=== PATIENT | male | born 1960 | race Caucasian/White ===

== ENCOUNTER → 2018-08-02 14:30 | Outpatient (CLI) | payer BC, SELFPAY ==
--- NOTE | 2018-08-02 14:41 | XR_ITS ---
XR chest 2V HISTORY: ITS.REASON: cp ORDERING PHYSICIAN: Gregory Najera MD PATIENT AGE: 58 years COMPARISON: 02/22/2013 FINDINGS: The cardiomediastinal silhouette and pulmonary vascularity are within normal limits. There is evidence of old granulomatous disease. No lobar consolidation or collapse. There is an old right eighth rib fracture.. IMPRESSION: No acute finding
== END ==
PROVIDERS: PCP Nurse Practitioner; Visit Provider Internal Medicine
DX: R06.00 Dyspnea, unspecified (principal); R07.9 Chest pain, unspecified; R94.31 Abnormal electrocardiogram [ECG] [EKG]
CPT/HCPCS: 71046

== ENCOUNTER → 2018-08-16 07:00 | Outpatient (CLI) | payer BC, SELFPAY ==
--- NOTE | 2018-08-16 07:05 | CA_ITS ---
PROCEDURE: 2-D M-mode and color Doppler study INDICATIONS FOR THE TEST: Chest pain+ COPD Heart Murmur Tobacco Smokingex Palpitations Fatigue+ Syncope Edema Hypertension Diabetes Mellitus Rheumatic Fever SOB+DOWNS Obesity Hyperlipidemia Family History HD+ Additional History Abn EKG PATIENT INFORMATION HEIGHT: 71 WEIGHT: 188 GENDER: Male B/P: 144/85 2-D/M-MODE INTERPRETATION: 2-D MEASUREMENTS OBSERVED VALUES IN CMS Right Ventricular Dimension (RVDd) 1.5 Interventricular Septum (Thickness)(IVsd) 0.6 Left Ventricular Internal Dimensions(LVIDd) 5.4 Left Ventricular Posterior Wall (Thickness)(LVPWd) 0.6 Aortic Root 3.2 Aortic Cusp Separation 2.2 Left Atrial Dimensions (LAD) 3.1 2D 1. Left atrium is normal size, left ventricle is normal size, there is no concentric left ventricular hypertrophy, there is severely reduced left ventricular systolic function, visually estimated ejection fraction 30%, there is marked hypokinesis involving mid to distal septum, anterior, anteroapical apex and anterolateral wall. 2. The right atrium and right ventricle are normal size and contractility. 3. The aortic valve is minimally thickened and fibrosed. 4. The mitral and tricuspid valvular grossly normal. 5. The pulmonic valve is poorly present. 6. No significant pericardial effusion noted. DOPPLER INTERROGATION: Doppler interrogation of the aortic, mitral and tricuspid valvular presence of mild mitral and tricuspid regurgitation, tricuspid regurgitation jet velocity is inadequate for calculation of the right ventricular systolic pressure, grade 1 diastolic dysfunction seen without tissue Doppler evidence of raised left atrial pressure. CONCLUSION: 1. Normal left ventricular size, severely reduced left ventricular systolic function, visually estimated ejection fraction 30% with multiple segmental wall motion abnormality described above, grade 1 diastolic dysfunction seen without tissue Doppler evidence of raised left atrial pressure. 2. Mild mitral and tricuspid regurgitation. 3. No significant pericardial effusion noted.
--- NOTE | 2018-08-16 07:05 | NM_ITS ---
CARDIOLITE SPECT MYOCARDIAL PERFUSION LEXISCAN, REST AND STRESS: [facility] REVIEW QGS EF AND WALL MOTION EVALUATION: QPS - PERFUSION EVALUATION HISTORY: Chest pain, HTN, Family history DOSE: 10.88 mCi technetium 99m mibi intravenously at rest followed by 29.7 mCi technetium 99m mibi following the intravenous ministration of 0.4 mg of Lexiscan. Resting blood pressure is 121/73. Stress blood pressure 125/74. FINDINGS: Ejection fraction is calculated to be 43%. Stress images reveal severely decreased activity in the mid anterior apical wall and throughout the entire inferior wall. The only significant tracer uptake involves the lateral wall. Rest images reveal no significant change IMPRESSION: Extensive mid anterior apical septal and inferior myocardial infarction with no reversible ischemia accompanied by anterior apical and inferior hypokinesis. This is a high risk abnormal stress test
--- NOTE | 2018-08-16 07:17 | HMH.ITSHM ---
Current Home Medications as stated by this patient Raffy Cheney or u.s. representative. []TERAZOSIN POTASSIUM LOSARTAN HYDROCHLOROTHIAZIDE VITAMIN D3
== END ==
PROVIDERS: PCP Nurse Practitioner; Visit Provider Urology
DX: R06.00 Dyspnea, unspecified (principal); R07.9 Chest pain, unspecified; R94.31 Abnormal electrocardiogram [ECG] [EKG]
CPT/HCPCS: 78452; 93017; 93306; A9502; J2785

== ENCOUNTER → 2018-09-13 12:49 | Outpatient (CLI) | payer BC, SELFPAY ==
[2018-09-13 13:04] LABS: Basophils % 0.5 % (0.1-2.0); Eosinophils # 0.1 K/mm3 (0.0-0.4); Hematocrit 40.5 % (42.0-52.0); Hemoglobin 13.9 g/dL (14.1-18.0); Lymphocytes # 1.3 K/mm3 (0.7-4.5); Lymphocytes % 17.8 % (10-50); Mean Corpuscular HGB Conc 34.2 g/dL (31.8-35.4); Mean Corpuscular Hemoglobin 33.1 pg (27.0-31.2); Mean Corpuscular Volume 96.6 fl (80-94); Mean Platelet Volume 7.8 fl (7.4-10.4); Monocytes # 0.5 K/mm3 (0.1-1.0); Monocytes % 7.1 % (1.7-9.3); Neutrophils # 5.2 K/mm3 (1.8-7.8); Neutrophils % 73.6 % (37.0-80.0); Platelet Count 191 K/mm3 (142-424); Red Blood Count 4.19 M/mm3 (4.60-6.20); Red Cell Distribution Width 13.5 % (11.5-17.5)
[2018-09-13 14:25] LABS: Anion Gap 12.6 mEq/L (5-15); Blood Urea Nitrogen 13 mg/dL (7-18); Calcium 9.1 mg/dL (8.5-10.1); Carbon Dioxide 27 mmol/L (21.0-32.0); Chloride 98 mmol/L (98-107); Creatinine,Serum 0.91 mg/dL (0.70-1.30); Estimated Glomerular Filt Rate 86 ml/min (>60); GFR (African American) 104 ML/MIN (>60); Glucose 100 mg/dL (74-106); Potassium 3.6 mmoL/L (3.5-5.1); Sodium 134 mmol/L (136-145)
== END ==
PROVIDERS: Visit Provider Internal Medicine
DX: Z95.5 Presence of coronary angioplasty implant and graft (principal)
CPT/HCPCS: 36415; 80048; 85025

== ENCOUNTER 2018-09-14 14:35 | Outpatient (RCR) | payer BC, SELFPAY | END 2018-11-15 13:51 | disposition home or self-care (01) | LOC: PT 14:35 | PROVIDERS: Visit Provider Internal Medicine | DX: Z95.5 Presence of coronary angioplasty implant and graft (principal) | CPT/HCPCS: 93798 ==

== ENCOUNTER → 2018-10-15 13:35 | Outpatient (CLI) | payer BC, SELFPAY | PROVIDERS: PCP Nurse Practitioner; Visit Provider Physician Assistant | DX: R07.9 Chest pain, unspecified (principal); R06.00 Dyspnea, unspecified; R94.31 Abnormal electrocardiogram [ECG] [EKG] | CPT/HCPCS: 93306 ==

== ENCOUNTER → 2018-11-22 09:40 | Outpatient (CLI) | payer BC, SELFPAY ==
[2018-11-22 10:53] LABS: Anion Gap 16.8 mEq/L (5-15); Blood Urea Nitrogen 7 mg/dL (7-18); Calcium 8.7 mg/dL (8.5-10.1); Carbon Dioxide 25 mmol/L (21.0-32.0); Chloride 101 mmol/L (98-107); Creatinine,Serum 0.77 mg/dL (0.70-1.30); Estimated Glomerular Filt Rate 104 ml/min (>60); GFR (African American) 126 ML/MIN (>60); Glucose 93 mg/dL (74-106); Magnesium 2.1 mg/dL (1.4-2.2); Potassium 3.8 mmoL/L (3.5-5.1); Sodium 139 mmol/L (136-145)
[2018-11-23 09:11] LABS: Vitamin B12 297 pg/mL (232-1245)
[2018-11-25 06:10] LABS: Folate 4.1 ng/mL (>3.0)
== END ==
PROVIDERS: Visit Provider Physician Assistant
DX: I25.10 Atherosclerotic heart disease of native coronary artery without angina pectoris (principal); D53.9 Nutritional anemia, unspecified
CPT/HCPCS: 36415; 80048; 82607; 82746; 83735

== ENCOUNTER → 2018-12-03 09:47 | Outpatient (CLI) | payer BC, SELFPAY ==
--- NOTE | 2018-12-03 09:48 | CA_ITS ---
APPROVED REPORT EXAM: Comprehensive 2D, Doppler, and color-flow Echocardiogram Occup Therapist: Adela Hickey RT(R) Ht: 5 ft 11 in Wt: 181lbs BSA: 2.02 BP: 146/88 mmHg Indications: CP, Palpitations, Fatigue, HTN, SOB, Hyperlipidemia 2D Dimensions LVOT 2.10 cm (M/F) 1.5-2.5 M-Mode Dimensions RVDd 1.60 cm (0.9-2.6) LA Diam 3.10 cm (1.9-4.0) LVDd 5.40 cm (3.5-5.7) Ao Diam 3.60 cm (2.0-3.7) LVDs 4.60 cm (3.5-5.7) AV Cusp 2.40 cm (1.5-2.6) IVSd 0.60 cm (0.6-1.1) PWd 0.80 cm (0.6-1.1) EF (Teich) 31.00% FS 14.80% EDV (Teich) 141.00 mL ESV (Teich) 97.30 mL LV Diastology E/A Ratio 1.4 MED E' 9.16 (< 7 cm/sec) E'/MED E' Ratio 10.60 (>14) LAT E' 10.90 (<10 cm/sec) E/LAT E' Ratio 8.90 (>14) Mitral Valve MV E Max Clay. 96.70 (40-130 cm/s) MV A Velocity 67.10 (40-130 cm/s) E/A Ratio 1.40 Left Ventricle Left atrium is mildly enlarged, left ventricle is mildly dilated, there is mild concentric left ventricular hypertrophy, severely reduced left ventricular systolic function, visually estimated ejection fraction of 20 to 25%, there is marked hypo-to akinesis involving the mid to distal septum, anterior, anterior apical apical anterolateral wall. Grade 1 diastolic dysfunction seen without tissue Doppler evidence of raise left atrial pressure. Right Ventricle Right atrium and right ventricular normal size and contractility. Aortic Valve Aortic valve is minimally thickened and fibrosed. Mitral Valve Mitral valve is grossly normal, there is mild mitral regurgitation. Tricuspid Valve Tricuspid valve is grossly normal, there is mild tricuspid regurgitation. Pulmonic Valve Pulmonic valve is poorly visualized. Great Vessels Aortic root is normal size. Pericardium No significant pericardial effusion noted. Conclusion 1. Mildly enlarged left atrium, mildly dilated left ventricle, visually estimated ejection fraction of 20 to 25% with multiple segmental wall motion abnormality described above, grade 1 diastolic dysfunction seen without tissue Doppler evidence of raise left atrial pressure. 2. Mild mitral and tricuspid regurgitation 3. No significant pericardial effusion noted. Electronically signed by : Inder Mitchell, 12/03/2018 11:13:46
== END ==
PROVIDERS: PCP Nurse Practitioner; Visit Provider Nurse Practitioner Family
DX: I11.9 Hypertensive heart disease without heart failure (principal); I25.110 Atherosclerotic heart disease of native coronary artery with unstable angina pectoris; I50.22 Chronic systolic (congestive) heart failure; I51.9 Heart disease, unspecified; R06.02 Shortness of breath; R53.83 Other fatigue; R94.31 Abnormal electrocardiogram [ECG] [EKG]; Z82.49 Family history of ischemic heart disease and other diseases of the circulatory system
CPT/HCPCS: 93306

== ENCOUNTER → 2019-03-08 10:37 | Outpatient (CLI) | payer OTHER, SELFPAY ==
--- NOTE | 2019-03-08 10:44 | CA_ITS ---
APPROVED REPORT EXAM: Comprehensive 2D, Doppler, and color-flow Echocardiogram Population Health Coach: Adela Hickey, RT(R) Ht: 5 ft 11 in Wt: 178lbs BSA: 2.01 BP: 117/79 mmHg Indications: CAD, Cardiomyopathy,AICD, EF 20-25% 12/03/18 2D Dimensions LVOT 2.12 cm (M/F) 1.5-2.5 M-Mode Dimensions RVDd 2.69 cm (0.9-2.6) LVDd 4.94 cm (3.5-5.7) LVDs 3.83 cm (3.5-5.7) IVSd 0.83 cm (0.6-1.1) PWd 0.97 cm (0.6-1.1) EF (Teich) 45.10% FS 22.50% EDV (Teich) 115.00 mL ESV (Teich) 63.10 mL LV Diastology E/A Ratio 0.60 Mitral Valve MV A Velocity 78.00 (40-130 cm/s) Left Ventricle Left atrium is mildly enlarged, left ventricle is normal size, mild concentric left ventricular hypertrophy, visually estimated ejection fraction 30%, there is marked hypokinesis involving mid to distal septum, anterior, anterior apical and apical wall. Right Ventricle Right atrium and right ventricular normal size and contractility, there is a pacemaker lead seen the right ventricle. Aortic Valve Aortic valve is minimally thickened and fibrosed, there is no aortic stenosis, there is no aortic insufficiency. Mitral Valve Mitral valve is grossly normal, there is mild mitral regurgitation. Tricuspid Valve Tricuspid valve is grossly normal, there is mild tricuspid regurgitation. Tricuspid regurgitation jet velocity is inadequate for calculation of the right ventricular systolic pressure. Pulmonic Valve Pulmonic valve is poorly visualized. Great Vessels Aortic root is normal size. Pericardium No significant pericardial effusion noted. Conclusion 1. Mildly enlarged left atrium, normal left ventricular size, mild concentric left ventricular hypertrophy, visually estimated ejection fraction 30%, with segmental wall motion abnormality described above. Grade 1 diastolic dysfunction seen without tissue Doppler evidence of raise left atrial pressure. 2. Mild mitral and tricuspid regurgitation. 3. No significant pericardial effusion noted. Electronically signed by : Inder Mitchell, 03/08/2019 20:47:04
== END ==
PROVIDERS: PCP Nurse Practitioner; Visit Provider Urology
DX: I25.10 Atherosclerotic heart disease of native coronary artery without angina pectoris (principal); I25.5 Ischemic cardiomyopathy; Z95.810 Presence of automatic (implantable) cardiac defibrillator
CPT/HCPCS: 93306

== ENCOUNTER → 2019-03-22 11:08 | Outpatient (CLI) | payer OTHER, SELFPAY ==
[2019-03-22 13:52] LABS: Anion Gap 13.9 mEq/L (5-15); Blood Urea Nitrogen 8 mg/dL (7-18); Calcium 8.9 mg/dL (8.5-10.1); Carbon Dioxide 27 mmol/L (21.0-32.0); Chloride 101 mmol/L (98-107); Creatinine,Serum 0.82 mg/dL (0.70-1.30); Estimated Glomerular Filt Rate 96 ml/min (>60); GFR (African American) 117 ML/MIN (>60); Glucose 93 mg/dL (74-106); Potassium 4.9 mmoL/L (3.5-5.1); Sodium 137 mmol/L (136-145)
== END ==
PROVIDERS: Visit Provider Physician Assistant
DX: R06.00 Dyspnea, unspecified (principal)
CPT/HCPCS: 36415; 80048

== ENCOUNTER → 2019-04-04 10:23 | Outpatient (CLI) | payer OTHER, SELFPAY ==
[2019-04-04 18:41] LABS: Anion Gap 16.8 mEq/L (5-15); Blood Urea Nitrogen 9 mg/dL (7-18); Calcium 9.4 mg/dL (8.5-10.1); Carbon Dioxide 27 mmol/L (21.0-32.0); Chloride 101 mmol/L (98-107); Estimated Glomerular Filt Rate 77 ml/min (>60); GFR (African American) 93 ML/MIN (>60); Glucose 132 mg/dL (74-106); Potassium 3.8 mmoL/L (3.5-5.1); Sodium 141 mmol/L (137-145)
== END ==
PROVIDERS: Visit Provider Physician Assistant
DX: I25.10 Atherosclerotic heart disease of native coronary artery without angina pectoris (principal); R06.02 Shortness of breath
CPT/HCPCS: 36415; 80048

== ENCOUNTER → 2019-04-19 11:36 | Outpatient (CLI) | payer OTHER, SELFPAY ==
--- NOTE | 2019-04-19 11:39 | XR_ITS ---
PROCEDURE: XR CHEST 2V CLINICAL HISTORY: breast tenderness. Heart disease COMPARISON: CXR1 CHEST-PORTABLE from 02/22/2013 XR CHEST PORTABLE from 12/15/2018 FINDINGS: AICD device is present from left subclavian approach in good position. Normal heart size. Coronary artery stent is present Old granulomatous disease. No lobar consolidation or collapse. No acute bony abnormalities. IMPRESSION: No change with no acute finding Dictated by: Sam Gurrola MD 04/19/2019 12:11 Electronically signed by Sam Gurrola MD in [place] 04/19/2019 12:11
== END ==
PROVIDERS: PCP Family Medicine; Visit Provider Urology
DX: I25.10 Atherosclerotic heart disease of native coronary artery without angina pectoris (principal); I25.5 Ischemic cardiomyopathy; I50.20 Unspecified systolic (congestive) heart failure; I50.22 Chronic systolic (congestive) heart failure; N64.4 Mastodynia; Z95.810 Presence of automatic (implantable) cardiac defibrillator
CPT/HCPCS: 71046

== ENCOUNTER → 2019-04-26 10:45 | Outpatient (CLI) | payer OTHER, SELFPAY ==
[2019-04-26 11:43] LABS: Blood Urea Nitrogen 7 mg/dl (9-20); Calcium 9.9 mg/dl (8.4-10.2); Carbon Dioxide 26 mmol/L (22.0-30.0); Chloride 96 mmol/L (98-107); Estimated Glomerular Filt Rate 116 ml/min (>60); GFR (African American) 140 ML/MIN (>60); Glucose 100 mg/dl (74-100); Sodium 133 mmol/L (136-145)
== END ==
PROVIDERS: Visit Provider Urology
DX: I25.10 Atherosclerotic heart disease of native coronary artery without angina pectoris; I25.5 Ischemic cardiomyopathy; I50.20 Unspecified systolic (congestive) heart failure
CPT/HCPCS: 36415; 80048

== ENCOUNTER → 2019-05-04 10:36 | Outpatient (CLI) | payer OTHER, SELFPAY ==
[2019-05-04 14:44] LABS: Anion Gap 15.4 mEq/L (5-15); Blood Urea Nitrogen 8 mg/dl (9-20); Calcium 9.5 mg/dl (8.4-10.2); Carbon Dioxide 28 mmol/L (22.0-30.0); Chloride 100 mmol/L (98-107); Estimated Glomerular Filt Rate 116 ml/min (>60); GFR (African American) 140 ML/MIN (>60); Glucose 97 mg/dl (74-100); Potassium 4.4 mmoL/L (3.5-5.1); Sodium 139 mmol/L (136-145)
== END ==
PROVIDERS: Visit Provider Urology
DX: E87.1 Hypo-osmolality and hyponatremia (principal)
CPT/HCPCS: 36415; 80048

== ENCOUNTER → 2021-01-11 11:22 | Outpatient (CLI) | payer BC, SELFPAY ==
--- NOTE | 2021-01-11 11:29 | XR_ITS ---
PROCEDURE: XR FOOT RT MIN 3V CLINICAL INDICATION: PAIN OF RT HEEL COMPARISON: No exams were available for comparison FINDINGS: No fracture or dislocation. No lytic or blastic change. There is normal mineralization. The joint spaces are well-preserved. No significant degenerative/arthritic changes. No erosive changes evident. Other findings:Generalized vascular calcification. IMPRESSION: No acute findings. Dictated by: Sam Gurrola MD 01/11/2021 14:58 Sam Gurrola MD in [place] 01/11/2021 14:58
--- NOTE | 2021-01-11 11:29 | XR_ITS ---
PROCEDURE: XR LUMBAR SPINE MIN 4V CLINICAL INDICATION: ACUTE LT SIDED LOW BACK PAIN W/O SCIATICA COMPARISON: CR LS5 LUMBAR SPINE 5 VIEWS from 01/02/2017 FINDINGS: No fracture or dislocation. No lytic or blastic change. There is normal mineralization. Mild degenerative disc disease at L4-5 with prominent anterior osteophytes at that level and smaller osteophytes at L2, L3, and L1. There is generalized vascular calcification. The SI joints have an unremarkable appearance. Other findings:None. IMPRESSION: Degenerative changes, no acute finding. Increasing size anterior osteophytes at L4-L5 compared to the previous exam Dictated by: Sam Gurrola MD 01/11/2021 14:57 Sam Gurrola MD in [place] 01/11/2021 14:57
== END ==
PROVIDERS: PCP Family Medicine; Visit Provider Nurse Practitioner Family
DX: M54.50 Low back pain, unspecified (principal); M79.671 Pain in right foot
CPT/HCPCS: 72110; 73630

== ENCOUNTER → 2021-03-18 09:10 | Outpatient (CLI) | payer MEDICARE, SELFPAY | PROVIDERS: Visit Provider Nurse Practitioner | DX: U07.1 COVID-19 (principal) | CPT/HCPCS: C9803; U0003; U0005 ==

== ENCOUNTER → 2021-05-10 16:20 | Outpatient (CLI) | payer MEDICARE, SELFPAY ==
[2021-05-10 17:05] LABS: Basophils # 0.1 K/mm3 (0-0.2); Basophils % 1.5 % (0.1-2.0); Eosinophils # 0.2 K/mm3 (0.0-0.4); Eosinophils % 2.5 % (0.1-12.0); Hematocrit 37.4 % (42.0-52.0); Hemoglobin 12.3 g/dL (14.1-18.0); Lymphocytes # 1.3 K/mm3 (0.7-4.5); Lymphocytes % 15.3 % (10-50); Mean Corpuscular HGB Conc 32.9 g/dL (31.8-35.4); Mean Corpuscular Hemoglobin 34.8 pg (27.0-31.2); Mean Corpuscular Volume 105.7 fl (80-94); Mean Platelet Volume 8.7 fl (7.4-10.4); Monocytes # 0.6 K/mm3 (0.1-1.0); Monocytes % 6.4 % (1.7-9.3); Neutrophils # 6.4 K/mm3 (1.8-7.8); Neutrophils % 74.3 % (37.0-80.0); Platelet Count 273 K/mm3 (142-424); Red Blood Count 3.54 M/mm3 (4.60-6.20); Red Cell Distribution Width 17.9 % (11.5-17.5); White Blood Count 8.6 K/mm3 (4.8-10.8)
[2021-05-10 17:54] LABS: Chloride 102 mmol/L (98-107); Potassium 3.9 mmoL/L (3.5-5.1); Sodium 138 mmol/L (136-145)
[2021-05-10 17:56] LABS: Alanine Aminotransferase 28 U/L (12-78); Aspartate Amino Transferase 31 U/L (17-59); Blood Urea Nitrogen 6 mg/dl (9-20); Estimated Glomerular Filt Rate 115 ml/min (>60); GFR (African American) 139 ML/MIN (>60)
[2021-05-10 17:57] LABS: Albumin Level 3.8 g/dl (3.5-5.0); Albumin/Globulin Ratio 1.3 (1.1-1.8); Alkaline Phosphatase 121 U/L (38-126); Bilirubin,Total 0.8 mg/dl (0.2-1.3); Calcium 8.4 mg/dl (8.4-10.2); Carbon Dioxide 27 mmol/L (22.0-30.0); Glucose 100 mg/dl (74-100); Total Protein,Serum 6.8 g/dl (6.3-8.2)
[2021-05-10 18:30] LABS: Ferritin 461 ng/ml (17.9-464)
== END ==
PROVIDERS: Visit Provider Nurse Practitioner Family
DX: D50.9 Iron deficiency anemia, unspecified (principal); I10 Essential (primary) hypertension
CPT/HCPCS: 36415; 80053; 82728; 85025

== ENCOUNTER → 2021-09-09 10:55 | Outpatient (CLI) | payer MEDICARE, SELFPAY ==
--- NOTE | 2021-09-09 10:59 | XR_ITS ---
FINAL REPORT CLINICAL HISTORY: ACUTE RIGHT SHOULDER PAIN. DECREASED ROM OF RIGHT SHOULDER, pain for 1 month FINDINGS: RIGHT SHOULDER: 3 views of the right shoulder were obtained. There is no acute fracture or dislocation. There is moderate acromioclavicular and mild glenohumeral degenerative change. There is no soft tissue abnormality. IMPRESSION: Degenerative change with no acute bony abnormality. Reviewed, Interpreted and Dictated by Edi Shaw III, MD Transcribed by Callie Foster Authenticated and [facility]
== END ==
PROVIDERS: PCP Nurse Practitioner Family; Visit Provider Nurse Practitioner Family
DX: M25.511 Pain in right shoulder (principal); M25.611 Stiffness of right shoulder, not elsewhere classified
CPT/HCPCS: 73030

== ENCOUNTER → 2022-09-15 14:33 | Outpatient (CLI) | payer MEDICARE, SELFPAY ==
--- NOTE | 2022-09-15 14:40 | XR_ITS ---
FINAL REPORT TECHNIQUE: Two views CLINICAL HISTORY: ACUTE COUGH,SOB COMPARISON: 12/15/2018 FINDINGS: No acute pulmonary density is present. Mediastinal contour is normal. Calcified granulomas are present as seen on the prior exam of 2019. Heart size is stable. A left subclavian pacemaker is once again noted. IMPRESSION: Stable chest exam without acute disease Reviewed, Interpreted and Dictated by Albert Theodore MD Transcribed by Linda Vickers Authenticated and [facility]
[2022-09-15 15:12] LABS: Basophils % 0.4 % (0.1-2.0); Eosinophils # 0.2 K/mm3 (0.0-0.4); Eosinophils % 1.8 % (0.1-12.0); Hematocrit 44.3 % (42.0-52.0); Hemoglobin 14.5 g/dL (14.1-18.0); Lymphocytes # 1.5 K/mm3 (0.7-4.5); Lymphocytes % 15.1 % (10-50); Mean Corpuscular HGB Conc 32.6 g/dL (31.8-35.4); Mean Corpuscular Hemoglobin 34.9 pg (27.0-31.2); Mean Platelet Volume 7.9 fl (7.4-10.4); Monocytes # 0.7 K/mm3 (0.1-1.0); Monocytes % 7.4 % (1.7-9.3); Neutrophils # 7.4 K/mm3 (1.8-7.8); Neutrophils % 75.4 % (37.0-80.0); Platelet Count 184 K/mm3 (142-424); Red Blood Count 4.14 M/mm3 (4.60-6.20); White Blood Count 9.8 K/mm3 (4.8-10.8)
[2022-09-15 17:11] LABS: Alanine Aminotransferase 29 U/L (12-78); Albumin Level 4.9 g/dl (3.5-5.0); Albumin/Globulin Ratio 1.6 (1.1-1.8); Alkaline Phosphatase 111 U/L (38-126); Anion Gap 11.7 mEq/L (5-15); Aspartate Amino Transferase 38 U/L (17-59); Bilirubin,Total 0.6 mg/dl (0.2-1.3); Blood Urea Nitrogen 10 mg/dl (9-20); Calcium 9.5 mg/dl (8.4-10.2); Carbon Dioxide 31 mmol/L (22.0-30.0); Chloride 99 mmol/L (98-107); Estimated Glomerular Filt Rate 98 ml/min (>60); GFR (African American) 119 ML/MIN (>60); Glucose 106 mg/dl (74-100); Potassium 3.7 mmoL/L (3.5-5.1); Sodium 138 mmol/L (136-145); Total Protein,Serum 7.9 g/dl (6.3-8.2)
[2022-09-15 17:16] LABS: NT Pro Brain Natriuretic Pep. 121 pg/mL (0-125)
== END ==
PROVIDERS: PCP Nurse Practitioner Family; Visit Provider Nurse Practitioner Family
DX: R05.1 Acute cough (principal); R06.02 Shortness of breath
CPT/HCPCS: 36415; 71046; 80053; 83880; 85025

== ENCOUNTER 2023-04-07 14:55 | Outpatient (CLI) | payer MEDICARE, SELFPAY ==
[2023-04-07 15:29] LABS: Basophils % 0.2 % (0.1-2.0); Eosinophils # 0.2 K/mm3 (0.0-0.4); Eosinophils % 1.7 % (0.1-12.0); Hematocrit 44.3 % (42.0-52.0); Hemoglobin 15.2 g/dL (14.1-18.0); Lymphocytes # 1.8 K/mm3 (0.7-4.5); Lymphocytes % 20.4 % (10-50); Mean Corpuscular HGB Conc 34.4 g/dL (31.8-35.4); Mean Corpuscular Hemoglobin 36.8 pg (27.0-31.2); Mean Corpuscular Volume 106.9 fl (80-94); Mean Platelet Volume 8.2 fl (7.4-10.4); Monocytes # 0.6 K/mm3 (0.1-1.0); Monocytes % 6.5 % (1.7-9.3); Neutrophils # 6.4 K/mm3 (1.8-7.8); Neutrophils % 71.1 % (37.0-80.0); Platelet Count 188 K/mm3 (142-424); Red Blood Count 4.14 M/mm3 (4.60-6.20); Red Cell Distribution Width 13.9 % (11.5-17.5)
[2023-04-07 16:12] LABS: Chloride 103 mmol/L (98-107); Potassium 4.2 mmoL/L (3.5-5.1); Sodium 138 mmol/L (136-145)
[2023-04-07 16:15] LABS: Alanine Aminotransferase 29 U/L (12-78); Alkaline Phosphatase 113 U/L (38-126); Aspartate Amino Transferase 44 U/L (17-59); Blood Urea Nitrogen 7 mg/dl (9-20); Cholesterol 170 mg/dl (140-200); Estimated Glomerular Filt Rate 114 ml/min (>60); GFR (African American) 138 ML/MIN (>60); Triglycerides 71 mg/dl (30-150); VLDL Cholesterol 14 mg/dL (0-40)
[2023-04-07 16:16] LABS: Calcium 9.2 mg/dl (8.4-10.2); Chol/HDL Ratio 2.6 (1-3.5); Glucose 83 mg/dl (74-100); HDL Cholesterol 65 mg/dl (40-60)
[2023-04-07 16:46] LABS: Thyroid Stimulating Hormone 1.17 uIU/mL (0.465-4.68)
[2023-04-07 16:58] LABS: Albumin/Globulin Ratio 1.5 (1.1-1.8); Anion Gap 12.2 mEq/L (5-15); Globulin 3.2 g/dL (1.3-3.2)
[2023-04-07 16:59] LABS: Albumin Level 4.8 g/dl (3.5-5.0); Carbon Dioxide 27 mmol/L (22.0-30.0)
[2023-04-07 17:20] LABS: Direct LDL Cholesterol 88.72 mg/dL (100-129)
== END 2023-04-07 23:59 ==
LOC: LAB.DROPOF 14:55
PROVIDERS: PCP Nurse Practitioner Family; Visit Provider Nurse Practitioner Family
DX: I10 Essential (primary) hypertension (principal); R19.7 Diarrhea, unspecified; E78.5 Hyperlipidemia, unspecified
CPT/HCPCS: 80053; 80061; 84443; 85025

== ENCOUNTER 2023-04-13 09:28 | Outpatient (CLI) | payer MEDICARE, SELFPAY | END 2023-04-13 23:59 | LOC: LAB.DROPOF 09:29 | PROVIDERS: PCP Nurse Practitioner Family; Visit Provider Nurse Practitioner Family | DX: R19.7 Diarrhea, unspecified (principal) | CPT/HCPCS: 87045 ==

== ENCOUNTER 2023-05-12 12:34 | Outpatient (CLI) | payer MEDICARE, SELFPAY | END 2023-05-12 23:59 | LOC: LAB.DROPOF 12:34 | PROVIDERS: PCP Nurse Practitioner Family; Visit Provider Nurse Practitioner Family | DX: R68.83 Chills (without fever) (principal); R51.9 Headache, unspecified | CPT/HCPCS: 87635 ==

== ENCOUNTER 2023-10-27 16:37 | Outpatient (CLI) | payer MEDICARE, SELFPAY ==
[2023-10-27 13:16] LABS: Basophils % 0.3 % (0.1-2.0); Eosinophils # 0.1 K/mm3 (0.0-0.4); Eosinophils % 1.9 % (0.1-12.0); Hematocrit 47.9 % (42.0-52.0); Hemoglobin 15.5 g/dL (14.1-18.0); Lymphocytes % 18.1 % (10-50); Mean Corpuscular HGB Conc 32.4 g/dL (31.8-35.4); Mean Corpuscular Hemoglobin 36.5 pg (27.0-31.2); Mean Corpuscular Volume 112.6 fl (80-94); Monocytes # 0.6 K/mm3 (0.1-1.0); Monocytes % 10.8 % (1.7-9.3); Neutrophils # 3.9 K/mm3 (1.8-7.8); Neutrophils % 68.8 % (37.0-80.0); Platelet Count 139 K/mm3 (142-424); Red Blood Count 4.25 M/mm3 (4.60-6.20); Red Cell Distribution Width 14.6 % (11.5-17.5); White Blood Count 5.7 K/mm3 (4.8-10.8)
[2023-10-27 13:36] LABS: Alanine Aminotransferase 32 U/L (12-78); Albumin Level 4.1 g/dl (3.5-5.0); Albumin/Globulin Ratio 1.3 (1.1-1.8); Alkaline Phosphatase 94 U/L (38-126); Aspartate Amino Transferase 45 U/L (17-59); Bilirubin,Total 0.8 mg/dl (0.2-1.3); Blood Urea Nitrogen 8 mg/dl (9-20); Calcium 8.9 mg/dl (8.4-10.2); Carbon Dioxide 30 mmol/L (22.0-30.0); Chloride 102 mmol/L (98-107); Chol/HDL Ratio 2.6 (1-3.5); Cholesterol 164 mg/dl (140-200); Estimated Glomerular Filt Rate 114 ml/min (>60); GFR (African American) 138 ML/MIN (>60); Globulin 3.2 g/dL (1.3-3.2); Glucose 83 mg/dl (74-100); HDL Cholesterol 62 mg/dl (40-60); Sodium 137 mmol/L (136-145); Total Protein,Serum 7.3 g/dl (6.3-8.2); Triglycerides 102 mg/dl (30-150); VLDL Cholesterol 20 mg/dL (0-40)
[2023-10-27 13:48] LABS: Direct LDL Cholesterol 80.43 mg/dL (100-129)
[2023-10-27 14:08] LABS: Thyroid Stimulating Hormone 1.57 uIU/mL (0.465-4.68)
[2023-10-27 14:48] LABS: Ferritin 422 ng/ml (17.9-464)
== END 2023-10-27 23:59 | disposition home or self-care (01) ==
LOC: LAB.DROPOF 16:37
PROVIDERS: PCP Nurse Practitioner Family; Visit Provider Nurse Practitioner Family
DX: D50.9 Iron deficiency anemia, unspecified (principal); E78.2 Mixed hyperlipidemia; B34.9 Viral infection, unspecified; R53.83 Other fatigue; I73.9 Peripheral vascular disease, unspecified; I25.10 Atherosclerotic heart disease of native coronary artery without angina pectoris
CPT/HCPCS: 80050; 80053; 80061; 82728; 84443; 85025; 87635

== ENCOUNTER 2023-12-21 15:10 | Outpatient (CLI) | payer MEDICARE, SELFPAY ==
[2023-12-21 15:43] LABS: Chloride 102 mmol/L (98-107); Sodium 138 mmol/L (136-145)
[2023-12-21 15:51] LABS: Potassium 3.7 mmoL/L (3.5-5.1)
[2023-12-21 15:53] LABS: Blood Urea Nitrogen 6 mg/dl (9-20); Estimated Glomerular Filt Rate 98 ml/min (>60); GFR (African American) 118 ML/MIN (>60)
[2023-12-21 15:54] LABS: Anion Gap 12.7 mEq/L (5-15); Calcium 9.2 mg/dl (8.4-10.2); Carbon Dioxide 27 mmol/L (22.0-30.0); Glucose 102 mg/dl (74-100); Magnesium 1.6 mg/dl (1.6-2.3)
== END 2023-12-21 23:59 | disposition home or self-care (01) ==
LOC: LAB 15:11
PROVIDERS: PCP Nurse Practitioner Family; Visit Provider Nurse Practitioner Family
DX: I25.5 Ischemic cardiomyopathy (principal); I25.10 Atherosclerotic heart disease of native coronary artery without angina pectoris
CPT/HCPCS: 36415; 80048; 83735

== ENCOUNTER 2024-02-08 15:02 | Outpatient (CLI) | payer MEDICARE, SELFPAY ==
--- NOTE | 2024-02-08 15:02 | CT_ITS ---
FINAL REPORT CLINICAL HISTORY: lung cancer screening FORMER SMOKER QUIT 10 YEARS AGO, 1.5PPD X20 YEARS COMPARISON: None FINDINGS: CT CHEST LOW DOSE SCREENING HISTORY: Screening exam for lung cancer. 63-year-old male, former smoker who quit 10 years ago, 30 pack year smoking history DOSE: CTDIvol: 2.9 mGy, DLP: 104.2 mGy*cm COMPARISON: None . TECHNIQUE: Axial CT without IV contrast administration using low dose protocol. This study was performed with techniques to keep radiation doses as low as reasonably achievable, (ALARA). Individualized dose reduction techniques using automated exposure control or adjustment of mA and/or kV according to the patient's size were employed. FINDINGS: No acute lung disease is present . There is interstitial scarring present bilaterally, more prominent on the left. Multiple calcified granulomas are present. No enlarged noncalcified nodules are identified. No pulmonary lesions are seen suspicious for neoplasm. No pleural or pericardial effusion is seen . No adenopathy or mass lesion is present . IMPRESSION: 1. No evidence of lung cancer LUNG RADS CATEGORY 1 RECOMMENDATION: 12 month LDCT follow up Reviewed, Interpreted and Dictated by Albert Theodore MD Transcribed by Linda Vickers Authenticated and [facility]
== END 2024-02-08 23:59 | disposition home or self-care (01) ==
LOC: RAD 15:02
PROVIDERS: PCP Nurse Practitioner Family; Visit Provider Nurse Practitioner Family
DX: Z87.891 Personal history of nicotine dependence (principal); J44.9 Chronic obstructive pulmonary disease, unspecified
CPT/HCPCS: 71271

== ENCOUNTER 2024-04-26 12:17 | Outpatient (CLI) | payer OTHER, SELFPAY ==
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
== END 2024-04-26 23:59 | disposition home or self-care (01) ==
LOC: RAD 12:21
PROVIDERS: PCP Nurse Practitioner Family; Visit Provider Physician Assistant
DX: M25.511 Pain in right shoulder (principal); S42.211A Unspecified displaced fracture of surgical neck of right humerus, initial encounter for closed fracture
CPT/HCPCS: 73060

== ENCOUNTER 2024-05-10 10:14 | Outpatient (CLI) | payer OTHER, SELFPAY ==
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
== END 2024-05-10 23:59 | disposition home or self-care (01) ==
LOC: RAD 10:15
PROVIDERS: PCP Nurse Practitioner Family; Visit Provider Physician Assistant
DX: M79.621 Pain in right upper arm (principal); S42.211A Unspecified displaced fracture of surgical neck of right humerus, initial encounter for closed fracture
CPT/HCPCS: 73060

== ENCOUNTER 2024-05-17 09:53 | Outpatient (CLI) | payer OTHER, SELFPAY ==
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
== END 2024-05-17 23:59 | disposition home or self-care (01) ==
LOC: RAD 09:54
PROVIDERS: PCP Nurse Practitioner Family; Visit Provider Physician Assistant
DX: M79.621 Pain in right upper arm (principal); S42.211A Unspecified displaced fracture of surgical neck of right humerus, initial encounter for closed fracture
CPT/HCPCS: 73060

== ENCOUNTER 2024-06-07 09:47 | Outpatient (CLI) | payer OTHER, SELFPAY ==
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
--- OUTSIDE RECORDS SUMMARY | 2024-06-07 09:50 | XMS_ITS ---
Author Organization Unknown TREATMENT PLAN [facility] Start Date Provider Encounter for Check-up [id number] CARMEN Cuellar
== END 2024-06-07 23:59 | disposition home or self-care (01) ==
LOC: RAD 09:48
PROVIDERS: PCP Nurse Practitioner Family; Visit Provider Physician Assistant
DX: S42.211D Unspecified displaced fracture of surgical neck of right humerus, subsequent encounter for fracture with routine healing (principal); M25.511 Pain in right shoulder
CPT/HCPCS: 73030

== ENCOUNTER 2024-06-20 07:49 | Outpatient (RCR) | payer OTHER, SELFPAY ==
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
== END 2024-06-20 23:59 | disposition home or self-care (01) ==
LOC: OT 07:49
PROVIDERS: Visit Provider Physician Assistant
DX: S42.211A Unspecified displaced fracture of surgical neck of right humerus, initial encounter for closed fracture (principal)
CPT/HCPCS: 97166; 97530

== ENCOUNTER 2024-07-05 08:57 | Outpatient (CLI) | payer OTHER, SELFPAY ==
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
== END 2024-07-05 23:59 | disposition home or self-care (01) ==
LOC: RAD 08:58
PROVIDERS: PCP Nurse Practitioner Family; Visit Provider Physician Assistant
DX: S42.211D Unspecified displaced fracture of surgical neck of right humerus, subsequent encounter for fracture with routine healing (principal)
CPT/HCPCS: 73060

== ENCOUNTER 2024-07-21 09:00 | Outpatient (RCR) | payer OTHER, SELFPAY | END 2024-07-21 23:59 | disposition home or self-care (01) | LOC: OT 09:00 | PROVIDERS: Visit Provider Physician Assistant | DX: S42.211A Unspecified displaced fracture of surgical neck of right humerus, initial encounter for closed fracture (principal) | CPT/HCPCS: 97010; 97110; 97140 ==

== ENCOUNTER 2024-08-11 08:03 | Outpatient (CLI) | payer MEDICARE, SELFPAY ==
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
== END 2024-08-11 23:59 | disposition home or self-care (01) ==
LOC: RAD 08:04
PROVIDERS: PCP Nurse Practitioner Family; Visit Provider Orthopaedic Surgery
DX: S42.211S Unspecified displaced fracture of surgical neck of right humerus, sequela (principal)
CPT/HCPCS: 73060

== ENCOUNTER 2024-08-16 14:29 | Outpatient (CLI) | payer MEDICARE, SELFPAY ==
--- NOTE | 2024-08-16 14:32 | XR_ITS ---
FINAL REPORT CLINICAL HISTORY: constipation FINDINGS: ABDOMEN COMPLETE INCL DECUB/ERECT There is a nonspecific bowel gas pattern. No abnormal dilatation is identified. There is vascular calcification. There is no abnormal calcification. No free air is identified. IMPRESSION: Nonspecific bowel gas pattern. Reviewed, Interpreted and Dictated by Albert Theodore MD Transcribed by Yue Naylor Authenticated and [facility]
--- NOTE | 2024-08-16 14:32 | XR_ITS ---
FINAL REPORT CLINICAL HISTORY: shortness of breath x 2 weeks COMPARISON: 09/15/2022 FINDINGS: No acute pulmonary density is evident. There is evidence of old granulomatous disease. Left-sided pacer is again identified. There is no evidence of effusion or other pleural disease. There is a large left tension pneumothorax with shift of the mediastinal structures to the right. The right lung is clear. The cardiac silhouette is unremarkable. IMPRESSION: Large left tension pneumothorax. Brit Garcia, radiology assistant was notified of findings on 08/16/2024 at 3:26 PM. Reviewed, Interpreted and Dictated by Albert Theodore MD Transcribed by Yue Naylor Authenticated and [facility]
[2024-08-16 17:16] LABS: Basophils % 0.4 % (0.1-2.0); Eosinophils # 0.1 Kmm3 (0.0-0.4); Eosinophils % 1.4 % (0.1-12.0); Hematocrit 42.4 % (42.0-52.0); Hemoglobin 14.3 g/dL (14.1-18.0); Immature Granulocytes # 0.03 10^3uL; Immature Granulocytes % 0.3 %; Lymphocytes # 1.3 K/mm3 (0.7-4.5); Lymphocytes % 14.4 % (10-50); Mean Corpuscular HGB Conc 33.7 g/dL (31.8-35.4); Mean Corpuscular Hemoglobin 35.1 pg (27.0-31.2); Mean Corpuscular Volume 104.2 fl (80-94); Mean Platelet Volume 10.2 fl (7.4-10.4); Neutrophils # 6.5 K/mm3 (1.8-7.8); Neutrophils % 72.5 % (37.0-80.0); Nucleated Red Blood Cells # 0 10^3/uL; Nucleated Red Blood Cells % 0 %; Platelet Count 181 K/mm3 (142-424); Red Blood Count 4.07 M/mm3 (4.60-6.20); Red Cell Distribution Width 13.4 % (11.5-17.5); Red Cell Distribution Width-SD 51.5 fL
[2024-08-16 17:47] LABS: Albumin Level 5.1 g/dl (3.5-5.0); Chloride 92 mmol/L (98-107)
[2024-08-16 17:48] LABS: Potassium 4.2 mmoL/L (3.5-5.1); Sodium 133 mmol/L (136-145)
[2024-08-16 17:50] LABS: Alanine Aminotransferase 35 U/L (12-78); Albumin/Globulin Ratio 1.5 (1.1-1.8); Alkaline Phosphatase 95 U/L (38-126); Anion Gap 19.2 mEq/L (5-15); Aspartate Amino Transferase 58 U/L (17-59); Bilirubin,Total 1.6 mg/dl (0.2-1.3); Blood Urea Nitrogen 13 mg/dl (9-20); Carbon Dioxide 26 mmol/L (22.0-30.0); Estimated Glomerular Filt Rate 75 ml/min (>60); GFR (African American) 91 ML/MIN (>60); Globulin 3.3 g/dL (1.3-3.2); Total Protein,Serum 8.4 g/dl (6.3-8.2)
[2024-08-16 17:51] LABS: Calcium 9.4 mg/dl (8.4-10.2); Chol/HDL Ratio 2.3 (1-3.5); Cholesterol 125 mg/dl (140-200); Glucose 101 mg/dl (74-100); HDL Cholesterol 55 mg/dl (40-60); Triglycerides 96 mg/dl (30-150); VLDL Cholesterol 19 mg/dL (0-40)
[2024-08-16 18:02] LABS: Direct LDL Cholesterol 42.98 mg/dL (100-129)
[2024-08-16 18:25] LABS: Thyroid Stimulating Hormone 1.41 uIU/mL (0.465-4.68)
[2024-08-16 18:29] LABS: Ferritin 307 ng/ml (17.9-464)
== END 2024-08-16 23:59 | disposition home or self-care (01) ==
LOC: RAD 14:30
PROVIDERS: PCP Nurse Practitioner Family; Visit Provider Nurse Practitioner Family
DX: J93.0 Spontaneous tension pneumothorax (principal); R93.3 Abnormal findings on diagnostic imaging of other parts of digestive tract; K59.00 Constipation, unspecified; D50.9 Iron deficiency anemia, unspecified; E78.5 Hyperlipidemia, unspecified; R06.09 Other forms of dyspnea
CPT/HCPCS: 71046; 74019; 80053; 80061; 82728; 83735; 84443; 85025

== ENCOUNTER 2024-08-16 15:36 | Inpatient (IN) | payer MEDICARE, SELFPAY ==
[2024-08-16 15:55] VITALS: BP 134/87; PULSE 90; RESP 24; TEMP 36.9; O2SAT 97; BMI 23.6
--- NOTE | 2024-08-16 16:19 | XR_ITS ---
FINAL REPORT CLINICAL HISTORY: POST- CHEST TUBE PLACEMENT COMPARISON: 08/16/2024 FINDINGS: There has been interval placement of the left pigtail catheter. Small residual left pneumothorax is present measuring 20 to 30%. Apical pleural separation measures up to 23 mm. There is mild atelectasis. Left-sided pacer is identified. Mediastinum is unremarkable. Heart size is normal. IMPRESSION: Small residual left pneumothorax, moderately improved following left pleural catheter placement. Reviewed, Interpreted and Dictated by Albert Theodore MD Transcribed by Yue Naylor Authenticated and . [facility]
--- NOTE | 2024-08-16 16:26 | ECG_ITS ---
APPROVED REPORT Exam: Resting ECG HR:83 bpm ECG Measurements Heart Rate 83 AXES SD 183 P 57 QRSd 120 QRS -20 QT 396 T -36 QTc 436 Conclusion SINUS RHYTHM WITH FREQUENT VENTRICULAR PREMATURE COMPLEXES WITH FREQUENT SUPRAVENTRICULAR PREMATURE COMPLEXES ANTERIOR MYOCARDIAL INFARCTION , OF INDETERMINATE AGE [40+ ms Q WAVE AND/OR ST/T ABNORMALITY IN V3/V4] POSSIBLE INFERIOR MYOCARDIAL INFARCTION , OF INDETERMINATE AGE [30 ms Q WAVE IN II/aVF] ABNORMAL ECG Electronically signed by : LOREN MIMS, 08/16/2024 23:40:12
[2024-08-16 16:30] LABS: Basophils % 0.4 % (0.1-2.0); Eosinophils # 0.1 Kmm3 (0.0-0.4); Eosinophils % 1.2 % (0.1-12.0); Hematocrit 41.7 % (42.0-52.0); Hemoglobin 14.5 g/dL (14.1-18.0); Immature Granulocytes # 0.03 10^3uL; Immature Granulocytes % 0.3 %; Lymphocytes # 1.7 K/mm3 (0.7-4.5); Lymphocytes % 18.5 % (10-50); Mean Corpuscular HGB Conc 34.8 g/dL (31.8-35.4); Mean Corpuscular Hemoglobin 36.1 pg (27.0-31.2); Mean Corpuscular Volume 103.7 fl (80-94); Monocytes # 1.1 K/mm3 (0.1-1.0); Neutrophils % 67.6 % (37.0-80.0); Nucleated Red Blood Cells # 0 10^3/uL; Nucleated Red Blood Cells % 0 %; Platelet Count 176 K/mm3 (142-424); Red Blood Count 4.02 M/mm3 (4.60-6.20); Red Cell Distribution Width 13.2 % (11.5-17.5); Red Cell Distribution Width-SD 50.2 fL; White Blood Count 8.9 K/mm3 (4.8-10.8)
[2024-08-16] MEDS: FENTANYL 100MCG/2ML VIAL 50 MCG IV (16:30)
--- NOTE | 2024-08-16 16:31 | PC.NURSE ---
1550 pt placed on 3lnc 1557-Lidocaine administered to Left chest 134/87,91,93% rr 28 1600 Chest tube inserted into left chest. pt tolerated well. 128/85,91,95% 1605-radiology @bedside 141/98,90,93 1610 pleurovac initiated 115/77,91-94% 1615-127/76,95,93%
[2024-08-16 16:33] LABS: Chloride 93 mmol/L (98-107)
[2024-08-16 16:34] LABS: Albumin Level 4.9 g/dl (3.5-5.0); Potassium 3.8 mmoL/L (3.5-5.1); Sodium 134 mmol/L (136-145)
[2024-08-16 16:36] LABS: Alanine Aminotransferase 39 U/L (12-78); Anion Gap 17.8 mEq/L (5-15); Aspartate Amino Transferase 58 U/L (17-59); Blood Urea Nitrogen 13 mg/dl (9-20); Carbon Dioxide 27 mmol/L (22.0-30.0); Creatinine Clearance Estimated 77 mL/min (50-200); Estimated Glomerular Filt Rate 75 ml/min (>60); GFR (African American) 91 ML/MIN (>60)
[2024-08-16 16:37] LABS: Albumin/Globulin Ratio 1.3 (1.1-1.8); Alkaline Phosphatase 95 U/L (38-126); Bilirubin,Total 1.3 mg/dl (0.2-1.3); Calcium 9.4 mg/dl (8.4-10.2); Globulin 3.8 g/dL (1.3-3.2); Glucose 111 mg/dl (74-100); Total Protein,Serum 8.7 g/dl (6.3-8.2)
--- NOTE | 2024-08-16 16:46 | [facility].EDCP ---
Discharge Plan Disposition Patient Disposition: Admitted Prescriptions Prescriptions: No Action diphenoxylate-atropine [Lomotil] 2.5-0.025 mg tablet 1 tab PO TID PRN (Reason: diarrhea) Qty: 30 0RF Trelegy Ellipta 200-62.5-25 mcg blister with device 1 inh inhalation Q24H Qty: 60 2RF folic acid 1 mg tablet 1 mg PO DAILY guaifenesin [Mucinex] 600 mg tablet extended release 12hr 600 mg PO BID methocarbamol 500 mg tablet 500 mg PO QID naloxone 0.4 mg/mL solution 0.4 mg SQ Q2-3M PRN Rx Instructions: NTExceed 10 mg total dose/episode oseltamivir [Tamiflu] 75 mg capsule 75 mg PO DAILY aspirin 81 mg tablet,delayed release (DR/EC) See Rx Instructions .ROUTE .COMPLEX Qty: 30 11RF Dose Instruction: TAKE ONE TABLET BY MOUTH ONCE A DAY Rx Instructions: TAKE ONE TABLET BY MOUTH ONCE A DAY tramadol 50 mg tablet 50 mg PO Q4H PRN (Reason: pain) Qty: 30 0RF doxycycline hyclate 100 mg capsule 100 mg PO BID 10 Days Qty: 20 0RF ondansetron 4 mg tablet,disintegrating 4 mg PO Q8H PRN (Reason: nausea and vomiting) Qty: 20 0RF loperamide [Anti-Diarrheal (loperamide)] 2 mg capsule 2 mg PO Q4H PRN (Reason: loose stool) Qty: 30 0RF Rx Instructions: administer after each loose stool until symptoms controlled; do not exceed 8 mg per 24 hrs Pro Fe 180 mg iron capsule 180 mg PO .COMPLEX Rx Instructions: 180 mg orally 3 x weekly; albuterol sulfate 90 mcg/actuation HFA aerosol inhaler 2 puff inhalation Q6H PRN furosemide 40 mg tablet 20 mg PO .COMPLEX Rx Instructions: 20 mg orally 3x weekly and prn; Entresto 49-51 mg tablet 1 tab PO BID 90 Days Qty: 180 2RF bisoprolol fumarate 5 mg tablet 2.5 mg PO DAILY Qty: 90 3RF atorvastatin 80 mg tablet 80 mg PO DAILY Qty: 90 3RF Lagevrio (EUA) 200 mg capsule 800 mg PO Q12H 5 Days Qty: 40 0RF Referrals Follow up/Referrals: Carey García APRN [Primary Care Provider, Medical] - See instructions Clinical Impressions Clinical Impression: Pneumothorax, left, Elevated troponin Print Language Print Language: [place] Discharge ED Provider: Doe Cueto HPI General Chief Complaint: Shortness of Breath/Dyspnea Stated Complaint: xray collapsed lung Time Seen by Provider: 08/16/24 15:44 Mode of Arrival: Ambulatory Source of Information: Patient and Spouse Description of Symptoms (Recalled from ER Triage Doc. by RN): pt sent over from pcp due to being increasingly short of air and having a possible collpsed lung. History of Present Illness HPI narrative: Patient is 64-year-old male with longstanding smoking history but not currently smoking as he quit multiple years ago who presents emergency department from clinic due to a collapsed lung . History is obtained by patient bedside and per chart review, he is chronically short of breath but has had cough and shortness of breath worsening over the last week. No chest pain. He went to clinic where x-ray was obtained which showed a collapsed left lung and he presents here for continued evaluation. No other acute complaints at this time. Please note that above description of symptoms, in this electronic medical record under categorization of recalled from ER triage doctor by RN are reflective of an initial nursing assessment, however, is not reflective of my full history and physical exam that was personally taken and clarified. Consequentially, this preceding description of symptoms, which may include the patient's categorized chief complaint in the EMR, do not reflect my personal clinical impression, and the ultimate description of history of present illness and patient stated complaints should be deferred to this section of the note. Unless stated otherwise or congruent with this section of the note, additional signs, symptoms, or incongruence should be interpreted as inaccurate with my clinical impression. Related Data Home Medications ?Medication ?Instructions ?Recorded ?Confirmed albuterol sulfate 90 mcg/actuation 2 puff inhalation Q6H PRN 12/19/22 08/16/24 aerosol inhaler polysaccharide iron complex 180 mg 180 mg PO .COMPLEX 12/19/22 08/16/24 iron capsule (Pro Fe) furosemide 40 mg tablet 20 mg PO .COMPLEX 10/06/23 08/16/24 folic acid 1 mg tablet 1 mg PO DAILY 04/18/24 08/16/24 guaifenesin 600 mg tablet, 600 mg PO BID 04/18/24 08/16/24 extended release 12 hr (Mucinex) methocarbamol 500 mg tablet 500 mg PO QID 04/18/24 08/16/24 naloxone 0.4 mg/mL injection 0.4 mg SQ Q2-3M PRN 04/18/24 08/16/24 solution oseltamivir 75 mg capsule (Tamiflu) 75 mg PO DAILY 04/18/24 08/16/24 Previous Rx's ?Medication ?Instructions ?Recorded diphenoxylate-atropine 2.5 1 tab PO TID PRN diarrhea #30 tabs 04/07/23 mg-0.025 mg tablet (Lomotil) bisoprolol fumarate 5 mg tablet 2.5 mg (1/2 x 5 mg) PO DAILY #90 10/06/23 tabs sacubitril 49 mg-valsartan 51 mg 1 tab PO BID 90 days #180 tabs 10/06/23 tablet (Entresto) atorvastatin 80 mg tablet 80 mg PO DAILY #90 tabs 10/07/23 molnupiravir 200 mg capsule (EUA) 800 mg (4 x 200 mg) PO Q12H 5 days 10/28/23 (Lagevrio) #40 caps fluticasone fur. 200 mcg-umeclid 1 inh inhalation Q24H #60 ea 01/25/24 62.5 mcg-vilant 25 mcg inhalat.powder (Trelegy Ellipta) aspirin 81 mg tablet,delayed See Rx Instructions .Route 04/18/24 release .COMPLEX #30 tabs tramadol 50 mg tablet 50 mg PO Q4H PRN pain #30 tabs 04/18/24 doxycycline hyclate 100 mg capsule 100 mg PO BID 10 days #20 caps 08/16/24 loperamide 2 mg capsule 2 mg PO Q4H PRN loose stool #30 08/16/24 (Anti-Diarrheal (loperamide)) caps ondansetron 4 mg disintegrating 4 mg PO Q8H PRN nausea and 08/16/24 tablet vomiting #20 tabs Allergies Allergy/AdvReac Type Severity Reaction Status Date / Time cephalexin (From Keflex) Allergy Mild Unknown Verified 08/16/24 13:05 allergy reaction spironolactone AdvReac Intermediate breast Verified 08/16/24 13:05 tenderness PFS PFS Disclaimer: The information contained in this section may have been updated after the patient was seen, as this information can be updated by other users. Medical History NYHA class 2 heart failure with reduced ejection fraction Fatigue Abnormal stress test Angina pectoris CAD (coronary artery disease) Surgical History H/O heart artery stent Social History Smoking Status: Former smoker tobacco type: cigarettes packs per day: 1 second hand exposure: No alcohol intake: never substance use type: denies use current occupational status: employed Travel in the last 8 weeks?: None household members: spouse housing: house Have you lived/traveled outside US in past 30 days?: No Contact w/someone who lives/traveled outside US past 30 days?: No Exposure to someone with infectious disease in past 14 days?: No Do you have a fever (greater than 100.4 F or 38 C)?: No Have you tested positive for COVID-19?: No Exposed to someone with COVID-19 in past 14 days?: No Do you have a sore throat?: No Do you have a cough?: No Do you have any weakness?: No Do you have any diarrhea?: No Are you experiencing any unusual bleeding?: No Do you have any muscle aches/pain?: No Do you have any abdominal pain?: No Are you experiencing loss of taste or smell?: No Other Medical History Have you received the Flu Vaccine for this season: No Have you received the Pneumonia Vaccine: No ROS Obtained: Yes Systems reviewed as appropriate & no additional complaints except as documented Physical Exam General General appearance: alert and in no apparent distress Head Head exam: atraumatic and normocephalic Eye Eye exam: Present PERRL and EOMI ENT ENT exam: Present mucous membranes moist Neck Neck exam: Present normal inspection Chest Chest inspection: Present normal inspection and symmetric chest wall rise Respiratory Respiratory exam: Present other (Tachypneic); Absent normal lung sounds bilaterally (Absent breath sounds on the left) Cardiovascular Cardiovascular exam: Present regular rate and normal rhythm Abdominal Exam Abdominal exam: Present soft; Absent tenderness Extremities Exam Extremities exam: Present normal inspection Neurological Exam Neurological exam: Present alert; Absent CN II-XII intact Psychiatric Psychiatric exam: Present normal affect Skin Skin exam: Present warm and dry HEART Score HEART Score HEART Score assessment performed?: Yes History (anamnesis): Slightly suspicious ECG: Non-specific disturbance Age: 45-65 years Risk factors: Atherosclerosis history Troponin: > 3x normal limit HEART Score: 6 Critical Care Critical Care Time Critical Care Time: Yes Attestation: On 08/16/24, the high probability of a clinically significant, sudden or life threatening deterioration of the following system(s) required my full and direct attention, intervention and personal management. The time I documented below is in addition to time spent performing reported procedures but includes the following listed in this critical care notation. Total Time Total Critical Care Time: 45 Medical Decision Making Jaron Inquiry Pt receiving controlled substance: No Vital Signs Vital Signs: 08/16/24 15:55 Temperature 98.4 F Temperature Source Oral Pulse Rate [Right] 90 Respiratory Rate 24 Blood Pressure [Right Arm] 134/87 Blood Pressure Mean [Right Arm] 102 02 Sat by Pulse Oximetry 97 Oxygen Delivery Method Room Air Lab Data Labs: Lab Results 08/16/24 15:50: WBC 8.9, RBC 4.02 L, Hgb 14.5, Hct 41.7 L, MCV 103.7 H, MCH 36.1 H, MCHC 34.8, RDW 13.2, Plt Count 176, MPV 10.0, Neut % (Auto) 67.6, Lymph % (Auto) 18.5, [place] % (Auto) 12.0 H, Eos % (Auto) 1.2, Baso % (Auto) 0.4, Neut # (Auto) 6.0, Lymph # (Auto) 1.7, [place] # (Auto) 1.1 H, Eos # (Auto) 0.1, Baso # (Auto) 0.0, Sodium 134 L, Potassium 3.8, Chloride 93 L, Carbon Dioxide 27, Anion Gap 17.8 H, BUN 13, Creatinine 1.00, Estimated Creat Clear 77, Estimated GFR 75, Est GFR ( Amer) 91, Glucose 111 H, Calcium 9.4, Total Bilirubin 1.3, AST 58, ALT 39, Alkaline Phosphatase 95, Troponin I 1.70 H, Total Protein 8.7 H, Albumin 4.9, Globulin 3.8 H, Albumin/Globulin Ratio 1.3 08/16/24 15:50 08/16/24 15:50 Response Orders (Tests/Meds): ED MEDICATIONS Discontinued Medications Generic Name Dose Route Start Last Admin Trade Name Elma PRN Reason Stop Dose Admin Fentanyl Citrate 50 mcg 08/16/24 16:29 08/16/24 16:30 Fentanyl 100mcg/2ml Vial IV 08/16/24 16:30 50 mcg ONCE ONE Administration ORDERS Category Date Time Status CXR --portable [XR chest portable] Stat Exams 08/16/24 16:19 Completed CBC w/Auto Diff [Complete Blood Count Auto Diff] Stat Lab 08/16/24 15:50 Completed CMP [Comprehensive Metabolic Panel] Stat Lab 08/16/24 15:50 Completed HIV Combo Stat Lab 08/16/24 15:50 Received Hepatitis C Ab Qual. W/ RFX Stat Lab 08/16/24 15:50 Received Trop I [Troponin I] Stat Lab 08/16/24 15:50 Completed Troponin I Q3H Lab 08/16/24 19:30 Ordered Troponin I Q3H Lab 08/16/24 22:30 Ordered EKG Request [ECG Request] Stat Y 08/16/24 16:26 Ordered ECG Data Tracing #1: ECG Narrative: Independently inter by me rate is 83, rhythm is regular, axis is normal, no ST elevation in anatomical contiguous leads, QTc 436., Frequent PVCs MDM Narrative Medical Decision Narrative: In summary patient is 64-year-old male past medical history described above who presents emergency department for evaluation of shortness of breath. X-ray at outside clinic reviewed by me, obvious large pneumothorax on the left. Clinically he does not have tension physiology currently with no tachycardia although he does have some hypoxia and is requiring 2 L nasal cannula. Emergent chest tube was conducted with safety centesis catheter successfully. Workup will be conducted with hematologic labs, chest x-ray, EKG, troponin. I suspect that patient has a viral bronchitis for which he popped his bleb that I see reviewing the CT scan previously conducted on the left. He has no chest pain currently. Case discussed with cardiology regarding management, patient has elevated troponin 1.7 which lab contacted charge nurse, this is likely secondary to his defibrillator going off yesterday in the setting of pneumothorax that likely irritated his pericardium. Patient is not currently being paced due to his known settings which would be expected on his EKG. Case discussed hospital medicine regarding management and patient be admitted to their service for continued evaluation at this time Procedure: Procedure performed was chest tube by Doe Cueto. Using sterile technique a safety centesis catheter was placed in the anterior axillary line fourth intercostal space after numbing with 1% lidocaine with epinephrine with partial anesthesia achieved. Patient tolerated procedure with difficulty secondary to incomplete anesthesia, it was hooked up to the Pleur-evac where air bubbling was noticed and chest x-ray showed informally interpreted by me at bedside shows expanding lung parenchyma with resolving pneumothorax. There were no immediate complications.
--- NOTE | 2024-08-16 16:56 | PC.NURSE ---
CRITICAL TROP 1.7 RECEIVED FROM LAB, PT NAME AND R/V. DR MIMS NOTIFIED
--- NOTE | 2024-08-16 16:58 | PC.NURSE ---
DR MIMS SPEAKING WITH DR AKERS
--- NOTE | 2024-08-16 17:01 | PC.NURSE ---
DR MIMS SPEAKING WITH HOSPITALIST FOR ADMISSION
--- NOTE | 2024-08-16 17:02 | PC.NURSE ---
DIRECTOR OF HOME HEALTH SERVICES NOTIFIED OF ADMISSION
[2024-08-16 17:22] LABS: HIV Combo NEGATIVE (Negative)
[2024-08-16 17:25] VITALS: BP 105/69; PULSE 80; RESP 18; TEMP 36.7; O2SAT 95
--- NOTE | 2024-08-16 17:25 | PC.NURSE ---
REPORT CALLED TO BRIDGER CUMMINGS
[2024-08-16 17:31] LABS: Hepatitis C Ab Qual. W/ RFX NEGATIVE (Negative)
[2024-08-16 17:53] VITALS: BP 100/60; PULSE 79; RESP 21; TEMP 36.7; O2SAT 92; BMI 25.4
--- NOTE | 2024-08-16 18:06 | EXP.HP ---
History of Present Illness *Admission Date: 08/16/24 *Reason for visit:: Shortness of breath *History of present illness: Raffy Cheney is a 64-year-old male with a medical history of COPD, CAD with stents, HFrEF with AICD presents with several week onset of productive cough, and 1 week onset of shortness of breath. Patient presented to PCPs office who obtained a CXR which showed left-sided tension pneumothorax and advised to go to the ED. Upon arrival, vital signs were stable. Patient states he has been having a productive cough with intermittent yellow phlegm for the past 3 weeks. Only in the last week has he experienced shortness of breath. Denies fever/chills, chest pain, abdominal pain. states he has been having worsening leg swelling, for which gave him PRN Lasix which some improvement. Workup in the ED significant for WBC 8.9, creatinine 1.7 (unknown baseline). BNP pending at this time. ED provider placed chest tube with improvement in symptoms including left flank pain. Case discussed with ED provider and decision was made to admit patient for left sided pneumonthorax. [facility] Disclaimer: The information contained in this section may have been updated after the patient was seen, as this information can be updated by other users. Medical History (Updated 08/16/24 @ 18:23 by Brunilda Kendrick RN) COPD (chronic obstructive pulmonary disease) HTN (hypertension) HLD (hyperlipidemia) NYHA class 2 heart failure with reduced ejection fraction Fatigue Abnormal stress test Angina pectoris CAD (coronary artery disease) Surgical History (Updated 08/16/24 @ 18:24 by Brunilda Kendrick RN) Hx of appendectomy History of carpal tunnel surgery AICD (automatic cardioverter/defibrillator) present H/O heart artery stent Social History (Updated 08/16/24 @ 18:24 by Brunilda Kendrick RN) Smoking Status: Former smoker tobacco type: cigarettes packs per day: 1 second hand exposure: No alcohol intake: never substance use type: denies use current occupational status: employed Travel in the last 8 weeks?: None household members: spouse housing: house Have you lived/traveled outside US in past 30 days?: No Contact w/someone who lives/traveled outside US past 30 days?: No Exposure to someone with infectious disease in past 14 days?: No Do you have a fever (greater than 100.4 F or 38 C)?: No Have you tested positive for COVID-19?: No Exposed to someone with COVID-19 in past 14 days?: No Do you have a sore throat?: No Do you have a cough?: No Do you have any weakness?: No Are you experiencing any nausea/vomitting?: No Do you have any diarrhea?: No Are you experiencing any unusual bleeding?: No Do you have any muscle aches/pain?: No Do you have any abdominal pain?: No Are you experiencing loss of taste or smell?: No Other Medical History Have you received the Flu Vaccine for this season: No Have you received the Pneumonia Vaccine: No Meds Home Medications and Allergies Home Medications ?Medication ?Instructions ?Recorded ?Confirmed ?Type albuterol sulfate 90 mcg/actuation 2 puff inhalation Q6H PRN copd 12/19/22 08/16/24 History aerosol inhaler bisoprolol fumarate 5 mg tablet 2.5 mg (1/2 x 5 mg) PO DAILY #90 10/06/23 08/16/24 Rx tabs furosemide 40 mg tablet 20 mg PO DIRECTED PRN Fluid 10/06/23 08/16/24 History fluticasone fur. 200 mcg-umeclid 1 inh inhalation Q24H #60 ea 01/25/24 08/16/24 Rx 62.5 mcg-vilant 25 mcg inhalat.powder (Trelegy Ellipta) aspirin 81 mg tablet,delayed 81 mg PO HS 08/16/24 08/16/24 History release atorvastatin 80 mg tablet 80 mg PO HS 08/16/24 08/16/24 History sacubitril 49 mg-valsartan 51 mg 1 tab PO BID 08/16/24 08/16/24 History tablet (Entresto) New Prescriptions to Start Prescriptions: Allergies Allergy/AdvReac Type Severity Reaction Status Date / Time cephalexin (From Keflex) Allergy Mild Unknown Verified 08/16/24 13:05 allergy reaction spironolactone AdvReac Intermediate breast Verified 08/16/24 13:05 tenderness Exam Data for Last 24 hours Vital signs and Labs for Last 24 Hours: Temp Pulse Resp BP Pulse Ox O2 Del Method O2 Flow Rate 98.0 F 79 21 100/60 L 92 L Nasal Cannula 2 08/16/24 17:53 08/16/24 17:53 08/16/24 17:53 08/16/24 17:53 08/16/24 17:53 08/16/24 17:53 08/16/24 17:53 Laboratory Results - last 24 hr 08/16/24 15:50: WBC 8.9, RBC 4.02 L, Hgb 14.5, Hct 41.7 L, MCV 103.7 H, MCH 36.1 H, MCHC 34.8, RDW 13.2, Plt Count 176, MPV 10.0, Neut % (Auto) 67.6, Lymph % (Auto) 18.5, [place] % (Auto) 12.0 H, Eos % (Auto) 1.2, Baso % (Auto) 0.4, Neut # (Auto) 6.0, Lymph # (Auto) 1.7, [place] # (Auto) 1.1 H, Eos # (Auto) 0.1, Baso # (Auto) 0.0, Sodium 134 L, Potassium 3.8, Chloride 93 L, Carbon Dioxide 27, Anion Gap 17.8 H, BUN 13, Creatinine 1.00, Estimated Creat Clear 77, Estimated GFR 75, Est GFR ( Amer) 91, Glucose 111 H, Calcium 9.4, Total Bilirubin 1.3, AST 58, ALT 39, Alkaline Phosphatase 95, Troponin I 1.70 H, Total Protein 8.7 H, Albumin 4.9, Globulin 3.8 H, Albumin/Globulin Ratio 1.3, HCV Ab [place] w/Rflx PCR Qn Negative, HIV Ag/Ab Combo Qual Negative I & O for Last 24 hours: Intake & Output 08/13/24 08/14/24 08/15/24 08/16/24 23:59 23:59 23:59 23:59 Weight 82.611 kg Constitutional Constitutional: no acute distress *Routine HEENT Exam Head: Present normocephalic Eye: Present EOMI and PERRL ENT: Present mucous membranes moist *Routine Neck Exam Neck: Present supple; Absent lymphadenopathy *Routine Respiratory Exam Respiratory: Present CTA bilaterally Comments: Decreased left sided breath sounds. *Routine Cardiovascular Exam Cardiovascular: Present RRR *Routine Abdominal Exam Abdominal: Present soft and normoactive bowel sounds; Absent tenderness *Routine Rectal Exam Rectal:: deferred *Routine Genitalia Exam Genitalia:: deferred *Routine Extremities Exam Extremities: Absent cyanosis, clubbing or edema *Routine Skin Exam Skin: Present warm; Absent rash *Routine Neurological Exam Neurological: Present alert and oriented X3 Assessment and Plan *Assessment and plan (1) Pneumothorax, left: Status: Acute Category: Medical Code(s): J93.9 - Pneumothorax, unspecified (2) NYHA class 3 heart failure with reduced ejection fraction: Status: Chronic Category: Medical Code(s): I50.20 - Unspecified systolic (congestive) heart failure Plan Raffy Cheney is a 64-year-old male with a medical history of COPD, CAD with stents, HFrEF with AICD presents with several week onset of productive cough, and 1 week onset of shortness of breath. Patient presented to PCPs office who obtained a CXR which showed left-sided tension pneumothorax and advised to go to the ED. Upon arrival, vital signs were stable. Patient states he has been having a productive cough with intermittent yellow phlegm for the past 3 weeks. Only in the last week has he experienced shortness of breath. Last night, patient states his AICD was discharged but felt fine thereafter. Denies fever/chills, chest pain, abdominal pain. states he has been having worsening leg swelling, for which gave him PRN Lasix which some improvement. Workup in the ED significant for WBC 8.9, creatinine 1.7 (unknown baseline). BNP pending at this time. ED provider placed chest tube with improvement in symptoms including left flank pain. Dr. Najera was contacted by ED provider about AICD discharge, advised it is likely from pneumothorax causing irritation of pericardium that caused discharge in the troponin 1.7 would be expected. Case discussed with ED provider and decision was made to admit patient for left sided pneumonthorax. #Left sided pneumothorax #Community-acquired pneumonia ? Presents with several week onset of productive cough, 1 week onset of shortness of breath and left-sided flank pain. ? S/p chest tube placement in the ED with improvement of symptoms, including left-sided flank pain. ? Independent review of chest x-ray reveals improving left-sided pneumothorax, but also with pulmonary edema and right lower lobe pneumonia. ? Will continue suctioning at -20 cm, repeat CXR at 10 PM to evaluate for improvement. Continuous cardiac telemetry. ? Started IV ceftriaxone, azithromycin day 1. Follow-up sputum cultures. ? Follow-up mini respiratory panel, full respiratory panel not available at this time. ? Pulmonology consulted, pending further recommendations. #HFrEF exacerbation #AICD discharge #Elevated troponin ? History of HFrEF with ICD in place, pulmonary edema on CXR. Presented with productive cough. BNP 949. ? Apparent AICD discharge yesterday, troponin 1.7. Dr. Najera states discharge likely from pneumothorax irritating pericardium and that drip anemia is to be expected. ? Ordered IV Lasix 60 mg, follow-up urine output, renal function, electrolytes. ? Follow-up BNP, ECHO. ? Follow-up serial troponins. ? Continue home bisoprolol, Entresto. ? Cardiology consulted, pending further recommendations. #CAD, PAD with stents ? Continue home aspirin, statin. #COPD ? Seems stable at this time. Continue home Trelegy. Full code DVT prophylaxis: Lovenox 40 mg.
--- NOTE | 2024-08-16 18:18 | PC.NURSE ---
arrived to floor @ 17:45
[2024-08-16] MEDS: LEVOFLOXACIN/D5W 750 MG/150 ML 750 MG/150 ML PIGGYBACK 100 MG IV (18:25)
[2024-08-16 18:37] LABS: NT Pro Brain Natriuretic Pep. 949 pg/mL (0-125)
[2024-08-16] MEDS: FUROSEMIDE 40MG/4ML VIAL 60 MG IV (18:51)
[2024-08-16 19:12] LABS: Coronavirus 19, PCR Not Detected (NotDetected); Influenza A, PCR Not Detected (NotDetected); Influenza B, PCR Not Detected (NotDetected)
[2024-08-16 20:00] VITALS: BP 102/68; PULSE 68; PULSE 90; RESP 15; TEMP 36.9; O2SAT 93
--- NOTE | 2024-08-16 20:16 | PC.NURSE ---
turned bed alarm on patient bed because spouse is leaving room tonight 2016
[2024-08-16 20:32] LABS: Troponin I 1.96 ng/ml (0.00-0.034)
[2024-08-16] MEDS: ASPIRIN EC 81MG TABLET 81 MG PO (20:33)
[2024-08-16] MEDS: ATORVASTATIN 40MG TABLET 80 MG PO (20:33)
--- NOTE | 2024-08-16 20:48 | PC.NURSE ---
Addendum entered by Molly Aldana RN 08/16/24 20:58: monitoring UOP - sign placed on door for a staff reminder Original Note: holding entresto r/t hypotension 102/68 manual per hospitalist - recieved lasix on dayshift - current UOP since 1899 600ml
[2024-08-16 23:05] LABS: Troponin I 2.02 ng/ml (0.00-0.034)
[2024-08-17] VITALS (8 sets, daily range): BP systolic 93–114; BP diastolic 54–64; PULSE 70–92; RESP 16–20; TEMP 36.6–37.1; O2SAT 93–99; BMI 25.2
--- NOTE | 2024-08-17 00:10 | PC.NURSE ---
alerted nurse about hypotensive b/p. 00:00
--- NOTE | 2024-08-17 03:59 | PC.NURSE ---
Blue bags in patient's room was not full and did not need taking out. Pt does not need anything at this time with call light nearby. 03:59
--- NOTE | 2024-08-17 05:25 | PC.NURSE ---
Pt. is a/ox4. Pt. is on 2l nc, tolerating well. Pt. has chest tube on left side hooked to wall suction dressing was reinforced.Pt denies SOA and chest pain. Bed is low, locked and armed. Call light is in reach.
--- NOTE | 2024-08-17 05:56 | PC.NURSE ---
Water pitcher was filled with ice and sat at sink, table wiped, and linen and trash bags were empty if full. Patient does not need anything at this time. 05:56
--- NOTE | 2024-08-17 06:00 | CA_ITS ---
APPROVED REPORT EXAM: Comprehensive 2D, Doppler, and color-flow Echocardiogram [place] Investigator: Norma Singletary CRT Ht: 5 ft 11 in Wt: 182lbs BSA: 2.03 BP: 100/60 mmHg Indications: Congestive Heart Failure, COPD, Shortness of Breath, Fatigue, Hyperlipidemia, Hypertension/HDD, stents, ef 30% 03/08/19 Pneumothorax on left, Chest tube and large dressing on entire left side, limited images due to dressing and poor windows. Difficult exam Echo Enhancing Agent Indication: Endocardial border delineation Agent(s) / Amount(s) Used: Definity 2 cc Comments: Definity given. M-Mode Dimensions LA Diam 2.51 cm (1.9-4.0) Aortic Valve AO Peak GR. 2.70 mmHg Pulmonary Valve PV Peak Velocity 102.0 (50-150 cm/s) Tricuspid Valve TR P. Velocity 142.00 cm/s RAP Estimate 10.00 mmHg RVSP 18.10 mmHg Left Ventricle The left ventricle is normal size. Left ventricular systolic function is moderately decreased. There is increased overall thickness. Diastolic function is indeterminate. Wall motion cannot be evaluated due to technically difficult study. LVEF is approximately 35%. Right Ventricle The right ventricle is normal in size and function. Atria The left atrium is not well-visualized. The right atrium is not well-visualized. Aortic Valve The aortic valve is thickened. There is no aortic valvular stenosis. No aortic regurgitation is present. Mitral Valve The mitral valve leaflets are thickened. No evidence of mitral valve stenosis. There is no mitral valve regurgitation noted. Tricuspid Valve The tricuspid valve leaflets are not well-visualized. Pulmonic Valve The pulmonic valve leaflets are not well-visualized. Great Vessels The aortic root is not well-visualized. The IVC is not well-visualized. Pericardium There is no pericardial effusion. Other Information Study Quality: Technically Difficult Conclusion Technically very difficult study due to poor acoustic windows. This may affect the diagnostic interpretation of the study findings. Grossly, the left ventricle is moderately reduced in function (LVEF approximately 35%). The right ventricle is normal in size and function. There is no significant valvular stenosis or regurgitation in the visualized valves. Electronically signed by : Erin Yan MD 08/17/2024 14:56:36
[2024-08-17 06:26] LABS: Chloride 96 mmol/L (98-107); Sodium 137 mmol/L (136-145)
[2024-08-17 06:27] LABS: Basophils % 0.4 % (0.1-2.0); Eosinophils # 0.1 Kmm3 (0.0-0.4); Eosinophils % 1.4 % (0.1-12.0); Hematocrit 38.6 % (42.0-52.0); Hemoglobin 13.2 g/dL (14.1-18.0); Immature Granulocytes # 0.03 10^3uL; Immature Granulocytes % 0.4 %; Lymphocytes # 1.3 K/mm3 (0.7-4.5); Lymphocytes % 17.4 % (10-50); Mean Corpuscular HGB Conc 34.2 g/dL (31.8-35.4); Mean Corpuscular Hemoglobin 35.2 pg (27.0-31.2); Mean Corpuscular Volume 102.9 fl (80-94); Mean Platelet Volume 9.7 fl (7.4-10.4); Monocytes % 12.9 % (1.7-9.3); Neutrophils % 67.5 % (37.0-80.0); Nucleated Red Blood Cells # 0 10^3/uL; Nucleated Red Blood Cells % 0 %; Platelet Count 137 K/mm3 (142-424); Potassium 3.5 mmoL/L (3.5-5.1); Red Blood Count 3.75 M/mm3 (4.60-6.20); Red Cell Distribution Width 13.2 % (11.5-17.5); Red Cell Distribution Width-SD 49.2 fL; White Blood Count 7.4 K/mm3 (4.8-10.8)
[2024-08-17 06:29] LABS: Alanine Aminotransferase 25 U/L (12-78); Albumin/Globulin Ratio 1.3 (1.1-1.8); Alkaline Phosphatase 85 U/L (38-126); Anion Gap 15.5 mEq/L (5-15); Aspartate Amino Transferase 39 U/L (17-59); Bilirubin,Total 1.2 mg/dl (0.2-1.3); Blood Urea Nitrogen 13 mg/dl (9-20); Calcium 8.8 mg/dl (8.4-10.2); Carbon Dioxide 29 mmol/L (22.0-30.0); Creatinine Clearance Estimated 86 mL/min (50-200); Estimated Glomerular Filt Rate 75 ml/min (>60); GFR (African American) 91 ML/MIN (>60); Globulin 3.1 g/dL (1.3-3.2); Glucose 102 mg/dl (74-100); Magnesium 1.7 mg/dl (1.6-2.3); Total Protein,Serum 7.1 g/dl (6.3-8.2)
--- NOTE | 2024-08-17 06:51 | XR_ITS ---
FINAL REPORT TECHNIQUE: Single view chest CLINICAL HISTORY: PTX COMPARISON: 1 day prior FINDINGS: A single view of the chest was obtained. The heart and mediastinum are within normal limits. There is a small, 20% left pneumothorax which has improved from prior exam. Apical pleural separation measures 22 mm, similar to prior exam. Lateral component has improved. Left pleural catheter is obscured by pacemaker generator. IMPRESSION: 20% left pneumothorax, mildly improved. Reviewed, Interpreted and Dictated by Albert Theodore MD Transcribed by Julissa Escamilla Authenticated and [facility]
[2024-08-17] MEDS: DEFINITY US ECHO CONTRAST 2ML INJ 2 MG IV (07:05)
--- NOTE | 2024-08-17 08:30 | HMH.PHAINT1 ---
Pharmacy Intervention Comments: MEDICATION RECONCILIATION COMPLETED ON PATIENT USING EXTERNAL FILL HISTORY FROM PHARMACY. -SALEEM CABELLO, SANDIED
[2024-08-17] MEDS: MAGNESIUM SULFATE IN WATER 2 GM/50 ML PIGGYBACK IV ×2 (09:12→10:08)
[2024-08-17] MEDS: POTASSIUM CHLORIDE 20MEQ TAB 40 MEQ PO ×2 (09:12→13:01)
[2024-08-17] MEDS: ENOXAPARIN 40MG/0.4ML SYRINGE 40 MG SUBCUT (09:15)
[2024-08-17] MEDS: FLUTICASONE/UMECLIDIN/VILANTER 200/62.5/25MCG INHALER 1 PUFF IH (09:22)
--- NOTE | 2024-08-17 09:46 | P.CONS_ITS ---
History of Present Illness History of present illness: Mr. Cheney is a 64-year-old male with history of greater than [id number] smoking with last moved around 2014, COPD USING Trelegy INHALER AT HOME HAS NOT BEEN COMPLIANT, NOT USING ANY OXYGEN SUPPLEMENT CAD status post stenting heart failure reduced EF presented with worsening respiratory distress, found to have large left-sided pneumothorax status post pigtail catheter with minimal pulmonary was called for further evaluation and management. [facility] Disclaimer: The information contained in this section may have been updated after the patient was seen, as this information can be updated by other users. Medical History COPD (chronic obstructive pulmonary disease) HTN (hypertension) HLD (hyperlipidemia) NYHA class 2 heart failure with reduced ejection fraction Fatigue Abnormal stress test Angina pectoris CAD (coronary artery disease) Surgical History Hx of appendectomy History of carpal tunnel surgery AICD (automatic cardioverter/defibrillator) present H/O heart artery stent Social History Smoking Status: Former smoker tobacco type: cigarettes packs per day: 1 second hand exposure: No alcohol intake: never substance use type: denies use current occupational status: employed Travel in the last 8 weeks?: None household members: spouse housing: house Have you lived/traveled outside US in past 30 days?: No Contact w/someone who lives/traveled outside US past 30 days?: No Exposure to someone with infectious disease in past 14 days?: No Do you have a fever (greater than 100.4 F or 38 C)?: No Have you tested positive for COVID-19?: No Exposed to someone with COVID-19 in past 14 days?: No Do you have a sore throat?: No Do you have a cough?: No Do you have any weakness?: No Are you experiencing any nausea/vomitting?: No Do you have any diarrhea?: No Are you experiencing any unusual bleeding?: No Do you have any muscle aches/pain?: No Do you have any abdominal pain?: No Are you experiencing loss of taste or smell?: No Review of Systems Constitutional Constitutional: Reports anorexia, Reports body ache(s) and Reports fatigue Eyes Eyes: Denies eye discharge, Denies dry eyes, Denies irritation and Denies itchy eyes ENT Ears, Nose, Mouth, and Throat: Denies epistaxis, Denies facial pain, Denies lip swelling and Denies throat swelling *Cardiovascular Cardiovascular: Reports chest pain, Reports dyspnea and Reports dyspnea on exertion *Respiratory Respiratory: Denies change in phlegm color, Reports chest congestion, Reports cough, Reports dyspnea, Reports dyspnea on exertion, Denies excessive phlegm production and Reports wheezing *Gastrointestinal Gastrointestinal: Denies abdominal pain, Denies belching and Denies cramping *Musculoskeletal Musculoskeletal: Reports back pain, Reports myalgias and Reports other (No small joint swelling or Pain) Psychiatric Psychiatric: Denies homicidal ideation and Denies suicidal ideation Endocrine Endocrine: Reports fatigue and Denies heat intolerance Hematologic/Lymphatic Hematologic/Lymphatic: Denies easy bleeding and Denies lymphadenopathy Allergic/Immunologic Allergic/Immunologic: Denies itchy eyes, Denies lip swelling, Denies throat swelling and Reports wheezing Pulmonology Exam Inpatient Vital signs and Labs for Last 24 Hours: Temp Pulse Resp BP Pulse Ox O2 Del Method O2 Flow Rate 98.1 F 85 17 94/54 L 97 Nasal Cannula 2 08/17/24 08:00 08/17/24 09:10 08/17/24 08:00 08/17/24 09:10 08/17/24 08:00 08/17/24 09:05 08/17/24 09:05 Laboratory Results - last 24 hr 08/16/24 15:50: WBC 8.9, RBC 4.02 L, Hgb 14.5, Hct 41.7 L, MCV 103.7 H, MCH 36.1 H, MCHC 34.8, RDW 13.2, Plt Count 176, MPV 10.0, Neut % (Auto) 67.6, Lymph % (Auto) 18.5, [place] % (Auto) 12.0 H, Eos % (Auto) 1.2, Baso % (Auto) 0.4, Neut # (Auto) 6.0, Lymph # (Auto) 1.7, [place] # (Auto) 1.1 H, Eos # (Auto) 0.1, Baso # (Auto) 0.0, Sodium 134 L, Potassium 3.8, Chloride 93 L, Carbon Dioxide 27, Anion Gap 17.8 H, BUN 13, Creatinine 1.00, Estimated Creat Clear 77, Estimated GFR 75, Est GFR ( Amer) 91, Glucose 111 H, Calcium 9.4, Total Bilirubin 1.3, AST 58, ALT 39, Alkaline Phosphatase 95, Troponin I 1.70 H, NT-Pro-B Natriuret Pep 949 H, Total Protein 8.7 H, Albumin 4.9, Globulin 3.8 H, Albumin/Globulin Ratio 1.3, HCV Ab [place] w/Rflx PCR Qn Negative, HIV Ag/Ab Combo Qual Negative 08/16/24 17:55: Troponin I 1.96 H 08/16/24 18:57: SARS-CoV-2 (PCR) Not detected, Influenza A Untype (PCR) Not detected, Influenza Type B (PCR) Not detected 08/16/24 22:05: Troponin I 2.02 H 08/17/24 05:16: WBC 7.4, RBC 3.75 L, Hgb 13.2 L, Hct 38.6 L, MCV 102.9 H, MCH 35.2 H, MCHC 34.2, RDW 13.2, Plt Count 137 L, MPV 9.7, Neut % (Auto) 67.5, Lymph % (Auto) 17.4, [place] % (Auto) 12.9 H, Eos % (Auto) 1.4, Baso % (Auto) 0.4, Neut # (Auto) 5.0, Lymph # (Auto) 1.3, [place] # (Auto) 1.0, Eos # (Auto) 0.1, Baso # (Auto) 0.0, Sodium 137, Potassium 3.5, Chloride 96 L, Carbon Dioxide 29, Anion Gap 15.5 H, BUN 13, Creatinine 1.00, Estimated Creat Clear 86, Estimated GFR 75, Est GFR ( Amer) 91, Glucose 102 H, Calcium 8.8, Magnesium 1.7 D, Total Bilirubin 1.2, AST 39 D, ALT 25 D, Alkaline Phosphatase 85, Total Protein 7.1, Albumin 4.0 D, Globulin 3.1, Albumin/Globulin Ratio 1.3 I & O for Labs for Last 24 Hours: Intake & Output 08/14/24 08/15/24 08/16/24 08/17/24 23:59 23:59 23:59 23:59 Intake Total 1000 / 1000 780 / 780 Output Total 1550 / 1550 210 / 210 Balance -550 / -550 570 / 570 Weight 182 lb 2 oz 180 lb 8 oz Constitutional: Present mild distress Head: Present normocephalic and atraumatic ENT: Present normal exam, normal oropharynx and mucous membranes moist Neck: Present normal inspection and full ROM Respiratory: Present respiratory distress and able to speak in complete sentences; Absent prolonged expiratory phase, wheezes, crackles or diminished air movement Cardiac: Present S1/S2, Tachycardia and radial pulses present GI: Present soft and distention; Absent tenderness or guarding Skin: Present intact; Absent cyanosis or jaundice Neuro: Present alert, awake and oriented x 3 Extremities: Present normal inspection; Absent clubbing or cyanosis Psychiatric: Present normal affect and cooperative Meds Home Medications and Allergies Home Medications ?Medication ?Instructions ?Recorded ?Confirmed ?Type albuterol sulfate 90 mcg/actuation 2 puff inhalation Q 6HP PRN 12/19/22 08/17/24 History aerosol inhaler Shortness Of Breath bisoprolol fumarate 5 mg tablet 2.5 mg (1/2 x 5 mg) PO DAILY #90 10/06/23 08/16/24 Rx tabs fluticasone fur. 200 mcg-umeclid 1 inh inhalation Q24H #60 ea 01/25/24 08/16/24 Rx 62.5 mcg-vilant 25 mcg inhalat.powder (Trelegy Ellipta) aspirin 81 mg tablet,delayed 81 mg PO HS 08/16/2407/25 History release atorvastatin 80 mg tablet 80 mg PO HS 08/16/24 5 History sacubitril 49 mg-valsartan 51 mg 1 tab PO BID 08/16/24 08/16/24 History tablet (Entresto) doxycycline hyclate 100 mg capsule 100 mg PO BID 08/1708/17/24 History New Prescriptions to Start Prescriptions: Allergies Allergy/AdvReac Type Severity Reaction Status Date / Time cephalexin (From [employer]) Allergy Mild Unknown Verified 08/16/24 13:05 allergy reaction spironolactone AdvReac Intermediate breast Verified 08/16/24 13:05 tenderness Results Laboratory Findings 08/17/24 05:16 08/17/24 05:16 Abnormal lab findings: Abnormal Labs 08/16/24 08/16/24 08/16/24 15:50 17:55 22:05 RBC 4.02 L Hgb Hct 41.7 L MCV 103.7 H MCH 36.1 H Plt Count [place] % (Auto) 12.0 H [place] # (Auto) 1.1 H Sodium 134 L Chloride 93 L Anion Gap 17.8 H Glucose 111 H Troponin I 1.70 H 1.96 H 2.02 H NT-Pro-B Natriuret Pep 949 H Total Protein 8.7 H Globulin 3.8 H 08/17/24 05:16 RBC 3.75 L Hgb 13.2 L Hct 38.6 L MCV 102.9 H MCH 35.2 H Plt Count 137 L [place] % (Auto) 12.9 H [place] # (Auto) Sodium Chloride 96 L Anion Gap 15.5 H Glucose 102 H Troponin I NT-Pro-B Natriuret Pep Total Protein Globulin Assessment and Plan *Assessment and plan (1) Pneumothorax, left: Status: Acute Category: Medical Code(s): J93.9 - Pneumothorax, unspecified Plan Mr. Cheney is a 64-year-old male with history of greater than 11-oqcy-owha smoking with last smoked around 2014, COPD USING Trelegy INHALER AT HOME HAS NOT BEEN COMPLIANT, NOT USING ANY OXYGEN SUPPLEMENT CAD status post stenting heart failure reduced EF presented with worsening respiratory distress, found to have large left-sided pneumothorax status post pigtail catheter with minimal pulmonary was called for further evaluation and management. Afebrile. No evidence of leukocytosis. CT chest January 2024 upper lobe paraseptal emphysematous changes along with bilateral diffuse subpleural interstitial changes concerning for pulmonary fibrosis noted COVID-19 and flu PCR panel negative. Plan: Chest tube to -20 cm water suction. Tidaling. Still noted to have air leak. Continue Trelegy 100 inhaler along with DuoNebs 4 times daily as needed Oxygen supplementation via nonrebreather to maintain O2 saturation goal of 100%
[2024-08-17] MEDS: BISOPROLOL 5MG TABLET 2.5 MG PO (10:35)
--- NOTE | 2024-08-17 11:05 | EXP.CARD.CON ---
History of Present Illness History of Present Illness Consult date: 08/17/24 Requesting physician: Theo Aldridge Chief complaint: SOA, ICD shock History of present illness: 64-year-old white male with history of multivessel CAD status post stenting of RCA and LAD as well as HFrEF status post ICD here in 2019, COPD/emphysema. He has followed with Dr. Brown at [facility] since 2020 where he has undergone left carotid stenting and balloon angioplasty of right lower extremity. Patient states he's been stable for the past year with no recent stenting or symptoms, CCS = 0, NYHA = 1 baseline. Typically has good functional capacity able to mow the grass and work outside without issues. He reports worsening productive cough for the past 2 to 3 weeks with yellow mucus and had scheduled a f/u to see PCP this week. A few days ago devleoped left flank and back pain which he attributed to constipation. Thursday, despite the heat index >100F was outside mowing grass and doing yardwork with minimal symptoms. Afterwards, while checking out at the store he had a shock from his ICD but did not present anywhere immediately for care. Saw his PCP yesterday who ordered CXR showing large left tension pneumothorax with mediastinal shift to the right. Pt was referred emergently to ED and received decompession with chest tube placement. Remarkably, pt and report he was relatively asymptomatic during this time (no significant change from the past 2 weeks). While in ED here, [facility] called because they received transmission of his ICD shock. They deferred any changes to medical management to us this admission and will plan to f/u with him post discharge. Pt admitted overnight and has improvement in left pneumothrax s/p left chest tube and is feeling significantly better although requiring 2L nasal canula to maintain 100% O2. EKG shows SR with frequent PVCs and flattened ST/T waves and old anterior TN. There has been no VT/VF noted on telemetry since admission. A pacemaker interrogation and 2D ECHO are ordered and pending. [facility] Disclaimer: The information contained in this section may have been updated after the patient was seen, as this information can be updated by other users. Medical History COPD (chronic obstructive pulmonary disease) HTN (hypertension) HLD (hyperlipidemia) NYHA class 2 heart failure with reduced ejection fraction Fatigue Abnormal stress test Angina pectoris CAD (coronary artery disease) Surgical History Hx of appendectomy History of carpal tunnel surgery AICD (automatic cardioverter/defibrillator) present H/O heart artery stent Social History Smoking Status: Former smoker tobacco type: cigarettes packs per day: 1 second hand exposure: No alcohol intake: never substance use type: denies use current occupational status: employed Travel in the last 8 weeks?: None household members: spouse housing: house Have you lived/traveled outside US in past 30 days?: No Contact w/someone who lives/traveled outside US past 30 days?: No Exposure to someone with infectious disease in past 14 days?: No Do you have a fever (greater than 100.4 F or 38 C)?: No Have you tested positive for COVID-19?: No Exposed to someone with COVID-19 in past 14 days?: No Do you have a sore throat?: No Do you have a cough?: No Do you have any weakness?: No Are you experiencing any nausea/vomitting?: No Do you have any diarrhea?: No Are you experiencing any unusual bleeding?: No Do you have any muscle aches/pain?: No Do you have any abdominal pain?: No Are you experiencing loss of taste or smell?: No Review of Systems Constitutional Constitutional: Denies fatigue and Denies weakness Eyes Eyes: Denies loss of vision ENT Ears, Nose, Mouth, and Throat: Denies hearing loss and Denies vertigo *Cardiovascular Cardiovascular: Denies chest pain, Denies dyspnea and Denies syncope *Respiratory Respiratory: Denies cough and Denies dyspnea *Gastrointestinal Gastrointestinal: Denies change in stool character, Denies nausea and Denies vomiting *Genitourinary Genitourinary: Denies difficulty urinating *Musculoskeletal Musculoskeletal: Denies muscle weakness Integumentary/Breasts Skin/Breast: Denies changing lesions *Neurologic Neurologic: Denies loss of vision, Denies syncope, Denies vertigo and Denies weakness Endocrine Endocrine: Denies fatigue Exam Data for Last 24 hours Vital signs and Labs for Last 24 Hours: Temp Pulse Resp BP Pulse Ox O2 Del Method O2 Flow Rate 98.1 F 85 17 94/54 L 97 Nasal Cannula 2 08/17/24 08:00 08/17/24 09:10 08/17/24 08:00 08/17/24 09:10 08/17/24 08:00 08/17/24 09:05 08/17/24 09:05 Laboratory Results - last 24 hr 08/16/24 15:50: WBC 8.9, RBC 4.02 L, Hgb 14.5, Hct 41.7 L, MCV 103.7 H, MCH 36.1 H, MCHC 34.8, RDW 13.2, Plt Count 176, MPV 10.0, Neut % (Auto) 67.6, Lymph % (Auto) 18.5, [place] % (Auto) 12.0 H, Eos % (Auto) 1.2, Baso % (Auto) 0.4, Neut # (Auto) 6.0, Lymph # (Auto) 1.7, [place] # (Auto) 1.1 H, Eos # (Auto) 0.1, Baso # (Auto) 0.0, Sodium 134 L, Potassium 3.8, Chloride 93 L, Carbon Dioxide 27, Anion Gap 17.8 H, BUN 13, Creatinine 1.00, Estimated Creat Clear 77, Estimated GFR 75, Est GFR ( Amer) 91, Glucose 111 H, Calcium 9.4, Total Bilirubin 1.3, AST 58, ALT 39, Alkaline Phosphatase 95, Troponin I 1.70 H, NT-Pro-B Natriuret Pep 949 H, Total Protein 8.7 H, Albumin 4.9, Globulin 3.8 H, Albumin/Globulin Ratio 1.3, HCV Ab [place] w/Rflx PCR Qn Negative, HIV Ag/Ab Combo Qual Negative 08/16/24 17:55: Troponin I 1.96 H 08/16/24 18:57: SARS-CoV-2 (PCR) Not detected, Influenza A Untype (PCR) Not detected, Influenza Type B (PCR) Not detected 08/16/24 22:05: Troponin I 2.02 H 08/17/24 05:16: WBC 7.4, RBC 3.75 L, Hgb 13.2 L, Hct 38.6 L, MCV 102.9 H, MCH 35.2 H, MCHC 34.2, RDW 13.2, Plt Count 137 L, MPV 9.7, Neut % (Auto) 67.5, Lymph % (Auto) 17.4, [place] % (Auto) 12.9 H, Eos % (Auto) 1.4, Baso % (Auto) 0.4, Neut # (Auto) 5.0, Lymph # (Auto) 1.3, [place] # (Auto) 1.0, Eos # (Auto) 0.1, Baso # (Auto) 0.0, Sodium 137, Potassium 3.5, Chloride 96 L, Carbon Dioxide 29, Anion Gap 15.5 H, BUN 13, Creatinine 1.00, Estimated Creat Clear 86, Estimated GFR 75, Est GFR ( Amer) 91, Glucose 102 H, Calcium 8.8, Magnesium 1.7 D, Total Bilirubin 1.2, AST 39 D, ALT 25 D, Alkaline Phosphatase 85, Total Protein 7.1, Albumin 4.0 D, Globulin 3.1, Albumin/Globulin Ratio 1.3 I & O for Last 24 hours: Intake & Output 08/14/24 08/15/24 08/16/24 08/17/24 23:59 23:59 23:59 23:59 Intake Total 1000 / 1000 780 / 780 Output Total 1550 / 1550 310 / 310 Balance -550 / -550 470 / 470 Weight 182 lb 2 oz 180 lb 8 oz Constitutional Constitutional: no acute distress and cooperative *Routine HEENT Exam Eye: Present PERRL *Routine Respiratory Exam Respiratory: Present CTA bilaterally; Absent accessory muscle use, wheezes or crackles Comments: chest tube left chest, bandaged *Routine Cardiovascular Exam Cardiovascular: Present RRR, Normal S1 and Normal S2; Absent murmur, gallop or rubs *Routine Abdominal Exam Abdominal: Present soft; Absent tenderness *Routine Extremities Exam Extremities: Present pulses intact; Absent cyanosis or edema *Routine Skin Exam Skin: Present intact; Absent erythema or wounds *Routine Neurological Exam Neurological: Present alert and oriented X3 Routine Psychiatric Exam Psychiatric: Present cooperative Meds Home Medications and Allergies Home Medications ?Medication ?Instructions ?Recorded ?Confirmed ?Type albuterol sulfate 90 mcg/actuation 2 puff inhalation Q6HP PRN 12/19/22 08/17/24 History aerosol inhaler Shortness Of Breath bisoprolol fumarate 5 mg tablet 2.5 mg (1/2 x 5 mg) PO DAILY #90 10/06/23 08/16/24 Rx tabs fluticasone fur. 200 mcg-umeclid 1 inh inhalation Q24H #60 ea 01/25/24 08/16/24 Rx 62.5 mcg-vilant 25 mcg inhalat.powder (Trelegy Ellipta) aspirin 81 mg tablet,delayed 81 mg PO HS 08/16/24 08/16/24 History release atorvastatin 80 mg tablet 80 mg PO HS 08/16/24 08/16/24 History sacubitril 49 mg-valsartan 51 mg 1 tab PO BID 08/16/24 08/16/24 History tablet (Entresto) doxycycline hyclate 100 mg capsule 100 mg PO BID 08/17/24 08/17/24 History New Prescriptions to Start Prescriptions: Allergies Allergy/AdvReac Type Severity Reaction Status Date / Time cephalexin (From [employer]) Allergy Mild Unknown Verified 08/16/24 13:05 allergy reaction spironolactone AdvReac Intermediate breast Verified 08/16/24 13:05 tenderness Assessment and Plan *Assessment and plan (1) ICD (implantable cardioverter-defibrillator) discharge: Status: Acute Category: Medical Code(s): Z45.02 - Encounter for adjustment and management of automatic implantable cardiac defibrillator (2) Tension pneumothorax: Status: Acute Category: Medical Code(s): J93.0 - Spontaneous tension pneumothorax (3) Elevated troponin: Status: Acute Category: Medical Code(s): R79.89 - Other specified abnormal findings of blood chemistry (4) COPD (chronic obstructive pulmonary disease): Status: Acute Category: Medical Code(s): J44.9 - Chronic obstructive pulmonary disease, unspecified (5) PAD (peripheral artery disease): Status: Acute Category: Medical Code(s): I73.9 - Peripheral vascular disease, unspecified (6) Ischemic cardiomyopathy: Status: Chronic Category: Medical Code(s): I25.5 - Ischemic cardiomyopathy (7) CAD (coronary artery disease): Status: Chronic Qualifiers: Associated angina: without angina Coronary Disease-Associated Artery/Lesion type: false pass artery [place] vs. transplanted heart: false pass heart Qualified Code(s): I25.10 - Atherosclerotic heart disease of false pass coronary artery without angina pectoris Category: Medical Code(s): I25.10 - Atherosclerotic heart disease of false pass coronary artery without angina pectoris (8) HFrEF (heart failure with reduced ejection fraction): Status: Acute Category: Medical Code(s): I50.20 - Unspecified systolic (congestive) heart failure Plan Sustained Ventricular Tachycardia with ICD Discharge - device download indicates new sustained VT >220 with appropriate therapy, only one other NSVT which was 01/2024 and did not requir therapy - VT likely secondary to large tension pneumo, acidemia, - cont bisoprolol - add Amio 400mg TID for now, can discuss whether to remain on rubber calender helper with his usual Semiconductor Equipment Technician at [facility] post discharge Large Left Tension Pneumothorax s/p emergent decompression and chest tube placement 08/16 - stable/improving - likely secondary to COPD/Emphysema and infection - Pulm following/managing MV-CAD with elevated troponin - known CAD with RCA/LAD stents here in 2018 and again later in [place] (dates unknown but last was >1 year ago per pt) - CCS = 0 baseline, denies angina here but has elevated trop post ICD shock and tension pneumo - will check 2D ECHO for new WMA - cont ASA, BB, Statin, no Lovenox/DAPT due to chest tube currently - pt already scheduled for OP stress test with his Semiconductor Equipment Technician next week, so will likely just keep that plan rather than [facility] this admission as this appears to be a respiratory driven event PAD s/p Left Carotid Stenting and RLE DCBA >1 year ago - denies dizziness and claudication - cont ASA, Statin - consider rubber calender helper Xarelto 2.5mg - defer to primary Semiconductor Equipment Technician as outpatient Addendum: ECHO very difficult images. Appears largely unchanged from 2019. Continue Amio.
[2024-08-17] MEDS: AMIODARONE 200MG TABLET 400 MG PO ×2 (13:01→20:53)
--- NOTE | 2024-08-17 13:35 | EXP.ACUTE.PN ---
Subjective *Date: 08/17/24 *Time: 18:26 Interval history: Patient reports breathing more comfortably today. Still has air leak from chest tube. Afebrile. No nausea or vomiting. On 2 L with sats in low 90s. Transition to nonrebreather for goal sat of 100%. Blood pressure soft but patient asymptomatic Medical Exam Vital signs and Labs for Last 24 Hours: Vital Signs Temp Pulse Pulse Resp BP BP Pulse Ox 08/17/24 12:00 97.8 F 84 16 97/57 L 93 L 08/17/24 11:00 08/17/24 09:10 85 94/54 L 08/17/24 09:05 08/17/24 08:00 90 08/17/24 08:00 98.1 F 92 H 17 93/56 L 97 08/17/24 07:40 08/17/24 06:35 08/17/24 05:00 08/17/24 04:00 80 08/17/24 03:55 98.3 F 82 17 100/64 L 95 08/17/24 03:00 08/17/24 01:00 08/17/24 00:00 85 08/17/24 00:00 98.8 F 84 19 96/58 L 98 08/16/24 23:00 08/16/24 21:00 08/16/24 20:00 90 08/16/24 20:00 08/16/24 20:00 98.5 F 68 15 102/68 L 93 L 08/16/24 19:00 08/16/24 18:00 08/16/24 17:53 98.0 F 79 21 100/60 L 92 L 08/16/24 17:25 98.0 F 80 18 105/69 L 08/16/24 15:55 98.4 F 90 24 134/87 97 O2 Del Method O2 Flow Rate 08/17/24 12:00 08/17/24 11:00 Non-Rebreather 15 08/17/24 09:10 08/17/24 09:05 Nasal Cannula 2 08/17/24 08:00 08/17/24 08:00 Nasal Cannula 2 08/17/24 07:40 Nasal Cannula 2 08/17/24 06:35 Nasal Cannula 2 08/17/24 05:00 Nasal Cannula 2 08/17/24 04:00 08/17/24 03:55 Nasal Cannula 2 08/17/24 03:00 Nasal Cannula 2 08/17/24 01:00 Nasal Cannula 2 08/17/24 00:00 08/17/24 00:00 Nasal Cannula 2 08/16/24 23:00 Nasal Cannula 2 08/16/24 21:00 Nasal Cannula 2 08/16/24 20:00 08/16/24 20:00 Room Air 08/16/24 20:00 Nasal Cannula 2 08/16/24 19:00 Room Air 08/16/24 18:00 Nasal Cannula 2 08/16/24 17:53 Nasal Cannula 2 08/16/24 17:25 Nasal Cannula 2 08/16/24 15:55 Room Air Intake and Output 08/16/24 08/17/24 08/17/24 23:59 07:59 15:59 Intake Total 1000 / 1000 240 / 1020 780 / 1020 Output Total 1550 / 1550 210 / 310 100 / 310 Balance -550 / -550 30 / 710 680 / 710 Intake: Intake, Oral Amount 1000 / 1000 240 / 1020 780 / 1020 Output: Output, Urine Amount 1550 / 1550 200 / 300 100 / 300 Output, Chest Tube Drainage 10 / Amount Left 10 Other: Number of Voids 1 Number of Unmeasured Voids 0 0 Weight 82.611 kg 81.873 kg Patient Weight 08/17/24 23:59 Weight 81.873 kg Laboratory Results - last 24 hr 08/16/24 15:50: WBC 8.9, RBC 4.02 L, Hgb 14.5, Hct 41.7 L, MCV 103.7 H, MCH 36.1 H, MCHC 34.8, RDW 13.2, Plt Count 176, MPV 10.0, Neut % (Auto) 67.6, Lymph % (Auto) 18.5, [place] % (Auto) 12.0 H, Eos % (Auto) 1.2, Baso % (Auto) 0.4, Neut # (Auto) 6.0, Lymph # (Auto) 1.7, [place] # (Auto) 1.1 H, Eos # (Auto) 0.1, Baso # (Auto) 0.0, Sodium 134 L, Potassium 3.8, Chloride 93 L, Carbon Dioxide 27, Anion Gap 17.8 H, BUN 13, Creatinine 1.00, Estimated Creat Clear 77, Estimated GFR 75, Est GFR ( Amer) 91, Glucose 111 H, Calcium 9.4, Total Bilirubin 1.3, AST 58, ALT 39, Alkaline Phosphatase 95, Troponin I 1.70 H, NT-Pro-B Natriuret Pep 949 H, Total Protein 8.7 H, Albumin 4.9, Globulin 3.8 H, Albumin/Globulin Ratio 1.3, HCV Ab [place] w/Rflx PCR Qn Negative, HIV Ag/Ab Combo Qual Negative 08/16/24 17:55: Troponin I 1.96 H 08/16/24 18:57: SARS-CoV-2 (PCR) Not detected, Influenza A Untype (PCR) Not detected, Influenza Type B (PCR) Not detected 08/16/24 22:05: Troponin I 2.02 H 08/17/24 05:16: WBC 7.4, RBC 3.75 L, Hgb 13.2 L, Hct 38.6 L, MCV 102.9 H, MCH 35.2 H, MCHC 34.2, RDW 13.2, Plt Count 137 L, MPV 9.7, Neut % (Auto) 67.5, Lymph % (Auto) 17.4, [place] % (Auto) 12.9 H, Eos % (Auto) 1.4, Baso % (Auto) 0.4, Neut # (Auto) 5.0, Lymph # (Auto) 1.3, [place] # (Auto) 1.0, Eos # (Auto) 0.1, Baso # (Auto) 0.0, Sodium 137, Potassium 3.5, Chloride 96 L, Carbon Dioxide 29, Anion Gap 15.5 H, BUN 13, Creatinine 1.00, Estimated Creat Clear 86, Estimated GFR 75, Est GFR ( Amer) 91, Glucose 102 H, Calcium 8.8, Magnesium 1.7 D, Total Bilirubin 1.2, AST 39 D, ALT 25 D, Alkaline Phosphatase 85, Total Protein 7.1, Albumin 4.0 D, Globulin 3.1, Albumin/Globulin Ratio 1.3 I & O for Labs for Last 24 Hours: Intake & Output 08/14/24 08/15/24 08/16/24 08/17/24 23:59 23:59 23:59 23:59 Intake Total 1000 / 1000 1020 / 1020 Output Total 1550 / 1550 310 / 310 Balance -550 / -550 710 / 710 Weight 82.611 kg 81.873 kg Constitutional: Present mild distress, average body habitus, chronically ill appearing and cooperative Head: Present atraumatic and normocephalic ENT: Present normal exam Respiratory: Present crackles and normal respiratory effort; Absent prolonged expiratory phase, rhonchi or wheezes Comment:: Small bore tube in left chest. Air leak in Pleur-evac Cardiac: Present Reg Rate and Rhythm GI: Present soft and normal bowel sounds; Absent distention or tenderness Extremities: Present normal inspection and full ROM; Absent edema Skin: Present intact; Absent erythema Neuro: Present Grossly Intact, alert, awake, oriented x 3 and moves all extremities Assessment and Plan *Assessment and plan (1) Pneumothorax, left: Status: Acute Category: Medical Code(s): J93.9 - Pneumothorax, unspecified (2) NYHA class 3 heart failure with reduced ejection fraction: Status: Chronic Category: Medical Code(s): I50.20 - Unspecified systolic (congestive) heart failure (3) Tension pneumothorax: Status: Acute Category: Medical Code(s): J93.0 - Spontaneous tension pneumothorax (4) COPD (chronic obstructive pulmonary disease): Status: Acute Category: Medical Code(s): J44.9 - Chronic obstructive pulmonary disease, unspecified (5) PAD (peripheral artery disease): Status: Acute Category: Medical Code(s): I73.9 - Peripheral vascular disease, unspecified (6) Ischemic cardiomyopathy: Status: Chronic Category: Medical Code(s): I25.5 - Ischemic cardiomyopathy (7) CAD (coronary artery disease): Status: Chronic Qualifiers: Coronary Disease-Associated Artery/Lesion type: [place] artery [place] vs. transplanted heart: [place] heart Associated angina: without angina Qualified Code(s): I25.10 - Atherosclerotic heart disease of [place] coronary artery without angina pectoris Category: Medical Code(s): I25.10 - Atherosclerotic heart disease of [place] coronary artery without angina pectoris (8) HFrEF (heart failure with reduced ejection fraction): Status: Acute Category: Medical Code(s): I50.20 - Unspecified systolic (congestive) heart failure Plan Raffy Cheney is a 64-year-old male with a medical history of COPD, CAD with stents, HFrEF with AICD presents with several week onset of productive cough, and 1 week onset of shortness of breath. Patient presented to PCPs office who obtained a CXR which showed left-sided tension pneumothorax and advised to go to the ED. Upon arrival, vital signs were stable. Patient states he has been having a productive cough with intermittent yellow phlegm for the past 3 weeks. Only in the last week has he experienced shortness of breath. Last night, patient states his AICD was discharged but felt fine thereafter. Denies fever/chills, chest pain, abdominal pain. states he has been having worsening leg swelling, for which gave him PRN Lasix which some improvement. Workup in the ED significant for WBC 8.9, creatinine 1.7 (unknown baseline). Chest tube placed in the ER. Showing some improvement. Feeling clinically better. Pulmonology and cardiology assisting with care. Problems addressed as follows: #Left sided pneumothorax #Community-acquired pneumonia ? Presents with several week onset of productive cough, 1 week onset of shortness of breath and left-sided flank pain. ? S/p chest tube placement in the ED with improvement of symptoms, including left-sided flank pain. Repeat chest x-ray today with small pneumothorax appreciated upper lung field. Significant improvement from admission per my review. ? Will continue suctioning at -20 cm, plan for repeat chest x-ray in the morning. Continuous cardiac telemetry. ? Sputum cultures pending, transition to Levaquin 750 mg daily for empiric coverage - Mini respiratory panel negative - Discussed case with pulmonology, continue chest tube to suction. Will consider clamping in the next 24 hours and evaluate for continued leak. Transition to nonrebreather for goal sats of 100% to promote resorption - White count 7.4, hemoglobin 13.2. Kidney function normal with BUN 13, creatinine 1.0. Repeat CBC, CMP, magnesium ordered for the morning #HFrEF exacerbation #AICD discharge #Elevated troponin ? History of HFrEF with ICD in place, pulmonary edema on CXR. Presented with productive cough. BNP 949. ? Apparent AICD discharged prior to admission. Repeat echo obtained showing persistent HFrEF, does not appear to be in exacerbation - Continue home bisoprolol, holding Entresto due to soft blood pressures. - Discussed case with cardiology, recommend adding amiodarone 40 mg 3 times a day for now for V. tach noted on device interrogation. 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 Continue home aspirin, statin. #COPD ? Seems stable at this time. Continue home Trelegy. Full code DVT prophylaxis: Lovenox 40 mg. Cardiac diet
[2024-08-17] MEDS: LEVOFLOXACIN/D5W 750 MG/150 ML 750 MG/150 ML PIGGYBACK 100 MG IV (15:32)
--- NOTE | 2024-08-17 16:52 | PC.NURSE ---
Chest tube in place, bubbles noted in water chamber, no crepitus present and md aware. 10 ml of fluid drained in pleuravac this shift. Lung sounds diminished on left side but clear on right. Entresto held by cardiology due to low bp's but bisoprolol ok to be given per cardiology. Patient tolerated well. Patient escalated to non rebreather per sanding machine buffer request to treat pneumothorax.
--- NOTE | 2024-08-17 20:45 | PC.NURSE ---
patient is currently taking bath 2044
[2024-08-17] MEDS: ASPIRIN EC 81MG TABLET 81 MG PO (20:52)
[2024-08-17] MEDS: ATORVASTATIN 40MG TABLET 80 MG PO (20:52)
[2024-08-18] VITALS (9 sets, daily range): BP systolic 87–108; BP diastolic 45–69; PULSE 60–81; RESP 15–20; TEMP 36.5–36.8; O2SAT 99–100; BMI 24.3
--- NOTE | 2024-08-18 00:18 | PC.NURSE ---
Nurse is aware of low blood pressure. 00:18
--- NOTE | 2024-08-18 02:34 | PC.NURSE ---
Pt AOx4, pleasant. Chest tube in place and draining. Pt on nonrebreather to maintain O2 stat at 100%. Pt is currently resting in bed with eyes closed. Respirations even and unlabored. Bed is low, locked, and call light is in reach.
--- NOTE | 2024-08-18 04:28 | PC.NURSE ---
Blue bags and trashes were taken out at this time 0428. Patient's call light is within reach and pt does not need anything
[2024-08-18] MEDS: FLUTICASONE/UMECLIDIN/VILANTER 200/62.5/25MCG INHALER 1 PUFF IH (06:20)
--- NOTE | 2024-08-18 06:30 | PC.NURSE ---
Ice filled and table is wiped. call light within reach, patient does not need anything at this time. 0630
[2024-08-18 06:52] LABS: Basophils % 0.4 % (0.1-2.0); Eosinophils # 0.2 Kmm3 (0.0-0.4); Eosinophils % 2.8 % (0.1-12.0); Hematocrit 40.2 % (42.0-52.0); Hemoglobin 13.3 g/dL (14.1-18.0); Immature Granulocytes # 0.06 10^3uL; Immature Granulocytes % 0.8 %; Lymphocytes # 1.3 K/mm3 (0.7-4.5); Lymphocytes % 16.8 % (10-50); Mean Corpuscular HGB Conc 33.1 g/dL (31.8-35.4); Mean Corpuscular Hemoglobin 34.9 pg (27.0-31.2); Mean Corpuscular Volume 105.5 fl (80-94); Mean Platelet Volume 9.8 fl (7.4-10.4); Monocytes # 0.9 K/mm3 (0.1-1.0); Monocytes % 11.9 % (1.7-9.3); Neutrophils # 5.3 K/mm3 (1.8-7.8); Neutrophils % 67.3 % (37.0-80.0); Nucleated Red Blood Cells # 0 10^3/uL; Nucleated Red Blood Cells % 0 %; Platelet Count 141 K/mm3 (142-424); Red Blood Count 3.81 M/mm3 (4.60-6.20); Red Cell Distribution Width 13.4 % (11.5-17.5); Red Cell Distribution Width-SD 51.8 fL; White Blood Count 7.8 K/mm3 (4.8-10.8)
[2024-08-18 07:03] LABS: Chloride 97 mmol/L (98-107); Potassium 4.6 mmoL/L (3.5-5.1); Sodium 135 mmol/L (136-145)
[2024-08-18 07:06] LABS: Alanine Aminotransferase 25 U/L (12-78); Albumin/Globulin Ratio 1.4 (1.1-1.8); Alkaline Phosphatase 78 U/L (38-126); Anion Gap 13.6 mEq/L (5-15); Aspartate Amino Transferase 35 U/L (17-59); Bilirubin,Total 1.3 mg/dl (0.2-1.3); Blood Urea Nitrogen 12 mg/dl (9-20); Calcium 8.7 mg/dl (8.4-10.2); Carbon Dioxide 29 mmol/L (22.0-30.0); Creatinine Clearance Estimated 83 mL/min (50-200); Estimated Glomerular Filt Rate 75 ml/min (>60); GFR (African American) 91 ML/MIN (>60); Globulin 2.9 g/dL (1.3-3.2); Glucose 100 mg/dl (74-100); Magnesium 2.2 mg/dl (1.6-2.3); Total Protein,Serum 6.9 g/dl (6.3-8.2)
--- NOTE | 2024-08-18 08:30 | XR_ITS ---
FINAL REPORT CLINICAL HISTORY: eval left pneumothorax COMPARISON: 08/17/2024 FINDINGS: There is a small approximately 15-20% left pneumothorax, mildly improved. Apical pleural separation now measures 18 mm and previously measured 22 mm. A left pleural catheter is obscured by pacer generator. The right lung is clear. Mediastinum is unremarkable. Heart size is normal. IMPRESSION: Further mild improvement in small left pneumothorax. Reviewed, Interpreted and Dictated by Albert Theodore MD Transcribed by Steffanie Irvin Authenticated and [facility]
--- NOTE | 2024-08-18 08:30 | EXP.ACUTE.PN ---
Subjective *Date: 08/18/24 *Time: 16:42 Interval history: Patient gely afebrile. On eval this morning however there is no air leak in Pleur-evac. States he is breathing better. No nausea or vomiting. Tolerating p.o. intake Medical Exam Vital signs and Labs for Last 24 Hours: Vital Signs Temp Pulse Pulse Resp BP Pulse Ox O2 Del Method 08/18/24 07:59 97.7 F 81 18 107/53 L 100 Non-Rebreather 08/18/24 06:37 Non-Rebreather 08/18/24 06:21 99 Non-Rebreather 08/18/24 05:00 Non-Rebreather 08/18/24 04:00 70 08/18/24 04:00 97.8 F 77 18 96/69 L 100 Non-Rebreather 08/18/24 03:00 Non-Rebreather 08/18/24 01:00 Non-Rebreather 08/18/24 00:00 60 08/18/24 00:00 97.9 F 70 15 88/45 L 99 Non-Rebreather 08/17/24 23:00 Non-Rebreather 08/17/24 21:00 Non-Rebreather 08/17/24 20:00 70 08/17/24 20:00 98.2 F 71 20 114/55 L 98 Nasal Cannula 08/17/24 20:00 Non-Rebreather 08/17/24 18:44 Non-Rebreather 08/17/24 16:56 Non-Rebreather 08/17/24 16:00 70 08/17/24 16:00 97.9 F 74 18 94/58 L 99 08/17/24 15:15 Non-Rebreather 08/17/24 13:00 Non-Rebreather 08/17/24 12:00 80 08/17/24 12:00 97.8 F 84 16 97/57 L 93 L 08/17/24 11:00 Non-Rebreather 08/17/24 09:10 85 94/54 L 08/17/24 09:05 Nasal Cannula O2 Flow Rate 08/18/24 07:59 08/18/24 06:37 15 08/18/24 06:21 15 08/18/24 05:00 15 08/18/24 04:00 08/18/24 04:00 06/26/25 03:00 15 08/18/24 01:00 15 08/18/24 00:00 08/18/24 00:00 08/17/24 23:00 15 08/17/24 21:00 15 08/17/24 20:00 08/17/24 20:00 08/17/24 20:00 08/17/24 18:44 15 08/17/24 16:56 15 08/17/24 16:00 08/17/24 16:00 08/17/24 15:15 15 08/17/24 13:00 15 08/17/24 12:00 08/17/24 12:00 08/17/24 11:00 15 08/17/24 09:10 08/17/24 09:05 2 Intake and Output 08/17/24 08/18/24 08/18/24 23:59 07:59 15:59 Intake Total 630 / 1650 Output Total 112 / 922 326 / 326 Balance 518 / 728 -326 / -326 Intake: Intake, Oral Amount 480 / 1500 Intake, Total IV Amount 150 / 150 Levofloxacin/D5w 750 mg/150 ml 150 / 150 750 mg In 150 ml @ 100 mls/hr IV Q24H [facility] Rx#:[id number] Output: Output, Urine Amount 100 / 900 300 / 300 Output, Chest Tube Drainage Amount Left Other: Number of Unmeasured Voids 0 Weight 78.88 kg Patient Weight 08/18/24 23:59 Weight 78.88 kg Laboratory Results - last 24 hr 08/18/24 05:26: WBC 7.8, RBC 3.81 L, Hgb 13.3 L, Hct 40.2 L, MCV 105.5 H, MCH 34.9 H, MCHC 33.1, RDW 13.4, Plt Count 141 L, MPV 9.8, Neut % (Auto) 67.3, Lymph % (Auto) 16.8, [place] % (Auto) 11.9 H, Eos % (Auto) 2.8, Baso % (Auto) 0.4, Neut # (Auto) 5.3, Lymph # (Auto) 1.3, [place] # (Auto) 0.9, Eos # (Auto) 0.2, Baso # (Auto) 0.0, Sodium 135 L, Potassium 4.6 D, Chloride 97 L, Carbon Dioxide 29, Anion Gap 13.6, BUN 12, Creatinine 1.00, Estimated Creat Clear 83, Estimated GFR 75, Est GFR ( Amer) 91, Glucose 100, Calcium 8.7, Magnesium 2.2 D, Total Bilirubin 1.3, AST 35, ALT 25, Alkaline Phosphatase 78, Total Protein 6.9, Albumin 4.0, Globulin 2.9, Albumin/Globulin Ratio 1.4 I & O for Labs for Last 24 Hours: Intake & Output 08/15/24 08/16/24 08/17/24 08/18/24 23:59 23:59 23:59 23:59 Intake Total 1000 / 1000 1650 / 1650 Output Total 1550 / 1550 772 / 922 326 / 326 Balance -550 / -550 878 / 728 -326 / -326 Weight 82.611 kg 81.873 kg 78.88 kg Constitutional: Present mild distress, average body habitus, chronically ill appearing and cooperative Head: Present atraumatic and normocephalic ENT: Present normal exam Respiratory: Present crackles and normal respiratory effort; Absent prolonged expiratory phase, rhonchi or wheezes Comment:: Small bore tube in left chest. Air leak in Pleur-evac Cardiac: Present Reg Rate and Rhythm GI: Present soft and normal bowel sounds; Absent distention or tenderness Extremities: Present normal inspection and full ROM; Absent edema Skin: Present intact; Absent erythema Neuro: Present Grossly Intact, alert, awake, oriented x 3 and moves all extremities Assessment and Plan *Assessment and plan (1) Pneumothorax, left: Status: Acute Category: Medical Code(s): J93.9 - Pneumothorax, unspecified (2) NYHA class 3 heart failure with reduced ejection fraction: Status: Chronic Category: Medical Code(s): I50.20 - Unspecified systolic (congestive) heart failure (3) Tension pneumothorax: Status: Acute Category: Medical Code(s): J93.0 - Spontaneous tension pneumothorax (4) COPD (chronic obstructive pulmonary disease): Status: Acute Category: Medical Code(s): J44.9 - Chronic obstructive pulmonary disease, unspecified (5) PAD (peripheral artery disease): Status: Acute Category: Medical Code(s): I73.9 - Peripheral vascular disease, unspecified (6) Ischemic cardiomyopathy: Status: Chronic Category: Medical Code(s): I25.5 - Ischemic cardiomyopathy (7) CAD (coronary artery disease): Status: Chronic Qualifiers: Coronary Disease-Associated Artery/Lesion type: [place] artery [place] vs. transplanted heart: [place] heart Associated angina: without angina Qualified Code(s): I25.10 - Atherosclerotic heart disease of [place] coronary artery without angina pectoris Category: Medical Code(s): I25.10 - Atherosclerotic heart disease of [place] coronary artery without angina pectoris (8) HFrEF (heart failure with reduced ejection fraction): Status: Acute Category: Medical Code(s): I50.20 - Unspecified systolic (congestive) heart failure Plan Raffy Cheney is a 64-year-old male with a medical history of COPD, CAD with stents, HFrEF with AICD presents with several week onset of productive cough, and 1 week onset of shortness of breath. Patient presented to PCPs office who obtained a CXR which showed left-sided tension pneumothorax and advised to go to the ED. Upon arrival, vital signs were stable. Patient states he has been having a productive cough with intermittent yellow phlegm for the past 3 weeks. Only in the last week has he experienced shortness of breath. Last night, patient states his AICD was discharged but felt fine thereafter. Denies fever/chills, chest pain, abdominal pain. states he has been having worsening leg swelling, for which gave him PRN Lasix which some improvement. Workup in the ED significant for WBC 8.9, creatinine 1.7 (unknown baseline). Chest tube placed in the ER. Showing some improvement. Feeling clinically better. Pulmonology and cardiology assisting with care. Problems addressed as follows: #Left sided pneumothorax, acute worsening, posing threat to bodily function #Community-acquired pneumonia ? Presents with several week onset of productive cough, 1 week onset of shortness of breath and left-sided flank pain. ? S/p chest tube placement in the ED with improvement of symptoms, including left-sided flank pain. Repeat chest x-ray today with small pneumothorax appreciated upper lung field. Significant improvement from admission per my review. ? Surgery consulted due to worsening pneumothorax on left side. Discussed need for tube exchange given worsening pneumothorax. He plans to remove pigtail and insert left-sided thoracostomy tube. - Discussed case with pulmonology, continue Trelegy 100 inhaler and DuoNebs every 6 hours. - Repeat chest x-ray this afternoon per my review showing increased pneumothorax compared to the morning chest x-ray. Pulmonology recommended surgery consult for large bore tube. ? Sputum cultures pending, can you Levaquin 750 mg daily for empiric coverage - Mini respiratory panel negative -White count stable at 7.8, hemoglobin 13.3. Kidney function normal with BUN 12, creatinine 1.0. Magnesium 2.2 with potassium 4.6. -Repeat CBC, CMP, magnesium ordered for the morning -Will need repeat chest x-ray in the morning #HFrEF exacerbation #AICD discharge #Elevated troponin ? History of HFrEF with ICD in place, pulmonary edema on CXR. Presented with productive cough. BNP 949. ? Apparent AICD discharged prior to admission. Repeat echo obtained showing persistent HFrEF, does not appear to be in exacerbation - Continue home bisoprolol, holding Entresto due to soft blood pressures. - Discussed case with cardiology, recommend adding amiodarone 400 mg 3 times a day for now for V. tach noted on device interrogation. 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 Continue home aspirin, statin. #COPD ? Seems stable at this time. Continue home Trelegy. Full code DVT prophylaxis: Lovenox 40 mg. Cardiac diet
[2024-08-18] MEDS: ENOXAPARIN 40MG/0.4ML SYRINGE 40 MG SUBCUT (10:04)
[2024-08-18] MEDS: SACUBITRIL/VALSARTAN 24-26MG TABLET 2 EACH PO (10:04)
[2024-08-18] MEDS: AMIODARONE 200MG TABLET 400 MG PO ×2 (10:04→21:13)
[2024-08-18] MEDS: BISOPROLOL 5MG TABLET 2.5 MG PO (10:06)
--- NOTE | 2024-08-18 10:08 | EXP.PULM.PN ---
Subjective *Date: 08/18/24 *Time: 13:09 Interval history: No acute respiratory events overnight. Patient denies any new respiratory complaints. Pulmonology Exam Inpatient Vital signs and Labs for Last 24 Hours: Temp Pulse Resp BP Pulse Ox O2 Del Method O2 Flow Rate 97.7 F 81 18 107/53 L 100 Room Air 15 08/18/24 08:38 08/18/24 08:38 08/18/24 08:38 08/18/24 08:38 08/18/24 08:38 08/18/24 08:38 08/18/24 06:37 Laboratory Results - last 24 hr 08/18/24 05:26: WBC 7.8, RBC 3.81 L, Hgb 13.3 L, Hct 40.2 L, MCV 105.5 H, MCH 34.9 H, MCHC 33.1, RDW 13.4, Plt Count 141 L, MPV 9.8, Neut % (Auto) 67.3, Lymph % (Auto) 16.8, [place] % (Auto) 11.9 H, Eos % (Auto) 2.8, Baso % (Auto) 0.4, Neut # (Auto) 5.3, Lymph # (Auto) 1.3, [place] # (Auto) 0.9, Eos # (Auto) 0.2, Baso # (Auto) 0.0, Sodium 135 L, Potassium 4.6 D, Chloride 97 L, Carbon Dioxide 29, Anion Gap 13.6, BUN 12, Creatinine 1.00, Estimated Creat Clear 83, Estimated GFR 75, Est GFR ( Amer) 91, Glucose 100, Calcium 8.7, Magnesium 2.2 D, Total Bilirubin 1.3, AST 35, ALT 25, Alkaline Phosphatase 78, Total Protein 6.9, Albumin 4.0, Globulin 2.9, Albumin/Globulin Ratio 1.4 Temp Pulse Resp BP Pulse Ox O2 Del Method O2 Flow Rate 98.1 F 85 17 94/54 L 97 Nasal Cannula 2 08/17/24 08:00 08/17/24 09:10 08/17/24 08:00 08/17/24 09:10 08/17/24 08:00 08/17/24 09:05 08/17/24 09:05 Laboratory Results - last 24 hr 08/16/24 15:50: WBC 8.9, RBC 4.02 L, Hgb 14.5, Hct 41.7 L, MCV 103.7 H, MCH 36.1 H, MCHC 34.8, RDW 13.2, Plt Count 176, MPV 10.0, Neut % (Auto) 67.6, Lymph % (Auto) 18.5, [place] % (Auto) 12.0 H, Eos % (Auto) 1.2, Baso % (Auto) 0.4, Neut # (Auto) 6.0, Lymph # (Auto) 1.7, [place] # (Auto) 1.1 H, Eos # (Auto) 0.1, Baso # (Auto) 0.0, Sodium 134 L, Potassium 3.8, Chloride 93 L, Carbon Dioxide 27, Anion Gap 17.8 H, BUN 13, Creatinine 1.00, Estimated Creat Clear 77, Estimated GFR 75, Est GFR ( Amer) 91, Glucose 111 H, Calcium 9.4, Total Bilirubin 1.3, AST 58, ALT 39, Alkaline Phosphatase 95, Troponin I 1.70 H, NT-Pro-B Natriuret Pep 949 H, Total Protein 8.7 H, Albumin 4.9, Globulin 3.8 H, Albumin/Globulin Ratio 1.3, HCV Ab [place] w/Rflx PCR Qn Negative, HIV Ag/Ab Combo Qual Negative 08/16/24 17:55: Troponin I 1.96 H 08/16/24 18:57: SARS-CoV-2 (PCR) Not detected, Influenza A Untype (PCR) Not detected, Influenza Type B (PCR) Not detected 08/16/24 22:05: Troponin I 2.02 H 08/17/24 05:16: WBC 7.4, RBC 3.75 L, Hgb 13.2 L, Hct 38.6 L, MCV 102.9 H, MCH 35.2 H, MCHC 34.2, RDW 13.2, Plt Count 137 L, MPV 9.7, Neut % (Auto) 67.5, Lymph % (Auto) 17.4, [place] % (Auto) 12.9 H, Eos % (Auto) 1.4, Baso % (Auto) 0.4, Neut # (Auto) 5.0, Lymph # (Auto) 1.3, [place] # (Auto) 1.0, Eos # (Auto) 0.1, Baso # (Auto) 0.0, Sodium 137, Potassium 3.5, Chloride 96 L, Carbon Dioxide 29, Anion Gap 15.5 H, BUN 13, Creatinine 1.00, Estimated Creat Clear 86, Estimated GFR 75, Est GFR ( Amer) 91, Glucose 102 H, Calcium 8.8, Magnesium 1.7 D, Total Bilirubin 1.2, AST 39 D, ALT 25 D, Alkaline Phosphatase 85, Total Protein 7.1, Albumin 4.0 D, Globulin 3.1, Albumin/Globulin Ratio 1.3 I & O for Labs for Last 24 Hours: Intake & Output 08/15/24 08/16/24 08/17/24 08/18/24 23:59 23:59 23:59 23:59 Intake Total 1000 / 1000 1650 / 1650 360 / 360 Output Total 1550 / 1550 772 / 922 326 / 326 Balance -550 / -550 878 / 728 34 / 34 Weight 182 lb 2 oz 180 lb 8 oz 173 lb 14.4 oz Intake & Output 08/14/24 08/15/24 08/16/24 08/17/24 23:59 23:59 23:59 23:59 Intake Total 1000 / 1000 780 / 780 Output Total 1550 / 1550 210 / 210 Balance -550 / -550 570 / 570 Weight 182 lb 2 oz 180 lb 8 oz Constitutional: Present mild distress Head: Present normocephalic and atraumatic ENT: Present normal exam, normal oropharynx and mucous membranes moist Neck: Present normal inspection and full ROM Respiratory: Present respiratory distress and able to speak in complete sentences; Absent prolonged expiratory phase, wheezes, crackles or diminished air movement Cardiac: Present S1/S2, Tachycardia and radial pulses present GI: Present soft and distention; Absent tenderness or guarding Skin: Present intact; Absent cyanosis or jaundice Neuro: Present alert, awake and oriented x 3 Extremities: Present normal inspection; Absent clubbing or cyanosis Psychiatric: Present normal affect and cooperative Assessment and Plan *Assessment and plan (1) Pneumothorax, left: Status: Acute Category: Medical Code(s): J93.9 - Pneumothorax, unspecified Plan Mr. Cheney is a 64-year-old male with history of greater than 27-anls-gbig smoking with last smoked around 2014, COPD USING Trelegy INHALER AT HOME HAS NOT BEEN COMPLIANT, NOT USING ANY OXYGEN SUPPLEMENT CAD status post stenting heart failure reduced EF presented with worsening respiratory distress, found to have large left-sided pneumothorax status post pigtail catheter with minimal pulmonary was called for further evaluation and management. Afebrile. No evidence of leukocytosis. CT chest January 2024 upper lobe paraseptal emphysematous changes along with bilateral diffuse subpleural interstitial changes concerning for pulmonary fibrosis noted COVID-19 and flu PCR panel negative. Interval update No acute respiratory events overnight. Chest x-ray has been on waterseal since yesterday. Worsening pneumothorax on chest x-ray from this morning. Plan: Chest tube to -40 cm water suction. [place]. Follow with repeat chest x-ray Continue Trelegy 100 inhaler along with DuoNebs 4 times daily as needed Oxygen supplementation via nonrebreather to maintain O2 saturation goal of 100%
--- NOTE | 2024-08-18 10:16 | P.PN_ITS ---
Subjective Subjective Date: 08/18/24 Time: 10:16 Principal diagnosis: Pneumothorax, AICD firing Interval history: 64-year-old white male in bed on nonrebreather mask in no acute distress. States he feels 110% better than he did when he came in. He is anxious to get the chest tube out when his is ready. Exam Data for Last 24 hours Vital signs and Labs for Last 24 Hours: Temp Pulse Resp BP Pulse Ox O2 Del Method O2 Flow Rate 97.7 F 81 18 107/53 L 100 Room Air 15 08/18/24 08:38 08/18/24 08:38 08/18/24 08:38 08/18/24 08:38 08/18/24 08:38 08/18/24 08:38 08/18/24 06:37 Laboratory Results - last 24 hr 08/18/24 05:26: WBC 7.8, RBC 3.81 L, Hgb 13.3 L, Hct 40.2 L, MCV 105.5 H, MCH 34.9 H, MCHC 33.1, RDW 13.4, Plt Count 141 L, MPV 9.8, Neut % (Auto) 67.3, Lymph % (Auto) 16.8, [place] % (Auto) 11.9 H, Eos % (Auto) 2.8, Baso % (Auto) 0.4, Neut # (Auto) 5.3, Lymph # (Auto) 1.3, [place] # (Auto) 0.9, Eos # (Auto) 0.2, Baso # (Auto) 0.0, Sodium 135 L, Potassium 4.6 D, Chloride 97 L, Carbon Dioxide 29, Anion Gap 13.6, BUN 12, Creatinine 1.00, Estimated Creat Clear 83, Estimated GFR 75, Est GFR ( Amer) 91, Glucose 100, Calcium 8.7, Magnesium 2.2 D, Total Bilirubin 1.3, AST 35, ALT 25, Alkaline Phosphatase 78, Total Protein 6.9, Albumin 4.0, Globulin 2.9, Albumin/Globulin Ratio 1.4 I & O for Last 24 hours: Intake & Output 08/15/24 08/16/24 08/17/24 08/18/24 11:59 11:59 11:59 11:59 Intake Total 1780 / 1780 1230 / 1230 Output Total 1860 / 1860 788 / 788 Balance -80 / -80 442 / 442 Weight 180 lb 8 oz 173 lb 14.4 oz Constitutional Constitutional: no acute distress *Routine Respiratory Exam Respiratory: Present CTA bilaterally; Absent rhonchi or wheezes *Routine Cardiovascular Exam Cardiovascular: Present RRR; Absent murmur, gallop or rubs Progress Note: A&P Assessment and plan (1) Pneumothorax, left: Status: Acute (2) HFrEF (heart failure with reduced ejection fraction): Status: Acute (3) ICD (implantable cardioverter-defibrillator) discharge: Status: Acute (4) Ischemic cardiomyopathy: Status: Chronic (5) CAD (coronary artery disease): Status: Chronic Assessment and Plan Assessment and Plan for All Diagnoses:: 1. 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 Large Left Tension Pneumothorax s/p emergent decompression and chest tube placement 08/16 - stable/improving - likely secondary to COPD/Emphysema and infection - Pulm following/managing 3. MV-CAD with elevated troponin - known CAD with RCA/LAD stents here in 2019 and again later in [place] (dates unknown but last was >1 year ago per pt) - CCS = 0 baseline, denies angina here but has elevated trop post ICD shock and tension pneumo -echo this admission shows EF 35% (same as in 2019) with no significant valve disease. - cont ASA, BB, Statin, no Lovenox/DAPT due to chest tube currently - pt already scheduled for OP stress test with his Biology Department Chair next week, so will likely just keep that plan rather than [facility] this admission as this appears to be a respiratory driven event 4. 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 Nothing further to add at this time. Home medication recommendations: Amiodarone 400 mg 3 times daily (discussed with routine assistant professor of economics at next week's visit) Aspirin 81 mg daily Atorvastatin 80 mg daily Bisoprolol 2.5 mg daily Entresto 49/51 mg 1 p.o. twice daily Patient will follow-up with his routine assistant professor of economics next week.
--- NOTE | 2024-08-18 13:09 | XR_ITS ---
FINAL REPORT CLINICAL HISTORY: Pneumothorax COMPARISON: 4-1/2 hours prior FINDINGS: A single frontal view of the chest was obtained. There has been enlargement of the left apical pneumothorax, now approximately 30%. Left apical pleural separation now measures 38 mm and previously measured 18 mm. Left-sided pacer is present. The right lung is clear. Mediastinum is unremarkable. Heart size is normal. IMPRESSION: Enlarging left pneumothorax, now approximately 30%. Reviewed, Interpreted and Dictated by Albert Theodore MD Transcribed by Steffanie Irvin Authenticated and . [facility]
--- NOTE | 2024-08-18 14:22 | EXP.SURG.CON ---
History of Present Illness *Admission Date: 08/16/24 *Reason for visit:: Pneumothorax *History of present illness: Patient is a 64-year-old male with history of COPD, coronary artery disease with previous stenting, congestive heart failure, AICD. He presented to his primary care provider with several week history of productive cough and progressive shortness of breath. He had an outpatient chest x-ray done on 08/16/2024 which revealed large left tension pneumothorax. He presented to the emergency department and underwent placement of pigtail pneumothorax catheter by the ER physician in the afternoon of 08/16/2024. He was admitted for inpatient management. Pulmonary and cardiology consultations were obtained. Imaging today revealed worsening progressively enlarging left-sided pneumothorax despite increasing suction and pulmonary requested surgical thoracostomy tube placement. [facility] Disclaimer: The information contained in this section may have been updated after the patient was seen, as this information can be updated by other users. Medical History COPD (chronic obstructive pulmonary disease) HTN (hypertension) HLD (hyperlipidemia) NYHA class 2 heart failure with reduced ejection fraction Fatigue Abnormal stress test Angina pectoris CAD (coronary artery disease) Surgical History Hx of appendectomy History of carpal tunnel surgery AICD (automatic cardioverter/defibrillator) present H/O heart artery stent Social History Smoking Status: Former smoker tobacco type: cigarettes packs per day: 1 second hand exposure: No alcohol intake: never substance use type: denies use current occupational status: employed Travel in the last 8 weeks?: None household members: spouse housing: house Have you lived/traveled outside [place] in past 30 days?: No Contact w/someone who lives/traveled outside US past 30 days?: No Exposure to someone with infectious disease in past 14 days?: No Do you have a fever (greater than 100.4 F or 38 C)?: No Have you tested positive for COVID-19?: No Exposed to someone with COVID-19 in past 14 days?: No Do you have a sore throat?: No Do you have a cough?: No Do you have any weakness?: No Are you experiencing any nausea/vomitting?: No Do you have any diarrhea?: No Are you experiencing any unusual bleeding?: No Do you have any muscle aches/pain?: No Do you have any abdominal pain?: No Are you experiencing loss of taste or smell?: No Review of Systems Constitutional Constitutional: Denies weakness Eyes Eyes: Denies loss of vision ENT Ears, Nose, Mouth, and Throat: Denies vertigo *Cardiovascular Cardiovascular: Denies syncope *Neurologic Neurologic: Denies loss of vision, Denies syncope, Denies vertigo and Denies weakness Meds Home Medications and Allergies Home Medications ?Medication ?Instructions ?Recorded ?Confirmed ?Type albuterol sulfate 90 mcg/actuation 2 puff inhalation Q6HP PRN 12/19/22 08/17/24 History aerosol inhaler Shortness Of Breath bisoprolol fumarate 5 mg tablet 2.5 mg (1/2 x 5 mg) PO DAILY #90 10/06/23 08/16/24 Rx tabs fluticasone fur. 200 mcg-umeclid 1 inh inhalation Q24H #60 ea 01/25/24 08/16/24 Rx 62.5 mcg-vilant 25 mcg inhalat.powder (Trelegy Ellipta) aspirin 81 mg tablet,delayed 81 mg PO HS 08/16/24 08/16/24 History release atorvastatin 80 mg tablet 80 mg PO HS 08/16/24 08/16/24 History sacubitril 49 mg-valsartan 51 mg 1 tab PO BID 08/16/24 08/16/24 History tablet (Entresto) doxycycline hyclate 100 mg capsule 100 mg PO BID 08/17/24 08/17/24 History New Prescriptions to Start Prescriptions: Allergies Allergy/AdvReac Type Severity Reaction Status Date / Time cephalexin (From [employer]) Allergy Mild Unknown Verified 08/16/24 13:05 allergy reaction spironolactone AdvReac Intermediate breast Verified 08/16/24 13:05 tenderness Exam (Inpt) Vital signs and Labs for Last 24 Hours: Temp Pulse Resp BP Pulse Ox O2 Del Method O2 Flow Rate 98.3 F 66 16 108/64 L 99 Room Air 15 08/18/24 12:00 08/18/24 12:00 08/18/24 12:08/18/24 12:08/18/24 12:08/18/24 12:00 08/18/24 06:37 Laboratory Results - last 24 hr 08/18/24 05:26: WBC 7.8, RBC 3.81 L, Hgb 13.3 L, Hct 40.2 L, MCV 105.5 H, MCH 34.9 H, MCHC 33.1, RDW 13.4, Plt Count 141 L, MPV 9.8, Neut % (Auto) 67.3, Lymph % (Auto) 16.8, [place] % (Auto) 11.9 H, Eos % (Auto) 2.8, Baso % (Auto) 0.4, Neut # (Auto) 5.3, Lymph # (Auto) 1.3, [place] # (Auto) 0.9, Eos # (Auto) 0.2, Baso # (Auto) 0.0, Sodium 135 L, Potassium 4.6 D, Chloride 97 L, Carbon Dioxide 29, Anion Gap 13.6, BUN 12, Creatinine 1.00, Estimated Creat Clear 83, Estimated GFR 75, Est GFR ( Amer) 91, Glucose 100, Calcium 8.7, Magnesium 2.2 D, Total Bilirubin 1.3, AST 35, ALT 25, Alkaline Phosphatase 78, Total Protein 6.9, Albumin 4.0, Globulin 2.9, Albumin/Globulin Ratio 1.4 I & O for Labs for Last 24 Hours: Intake & Output 08/16/24 08/17/24 08/18/24 08/19/24 11:59 11:59 11:59 11:59 Intake Total 1780 / 1780 1230 / 1230 60 / 60 Output Total 1860 / 1860 788 / 788 Balance -80 / -80 442 / 442 60 / 60 Weight 180 lb 8 oz 173 lb 14.4 oz Constitutional: no acute distress Head: Present normocephalic Respiratory: Present decreased breath sounds Results Labs 08/18/24 05:26 08/18/24 05:26 Labs: Laboratory Results - last 24 hr 08/18/24 05:26: WBC 7.8, RBC 3.81 L, Hgb 13.3 L, Hct 40.2 L, MCV 105.5 H, MCH 34.9 H, MCHC 33.1, RDW 13.4, Plt Count 141 L, MPV 9.8, Neut % (Auto) 67.3, Lymph % (Auto) 16.8, [place] % (Auto) 11.9 H, Eos % (Auto) 2.8, Baso % (Auto) 0.4, Neut # (Auto) 5.3, Lymph # (Auto) 1.3, [place] # (Auto) 0.9, Eos # (Auto) 0.2, Baso # (Auto) 0.0, Sodium 135 L, Potassium 4.6 D, Chloride 97 L, Carbon Dioxide 29, Anion Gap 13.6, BUN 12, Creatinine 1.00, Estimated Creat Clear 83, Estimated GFR 75, Est GFR ( Amer) 91, Glucose 100, Calcium 8.7, Magnesium 2.2 D, Total Bilirubin 1.3, AST 35, ALT 25, Alkaline Phosphatase 78, Total Protein 6.9, Albumin 4.0, Globulin 2.9, Albumin/Globulin Ratio 1.4 Assessment and Plan *Assessment and plan (1) Pneumothorax, left: Status: Acute Category: Medical Code(s): J93.9 - Pneumothorax, unspecified Plan He has a progressively enlarging pneumothorax despite pigtail pneumothorax catheter. There appears to be persistent airleak. Plan for placement of left-sided thoracostomy tube.
[2024-08-18] MEDS: MIDAZOLAM 2MG/2ML VIAL 1 MG IV (15:40)
[2024-08-18] MEDS: HYDROMORPHONE 2MG/ML SYRINGE 1 MG IV (15:40)
--- NOTE | 2024-08-18 16:06 | XR_ITS ---
FINAL REPORT CLINICAL HISTORY: chest tube placement COMPARISON: Prior exam 08/18/2024 FINDINGS: SINGLE VIEW CHEST: Since the prior exam there has been interval placement of a large bore left chest tube. The pneumothorax seen on the prior exam is significantly improved, and is approximately 5% residual after chest tube placement. There is apical pleural separation measuring up to 8 mm, was previously 38 mm. The small bore pleural catheter seen on the prior exam has been removed. The right lung is clear. IMPRESSION: 1. Interval placement of large bore left catheter with significant reduction in the previously noted pneumothorax as described. Reviewed, Interpreted and Dictated by Albert Theodore MD Transcribed by Linda Vickers Authenticated and [facility]
--- NOTE | 2024-08-18 16:12 | EXP.OP.NOTE ---
Date of procedure: 08/18/24 Pre-op Diagnosis:: Persistent enlarging left-sided pneumothorax Post-op Diagnosis:: Same Procedure performed:: Placement of 24 Angu[place]an left thoracostomy tube Surgeon:: Edi Goss MD Anesthesia: local Estimated blood loss (mL): 3 Operative findings:: Audible evacuation of air with placement of tube Operative note:: Consent was obtained. Patient was given 1 mg Versed and 1 mg Dilaudid prior to the procedure. Patient was maintained on the hospital bed. Preparations were made with organization of materials. The tiny pneumothorax pigtail catheter was then removed. Left chest was then quickly prepped and draped in the standard surgical fashion. Local anesthetic was infiltrated in the anterior axillary line superficially and then deep to the intercostals and parietal pleura. Incision was made with 11 blade scalpel. Dissection was carried down through subcutaneous tissues and intercostal muscles over the rib. Pleural space was then entered bluntly. There was audible air evacuation. 24 [place] thoracostomy tube was then manipulated into the pleural space with an attempt to place it anterior and towards the apex. It was secured with 0 Nurolon horizontal mattress suture. It was attached to the Pleur-evac device. Antibiotic Xeroform dressing followed by clean dry sterile dressing was applied. Patient tolerated procedure extremely well with no immediate complications. Chest x-ray being performed at the time of this dictation. Condition: stable Disposition: no change Complications:: None immediately apparent
[2024-08-18] MEDS: LEVOFLOXACIN/D5W 750 MG/150 ML 750 MG/150 ML PIGGYBACK 100 MG IV (17:23)
[2024-08-18] MEDS: ATORVASTATIN 40MG TABLET 80 MG PO (21:12)
[2024-08-18] MEDS: ASPIRIN EC 81MG TABLET 81 MG PO (21:13)
[2024-08-19] VITALS (11 sets, daily range): BP systolic 83–100; BP diastolic 49–60; PULSE 50–82; RESP 15–22; TEMP 36.4–36.8; O2SAT 93–100; BMI 25.0
--- NOTE | 2024-08-19 03:20 | PC.NURSE ---
Pt AOx4. Nonrebreather at 15L per provider order. Chest tube in place and draining. Pt resting in bed with eyes closed. Respirations even and unlabored. Bed is low, locked, and call light is in reach.
[2024-08-19] MEDS: HYDROCODONE/APAP 5/325 MG TABLET 1 TAB PO (03:47)
--- NOTE | 2024-08-19 04:16 | PC.NURSE ---
This SRNA emptied trash and linens, filled ice water and pt voices no other needs at this time, call goel within reach. 04:00
[2024-08-19] MEDS: FLUTICASONE/UMECLIDIN/VILANTER 200/62.5/25MCG INHALER 1 PUFF IH (05:44)
[2024-08-19 06:47] LABS: Basophils % 0.3 % (0.1-2.0); Eosinophils # 0.2 Kmm3 (0.0-0.4); Eosinophils % 2.3 % (0.1-12.0); Hematocrit 37.4 % (42.0-52.0); Hemoglobin 12.7 g/dL (14.1-18.0); Immature Granulocytes # 0.04 10^3uL; Immature Granulocytes % 0.5 %; Lymphocytes # 0.9 K/mm3 (0.7-4.5); Lymphocytes % 10.6 % (10-50); Mean Corpuscular Hemoglobin 35.6 pg (27.0-31.2); Mean Corpuscular Volume 104.8 fl (80-94); Mean Platelet Volume 9.9 fl (7.4-10.4); Monocytes % 11.6 % (1.7-9.3); Neutrophils # 6.5 K/mm3 (1.8-7.8); Neutrophils % 74.7 % (37.0-80.0); Nucleated Red Blood Cells # 0 10^3/uL; Nucleated Red Blood Cells % 0 %; Platelet Count 143 K/mm3 (142-424); Red Blood Count 3.57 M/mm3 (4.60-6.20); Red Cell Distribution Width 13.3 % (11.5-17.5); White Blood Count 8.7 K/mm3 (4.8-10.8)
[2024-08-19 06:49] LABS: Chloride 95 mmol/L (98-107)
[2024-08-19 06:50] LABS: Potassium 4.4 mmoL/L (3.5-5.1); Sodium 132 mmol/L (136-145)
[2024-08-19 06:52] LABS: Alanine Aminotransferase 22 U/L (12-78); Albumin/Globulin Ratio 1.4 (1.1-1.8); Alkaline Phosphatase 74 U/L (38-126); Anion Gap 14.4 mEq/L (5-15); Aspartate Amino Transferase 29 U/L (17-59); Bilirubin,Total 1.4 mg/dl (0.2-1.3); Blood Urea Nitrogen 18 mg/dl (9-20); Carbon Dioxide 27 mmol/L (22.0-30.0); Creatinine Clearance Estimated 85 mL/min (50-200); Estimated Glomerular Filt Rate 97 ml/min (>60); GFR (African American) 118 ML/MIN (>60); Globulin 2.8 g/dL (1.3-3.2); Total Protein,Serum 6.8 g/dl (6.3-8.2)
[2024-08-19 06:53] LABS: Calcium 8.7 mg/dl (8.4-10.2); Glucose 109 mg/dl (74-100)
[2024-08-19 07:30] LABS: Magnesium 1.9 mg/dl (1.6-2.3)
--- NOTE | 2024-08-19 07:54 | P.PN_ITS ---
Subjective *Date: 08/19/24 *Time: 21:28 Interval history: Breathing better after placement of large bore chest tube. Imaging this morning shows near resolution of pneumothorax. Patient denies significant pain. Continue nonrebreather for hyperoxygenation to promote resorption. Afebrile. No nausea or vomiting. Will clamp tube this morning and evaluate Medical Exam Vital signs and Labs for Last 24 Hours: Vital Signs Temp Pulse Pulse Resp BP Pulse Ox O2 Del Method 08/19/24 06:35 Non-Rebreather 08/19/24 05:45 98 Non-Rebreather 08/19/24 05:00 Non-Rebreather 08/19/24 04:00 60 08/19/24 04:00 98.2 F 75 16 93/58 L 100 Nasal Cannula 08/19/24 03:00 Non-Rebreather 08/19/24 01:00 Non-Rebreather 08/19/24 00:00 60 08/19/24 00:00 97.6 F 70 15 83/51 L 100 Non-Rebreather 08/18/24 23:00 Non-Rebreather 08/18/24 21:00 Non-Rebreather 08/18/24 20:00 Non-Rebreather 08/18/24 20:00 60 08/18/24 20:00 98.0 F 63 20 87/45 L 99 08/18/24 18:52 Room Air 08/18/24 17:00 Room Air 08/18/24 16:00 71 08/18/24 15:00 Room Air 08/18/24 13:00 Non-Rebreather 08/18/24 12:00 60 08/18/24 12:00 98.3 F 66 16 108/64 L 99 Room Air 08/18/24 11:00 Non-Rebreather 08/18/24 09:00 Non-Rebreather 08/18/24 08:38 97.7 F 81 18 107/53 L 100 Room Air 08/18/24 08:00 70 08/18/24 08:00 Non-Rebreather 08/18/24 07:59 97.7 F 81 18 107/53 L 100 Non-Rebreather O2 Flow Rate 08/19/24 06:35 15 08/19/24 05:45 15 08/19/24 05:00 15 08/19/24 04:00 08/19/24 04:00 08/19/24 03:00 15 08/19/24 01:00 15 08/19/24 00:00 08/19/24 00:00 08/18/24 23:00 15 08/18/24 21:00 15 08/18/24 20:00 15 08/18/24 20:00 08/18/24 20:00 08/18/24 18:52 08/18/24 17:00 08/18/24 16:00 08/18/24 15:00 08/18/24 13:00 08/18/24 12:00 08/18/24 12:00 08/18/24 11:00 08/18/24 09:00 08/18/24 08:38 08/18/24 08:00 08/18/24 08:00 08/18/24 07:59 Intake and Output 08/18/24 08/18/24 08/19/24 15:59 23:59 07:59 Intake Total 660 / 930 270 / 930 Output Total 448 / 448 Balance 660 / 604 270 / 604 -448 / -448 Intake: Intake, Oral Amount 660 / 930 270 / 930 Output: Output, Urine Amount 400 / 400 Output, Chest Tube Drainage 48 / 48 Amount Left 48 / 48 Other: Number of Unmeasured Voids 0 Weight 80.966 kg Patient Weight 08/19/24 23:59 Weight 80.966 kg Laboratory Results - last 24 hr 08/19/24 05:21: WBC 8.7, RBC 3.57 L, Hgb 12.7 L, Hct 37.4 L, MCV 104.8 H, MCH 35.6 H, MCHC 34.0, RDW 13.3, Plt Count 143, MPV 9.9, Neut % (Auto) 74.7, Lymph % (Auto) 10.6, [place] % (Auto) 11.6 H, Eos % (Auto) 2.3, Baso % (Auto) 0.3, Neut # (Auto) 6.5, Lymph # (Auto) 0.9, Pe[place] # (Auto) 1.0, Eos # (Auto) 0.2, Baso # (Auto) 0.0, Sodium 132 L, Potassium 4.4, Chloride 95 L, Carbon Dioxide 27, Anion Gap 14.4, BUN 18 D, Creatinine 0.80, Estimated Creat Clear 85, Estimated GFR 97, Est GFR ( Amer) 118 D, Glucose 109 H, Calcium 8.7, Magnesium 1.9 D, Total Bilirubin 1.4 H, AST 29, ALT 22, Alkaline Phosphatase 74, Total Protein 6.8, Albumin 4.0, Globulin 2.8, Albumin/Globulin Ratio 1.4 I & O for Labs for Last 24 Hours: Intake & Output 08/16/24 08/17/24 08/18/24 08/19/24 23:59 23:59 23:59 23:59 Intake Total 1000 / 1000 1650 / 1650 930 / 930 Output Total 1550 / 1550 772 / 922 326 / 326 448 / 448 Balance -550 / -550 878 / 728 604 / 604 -448 / -448 Weight 82.611 kg 81.873 kg 78.88 kg 80.966 kg Constitutional: Present no acute distress, average body habitus, chronically ill appearing and cooperative Head: Present atraumatic and normocephalic ENT: Present normal exam Respiratory: Present crackles and normal respiratory effort; Absent prolonged expiratory phase, rhonchi or wheezes Comment:: Larger bore chest tube (24 [place]) in the left hemithorax. No appreciable air leak in Pleur-evac Cardiac: Present Reg Rate and Rhythm GI: Present soft and normal bowel sounds; Absent distention or tenderness Extremities: Present normal inspection and full ROM; Absent edema Skin: Present intact; Absent erythema Neuro: Present Grossly Intact, alert, awake, oriented x 3 and moves all extremities Assessment and Plan *Assessment and plan (1) Pneumothorax, left: Status: Acute Category: Medical Code(s): J93.9 - Pneumothorax, unspecified (2) NYHA class 3 heart failure with reduced ejection fraction: Status: Chronic Category: Medical Code(s): I50.20 - Unspecified systolic (congestive) heart failure (3) Tension pneumothorax: Status: Acute Category: Medical Code(s): J93.0 - Spontaneous tension pneumothorax (4) COPD (chronic obstructive pulmonary disease): Status: Acute Category: Medical Code(s): J44.9 - Chronic obstructive pulmonary disease, unspecified (5) PAD (peripheral artery disease): Status: Acute Category: Medical Code(s): I73.9 - Peripheral vascular disease, unspecified (6) Ischemic cardiomyopathy: Status: Chronic Category: Medical Code(s): I25.5 - Ischemic cardiomyopathy (7) CAD (coronary artery disease): Status: Chronic Qualifiers: Associated angina: without angina Coronary Disease-Associated Artery/Lesion type: [place] artery [place] vs. transplanted heart: [place] heart Qualified Code(s): I25.10 - Atherosclerotic heart disease of [place] coronary artery without angina pectoris Category: Medical Code(s): I25.10 - Atherosclerotic heart disease of [place] coronary artery without angina pectoris (8) HFrEF (heart failure with reduced ejection fraction): Status: Acute Category: Medical Code(s): I50.20 - Unspecified systolic (congestive) heart failure Plan Raffy Cheney is a 64-year-old male with a medical history of COPD, CAD with stents, HFrEF with AICD presents with several week onset of productive cough, and 1 week onset of shortness of breath. Patient presented to PCPs office who obtained a CXR which showed left-sided tension pneumothorax and advised to go to the ED. Upon arrival, vital signs were stable. Patient states he has been having a productive cough with intermittent yellow phlegm for the past 3 weeks. Only in the last week has he experienced shortness of breath. Last night, patient states his AICD was discharged but felt fine thereafter. Denies fever/chills, chest pain, abdominal pain. states he has been having worsening leg swelling, for which gave him PRN Lasix which some improvement. Workup in the ED significant for WBC 8.9, creatinine 1.7 (unknown baseline). Chest tube placed in the ER. Showing some improvement. Clinically feeling better. Pulmonology, cardiology, surgery assisting with care. Problems addressed as follows: #Left sided pneumothorax, persistent #Community-acquired pneumonia ? Presents with several week onset of productive cough, 1 week onset of shortness of breath and left-sided flank pain. ? S/p chest tube placement in the ED with improvement of symptoms, including left-sided flank pain. Chest tube exchanged yesterday for larger bore by surgery. Chest x-ray per my review this morning with near resolution of pneumothorax, very small air pocket at apex of left lung. Discussed case with pulmonology, will clamp tube this morning and repeat imaging this afternoon. - continue Trelegy 100 inhaler and DuoNebs every 6 hours. ? Sputum cultures pending, can you Levaquin 750 mg daily for empiric coverage - White count remains normal at 8.7, hemoglobin 12.7, kidney function normal BUN 18, creatinine 0.8. Repeat CBC, CMP, magnesium ordered for the morning. Repeat chest x-ray ordered for the morning #HFrEF exacerbation #AICD discharge #Elevated troponin ? History of HFrEF with ICD in place, pulmonary edema on CXR. Presented with productive cough. BNP 949. ? Apparent AICD discharged prior to admission. Repeat echo obtained showing persistent HFrEF, does not appear to be in exacerbation - Continue home bisoprolol, holding Entresto due to soft blood pressures. - Discussed case with cardiology, recommend adding amiodarone 400 mg 3 times a day for now for V. tach noted on device interrogation. Reevaluate dosage after discharge with his primary shank paperer #CAD, PAD with stents ? Continue home aspirin, statin. #COPD ? Seems stable at this time. Continue home Trelegy. Full code DVT prophylaxis: Lovenox 40 mg. Cardiac diet
[2024-08-19] MEDS: ENOXAPARIN 40MG/0.4ML SYRINGE 40 MG SUBCUT (08:14)
[2024-08-19] MEDS: SACUBITRIL/VALSARTAN 24-26MG TABLET 2 EACH PO ×2 (08:14→20:27)
[2024-08-19] MEDS: AMIODARONE 200MG TABLET 400 MG PO ×3 (08:14→20:27)
[2024-08-19] MEDS: BISOPROLOL 5MG TABLET 2.5 MG PO (08:14)
[2024-08-19] MEDS: HYDROCODONE/APAP 5/325 MG TABLET 2 TAB PO ×2 (08:16→18:35)
--- NOTE | 2024-08-19 09:19 | P.PN_ITS ---
Subjective Subjective Date: 08/19/24 Time: 09:19 Principal diagnosis: Pneumothorax, AICD firing Interval history: 64-year-old white male in bed on Ventimask in no acute distress. Breathing is better but states he does have more discomfort related to the larger chest tube placed yesterday. Exam Data for Last 24 hours Vital signs and Labs for Last 24 Hours: Temp Pulse Resp BP Pulse Ox O2 Del Method O2 Flow Rate 98.2 F 75 16 93/58 L 98 Non-Rebreather 15 08/19/24 04:00 08/19/24 04:00 08/19/24 04:00 08/19/24 04:00 08/19/24 05:45 08/19/24 06:35 08/19/24 06:35 Laboratory Results - last 24 hr 08/19/24 05:21: WBC 8.7, RBC 3.57 L, Hgb 12.7 L, Hct 37.4 L, MCV 104.8 H, MCH 35.6 H, MCHC 34.0, RDW 13.3, Plt Count 143, MPV 9.9, Neut % (Auto) 74.7, Lymph % (Auto) 10.6, [place] % (Auto) 11.6 H, Eos % (Auto) 2.3, Baso % (Auto) 0.3, Neut # (Auto) 6.5, Lymph # (Auto) 0.9, [place] # (Auto) 1.0, Eos # (Auto) 0.2, Baso # (Auto) 0.0, Sodium 132 L, Potassium 4.4, Chloride 95 L, Carbon Dioxide 27, Anion Gap 14.4, BUN 18 D, Creatinine 0.80, Estimated Creat Clear 85, Estimated GFR 97, Est GFR ( Amer) 118 D, Glucose 109 H, Calcium 8.7, Magnesium 1.9 D, Total Bilirubin 1.4 H, AST 29, ALT 22, Alkaline Phosphatase 74, Total Protein 6.8, Albumin 4.0, Globulin 2.8, Albumin/Globulin Ratio 1.4 I & O for Last 24 hours: Intake & Output 08/16/24 08/17/24 08/18/24 08/19/24 11:59 11:59 11:59 11:59 Intake Total 1780 / 1780 1470 / 1470 330 / 330 Output Total 1860 / 1860 788 / 788 448 / 448 Balance -80 / -80 682 / 682 -118 / -118 Weight 180 lb 8 oz 173 lb 14.4 oz 178 lb 8 oz Constitutional Constitutional: no acute distress *Routine Respiratory Exam Respiratory: Present CTA bilaterally Comments: Suction sound in left chest noted *Routine Cardiovascular Exam Cardiovascular: Present RRR Progress Note: A&P Assessment and plan (1) Pneumothorax, left: Status: Acute (2) NYHA class 3 heart failure with reduced ejection fraction: Status: Chronic (3) Tension pneumothorax: Status: Acute (4) COPD (chronic obstructive pulmonary disease): Status: Acute (5) PAD (peripheral artery disease): Status: Acute (6) Ischemic cardiomyopathy: Status: Chronic (7) CAD (coronary artery disease): Status: Chronic (8) HFrEF (heart failure with reduced ejection fraction): Status: Acute (9) ICD (implantable cardioverter-defibrillator) discharge: Status: Acute Assessment and Plan Assessment and Plan for All Diagnoses:: 1. Sustained Ventricular Tachycardia with ICD Discharge - device download indicates new sustained VT >220 with appropriate therapy, only one other NSVT which was 01/2024 and did not requir therapy - VT likely secondary to large tension pneumo, acidemia, - cont bisoprolol - added Amio 400mg TID for now, can discuss whether to remain on [facility] with his usual Water Filte[facility] at [facility] post discharge 2. Large Left Tension Pneumothorax s/p emergent decompression and chest tube placement 08/16 - stable/improving - likely secondary to COPD/Emphysema and infection - Pulm following/managing 3. MV-CAD with elevated troponin - known CAD with RCA/LAD stents here in 2019 and again later in [place] (dates unk nown but last was >1 year ago per pt) - CCS = 0 baseline, denies angina here but has elevated trop post ICD shock and tension pneumo -echo this admission shows EF 35% (same as in 2019) with no significant valve disease. - cont ASA, BB, Statin, no Lovenox/DAPT due to chest tube currently - pt already scheduled for OP stress test with his Water Filterer next week, so will likely just keep that plan rather than [facility] this admission as this appears to be a respiratory driven event 4. PAD s/p Left Carotid Stenting and RLE DCBA >1 year ago - denies dizziness and claudication - cont ASA, Statin - consider emt intermediate Xarelto 2.5mg - defer to primary Water Filterer as outpatient Clinically stable from a cardiac standpoint. Nothing further to add at this time. Home medication recommendations: Amiodarone 400 mg 3 times daily (discuss with routine engraver optical frames at next week's visit) Aspirin 81 mg daily Atorvastatin 80 mg daily Bisoprolol 2.5 mg daily Entresto 49/51 mg 1 p.o. twice daily Patient will follow-up with his routine engraver optical frames next week.
--- NOTE | 2024-08-19 09:29 | P.PN_ITS ---
Subjective *Date: 08/19/24 *Time: 12:11 Interval history: No acute respiratory vents overnight. Pulmonology Exam Inpatient Vital signs and Labs for Last 24 Hours: Temp Pulse Resp BP Pulse Ox O2 Del Method O2 Flow Rate 98.1 F 64 20 94/60 L 100 Non-Rebreather 15 08/19/24 08:00 08/19/24 08:00 08/19/24 08:00 08/19/24 08:00 08/19/24 08:00 08/19/24 08:00 08/19/24 08:00 Laboratory Results - last 24 hr 08/19/24 05:21: WBC 8.7, RBC 3.57 L, Hgb 12.7 L, Hct 37.4 L, MCV 104.8 H, MCH 35.6 H, MCHC 34.0, RDW 13.3, Plt Count 143, MPV 9.9, Neut % (Auto) 74.7, Lymph % (Auto) 10.6, [place] % (Auto) 11.6 H, Eos % (Auto) 2.3, Baso % (Auto) 0.3, Neut # (Auto) 6.5, Lymph # (Auto) 0.9, [place] # (Auto) 1.0, Eos # (Auto) 0.2, Baso # (Auto) 0.0, Sodium 132 L, Potassium 4.4, Chloride 95 L, Carbon Dioxide 27, Anion Gap 14.4, BUN 18 D, Creatinine 0.80, Estimated Creat Clear 85, Estimated GFR 97, Est GFR ( Amer) 118 D, Glucose 109 H, Calcium 8.7, Magnesium 1.9 D, Total Bilirubin 1.4 H, AST 29, ALT 22, Alkaline Phosphatase 74, Total Protein 6.8, Albumin 4.0, Globulin 2.8, Albumin/Globulin Ratio 1.4 Temp Pulse Resp BP Pulse Ox O2 Del Method O2 Flow Rate 98.1 F 85 17 94/54 L 97 Nasal Cannula 2 08/17/24 08:00 08/17/24 09:10 08/17/24 08:00 08/17/24 09:10 08/17/24 08:00 08/17/24 09:05 08/17/24 09:05 Laboratory Results - last 24 hr 08/16/24 15:50: WBC 8.9, RBC 4.02 L, Hgb 14.5, Hct 41.7 L, MCV 103.7 H, MCH 36.1 H, MCHC 34.8, RDW 13.2, Plt Count 176, MPV 10.0, Neut % (Auto) 67.6, Lymph % (Auto) 18.5, [place] % (Auto) 12.0 H, Eos % (Auto) 1.2, Baso % (Auto) 0.4, Neut # (Auto) 6.0, Lymph # (Auto) 1.7, [place] # (Auto) 1.1 H, Eos # (Auto) 0.1, Baso # (Auto) 0.0, Sodium 134 L, Potassium 3.8, Chloride 93 L, Carbon Dioxide 27, Anion Gap 17.8 H, BUN 13, Creatinine 1.00, Estimated Creat Clear 77, Estimated GFR 75, Est GFR ( Amer) 91, Glucose 111 H, Calcium 9.4, Total Bilirubin 1.3, AST 58, ALT 39, Alkaline Phosphatase 95, Troponin I 1.70 H, NT-Pro-B Natriuret Pep 949 H, Total Protein 8.7 H, Albumin 4.9, Globulin 3.8 H, Albumin/Globulin Ratio 1.3, HCV Ab [place] w/Rflx PCR Qn Negative, HIV Ag/Ab Combo Qual Negative 08/16/24 17:55: Troponin I 1.96 H 08/16/24 18:57: SARS-CoV-2 (PCR) Not detected, Influenza A Untype (PCR) Not detected, Influenza Type B (PCR) Not detected 08/16/24 22:05: Troponin I 2.02 H 08/17/24 05:16: WBC 7.4, RBC 3.75 L, Hgb 13.2 L, Hct 38.6 L, MCV 102.9 H, MCH 35 .2 H, MCHC 34.2, RDW 13.2, Plt Count 137 L, MPV 9.7, Neut % (Auto) 67.5, Lymph % (Auto) 17.4, [place] % (Auto) 12.9 H, Eos % (Auto) 1.4, Baso % (Auto) 0.4, Neut # (Auto) 5.0, Lymph # (Auto) 1.3, [place] # (Auto) 1.0, Eos # (Auto) 0.1, Baso # (Auto) 0.0, Sodium 137, Potassium 3.5, Chloride 96 L, Carbon Dioxide 29, Anion Gap 15.5 H, BUN 13, Creatinine 1.00, Estimated Creat Clear 86, Estimated GFR 75, Est GFR ( Amer) 91, Glucose 102 H, Calcium 8.8, Magnesium 1.7 D, Total Bilirubin 1.2, AST 39 D, ALT 25 D, Alkaline Phosphatase 85, Total Protein 7.1, Albumin 4.0 D, Globulin 3.1, Albumin/Globulin Ratio 1.3 I & O for Labs for Last 24 Hours: Intake & Output 08/16/24 08/17/24 08/18/24 08/19/24 23:59 23:59 23:59 23:59 Intake Total 1000 / 1000 1650 / 1650 930 / 930 240 / 240 Output Total 1550 / 1550 772 / 922 326 / 326 448 / 448 Balance -550 / -550 878 / 728 604 / 604 -208 / -208 Weight 182 lb 2 oz 180 lb 8 oz 173 lb 14.4 oz 178 lb 8 oz Intake & Output 08/14/24 08/15/24 08/16/24 08/17/24 23:59 23:59 23:59 23:59 Intake Total 1000 / 1000 780 / 780 Output Total 1550 / 1550 210 / 210 Balance -550 / -550 570 / 570 Weight 182 lb 2 oz 180 lb 8 oz Constitutional: Present mild distress Head: Present normocephalic and atraumatic ENT: Present normal exam, normal oropharynx and mucous membranes moist Neck: Present normal inspection and full ROM Respiratory: Present respiratory distress and able to speak in complete sentences; Absent prolonged expiratory phase, wheezes, crackles or diminished air movement Cardiac: Present S1/S2, Tachycardia and radial pulses present GI: Present soft and distention; Absent tenderness or guarding Skin: Present intact; Absent cyanosis or jaundice Neuro: Present alert, awake and oriented x 3 Extremities: Present normal inspection; Absent clubbing or cyanosis Psychiatric: Present normal affect and cooperative Assessment and Plan *Assessment and plan (1) Pneumothorax, left: Status: Acute Category: Medical Code(s): J93.9 - Pneumothorax, unspecified Plan Mr. Cheney is a 64-year-old male with history of greater than 55-abmo-txuv smoking with last smoked around 2014, COPD USING Trelegy INHALER AT HOME HAS NOT BEEN COMPLIANT, NOT USING ANY OXYGEN SUPPLEMENT CAD status post stenting heart failure reduced EF presented with worsening respiratory distress, found to have large left-sided pneumothorax status post pigtail catheter with minimal pulmonary was called for further evaluation and management. Afebrile. No evidence of leukocytosis. CT chest January 2024 upper lobe paraseptal emphysematous changes along with bilateral diffuse subpleural interstitial changes concerning for pulmonary fibrosis noted COVID-19 and flu PCR panel negative. Interval update Pigtail catheter dislodged large bore surgical chest tube placement overnight by surgery. Significant improvement in the noted pneumothorax. Complains of pain at chest tube insertion site. No other new complaints Plan: Chest tube clamped this morning. Follow-up with repeat chest x-ray. Continue Trelegy 100 inhaler along with DuoNebs 4 times daily as needed Oxygen supplementation via nonrebreather to maintain O2 saturation goal of 100%
--- NOTE | 2024-08-19 09:30 | XR_ITS ---
FINAL REPORT CLINICAL HISTORY: Pneumothorax COMPARISON: 08/18/2024 FINDINGS: No acute pulmonary opacity is present. There is no pleural effusion. Small left apical pneumothorax is identified. Pleural separation measures 6 mm, previously 9 mm. Pneumothorax is considered 5% or less, minimally improved. Left chest tube is stable. The right lung is clear. Mediastinum is unremarkable. Heart size is normal. IMPRESSION: Small left apical pneumothorax showing minimal improvement. Reviewed, Interpreted and Dictated by Albert Theodore MD Transcribed by Yue aNylor Authenticated and . [facility]
--- NOTE | 2024-08-19 10:36 | PC.NURSE ---
Addendum entered by Antonia Vázquez RN 08/19/24 19:08: rad called with cxr result, lt tension pneumothorax with air leak around chest tube. notified huey around 1430, VO to unclamp tube stat. pt has c/o pain at tube insertion site, treated per apr with relief. NR 15% o2 still in place. no needs at this time. pt spent majority of shift up to chair at bs Original Note: Huey clamped pt chest tube at 1004.
[2024-08-19] MEDS: levoFLOXacin 750 MG TABLET PO (11:56)
--- NOTE | 2024-08-19 13:55 | XR_ITS ---
FINAL REPORT CLINICAL HISTORY: Pneumothorax COMPARISON: 5 hours prior FINDINGS: A single frontal view of the chest was obtained. There is an extensive large left pneumothorax despite a left chest tube being present. The left chest tube is stable in position. There is air leak along the left chest tube extending into the left chest wall soft tissues. Small tension component is seen with mediastinal structure shift to the right. The right lung is clear. Heart size is normal. IMPRESSION: Interval development of left tension pneumothorax. Reviewed, Interpreted and Dictated by Albert Theodore MD Transcribed by Steffanie Irvin Authenticated and [facility]
--- NOTE | 2024-08-19 19:14 | PC.NURSE ---
pt stated he had a large bm yesterday afternoon
--- NOTE | 2024-08-19 19:35 | PC.NURSE ---
Dr. House in the room at this time. Plan for the night is to keep the chest tube on suction over night then reclamp in the am to see if left side tension pneumothrax has corrected it self.
--- NOTE | 2024-08-19 19:52 | PC.NURSE ---
This SRNA checked vitals at shift change and notified nurse Brit of the blood pressure 88/49.
[2024-08-19] MEDS: ASPIRIN EC 81MG TABLET 81 MG PO (20:27)
[2024-08-19] MEDS: ATORVASTATIN 40MG TABLET 80 MG PO (20:28)
--- NOTE | 2024-08-19 20:38 | PC.NURSE ---
Sridhar Abdi RN went into give patient his night time meds and when Walked in the room pt had audible wheezing. After talking with the patient he thought that the inhaler that he does twice a day was his breathing treatments. After talking with the dayshift nurse that had him, she said he had no order for them but Dr. Arzate put in his note for patient to have duoneb treatment 4 times a day as needed. Due to no order being in the apr night time hospitalist was called and they are going to put in the order.
[2024-08-19] MEDS: IPRATROPIUM/ALBUTEROL 3 ML NEB IH (20:46)
[2024-08-20] VITALS (11 sets, daily range): BP systolic 76–99; BP diastolic 52–64; PULSE 60–85; RESP 17–19; TEMP 36.6–36.9; O2SAT 95–100; BMI 24.0
--- NOTE | 2024-08-20 04:00 | PC.NURSE ---
At 0400 vital check and Routine check, this SRNA emptied linen bag, trash bags, and notified BRIDGER Anders of Hypotensive blood pressure.
--- NOTE | 2024-08-20 05:01 | PC.NURSE ---
Fresh Ice water given by this SRNA at [id number]
[2024-08-20] MEDS: FLUTICASONE/UMECLIDIN/VILANTER 200/62.5/25MCG INHALER 1 PUFF IH (06:28)
[2024-08-20 07:49] LABS: Basophils % 0.3 % (0.1-2.0); Eosinophils # 0.2 Kmm3 (0.0-0.4); Eosinophils % 2.1 % (0.1-12.0); Hematocrit 36.7 % (42.0-52.0); Hemoglobin 12.7 g/dL (14.1-18.0); Immature Granulocytes # 0.03 10^3uL; Immature Granulocytes % 0.4 %; Lymphocytes # 0.9 K/mm3 (0.7-4.5); Lymphocytes % 12.5 % (10-50); Mean Corpuscular HGB Conc 34.6 g/dL (31.8-35.4); Mean Platelet Volume 10.1 fl (7.4-10.4); Monocytes # 0.8 K/mm3 (0.1-1.0); Monocytes % 10.9 % (1.7-9.3); Neutrophils # 5.3 K/mm3 (1.8-7.8); Neutrophils % 73.8 % (37.0-80.0); Nucleated Red Blood Cells # 0 10^3/uL; Nucleated Red Blood Cells % 0 %; Platelet Count 131 K/mm3 (142-424); Red Blood Count 3.53 M/mm3 (4.60-6.20); Red Cell Distribution Width 13.2 % (11.5-17.5); Red Cell Distribution Width-SD 50.2 fL; White Blood Count 7.2 K/mm3 (4.8-10.8)
--- NOTE | 2024-08-20 07:49 | XR_ITS ---
PROCEDURE INFORMATION: Exam: XR Chest Exam date and time: 08/20/2024 7:49 AM Age: 64 years old Clinical indication: Condition or disease; Other: Pneumothorax; Chest tube TECHNIQUE: Imaging protocol: Radiologic exam of the chest. Views: 1 view. COMPARISON: CR XR CHEST PORTABLE 08/19/2024 2:26 PM FINDINGS: Tubes, catheters and devices: There is pacemaker/AICD in place from a left-sided approach. There is a left chest tube in place. Its distal tip is not identified due to the AICD housing. Lungs: There is increased interstitial markings perihilar region. There are calcified hilar lymph nodes. Pleural spaces: There has been interval marked decrease in size of a left pneumothorax now with a 1.0 cm left apical pneumothorax. Heart/Mediastinum: No cardiomegaly. There has been interval resolution of left to right shift. Bones/joints: Unchanged. Soft tissues: There is subcutaneous gas in the left chest. IMPRESSION: Interval marked decrease in size of a left pneumothorax with resolution of mediastinal shift.
[2024-08-20 08:22] LABS: Albumin Level 3.8 g/dl (3.5-5.0); Chloride 95 mmol/L (98-107)
[2024-08-20 08:23] LABS: Potassium 4.3 mmoL/L (3.5-5.1); Sodium 134 mmol/L (136-145)
[2024-08-20 08:25] LABS: Alanine Aminotransferase 20 U/L (12-78); Albumin/Globulin Ratio 1.3 (1.1-1.8); Alkaline Phosphatase 74 U/L (38-126); Anion Gap 13.3 mEq/L (5-15); Aspartate Amino Transferase 40 U/L (17-59); Bilirubin,Total 1.1 mg/dl (0.2-1.3); Blood Urea Nitrogen 15 mg/dl (9-20); Carbon Dioxide 30 mmol/L (22.0-30.0); Creatinine Clearance Estimated 82 mL/min (50-200); Estimated Glomerular Filt Rate 97 ml/min (>60); GFR (African American) 118 ML/MIN (>60); Globulin 2.9 g/dL (1.3-3.2); Total Protein,Serum 6.7 g/dl (6.3-8.2)
[2024-08-20 08:26] LABS: Calcium 8.9 mg/dl (8.4-10.2); Glucose 94 mg/dl (74-100)
[2024-08-20 08:30] LABS: Magnesium 1.8 mg/dl (1.6-2.3)
[2024-08-20] MEDS: ENOXAPARIN 40MG/0.4ML SYRINGE 40 MG SUBCUT (08:49)
[2024-08-20] MEDS: AMIODARONE 200MG TABLET 400 MG PO (08:49)
[2024-08-20] MEDS: BISOPROLOL 5MG TABLET 2.5 MG PO (08:50)
[2024-08-20] MEDS: SACUBITRIL/VALSARTAN 24-26MG TABLET 2 EACH PO (08:50)
--- NOTE | 2024-08-20 10:34 | PC.NURSE ---
placed chest tube to water seal per md request
[2024-08-20] MEDS: levoFLOXacin 750 MG TABLET PO (11:03)
--- NOTE | 2024-08-20 14:49 | XR_ITS ---
PROCEDURE INFORMATION: Exam: XR Chest Exam date and time: 08/20/2024 2:56 PM Age: 64 years old Clinical indication: Other: Pneumothorax; Additional info: Pneumothorax, worsening? TECHNIQUE: Imaging protocol: Radiologic exam of the chest. Views: 1 view. COMPARISON: CR XR CHEST PORTABLE 08/20/2024 7:49 AM FINDINGS: Tubes, catheters and devices: Dual lead pacemaker remains in place. Lungs: No consolidation or pulmonary edema. Pleural spaces: No pleural effusion. Left-sided pneumothorax has enlarged. At the apex, the pneumothorax measures 38 mm (previously 12 mm). No pneumothorax on the right. Heart/Mediastinum: The cardiomediastinal silhouette is not enlarged. Calcified nodes. Vasculature: Vascular stent along the left side of the neck is again noted. Bones/joints: No significant change. Soft tissues: Gas along the left side of the chest is again noted. IMPRESSION: Left-sided pneumothorax has enlarged.
[2024-08-20] MEDS: HYDROCODONE/APAP 5/325 MG TABLET 1 TAB PO (16:24)
--- NOTE | 2024-08-20 17:06 | EXP.DC.SUM ---
General Admission date:: 08/16/24 Discharge date: 08/20/24 HPI HPI HPI: Patient is a 64-year-old male with history of COPD, coronary artery disease with previous stenting, congestive heart failure, AICD. He presented to his primary care provider with several week history of productive cough and progressive shortness of breath. He had an outpatient chest x-ray done on 08/16/2024 which revealed large left tension pneumothorax. He presented to the emergency department and underwent placement of pigtail pneumothorax catheter by the ER physician in the afternoon of 08/16/2024. He was admitted for inpatient management. Pulmonary and cardiology consultations were obtained. Imaging today revealed worsening progressively enlarging left-sided pneumothorax despite increasing suction and pulmonary requested surgical thoracostomy tube placement. Hospital Course Hospital Course Hospital Course: Raffy Cheney is a 64-year-old male with a medical history of COPD, CAD with stents, HFrEF with AICD presents with several week onset of productive cough, and 1 week onset of shortness of breath. Patient presented to PCPs office who obtained a CXR which showed left-sided tension pneumothorax and advised to go to the ED. Upon arrival, vital signs were stable. Patient states he has been having a productive cough with intermittent yellow phlegm for the past 3 weeks. Only in the last week has he experienced shortness of breath. Last night, patient states his AICD was discharged but felt fine thereafter. Denies fever/chills, chest pain, abdominal pain. states he has been having worsening leg swelling, for which gave him PRN Lasix which some improvement. Workup in the ED significant for WBC 8.9, creatinine 1.7 (unknown baseline). Chest tube placed in the ER. Initially showed improvement. Pneumothorax however did not completely resolve even with exchange and tube. Showing recurrence when tube is clamped. Needs transfer to higher level of care for further management. Pulmonology, cardiology, surgery assisted with care during admission. Graciously accepted by [facility] in [place]. Stable to discharge at this time. Problems addressed as follows: #Left sided pneumothorax, persistent #Community-acquired pneumonia ? PresentED with several week onset of productive cough, 1 week onset of shortness of breath and left-sided flank pain. Found to have tension pneumothorax on chest imaging on arrival in the ER. Small bore chest tube was placed on admission. Had improvement in symptoms including resolution of left flank pain. Chest tube unfortunately stopped having air output and pneumothorax was recurring. Larger bore chest tube placed by surgery after consultation. Currently has 24 [place] chest tube in the left thorax. Serial imaging for the past 48 hours after placing to [facility] each day have shown recurrence of pneumothorax. Given failure of conservative management, [facility] was consulted for CT surgery evaluation and possible definitive therapy. Graciously excepted for further management. Has been treated with Trelegy inhaler, DuoNebs every 6 hours. Sputum culture obtained that did not grow any pathogens. Initiated on levofloxacin 750 mg daily for empiric coverage. Has had normal white count during admission. Kidney function and electrolytes have remained normal as well. Placed on oxygen to promote resorption of pneumothorax not because of hypoxia. Has been on nonrebreather for 48 hours to promote resorption, maintaining sats at 100%. #HFrEF exacerbation #AICD discharge #Elevated troponin ? History of HFrEF with ICD in place, pulmonary edema on CXR. Presented with productive cough. BNP 949. Apparent AICD discharged prior to admission. Repeat echo obtained showing persistent HFrEF, does not appear to be in exacerbation. Continue home bisoprolol, holding Entresto due to soft blood pressures. Discussed case with cardiology, recommend adding amiodarone 400 mg 3 times a day initially for V. tach noted on device interrogation. Decrease to 400 twice daily day of transfer. Recommend cardiology evaluation at [facility] as he follows with cardiology in the outpatient setting with [facility] cardiology group. #CAD, PAD with stents: Continue home aspirin, statin. #COPD: Seems stable at this time. Continue home Trelegy. Treated with prophylactic Lovenox during admission. Last dose morning of 08/20 Total time spent on discharge 32 minutes in counseling, documentation, chart review, and direct care with patient. Exam Data for Last 24 hours Vital signs and Labs for Last 24 Hours: Temp Pulse Resp BP Pulse Ox O2 Del Method O2 Flow Rate 97.8 F 64 19 91/61 L 100 Non-Rebreather 15 08/20/24 16:00 08/20/24 16:00 08/20/24 16:00 08/20/24 16:00 08/20/24 16:00 08/20/24 16:00 08/20/24 16:00 Laboratory Results - last 24 hr 08/20/24 06:40: WBC 7.2, RBC 3.53 L, Hgb 12.7 L, Hct 36.7 L, MCV 104.0 H, MCH 36.0 H, MCHC 34.6, RDW 13.2, Plt Count 131 L, MPV 10.1, Neut % (Auto) 73.8, Lymph % (Auto) 12.5, [place] % (Auto) 10.9 H, Eos % (Auto) 2.1, Baso % (Auto) 0.3, Neut # (Auto) 5.3, Lymph # (Auto) 0.9, [place] # (Auto) 0.8, Eos # (Auto) 0.2, Baso # (Auto) 0.0, Sodium 134 L, Potassium 4.3, Chloride 95 L, Carbon Dioxide 30, Anion Gap 13.3, BUN 15, Creatinine 0.80, Estimated Creat Clear 82, Estimated GFR 97, Est GFR ( Amer) 118, Glucose 94, Calcium 8.9, Magnesium 1.8, Total Bilirubin 1.1, AST 40 D, ALT 20, Alkaline Phosphatase 74, Total Protein 6.7, Albumin 3.8, Globulin 2.9, Albumin/Globulin Ratio 1.3 I & O for Last 24 hours: Intake & Output 08/17/24 08/18/24 08/19/24 08/20/24 23:59 23:59 23:59 23:59 Intake Total 1650 / 1650 930 / 930 980 / 980 360 / 360 Output Total 772 / 922 326 / 326 1468 / 1468 800 / 800 Balance 878 / 728 604 / 604 -488 / -488 -440 / -440 Weight 81.873 kg 78.88 kg 80.966 kg 78.075 kg Constitutional Constitutional: mild distress, thin, chronically ill appearing and cooperative *Routine HEENT Exam Head: Present normocephalic Eye: Present EOMI and PERRL ENT: Present mucous membranes moist *Routine Neck Exam Neck: Present supple; Absent lymphadenopathy *Routine Respiratory Exam Respiratory: Present wheezes and crackles; Absent respiratory distress, rhonchi or stridor Comments: Adventitious sounds worse on left side *Routine Cardiovascular Exam Cardiovascular: Present RRR *Routine Abdominal Exam Abdominal: Present soft and normoactive bowel sounds; Absent tenderness *Routine Rectal Exam Patient deferred: visual exam *Routine Exam Patient deferred: penile exam *Routine Extremities Exam Extremities: Absent cyanosis, clubbing or edema *Routine Skin Exam Skin: Present intact and warm; Absent rash Comments: Subcu crepitus over left chest *Routine Neurological Exam Neurological: Present alert, oriented X3 and moving all extremities; Absent altered mental status Results Data Completed and Pending Labs on day of discharge: Labs from last 24 hours 08/20/24 06:40 WBC 7.2 RBC 3.53 L Hgb 12.7 L Hct 36.7 L MCV 104.0 H MCH 36.0 H MCHC 34.6 RDW 13.2 Plt Count 131 L MPV 10.1 Neut % (Auto) 73.8 Lymph % (Auto) 12.5 [place] % (Auto) 10.9 H Eos % (Auto) 2.1 Baso % (Auto) 0.3 Neut # (Auto) 5.3 Lymph # (Auto) 0.9 [place] # (Auto) 0.8 Eos # (Auto) 0.2 Baso # (Auto) 0.0 Sodium 134 L Potassium 4.3 Chloride 95 L Carbon Dioxide 30 Anion Gap 13.3 BUN 15 Creatinine 0.80 Estimated Creat Clear 82 Estimated GFR 97 Est GFR ( Amer) 118 Glucose 94 Calcium 8.9 Magnesium 1.8 Total Bilirubin 1.1 AST 40 D ALT 20 Alkaline Phosphatase 74 Total Protein 6.7 Albumin 3.8 Globulin 2.9 Albumin/Globulin Ratio 1.3 DS: Diagnosis Discharge Diagnosis (1) Pneumothorax, left: Status: Acute Code(s): J93.9 - Pneumothorax, unspecified (2) NYHA class 3 heart failure with reduced ejection fraction: Status: Chronic Code(s): I50.20 - Unspecified systolic (congestive) heart failure (3) Tension pneumothorax: Status: Acute Code(s): J93.0 - Spontaneous tension pneumothorax (4) COPD (chronic obstructive pulmonary disease): Status: Acute Code(s): J44.9 - Chronic obstructive pulmonary disease, unspecified (5) PAD (peripheral artery disease): Status: Acute Code(s): I73.9 - Peripheral vascular disease, unspecified (6) Ischemic cardiomyopathy: Status: Chronic Code(s): I25.5 - Ischemic cardiomyopathy (7) CAD (coronary artery disease): Status: Chronic Code(s): I25.10 - Atherosclerotic heart disease of [place] coronary artery without angina pectoris Qualifiers: Associated angina: without angina Coronary Disease-Associated Artery/Lesion type: [place] artery [place] vs. transplanted heart: [place] heart Qualified Code(s): I25.10 - Atherosclerotic heart disease of [place] coronary artery without angina pectoris (8) HFrEF (heart failure with reduced ejection fraction): Status: Acute Code(s): I50.20 - Unspecified systolic (congestive) heart failure Meds Home Medications and Allergies Home Medications ?Medication ?Instructions ?Recorded ?Confirmed ?Type albuterol sulfate 90 mcg/actuation 2 puff inhalation Q6HP PRN 12/19/22 08/17/24 History aerosol inhaler Shortness Of Breath bisoprolol fumarate 5 mg tablet 2.5 mg (1/2 x 5 mg) PO DAILY #90 10/06/23 08/16/24 Rx tabs fluticasone fur. 200 mcg-umeclid 1 inh inhalation Q24H #60 ea 01/25/24 08/16/24 Rx 62.5 mcg-vilant 25 mcg inhalat.powder (Trelegy Ellipta) aspirin 81 mg tablet,delayed 81 mg PO HS 08/16/24 08/16/24 History release atorvastatin 80 mg tablet 80 mg PO HS 08/16/24 08/16/24 History sacubitril 49 mg-valsartan 51 mg 1 tab PO BID 08/16/24 08/16/24 History tablet (Entresto) Held on 08/20/24. Instructions: due to soft BP amiodarone 200 mg tablet 400 mg (2 x 200 mg) PO BID #0 tabs 08/20/24 Rx enoxaparin 40 mg/0.4 mL 40 mg (0.4 mL) SQ DAILY #0 mL 08/20/24 Rx subcutaneous syringe hydrocodone 5 mg-acetaminophen 325 1 tab PO Q4HP PRN Moderate Pain 08/20/24 Rx mg tablet (4-6) #0 tabs ipratropium 0.5 mg-albuterol 3 mg 3 ml inhalation Q4RT PRN Shortness 08/20/24 Rx (2.5 mg base)/3 mL nebulization Of Breath Or Wheezing #0 mL soln levofloxacin 750 mg tablet 750 mg PO 1100 #0 tabs 08/20/24 Rx New Prescriptions to Start Prescriptions: Allergies Allergy/AdvReac Type Severity Reaction Status Date / Time cephalexin (From Keflex) Allergy Mild Unknown Verified 08/16/24 13:05 allergy reaction spironolactone AdvReac Intermediate breast Verified 08/16/24 13:05 tenderness Discharge Plan Disposition Patient Disposition: Xfer Short-Term Hosp Condition: Fair Discharge Order Discharge Orders: Discharge Order (Routine); Ordered 08/20/24 Ordered By: [facility] Follow up Plan Follow up with: Carey García APRN [Primary Care Provider, Medical] - Enter time for follow up Prescriptions/Medication Reconciliation: New ipratropium-albuterol 0.5 mg-3 mg(2.5 mg base)/3 mL Solution For Nebulization 3 ml inhalation Q4RT PRN (Reason: Shortness Of Breath Or Wheezing) Qty: 0 0RF amiodarone 200 mg Tablet 400 mg PO BID Qty: 0 0RF hydrocodone-acetaminophen 5-325 mg Tablet 1 tab PO Q4HP PRN (Reason: Moderate Pain (4-6)) Qty: 0 0RF levofloxacin 750 mg Tablet 750 mg PO 1100 Qty: 0 0RF enoxaparin 40 mg/0.4 mL Syringe 40 mg SQ DAILY Qty: 0 0RF Continued Trelegy Ellipta 200-62.5-25 mcg blister with device 1 inh inhalation Q24H Qty: 60 2RF albuterol sulfate 90 mcg/actuation HFA aerosol inhaler 2 puff inhalation Q6HP PRN (Reason: Shortness Of Breath) bisoprolol fumarate 5 mg tablet 2.5 mg PO DAILY Qty: 90 3RF atorvastatin 80 mg tablet 80 mg PO HS aspirin 81 mg tablet,delayed release (DR/EC) 81 mg PO HS Held Entresto 49-51 mg tablet 1 tab PO BID Hold Instructions: due to soft BP Discontinued doxycycline hyclate 100 mg capsule 100 mg PO BID Problem Reconciliation Problems Reviewed?: Yes Patient Discharge Instructions ACTIVITY: Continue current activity DIET: continue same diet Patient Instructions: Pneumothorax, DI for Pneumothorax, DI for Thoracentesis, DI for Surgical Site Infection, Stop Light Heart Failure Print Language: [place] Providers Primary Care Provider: Carey García Admit Provider: Theo Aldridge Attending Provider: Theo Aldridge
--- NOTE | 2024-08-20 17:20 | PC.NURSE ---
report called to will at [facility]
--- NOTE | 2024-08-20 19:01 | PC.NURSE ---
called elisabeth to let nurse know that ems left with patient at [phone]
== END 2024-08-20 18:58 | disposition home or self-care (01) | DRG 199 ==
LOC: ER 17:04 → 2ND 17:20
PROVIDERS: Internal Medicine Adolescent Medicine; Admitting Provider Student in an Organized Health Care Education/Training Program; Emergency Provider Emergency Medicine; PCP Nurse Practitioner Family; Visit Provider Student in an Organized Health Care Education/Training Program
DX: J93.0 Spontaneous tension pneumothorax (principal); I50.23 Acute on chronic systolic (congestive) heart failure; J18.9 Pneumonia, unspecified organism; J86.0 Pyothorax with fistula; J44.0 Chronic obstructive pulmonary disease with (acute) lower respiratory infection; I47.10 Supraventricular tachycardia, unspecified; T85.698A Other mechanical complication of other specified internal prosthetic devices, implants and grafts, initial encounter; I25.10 Atherosclerotic heart disease of native coronary artery without angina pectoris; I11.0 Hypertensive heart disease with heart failure; I73.9 Peripheral vascular disease, unspecified; I25.5 Ischemic cardiomyopathy; R53.83 Other fatigue; Z87.891 Personal history of nicotine dependence; Z95.5 Presence of coronary angioplasty implant and graft; Z79.82 Long term (current) use of aspirin; Z79.51 Long term (current) use of inhaled steroids; Z79.899 Other long term (current) drug therapy; R09.02 Hypoxemia; Z95.810 Presence of automatic (implantable) cardiac defibrillator; J43.9 Emphysema, unspecified; J95.812 Postprocedural air leak
CPT/HCPCS: 36415; 71045; 80053; 80074; 83735; 83880; 84484; 85025; 87389; 87636; 93005; 93306; 94640; 94761; J1171; J1650; J1938; J1956; J2250; J3010; J3475; Q9957

== ENCOUNTER 2024-09-13 10:08 | Outpatient (CLI) | payer MEDICARE, SELFPAY ==
--- OUTSIDE RECORDS SUMMARY | 2024-08-20 20:33 | XMS_ITS | Encounter Summary ---
Author Organization [facility] Address [address] [place] [address] Care Team Providers Care Client Support Analyst Name Role Phone Carey García APRN Primary Care Provider [phone] Reason for Referral * Durable Medical Equipment (Routine) - Closed Specialty Diagnoses / Procedures Referred By Contac t Referred To Contact Diagnoses Spontaneous tension pneumothorax Procedures Oxygen Therapy Cyndi Soto MD [address] [address] Phone: tel: fax: Referral ID Status Reason Start Date Expiration Date Visits Re quested Visits Authorized [id number] Closed 08/26/2024 11/25/2025 1 1 Reason for Visit * Auth/Cert Specialty Diagnoses / Procedures Referred By Contac t Referred To Contact Diagnoses Chest Injury (PTX) Referral ID Status Reason Start Date Expiration Date Visits Re quested Visits Authorized [id number] 1 1 Encounter Details Date Type Department Care Team (Late st Contact Info) Description 08/20/2024 8:33 PM EDT - 08/26/2024 11:35 AM EDT Hospital Encounter [address] [place] [address] Chelita Rain MD [address] [facility] 4th [place] [address] [place] [address] [place] [id number] Micky Saxena MD [address] [facility] [address] [place], [place] [id number] Candelaria Vega MD [address] [facility] [address] [place] [address] Cyndi Soto MD [address] [facility] [address] [place] [address] Spontaneous tension pneumothorax (Primary Dx); Coronary artery disease involving [place] coronary artery of [place] heart without angina pectoris Discharge Disposition: Home or Self Care Social History Tobacco Use Types Packs/Day Years Used Date Smoking Tobacco: Former Cigarettes 2013 Smokeless Tobacco: Current Chew Tobacco Cessation:Ready to Q uit: No; Counseling Given: No Comments:1 CAN SKOAL EVERY 2 DAYS Alcohol Use Standard Drinks/Week Comments Yes 0 (1 standard drink = 0.6 oz pur e alcohol) DRINKS BEER 5-6 EVERY 2 WEEKS AUDIT-C Answer Date Recorded Q1: How often do you have a drink containing alcohol? Never 08/20/2024 Q2: How many drinks containi ng alcohol do you have on a typical day when you are drinking? Patient does not drink Q3: How often do you have si x or more drinks on one occasion? Never 08/20/2024 Abuse Screen Answer Date Recorded Feels Unsafe at Home or Work/School no 08/20/2024 Feels Threatened by Someone no 07/25 Does Anyone Try to Keep You From Having Contact with Others or Doing Things Outside Your Home? no 08/20/2024 Physical Signs of Abuse Present no 08/20/2024 Housing Stability Answer Date Recorded Current Living Arrangements home 02/2024 Potentially Unsafe Housing Conditions none 08/23/2024 Disabilities Answer Date Recorded Difficulty Concentrating, Remembering or Making Decisions no 08/21/2024 Difficulty Managing Errands Independently no 08/21/2024 Education Answer Date Recorded Help with school or training? Not on file Preferred Language South Korean 08/23/2024 Sex and Gender Information Value Date Recorded Sex Assigned at Not on file Legal Sex Male 12:12 PM EDT Gender Identity Not on file Sexual Orientation Not on file documented as of this encounter Last Filed Vital Signs Vital Sign Reading Time Taken Comments Blood Pressure 95/70 08/26/2024 8:00 AM EDT Pulse 81 08/26/2024 8:00 AM EDT Temperature 36.8 C (98.3 F) 08/26/2024 8:00 AM EDT Respiratory Rate 18 08/26/2024 8:00 AM EDT Oxygen Saturation 91% 08/26/2024 9:00 AM EDT Inhaled Oxygen Concentration - - Weight 79 kg (174 lb 2.6 oz) 08/21/2024 8:00 AM EDT Height 180.3 cm (5' 11 ) 08/21/2024 8:00 AM EDT Body Mass Index 24.29 08/21/2024 8:00 AM EDT documented in this encounter Functional Status * Question Answer Date of Assessment Author 1. Wish to be (Past 1 Month) No 025 10:00 PM EDT Madison Arnold RN 2. Non-Specific Active Suici arabella Thoughts (Past 1 Month) No 08/20/2024 10:00 PM EDT Madison Arnold RN * Calculated C-SSRS Risk Score (Lifetime/Recent) Answer Date of Assessment Author No Risk Indicated 08/20/2024 10:00 PM EDT Madison Arnold RN * [place] Suicide Severity Rating Scale (Screener/Recent Self-Report) Question Answer Date of Assessment Author 6. Suicidal Behavior (Lifetime) No 10:00 PM EDT Madison Arnold RN documented as of this encounter Discharge Summaries * Cyndi Soto MD - 08/26/2024 9:53 AM EDT Images from the original note were not included. [facility] Medicine Services DISCHARGE SUMMARY Patient Name: Raffy Cheney : 1960 Date of Admission: 08/20/2024 Date of Discharge: 08/26/24 Length of Stay: 6 Primary Care Physician: Carey García APRN Consults Date and Time Order Name Status Description 08/20/2024 8:50 PM Inpatient Cardiothoracic Surgery Consult Completed 08/20/2024 8:50 PM Inpatient Cardiology Consult Completed Hospital Course Presenting Problem: Pneumothorax [J93.9] Active Hospital Problems Diagnosis POA Pneumothorax [J93.9] Yes Coronary artery disease involving [place] coronary artery of [place] heart without angina pectoris [I25.10] Yes Essential hypertension [I10] Yes Ischemic cardiomyopathy [I25.5] Yes Pure hypercholesterolemia [E78.00] Yes Resolved Hospital Problems No resolved problems to display. Hospital Course: Raffy Cheney is a 64 y.o. male w/ hx cad, icm w/ previous ICD placement (& subsequent improvement in EF), pad (previous pci lower extremity), carotid dz (left ica stent 2020) [facility] found with pneumothorax, also w/ recent ICD fire . At [facility] had left chest tube placed x 2; cards initiated on amiodarone. Was transferred to [facility] due to ongoing inability to remove the chest tube, for ct surgical consultation of chest tube management. Spontaneous left pneumothorax w/ persistent air-leak s/p left VATS, LEFT APICAL BLEB RESECTION, PLEURODESIS this hospitalization -chest tube placed at [facility], unable to d/c the tube -transferred for CT surgery management w/ chest tube in place s/p left VATS, LEFT APICAL BLEB RESECTION, PLEURODESIS (08/22/24) by Dr. Valerio -chest tube out 08/25/24 Recent ICD fire/Vtach (prior to admission) CAD (s/p previous cardiac stent remotely) Hx Ischemic cardiomyopathy/HfrEF (s/p previous ICD implant 2018), w/ subsequent improvement in EF HL Chronic borderline hypotension -most recent echo 11/2022: EF 51-55%, valves ok -follows w/ [facility] cards Dr. Brown -patient states his normal SBP 90's -at outside facility initiated on amiodarone therapy (subsequently transferred here for higher level of care for chest tube management by ct surgery) -Cards following: currently on amiodarone 200mg bid, asa 81mg, lipitor 80mg, zebeta 2.5mg. holding entresto (hypotension). - amiodarone decreased to 200 mg daily, PAD (previous pci 2022) Carotid stenosis (previous left ica stent 2020) -previously on xarelto 2.5mg ( states not on currently)-- will not restart at this time -statin Discharge Follow Up Recommendations for labs/diagnostics: Dr Brown in [place] 09/27/@1130 Deferring anticoagulation CTS to see in 6 weeks PCP this week Procedure(s): THORACOSCOPY VIDEO ASSISTED, LEFT BLEBECTOMY BRONCHOSCOPY Day of Discharge HPI: Patient doing well and wants to go home Vital Signs: Temp: [97.5 ??F (36.4 ??C)-98.9 ??F (37.2 ??C)] 98.3 ??F (36.8 ??C) Heart Rate: [66-81] 81 Resp: [16-18] 18 BP: (78-111)/(45-78) 95/70 Physical Exam: Patient is alert and talkative in no distress at rest Neck is without mass or JVD Heart is Reg wo murmur Lungs are clear wo wheeze or crackle Abd is soft without HSM or mass, not tender or distended MAEW Skin is without rash Neurologic exam in nonfocal Mood is appropriate Pertinent and/or Most Recent Results Results from last 7 days Lab Units 08/24/24 1634 08/24/24 0559 08/23/24 0654 08/22/24 0512 08/21/24 0815 08/20/24 2055 WBC 10*3/mm3 -- -- 11.98* 8.36 7.94 7.41 HEMOGLOBIN g/dL -- -- 12.7* 12.8* 13.1 12.9* HEMATOCRIT % -- -- 37.7 37.8 37.8 38.2 PLATELETS 10*3/mm3 -- -- 157 147 145 143 SODIUM mmol/L -- 136 136 136 133* 133* POTASSIUM mmol/L 4.2 3.4* 3.8 3.9 4.6 4.2 CHLORIDE mmol/L -- 103 101 101 98 94* CO2 mmol/L -- 21.3* 25.0 25.0 28.0 27.0 BUN mg/dL -- 15.8 13.3 12.9 13.0 16.0 CREATININE mg/dL -- 0.79 0.79 0.75* 0.71* 0.77 GLUCOSE mg/dL -- 94 114* 101* 108* 93 CALCIUM mg/dL -- 8.4* 9.0 8.8 9.1 9.0 PROBNP pg/mL -- -- -- 925.3* -- -- Results from last 7 days Lab Units 08/22/24 0512 08/21/24 0815 08/20/242054 BILIRUBIN mg/dL -- 0.9 0.9 ALK PHOS U/L -- 73 73 ALT (SGPT) U/L -- 21 18 AST (SGOT) U/L -- 26 21 PROTIME Seconds 15.5* -- 16.0* INR 1.16* -- 1.21* Results from last 7 days Lab Units 08/23/24 0654 CHOLESTEROL mg/dL 91 TRIGLYCERIDES mg/dL 55 HDL CHOL mg/dL 38* LDL CHOL mg/dL 40 Results from last 7 days Lab Units 08/23/24 0654 08/21/24 0815 08/21/24 0008 08/20/242054 TSH uIU/mL 2.590 -- -- -- HSTROP T ng/L -- 139* 134* 155* Brief Urine Lab Results None No results found for: BLOODCX , URINECX , WOUNDCX , MRSACX , RESPCX , STOOLCX XR Chest 1 View Result Date: 08/25/2024 Impression: Impression: Probable trace left apical pneumothorax status post removal of left chest tube. Electronically Signed: Marily Schmitz MD 08/25/2024 2:45 PM EDT Workstation ID: [id number] XR Chest 1 View Result Date: 08/25/2024 Impression: Impression: 1. Stable left-sided subcutaneous emphysema. No visible pneumothorax. 2. Appearance of diffusely increased interstitial disease, as discussed above, possibly as a result of imaging technique. Electronically Signed: Tru Santizo MD 08/25/2024 8:39 AM EDT Workstation ID: [id number] XR Chest 1 View Result Date: 08/24/2024 Impression: Impression: Newly apparent trace left apical pneumothorax with unchanged left thoracostomy tube. Electronically Signed: Shen Renteria MD 08/24/2024 10:03 AM EDT Workstation ID: [id number] XR Chest 1 View Result Date: 08/23/2024 Impression: Impression: Yesterday's trace left apical pneumothorax is not confidently identified ontoday's exam. Unchanged left thoracostomy tube with left chest wall subcutaneous emphysema. Electronically Signed: Shen Renteria MD 08/23/2024 7:32 AM EDT Workstation ID: [id number] XR Chest 1 View Result Date: 08/22/2024 Impression: Impression: 1.Left-sided chest tube in place. Trace left apical pneumothorax appears slightly improved. 2.Lungs are clear. Electronically Signed: Bola Gates MD 08/22/2024 10:21 AM EDT Workstation ID: [id number] XR Chest 1 View Result Date: 08/22/2024 Impression: Impression: 1.Left chest tube appears in similar position. Small residual left apical pneumothorax, similar to the prior exam. 2.Mild bibasilar opacities which may represent atelectasis. Electronically Signed: Gregory Han 08/22/2024 7:20 AM EDT Workstation ID: [id number] XR Chest 1 View Result Date: 08/21/2024 Impression: Impression: 1.Stable left-sided chest tube with marked improvement in left-sided pneumothorax. A small left apical component as residual. 2.Increased subcutaneous emphysema at the left lateral chest wall. Electronically Signed: Ruel Timmons MD 08/21/2024 4:14 AM EDT Workstation ID: [id number] XR Chest 1 View Result Date: 08/20/2024 Impression: Impression: 1.Large left-sided pneumothorax with up to 6.9 cm pleural separation and significant atelectasis in the left lung. 2.Moderate subcutaneous emphysema at the left lateral chest wall. Electronically Signed: Ruel Timmons MD 08/20/2024 9:38 PM EDT Workstation ID: [id number] Results for orders placed during the hospital encounter of 12/16/22 Adult Transthoracic Echo Complete W/ Cont if Necessary Per Protocol 12/16/2022 12:55 PM Interpretation Summary Left ventricular ejection fraction appears to be 51 - 55%. The cardiac valves are anatomically and functionally normal. Results for orders placed during the hospital encounter of 08/11/23 Duplex Carotid Ultrasound CAR 08/18/2023 9:04 AM Interpretation Summary Right internal carotid artery demonstrates a 50-69% stenosis. Left carotid stent is patent without evidence of in-stent restenosis. Discharge Details Discharge Medications New Medications Instructions Start Date amiodarone 200 MG tablet Commonly known as: PACERONE 200 mg, Oral, Every 24 Hours Scheduled gabapentin 100 MG capsule Commonly known as: NEURONTIN 100 mg, Oral, Nightly oxyCODONE 5 MG immediate release tablet Commonly known as: ROXICODONE 5 mg, Oral, Every 4 Hours PRN pantoprazole 40 MG EC tablet Commonly known as: PROTONIX 40 mg, Oral, Every [employer] Maintainer Start Date: August 27, 2024 polyethylene glycol 17 g packet Commonly known as: MIRALAX 17 g, Oral, Daily Start Date: August 27, 2024 Continue These Medications Instructions Start Date albuterol sulfate HFA 108 (90 Base) MCG/ACT inhaler Commonly known as: PROVENTIL HFA;VENTOLIN HFA;PROAIR HFA 2 puffs, Every 4 Hours PRN aspirin 81 MG EC tablet 81 mg, Nightly atorvastatin 80 MG tablet Commonly known as: LIPITOR TAKE ONE TABLET BY MOUTH ONCE A DAY bisoprolol 5 MG tablet Commonly known as: ZEBeta TAKE 1/2 TABLET BY MOUTH ONCE A DAY ferrous sulfate 325 (65 FE) MG tablet 325 mg, Daily With Breakfast fexofenadine 180 MG tablet Commonly known as: CLAUDIO 180 mg, Daily furosemide 40 MG tablet Commonly known as: LASIX 20 mg, Oral, Daily PRN loperamide 2 MG capsule Commonly known as: IMODIUM TAKE 1 CAPSULE BY MOUTH EVERY 4 HOURS NEEDED FOR LOOSE STOOL. DO NOT EXCEED EIGHT MG IN 24 HOURS Trelegy Ellipta 100-62.5-25 MCG/ACT inhaler Generic drug: Tdqitctojqn-Fwcvnwoor-Xzbsoe 1 puff, Daily - RT Stop These Medications doxycycline 100 MG capsule Commonly known as: VIBRAMYCIN sacubitril-valsartan 24-26 MG tablet Commonly known as: ENTRESTO Discharge Disposition: Home or Self Care Discharge Diet: Regular Discharge Activity: As Tolerated Special Instructions: Future Appointments Date Time Provider Department Center 09/27/2024 11:30 AM Gris Iniguez APRN [facility] Additional Instructions for the Follow-ups that You Need to Schedule Discharge Follow-up with Specialty: Gris Iniguez APRN As directed Specialty: Gris Iniguez APRN Follow Up Details: 09/27/2024 at 11:30 AM in the [place] office. With device check Time Spent on Discharge: 35 minutes Electronically signed by Cyndi Soto MD 08/26/24 09:53 EDT documented in this encounter Discharge Instructions * Attachments The following attachments cannot be sent through Care Everywhere. * Pneumothorax (South Korean) documented in this encounter Medications at Time of Discharge albuterol sulfate HFA 108 (90 Base) MCG/ACT inhaler Inhale 2 puffs Every 4 (Four) Hours As Needed for Wheezing. amiodarone (PACERONE) 200 MG tablet Take 1 tablet by mouth Daily. 30 tablet 6 08/26/2024 aspirin 81 MG EC tablet Take 1 tablet by mouth Every Night. atorvastatin (LIPITOR) 80 MG tablet TAKE ONE TABLET BY MOUTH ONCE A DAY 30 tablet 5 09/05/2022 bisoprolol (ZEBeta) 5 MG tabletIndications: Ischemic cardiomyopathy,Chr onic systolic congestive heart failure TAKE 1/2 TABLET BY MOUTH ONCE A DAY 45 tablet 3 11/12/2022 ferrous sulfate 325 (65 FE) MG tablet Take 1 tablet by mouth Daily With Breakfast. fexofenadine (CLAUDIO) 180 MG tablet Take 1 tablet by mouth Daily. Fluticasone-Umecli din-Vilant (Trelegy Ellipta) 100-62.5-25 MCG/ACT inhaler Inhale 1 puff Daily. furosemide (LASIX) 40 MG tablet Take 0.5 tablets by mouth Daily As Needed (edema). 08/25/2024 gabapentin (NEURONTIN) 100 MG capsuleIndications :Spontaneous tension pneumothorax Take 1 capsule by mouth Every Night. 30 capsule 08/26/2024 loperamide (IMODIUM) 2 MG capsule TAKE 1 CAPSULE BY MOUTH EVERY 4 HOURS NEEDED FOR LOOSE STOOL. DO NOT EXCEED EIGHT MG IN 24 HOURS 08/16/2024 pantoprazole (PROTONIX) 40 MG EC tablet Take 1 tablet by mouth Every Morning. 30 tablet 08/27/2024 polyethylene glycol (MIRALAX) 17 g packet Take 17 g by mouth Daily. 30 packet 08/27/2024 oxyCODONE (ROXICODONE) 5 MG immediate release tabletIndications: Spontaneous tension pneumothorax Take 1 tablet by mouth Every 4 (Four) Hours As Needed for Moderate Pain for up to 3 days. 12 tablet 08/26/2024 documented as of this encounter Progress Notes * Maria Del Carmen Christopher PA-C - 08/26/2024 7:38 AM EDT [facility] Cardiothoracic Surgery In-Patient Progress Note LOS: 6 days POD # 4 s/p left VATS, bleb resection, pleurodesis Subjective Wants to go home, still on 4L NC Objective Vital Signs Temp: [97.5 ??F (36.4 ??C)-98.9 ??F (37.2 ??C)] 98.9 ??F (37.2 ??C) Heart Rate: [66-89] 73 Resp: [16] 16 BP: (78-111)/(45-78) 106/75 Physical Exam: General Appearance: alert, appears stated age and cooperative Lungs: clear to auscultation, respirations regular, respirations even, and respirations unlabored Heart: regular rhythm & normal rate, normal S1, S2, no murmur, no gallop, no rub, and no click Skin: Incision c/d/I Results Results from last 7 days Lab Units 08/23/24 0654 WBC 10*3/mm3 11.98* HEMOGLOBIN g/dL 12.7* HEMATOCRIT % 37.7 PLATELETS 10*3/mm3 157 Results from last 7 days Lab Units 08/24/24 1634 08/24/24 0559 SODIUM mmol/L -- 136 POTASSIUM mmol/L 4.2 3.4* CHLORIDE mmol/L -- 103 CO2 mmol/L -- 21.3* BUN mg/dL -- 15.8 CREATININE mg/dL -- 0.79 GLUCOSE mg/dL -- 94 CALCIUM mg/dL -- 8.4* Pathology LUNG, LEFT, BLEBECTOMY: Benign mesothelial lined fibrous tissue with reactive mesothelial hyperplasia and mixed inflammation and fibrosis Negative for specific microorganisms Negative for dysplasia or malignancy Assessment POD # 4 s/p left VATS, bleb resection, pleurodesis Plan AM CXR is satisfactory Home O2 eval Discharge at any time from CT surgery perspective Return to our office in 6 weeks for follow up Maria Del Carmen Christopher PA-C 08/26/24 07:38 EDT Cosigned by Gus Valerio MD at 08/26/2024 9:22 AM EDT Associated attestation - Gus Valerio MD - 08/26/2024 9:22 AM EDT I have reviewed this documentation and agree. With the chest tube removed and the patient clinically stable he could be discharged from the surgical standpoint. * Gris Iniguez APRN - 08/25/2024 10:18 AM EDT [facility] Inpatient Progress Note LOS: 5 days Patient Care Team: Carey García APRN as PCP - General (Internal Medicine) Jose Luis Brown MD as Consulting Physician (Cardiology) Chief Complaint: follow-up for AF and ICD shock Subjective Interval History: Patient in bed. Chest tubes removed earlier. Has an x-ray scheduled for this afternoon. Hoping to be discharged later today. Review of Systems: Pertinent positives noted in history, exam, and assessment. Otherwise reviewed and negative. Objective Vitals: Blood pressure 97/61, pulse 81, temperature 98.2 ??F (36.8 ??C), temperature source Oral, resp. rate 16, height 180.3 cm (71 ), weight 79 kg (174 lb 2.6 oz), SpO2 93%. Intake/Output Summary (Last 24 hours) at 08/25/2024 1018 Last data filed at 08/25/2024 0905 Gross per 24 hour Intake 360 ml Output 1530 ml Net -1170 ml Vitals reviewed. Constitutional: Appearance: Well-developed and not in distress. Comments: Wearing supplemental oxygen Neck: Vascular: No JVD. Trachea: No tracheal deviation. Pulmonary: Effort: Pulmonary effort is normal. Comments: Decreased bases bilaterally Cardiovascular: Normal rate. Regular rhythm. Murmurs: There is no murmur. Edema: Peripheral edema absent. Abdominal: Palpations: Abdomen is soft. Musculoskeletal: General: No deformity. Skin: General: Skin is warm and dry. Neurological: Mental Status: Alert and oriented to person, place, and time. Results Review: I reviewed the patient's new clinical results. Results from last 7 days Lab Units 08/23/24 0654 WBC 10*3/mm3 11.98* HEMOGLOBIN g/dL 12.7* HEMATOCRIT % 37.7 PLATELETS 10*3/mm3 157 Results from last 7 days Lab Units 08/24/24 1634 08/24/24 0559 08/22/24 0512 08/21/24 0815 SODIUM mmol/L -- 136 < > 133* POTASSIUM mmol/L 4.2 3.4* < > 4.6 CHLORIDE mmol/L -- 103 < > 98 CO2 mmol/L -- 21.3* < > 28.0 BUN mg/dL -- 15.8 < > 13.0 CREATININE mg/dL -- 0.79 < > 0.71* CALCIUM mg/dL -- 8.4* < > 9.1 BILIRUBIN mg/dL -- -- -- 0.9 ALK PHOS U/L -- -- -- 73 ALT (SGPT) U/L -- -- -- 21 AST (SGOT) U/L -- -- -- 26 GLUCOSE mg/dL -- 94 < > 108* < > = values in this interval not displayed. Results from last 7 days Lab Units 08/24/24 1634 08/24/24 0559 SODIUM mmol/L -- 136 POTASSIUM mmol/L 4.2 3.4* CHLORIDE mmol/L -- 103 CO2 mmol/L -- 21.3* BUN mg/dL -- 15.8 CREATININE mg/dL -- 0.79 GLUCOSE mg/dL -- 94 CALCIUM mg/dL -- 8.4* Results from last 7 days Lab Units 08/22/24 0508/20/242054 INR 1.16* 1.21* Lab Results Lab Value Date/Time TROPONINT 139 (C) 08/21/2024 0815 TROPONINT 134 (C) 08/21/2024 0008 TROPONINT 155 (C) 08/20/20242054 Results from last 7 days Lab Units 08/23/24 0654 TSH uIU/mL 2.590 Results from last 7 days Lab Units 08/23/24 0654 CHOLESTEROL mg/dL 91 TRIGLYCERIDES mg/dL 55 HDL CHOL mg/dL 38* LDL CHOL mg/dL 40 Results from last 7 days Lab Units 08/22/24 0512 PROBNP pg/mL 925.3* Results from last 7 days Lab Units 08/21/24 0815 08/21/24 0008 08/20/242054 HSTROP T ng/L 139* 134* 155* Tele: Sinus rhythm Assessment: Pneumothorax Spontaneous pneumothorax Status post left VATS, left apical bleb resection, pleurodesis 08/22/2024 Chest tube to water seal for additional 24 hours, anticipated removal tomorrow, pending chest x-raychest shows resolved small left pneumothorax Chest tubes ordered out today. A-fib Recent A-fib noted per device interrogation on 08/15 for which patient was shocked at 31 bpm with episode lasting 43 seconds in duration <1% AF/AT burden over two year period Device reprogrammed this admission for inappropriate ICD shock Chronic systolic congestive heart failure/ischemic cardiomyopathy ICD shock, due to AF EF 51 to 55% with no valvular abnormalities, increased from 2019 with EF 25% Troponins elevated and flat, secondary to ICD shock Heart Failure Logic Index currently 19, threshold is 16 and Thoracic Impedance is currently 60.9 which is a gradual trend up since April suggesting volume overload. proBNP 925 GDMT: Bisoprolol 2.5, Entresto (on hold s/t hypotension) Device interrogated and no VT noted. Shocks were due to AF. Currently on amiodarone from OSH CAD Dyslipidemia ASA, statin Pnd stress test; future Labile blood pressures Averaging 90s over 60s Plan: Overall, patient is stable from cardiac standpoint for discharge today. Will decrease amiodarone to 200 mg daily. Will address cardiac medications and ADT. Will have patient follow-up in the [place] office on September 27 at 1130 with myself. Will defer anticoagulation at this time secondary to recent surgical intervention and overall less than 1% A-fib burden. Will make sure that his A- fib alerts are turned on for his device. Please call with any questions. Gris Iniguez APRN Dictated utilizing [employer] dictation Cosigned by Jose Luis Brown MD at 08/25/2024 11:21 AM EDT Associated attestation - Jose Luis Brown MD - 08/25/2024 11:21 AM EDT I have reviewed this documentation and agree. * Cyndi Soto MD - 08/25/2024 7:57 AM EDT Images from the original note were not included. [facility] Medicine Services PROGRESS NOTE Patient Name: Raffy Cheney : 1960 Date of Admission: 08/20/2024 Primary Care Physician: Carey García APRN Subjective Subjective CC: Pneumothorax, icd shock HPI:patient doing well, CT out, eager to go home, no specific complaints Objective Objective Vital Signs: Temp: [98.2 ??F (36.8 ??C)-98.9 ??F (37.2 ??C)] 98.2 ??F (36.8 ??C) Heart Rate: [67-84] 70 Resp: [16-18] 16 BP: (89-112)/(55-69) 97/61 Flow (L/min) (Oxygen Therapy): [2] 2 Physical Exam: Constitutional:Alert, oriented x 3, nontoxic appearing Psych:Normal/appropriate affect HEENT:NCAT, oropharynx clear Neck: neck supple, full range of motion Neuro: Face symmetric, speech clear, equal manager transfusion, moves all extremities Cardiac: RRR Resp: CTAB GI: abd soft, nontender Skin: No extremity rash Musculoskeletal/extremities: no cyanosis of extremities; no significant ankle edema Left chest tube in place Results Reviewed: LAB RESULTS: Lab 08/23/24 0654 08/22/24 0512 08/21/24 0815 08/21/24 0008 08/20/242054 WBC 11.98* 8.36 7.94 -- 7.41 HEMOGLOBIN 12.7* 12.8* 13.1 -- 12.9* HEMATOCRIT 37.7 37.8 37.8 -- 38.2 PLATELETS 157 147 145 -- 143 NEUTROS ABS 9.89* -- 5.85 -- 5.15 IMMATURE GRANS (ABS) 0.08* -- 0.04 -- 0.03 LYMPHS ABS 0.92 -- 0.90 -- 1.17 MONOS ABS 1.05* -- 0.90 -- 0.86 EOS ABS 0.02 -- 0.20 -- 0.17 MCV 105.0* 104.4* 105.0* -- 105.8* PROTIME -- 15.5* -- -- 16.0* HSTROP T -- -- 139* 134* 155* Lab 08/24/24 1634 08/24/24 0559 08/23/24 0654 08/22/24 0512 08/21/24 0815 08/20/242054 SODIUM -- 136 136 136 133* 133* POTASSIUM 4.2 3.4* 3.8 3.9 4.6 4.2 CHLORIDE -- 103 101 101 98 94* CO2 -- 21.3* 25.0 25.0 28.0 27.0 ANION GAP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 Gus Valerio MD - 08/22/2024 8:03 AM EDT [facility] OPERATIVE REPORT PATIENT NAME: Raffy Cheney AGE: 64 y.o. : 1960 DATE OF SURGERY: 08/22/2024 CSN: [id number] Primary Care Physician: Carey García APRN Procedure: 1. VATS Procedure left-sided 2. Left apical bleb resection (45 mm endostapler) 3. Pleurodesis with abrasion of the apex and lateral mujica Surgeon: Gus Valerio MD Surgical Assistants: Community Service Worker: Armando Perez PA was responsible for performing the following activities: Retraction,Suction, Irrigation, Suturing, Closing, and Held/Positioned Camera and their skilled assistance wasnecessary for the success of this case. Anesthesiologist: Chad Tierney MD Pre-op Diagnosis: Spontaneous tension pneumothorax [J93.0] Post-op Diagnosis: Spontaneous tension pneumothorax [J93.0] Single apical bleb on the left upper lobe MAJOR AND MINOR COMORBIDITIES: Pneumothorax CHF, peripheral vascular disease, claudication, carotid stenosis Estimated Blood Loss: 10 mL Specimen: Left apical section of the left upper lobe with a contained bleb Indications: Raffy Cheney presents with left pneumothorax he had an appropriate chest tube placement when he had recurrence on waterseal a larger tube was placed and was again in appropriate position. He was sent for further evaluation and probable VATS procedure Findings: 1. The chest wall, t pleura and lung lobes were normal. 2. There was some fibrinous debris 3. A single bleb was seen on the anterior surface of the left upper lobe 4. No airleak was seen by direct observation or when the chest tube was placed to Pleur-evac suction Transfused: NONE Complications: None Procedure Description: The patient was prepped and draped in the usual sterile fashion for a possible left thoracotomy. A surgical pause including confirmation of the patient identity and procedure was performed. A short utility incision was fashioned at the left axillary position. The pre-existing chest tube was removed and the site widened to allow a port to be placed. Good visualization the utility incision was opened and the long position to identify the bleb. Thiswas confirmed as the only site of air leakage after carefully examining the entire apex of the leftupper lobe and the upper margin of the left lower lobe. The surgical stapler was then inserted and fired once to exclude the bleb and a small portion of surrounding lung. With this completed pressure testing was undertaken without any continued air leak. A folded Bovie pad was now used to abrade the pleural surface at the apex and posteriorly. #32 chest tube was then placed and secured at skin level. Utility incision was infiltrated with lidocaine 1% as was the chest tube site. The utility incisionwas closed in layers with Vicryl. After a surgical debrief a sterile dressing was applied and the patient was transferred to the ICU. I expect this patient to be hospitalized for more than 2 midnights. Discharge disposition will be determined based on the postoperative recovery. Electronically signed by: Gus Valerio MD, 08/22/2024 09:01 EDT documented in this encounter Miscellaneous Notes * Case Management/Social Work - Zeyad Finch RN - 08/26/2024 10:15 AM EDT Case Management Discharge Note Final Note: DC plan is home w/spouse. I had CM consult from [place] for home O2, RN did room air restingsat and walking. He is able to qualify for home O2 w/resting room air sat and walking. Patient has [employer] Medicare Replacement, I left w/Luciano w/[employer] due to having [employer] contract, no return call. [facility], [facility] can accept patient's w/[employer] Medicare only if it is a PPO, which he has. HOme O2 ordered thru [facility], they will deliver O2 to room prior to d/c, aware of d/c today. I met w/Mr. Cheney in room, he is agreeable to home O2 thru [employer], he has transportation, d/c plan is home. No other d/c needs verbalized. Selected Continued Care - Admitted Since 08/20/2024 Destination No services have been selected for the patient. Durable Medical Equipment Coordination complete. Service Provider Services Address Phone Fax Patient Preferred [facility] Accessories [address], [facility] [address] [phone] -- Dialysis/Infusion No services have been selected for the patient. Home Medical Care No services have been selected for the patient. Therapy No services have been selected for the patient. Community Resources No services have been selected for the patient. Community & DME No services have been selected for the patient. Transportation Services Transportation: Private Transportation Private: Car Final Discharge Disposition Code: 01 - home or self-care * Case Management/Social Work - Raffy Romero RN - 08/25/2024 3:03 PM EDT Continued Stay Note [facility] Patient Name: Raffy Cheney Today's Date: 08/25/2024 Admit Date: 08/20/2024 Plan: Home with spouse Discharge Plan Row Name 08/25/24 1502 Plan Plan Home with spouse Final Discharge Disposition Code 01 - home or self-care Final Note Plan is home with spouse. Spouse will transport. No discharge needs identified. Patient is on room air. Discharge Codes No documentation. Expected Discharge Date and Time Expected Discharge Date Expected Discharge Time Aug 26, 2024 Raffy Romero RN * Case Management/Social Work - Raffy Romero RN - 08/25/2024 8:42 AM EDT Continued Stay Note [facility] Patient Name: Raffy Cheney Today's Date: 08/25/2024 Admit Date: 08/20/2024 Plan: Home with spouse Discharge Plan Row Name 08/25/24 0841 Plan Plan Home with spouse Patient/Family in Agreement with Plan yes Plan Comments Spoke with patient at bedside. Plan is home with spouse. PAtient is on 2L NC. Patientdenies any CM discharge needs. CM will continue to follow. Final Discharge Disposition Code 01 - home or self-care Discharge Codes No documentation. Expected Discharge Date and Time Expected Discharge Date Expected Discharge Time Aug 26, 2024 Raffy Romero RN * Case Management/Social Work - Raffy Romero RN - 08/24/2024 8:22 AM EDT Continued Stay Note [facility] Patient Name: Raffy Cheney Today's Date: 08/24/2024 Admit Date: 08/20/2024 Plan: Home with spouse Discharge Plan Row Name 08/24/24 0821 Plan Plan Home with spouse Patient/Family in Agreement with Plan yes Plan Comments Spoke to patient at bedside. Plan is home with spouse. Patient is denies any CM discharge needs. CM will continue to follow. Final Discharge Disposition Code 01 - home or self-care Discharge Codes No documentation. Expected Discharge Date and Time Expected Discharge Date Expected Discharge Time Aug 24, 2024 Raffy Romero RN documented in this encounter Plan of Treatment Upcoming Encounters Date Type Department Care Team (Late st Contact Info) Description 09/27/2024 11:30 AM EDT Office Visit [facility] CARDIOLOGY [address] [place] [address] Gris Iniguez APRN [address] [facility] [address] [place] [address] 10/04/2024 10:00 AM EDT Office Visit [facility] CARDIOTH[facility]ACIC SUR[facility]ERY [address] [facility] [address] [place] [id number] Theodore Valdovinos APRN [address] [place] [address] Scheduled Procedures Name Priority Associated Diagnoses Date/Ti me CV CEREBRAL ANGIOGRAM IR Coronary artery disease involving [place] coronary artery of [place] heart without angina pectoris Bilateral carotid artery stenosis documented as of this encounter Procedures Procedure Name Priority Date/Time Associated Diagnosis Comments XR CHEST 1 VW Routine 08/26/2024 6:57 AM EDT XR CHEST 1 VW STAT 08/25/2024 1:46 PM EDT XR CHEST 1 VW Routine 08/25/2024 5:50 AM EDT POTASSIUM Timed 08/24/2024 4:34 PM EDT XR CHEST 1 VW STAT 08/24/2024 9:50 AM EDT BASIC METABOLIC PANEL Routine 08/24/2024 5:59 AM EDT TSH RFX ON ABNORMAL TO FREE T4 Add-On 08/23/2024 6:54 AM EDT CBC WITH AUTO DIFFERENTIAL Routine 08/23/2024 6:54 AM EDT CBC AND DIFFERENTIAL Routine 08/23/2024 6:54 AM EDT MAGNESIUM Routine 08/23/2024 6:54 AM EDT LIPID PANEL Add-On 08/23/2024 6:54 AM EDT BASIC METABOLIC PANEL Routine 08/23/2024 6:54 AM EDT XR CHEST 1 VW Routine 08/23/2024 5:48 AM EDT XR CHEST 1 VW STAT 08/22/2024 9:36 AM EDT TISSUE PATHOLOGY EXAM Routine 08/22/2024 8:30 AM EDT Spontaneous tension pneumothorax BRONCHOSCOPY 08/22/2024 6:54 AM EDT Spontaneous tension pneumothorax THORACOSCOPY VIDEO ASSISTED 08/22/2024 6:54 AM EDT Spontaneous tension pneumothorax ABORH 2ND SPECIMEN VERIFICATION STAT 08/22/2024 6:54 AM EDT ECG 12-LEAD Routine 08/22/2024 5:14 AM EDT PROBNP Routine 08/22/2024 5:12 AM EDT PROTIME-INR Routine 08/22/2024 5:12 AM EDT CBC (NO DIFF) Routine 08/22/2024 5:12 AM EDT TYPE AND SCREEN Routine 08/22/2024 5:12 AM EDT MAGNESIUM Routine 08/22/2024 5:12 AM EDT BASIC METABOLIC PANEL Routine 08/22/2024 5:12 AM EDT XR CHEST 1 VW Routine 08/22/2024 4:32 AM EDT CBC WITH AUTO DIFFERENTIAL STAT 08/21/2024 8:15 AM EDT TROPONIN STAT 08/21/2024 8:15 AM EDT MAGNESIUM STAT 08/21/2024 8:15 AM EDT COMPREHENSIVE METABOLIC PANEL STAT 08/21/2024 8:15 AM EDT ECG 12-LEAD STAT 08/21/2024 3:58 AM EDT XR CHEST 1 VW STAT 08/21/2024 3:50 AM EDT HIGH SENSITIVITIY TROPONIN T 1HR Timed 08/21/2024 12:08 AM EDT XR CHEST 1 VW STAT 08/20/2024 9:25 PM EDT CBC WITH AUTO DIFFERENTIAL STAT 08/20/2024 8:55 PM EDT TROPONIN STAT 08/20/2024 8:55 PM EDT PROTIME-INR STAT 08/20/2024 8:55 PM EDT MAGNESIUM STAT 08/20/2024 8:55 PM EDT COMPREHENSIVE METABOLIC PANEL STAT 08/20/2024 8:55 PM EDT documented in this encounter Results * XR Chest 1 View (08/26/2024 6:57 AM EDT) Anatomical Region Laterality Modality Body N/A Radiographic Talia ging 08/26/2024 10:1 3 AM EDT Impressions 08/26/2024 10:15 AM EDT Impression: Mild diffuse interstitial prominence and suspected left basilar atelectasis. No definite residual pneumothorax. Electronically Signed: Claudia Whyte MD 08/26/2024 10:15 AM EDT Workstation ID: [id number] Narrative 08/26/2024 10:15 AM EDT XR CHEST 1 VW Date of Exam: 08/26/2024 2:52 AM EDT Indication: postop Comparison: 08/25/2024 Findings: Cardiomediastinal silhouette is stable. There is a left-sided AICD. There is diffuse bilateral interstitial prominence. There is probable atelectasis at the left lung base. No significant pleural effusion. No definite pneumothorax. There is subcutaneous emphysema along the left chest wall. Procedure Note Claudia Whyte MD - 08/26/2024 XR CHEST 1 VW Date of Exam: 08/26/2024 2:52 AM EDT Indication: postop Comparison: 08/25/2024 Findings: Cardiomediastinal silhouette is stable. There is a left-sided AICD. Thereis diffuse bilateral interstitial prominence. There is probableatelectasis at the left lung base. No significant pleural effusion. Nodefinite pneumothorax. There is subcutaneous emphysema along the left chest wall. IMPRESSION: Impression: Mild diffuse interstitial prominence and suspected left basilaratelectasis. No definite residual pneumothorax. Electronically Signed: Claudia Whyte MD 08/26/2024 10:15 AM EDT Workstation ID: [id number] Therese Hanna OPERATIONS INTERN IMG DIAGNOSTIC IMAGING ORDER DANIA Final Result * XR Chest 1 View (08/25/2024 1:46 PM EDT) Anatomical Region Laterality Modality Body N/A Radiographic Talia ging 08/25/2024 2:43 PM EDT Impressions 08/25/2024 2:45 PM EDT Impression: Probable trace left apical pneumothorax status post removal of left chest tube. Electronically Signed: Marily Schmitz MD 08/25/2024 2:45 PM EDT Workstation ID: [id number] Narrative 08/25/2024 2:45 PM EDT XR CHEST 1 VW Date of Exam: 08/25/2024 1:27 PM EDT Indication: post chest tube removal Comparison: AP chest x-ray 08/25/2024 timed at 5:50 a.m., 08/24/2024 Findings: Left chest tube has been removed. There is probably a trace left apical pneumothorax. Subcutaneous emphysema is again seen in the left side of the chest. Lungs appear clear. Cardiomediastinal contours and pacemaker/ICD leads appear stable. Procedure Note Marily Schmitz MD - 08/25/2024 XR CHEST 1 VW Date of Exam: 08/25/2024 1:27 PM EDT Indication: post chest tube removal Comparison: AP chest x-ray 08/25/2024 timed at 5:50 a.m., 08/24/2024 Findings: Left chest tube has been removed. There is probably a trace left apicalpneumothorax. Subcutaneous emphysema is again seen in the left side of thechest. Lungs appear clear. Cardiomediastinal contours and pacemaker/ICDleads appear stable. IMPRESSION: Impression: Probable trace left apical pneumothorax status post removal of left chesttube. Electronically Signed: Marily Schmitz MD 08/25/2024 2:45 PM EDT Workstation ID: [id number] Therese Hanna OPERATIONS INTERN IMG DIAGNOSTIC IMAGING ORDER DANIA Final Result * XR Chest 1 View (08/25/2024 5:50 AM EDT) Anatomical Region Laterality Modality Body N/A Radiographic Talia ging 08/25/2024 8:35 AM EDT Impressions 08/25/2024 8:39 AM EDT Impression: 1. Stable left-sided subcutaneous emphysema. No visible pneumothorax. 2. Appearance of diffusely increased interstitial disease, as discussed above, possibly as a result of imaging technique. Electronically Signed: Tru Santizo MD 08/25/2024 8:39 AM EDT Workstation ID: [id number] Narrative 08/25/2024 8:39 AM EDT XR CHEST 1 VW Date of Exam: 08/25/2024 5:45 AM EDT Indication: postop Comparison: 08/24/2024 Findings: Left-sided dual-lead ICD, left thoracotomy tube and left carotid stent are again noted. Heart is normal in size. Vasculature appears normal, where visible. Diffuse pulmonary interstitial prominence is increased from yesterday's study, initially suggesting mild edema or viral syndrome/bronchitis, but similar appearance is present on earlier studies and this may simply reflect golf club weigher image technique today. No lung consolidation effusion or pneumothorax is seen. Subcutaneous emphysema of the left chest appears stable. There is no visible pneumothorax or effusion. Procedure Note Tru Santizo MD - 08/25/2024 XR CHEST 1 VW Date of Exam: 08/25/2024 5:45 AM EDT Indication: postop Comparison: 08/24/2024 Findings: Left-sided dual-lead ICD, left thoracotomy tube and left carotid stent areagain noted. Heart is normal in size. Vasculature appears normal, wherevisible. Diffuse pulmonary interstitial prominence is increased fromyesterday's study, initially suggesting mild edema or viral syndrome/bronchitis, but similar appearanceis present on earlier studies and this may simply reflect golf club weigher imagetechnique today. No lung consolidation effusion or pneumothorax is seen.Subcutaneous emphysema of the left chest appears stable. There is no visible pneumothorax or effusion. IMPRESSION: Impression: 1. Stable left-sided subcutaneous emphysema. No visible pneumothorax. 2. Appearance of diffusely increased interstitial disease, as discussedabove, possibly as a result of imaging technique. Electronically Signed: Tru Santizo MD 08/25/2024 8:39 AM EDT Workstation ID: [id number] Therese Cyndi OPERATIONS INTERN IMG DIAGNOSTIC IMAGING ORDER DANIA Final Result * Potassium (08/24/2024 4:34 PM EDT) Potassium 4.2 3.5 - 5.2 mmol/L 08/24/2024 5:47 PM EDT [facility] Blood Venipuncture / Unknown 08/24/2024 4:34 PM EDT 08/24/2024 5:30 PM EDT Gus Valerio MD LAB BLOOD ORDERABLES Final Re sult [facility]
[address] [place] [address], * XR Chest 1 View (08/24/2024 9:50 AM EDT) Anatomical Region Laterality Modality Body N/A Radiographic Talia ging 08/24/2024 10:0 1 AM EDT Impressions 08/24/2024 10:03 AM EDT Impression: Newly apparent trace left apical pneumothorax with unchanged left thoracostomy tube. Electronically Signed: Shen Renteria MD 08/24/2024 10:03 AM EDT Workstation ID: [id number] Narrative 08/24/2024 10:03 AM EDT XR CHEST 1 VW Date of Exam: 08/24/2024 9:37 AM EDT Indication: postop Comparison: Chest x-ray 08/23/2024 Findings: Redemonstration of left thoracostomy tube with associated left chest wall subcutaneous emphysema. Redemonstration of dual-lead AICD with left chest pulse generator. The cardiomediastinal silhouette is unchanged, within normal limits. There is a newly apparent small left apical pneumothorax with approximately 7 mm of pleural retraction measured from the apex. The lungs are grossly clear. Procedure Note Shen Renteria MD - 08/24/2024 XR CHEST 1 VW Date of Exam: 08/24/2024 9:37 AM EDT Indication: postop Comparison: Chest x-ray 08/23/2024 Findings: Redemonstration of left thoracostomy tube with associated left chest wallsubcutaneous emphysema. Redemonstration of dual-lead AICD with left chestpulse generator. The cardiomediastinal silhouette is unchanged, withinnormal limits. There is a newly apparent small left apical pneumothorax with approximately 7 mm of pleuralretraction measured from the apex. The lungs are grossly clear. IMPRESSION: Impression: Newly apparent trace left apical pneumothorax with unchanged leftthoracostomy tube. Electronically Signed: Shen Renteria MD 08/24/2024 10:03 AM EDT Workstation ID: [id number] [facility]anna OPERATIONS INTERN IMG DIAGNOSTIC IMAGING ORDER DANIA Final Result * (ABNORMAL) Basic Metabolic Panel (08/24/2024 5:59 AM EDT) Glucose 94 65 - 99 mg/dL 08/24/2024 6:49 AM EDT [facility] BUN 15.8 8.0 - 23.0 mg/dL 08/24/2024 6:49 AM EDT [facility] Creatinine 0.79 0.76 - 1.27 mg/dL 08/24/2024 6:49 AM EDT [facility] Sodium 136 136 - 145 mmol/L 08/24/2024 6:49 AM EDT [facility] Potassium 3.4(L) 3.5 - 5.2 mmol/L 08/24/2024 6:49 AM EDT [facility] Chloride 103 98 - 107 mmol/L 08/24/2024 6:49 AM EDT [facility] CO2 21.3(L) 22.0 - 29.0 mmol/L 08/24/2024 6:49 AM EDT [facility] Calcium 8.4(L) 8.6 - 10.5 mg/dL 08/24/2024 6:49 AM EDT [facility] BUN/Creatinine Ratio 20.0 7.0 - 25.0 08/24/2024 6:49 AM EDT [facility] Anion Gap 11.7 5.0 - 15.0 mmol/L 08/24/2024 6:49 AM EDT [facility] eGFR 99.2 >60.0 mL/min/1.7 3 08/24/2024 6:49 AM EDT [facility] Blood Venipuncture / Unknown 08/24/2024 5:59 AM EDT 08/24/2024 6:09 AM EDT Narrative [facility] - 08/24/2024 6:49 AM EDT GFR Categories in Chronic Kidney Disease (CKD) GFR Category GFR (mL/min/1.73) Interpretation G1 90 or greater Normal or high (1) G2 60-89 Mild decrease (1) G3a 45-59 Mild to moderate decrease G3b 30-44 Moderate to severe decrease G4 15-29 Severe decrease G5 14 or less Kidney failure (1)In the absence of evidence of kidney disease, neither GFR category G1 or G2 fulfill the criteria for CKD. eGFR calculation 2020 CKD-EPI creatinine equation, which does not include race as a factor us Candelaria Vega MD LAB BLOOD ORDERABLES Final Resul t [facility]
[address] [place] [address], * TSH Rfx On Abnormal To Free T4 (08/23/2024 6:54 AM EDT) TSH 2.590 0.270 - 4.200 uIU/mL 08/23/2024 1:01 PM EDT [facility] Blood Venipuncture / Unknown 08/23/2024 6:54 AM EDT 08/23/2024 7:04 AM EDT Cyndi Clements OPERATIONS INTERN LAB BLOOD ORDERABLES Fin al Result [facility]
[address] [place] [address], * (ABNORMAL) Lipid Panel (08/23/2024 6:54 AM EDT) Total Cholesterol 91 0 - 200 mg/dL 08/23/2024 1:01 PM EDT [facility] Triglycerides 55 0 - 150 mg/dL 08/23/2024 1:01 PM EDT [facility] HDL Cholesterol 38(L) 40 - 60 mg/dL 08/23/2024 1:01 PM EDT [facility] LDL Cholesterol 40 0 - 100 mg/dL 08/23/2024 1:01 PM EDT [facility] VLDL Cholesterol 13 5 - 40 mg/dL 08/23/2024 1:01 PM EDT [facility] LDL/HDL Ratio 1.11 08/23/2024 1:01 PM EDT [facility] Blood Venipuncture / Unknown 08/23/2024 6:54 AM EDT 08/23/2024 7:04 AM EDT Narrative [facility] - 08/23/2024 1:01 PM EDT Cholesterol Reference Ranges (U.S. Department of Health and Human Services ATP III Classifications) Desirable <200 mg/dL Borderline High 200-239 mg/dL High Risk >240 mg/dL Triglyceride Reference Ranges (U.S. Department of Health and Human Services ATP III Classifications) Normal <150 mg/dL Borderline High 150-199 mg/dL High 200-499 mg/dL Very High >500 mg/dL HDL Reference Ranges (U.S. Department of Health and Human Services ATP III Classifications) Low <40 mg/dl (major risk factor for CHD) High >60 mg/dl ('negative' risk factor for CHD) LDL Reference Ranges (U.S. Department of Health and Human Services ATP III Classifications) Optimal <100 mg/dL Near Optimal 100-129 mg/dL Borderline High 130-159 mg/dL High 160-189 mg/dL Very High >189 mg/dL LDL is calculated using the NIH LDL-C calculation. Cyndi Clements OPERATIONS INTERN LAB BLOOD ORDERABLES Fin al Result [facility]
[address] [place] [address], * (ABNORMAL) CBC Auto Differential (08/23/2024 6:54 AM EDT) WBC 11.98(H) 3.40 - 10.80 10*3/mm3 08/23/2024 7:12 AM EDT [facility] RBC 3.59(L) 4.14 - 5.80 10*6/mm3 08/23/2024 7:12 AM EDT [facility] Hemoglobin 12.7(L) 13.0 - 17.7 g/dL 08/23/2024 7:12 AM EDT [facility] Hematocrit 37.7 37.5 - 51.0 % 08/23/2024 7:12 AM EDT [facility] MCV 105.0(H) 79.0 - 97.0 fL 08/23/2024 7:12 AM EDT [facility] MCH 35.4(H) 26.6 - 33.0 pg 08/23/2024 7:12 AM EDT [facility] MCHC 33.7 31.5 - 35.7 g/dL 08/23/2024 7:12 AM EDT [facility] RDW 13.1 12.3 - 15.4 % 08/23/2024 7:12 AM EDT [facility] RDW-SD 50.4 37.0 - 54.0 fl 08/23/2024 7:12 AM EDT [facility] MPV 9.9 6.0 - 12.0 fL 08/23/2024 7:12 AM EDT [facility] Platelets 157 140 - 450 10*3/mm3 08/23/2024 7:12 AM [facility] Neutrophil % 82.4(H) 42.7 - 76.0 % 08/23/2024 7:12 AM [facility] Lymphocyte % 7.7(L) 19.6 - 45.3 % 08/23/2024 7:12 AM [facility] Monocyte % 8.8 5.0 - 12.0 % 08/23/2024 7:12 AM [facility] Eosinophil % 0.2(L) 0.3 - 6.2 % 08/23/2024 7:12 AM [facility] Basophil % 0.2 0.0 - 1.5 % 08/23/2024 7:12 AM [facility] Immature Grans % 0.7(H) 0.0 - 0.5 % 08/23/2024 7:12 AM [facility] Neutrophils, Absolute 9.89(H) 1.70 - 7.00 10*3/mm3 08/23/2024 7:12 AM [facility] Lymphocytes, Absolute 0.92 0.70 - 3.10 10*3/mm3 08/23/2024 7:12 AM [facility] Monocytes, Absolute 1.05(H) 0.10 - 0.90 10*3/mm3 08/23/2024 7:12 AM [facility] Eosinophils, Absolute 0.02 0.00 - 0.40 10*3/mm3 08/23/2024 7:12 AM [facility] Basophils, Absolute 0.02 0.00 - 0.20 10*3/mm3 08/23/2024 7:12 AM [facility] Immature Grans, Absolute 0.08(H) 0.00 - 0.05 10*3/mm3 08/23/2024 7:12 AM [facility] nRBC 0.0 0.0 - 0.2 /100 WBC 08/23/2024 7:12 AM [facility] Blood Venipuncture / Unknown 08/23/2024 6:54 AM EDT 08/23/2024 7:04 AM EDT Armando MARRERO LAB BLOOD ORDERABLES Final Res ult Performing Organization Address City/[facility]/ZIP Co de Phone Number [facility]
[address] [place] [address], * Magnesium (08/23/2024 6:54 AM EDT) Magnesium 2.0 1.6 - 2.4 mg/dL 08/23/2024 7:37 AM EDT [facility] Blood Venipuncture / Unknown 08/23/2024 6:54 AM EDT 08/23/2024 7:04 AM EDT Micky Saxena MD LAB BLOOD ORDERABLES Final Result Performing Organization Address [facility] Co de Phone Number [facility]
[address] [place] [address], * (ABNORMAL) Basic Metabolic Panel (08/23/2024 6:54 AM EDT) Glucose 114(H) 65 - 99 mg/dL 08/23/2024 7:37 AM EDT [facility] BUN 13.3 8.0 - 23.0 mg/dL 08/23/2024 7:37 AM EDT [facility] Creatinine 0.79 0.76 - 1.27 mg/dL 08/23/2024 7:37 AM EDT [facility] Sodium 136 136 - 145 mmol/L 08/23/2024 7:37 AM EDT [facility] Potassium 3.8 3.5 - 5.2 mmol/L 08/23/2024 7:37 AM EDT [facility] Comment:Slight hemolysis det ected by analyzer. Result may be falsely elevated. Chloride 101 98 - 107 mmol/L 08/23/2024 7:37 AM EDT [facility] CO2 25.0 22.0 - 29.0 mmol/L 08/23/2024 7:37 AM EDT [facility] Calcium 9.0 8.6 - 10.5 mg/dL 08/23/2024 7:37 AM EDT [facility] BUN/Creatinine Ratio 16.8 7.0 - 25.0 08/23/2024 7:37 AM EDT [facility] Anion Gap 10.0 5.0 - 15.0 mmol/L 08/23/2024 7:37 AM EDT [facility] eGFR 99.2 >60.0 mL/min/1.7 3 08/23/2024 7:37 AM EDT [facility] Blood Venipuncture / Unknown 08/23/2024 6:54 AM EDT 08/23/2024 7:04 AM EDT Narrative [facility] - 08/23/2024 7:37 AM EDT GFR Categories in Chronic Kidney Disease (CKD) GFR Category GFR (mL/min/1.73) Interpretation G1 90 or greater Normal or high (1) G2 60-89 Mild decrease (1) G3a 45-59 Mild to moderate decrease G3b 30-44 Moderate to severe decrease G4 15-29 Severe decrease G5 14 or less Kidney failure (1)In the absence of evidence of kidney disease, neither GFR category G1 or G2 fulfill the criteria for CKD. eGFR calculation 2020 CKD-EPI creatinine equation, which does not include race as a factor us Armando MARRERO LAB BLOOD ORDERABLES Final Res ult [facility]
[address] [place] [address], * XR Chest 1 View (08/23/2024 5:48 AM EDT) Anatomical Region Laterality Modality Body N/A Radiographic Talia ging 08/23/2024 7:29 AM EDT Impressions 08/23/2024 7:32 AM EDT Impression: Yesterday's trace left apical pneumothorax is not confidently identified on today's exam. Unchanged left thoracostomy tube with left chest wall subcutaneous emphysema. Electronically Signed: Shen Renteria MD 08/23/2024 7:32 AM EDT Workstation ID: [id number] Narrative 08/23/2024 7:32 AM EDT XR CHEST 1 VW Date of Exam: 08/23/2024 2:11 AM EDT Indication: postop Comparison: Chest x-ray 08/22/2024, 08/21/2024 Findings: Redemonstration of AICD with left chest pulse generator. Redemonstration of left thoracostomy tube with associated subcutaneous emphysema in the lateral left chest wall. Stable cardiomediastinal silhouette with top normal size of the heart. Similar bilateral interstitial prominence. Previously seen trace left apical pneumothorax is not confidently identified on today's exam. Procedure Note Shen Renteria MD - 08/23/2024 XR CHEST 1 VW Date of Exam: 08/23/2024 2:11 AM EDT Indication: postop Comparison: Chest x-ray 08/22/2024, 08/21/2024 Findings: Redemonstration of AICD with left chest pulse generator. Redemonstrationof left thoracostomy tube with associated subcutaneous emphysema in thelateral left chest wall. Stable cardiomediastinal silhouette with topnormal size of the heart. Similar bilateral interstitial prominence. Previously seen trace left apicalpneumothorax is not confidently identified on today's exam. IMPRESSION: Impression: Yesterday's trace left apical pneumothorax is not confidently identifiedon today's exam. Unchanged left thoracostomy tube with left chest wallsubcutaneous emphysema. Electronically Signed: Shen Renteria MD 08/23/2024 7:32 AM EDT Workstation ID: [id number] Armando MARRERO IMG DIAGNOSTIC IMAGING ORDERAB LES Final Result * XR Chest 1 View (08/22/2024 9:36 AM EDT) Anatomical Region Laterality Modality Body N/A Radiographic Talia ging 08/22/2024 10:1 8 AM EDT Impressions 08/22/2024 10:21 AM EDT Impression: 1.Left-sided chest tube in place. Trace left apical pneumothorax appears slightly improved. 2.Lungs are clear. Electronically Signed: Bola Gates MD 08/22/2024 10:21 AM EDT Workstation ID: [id number] Narrative 08/22/2024 10:21 AM EDT XR CHEST 1 VW Date of Exam: 08/22/2024 9:27 AM EDT Indication: postop Comparison: Chest radiograph from earlier today Findings: A left subclavian pacemaker is in place. A left-sided chest tube is in place. A trace left apical pneumothorax appears slightly improved. The lungs are clear. The heart and mediastinal contours appear stable. The pulmonary vasculature appears normal. The osseous structures appear intact. Procedure Note Bola Gates MD - 08/22/2024 XR CHEST 1 VW Date of Exam: 08/22/2024 9:27 AM EDT Indication: postop Comparison: Chest radiograph from earlier today Findings: A left subclavian pacemaker is in place. A left-sided chest tube is inplace. A trace left apical pneumothorax appears slightly improved. Thelungs are clear. The heart and mediastinal contours appear stable. Thepulmonary vasculature appears normal. The osseous structures appear intact. IMPRESSION: Impression: 1.Left-sided chest tube in place. Trace left apical pneumothorax appearsslightly improved. 2.Lungs are clear. Electronically Signed: Bola Gates MD 08/22/2024 10:21 AM EDT Workstation ID: [id number] Armando MARRERO IMG DIAGNOSTIC IMAGING ORDERAB LES Final Result * Tissue Pathology Exam (08/22/2024 8:30 AM EDT) Case Report Surgical Pathology Report Case: [id number] Authorizing Provider: Gus Valerio MD Collected: 08/22/2024 08:30 AM Ordering Location: [facility] Received: 08/22/2024 10:35 AM OR Pathologist: Jude Irvin MD Specimen: Lung, L, LEFT BLEBECTOMY FOR PERMANENT 08/23/2024 12:45 PM EDT [facility] Clinical Information Spontaneous tension pneumothorax 08/23/2024 12:45 PM EDT [facility] Final Diagnosis LUNG, LEFT, BLEBECTOMY: Benign mesothelial lined fibrous tissue with reactive mesothelial hyperplasia and mixed inflammation and fibrosis Negative for specific microorganisms Negative for dysplasia or malignancy 08/23/2024 12:45 PM EDT [facility] at 1245 EDT Gross Description 1. Lung, L. Received in, labeled left blebectomy is a 1.8 x 1.2 x 0.4 cm intact, unoriented lung wedge. The staple line is removed and sectioning reveals an airfield, cystlike space. The specimen is submitted entirely in 1A. HDM 08/23/2024 12:45 PM EDT [facility] Microscopic Description The slides are reviewed and demonstrate histopathologic features supporting the above rendered diagnosis. 08/23/2024 12:45 PM EDT [facility] Tissue Left lung structure / Unknown 08/22/2024 8:30 AM EDT 08/22/2024 10:35 AM EDT Gus Valerio MD PATHOLOGY/CYTOLOGY ORDERABLES Final Result Performing Organization Address City/[facility]/ZIP Co de Phone Number [facility]
[address] [place] [address], * ABO RH Specimen Verification (08/22/2024 6:54 AM EDT) ABO Type O 08/22/2024 7:15 AM EDT [facility] RH type Positive 08/22/2024 7:15 AM EDT [facility] Blood Venipuncture / Unknown 08/22/2024 6:54 AM EDT 08/22/2024 6:59 AM EDT Micky Saxena MD BLOOD BANK TEST ORDERABLES Final Result [facility]
[address] [place] [address], * ECG 12 Lead Rhythm Change (08/22/2024 5:14 AM EDT) QT Interval 362 ms ECG QTC Interval 398 ms ECG 08/22/2024 5:14 AM EDT 08/22/2024 7:25 AM EDT Narrative ECG - 08/22/2024 7:25 AM EDT Test Reason : Rhythm Change Blood Pressure : */* mmHG Vent. Rate : 73 BPM Atrial Rate : 73 BPM P-R Int : 190 ms QRS Dur : 112 ms QT Int : 362 ms P-R-T Axes : 55 21 48 degrees QTcB Int : 398 ms Sinus rhythm with occasional premature ventricular complexes Low voltage QRS Possible Inferior infarct (cited on or before 21-Aug-2024) Anterolateral infarct (cited on or before 21-Aug-2024) Abnormal ECG When compared with ECG of 21-Aug-2024 03:58, (Unconfirmed) premature ventricular complexes are now present Nonspecific T wave abnormality, worse in Lateral leads QT has shortened Confirmed by ROSALIO BARRY MD ([id number]) on 08/22/2024 7:25:49 AM Referred By: Confirmed By: ROSALIO BARRY MD Procedure Note Rosalio Barry MD - 08/22/2024 Test Reason : Rhythm Change Blood Pressure : */* mmHG Vent. Rate : 73 BPM Atrial Rate : 73 BPM P-R Int : 190 ms QRS Dur : 112 ms QT Int : 362 ms P-R-T Axes : 55 21 48 degrees QTcB Int : 398 ms Sinus rhythm with occasional premature ventricular complexes Low voltage QRS Possible Inferior infarct (cited on or before 21-Aug-2024) Anterolateral infarct (cited on or before 21-Aug-2024) Abnormal ECG When compared with ECG of 21-Aug-2024 03:58, (Unconfirmed) premature ventricular complexes are now present Nonspecific T wave abnormality, worse in Lateral leads QT has shortened Confirmed by ROSALIO BARRY MD ([id number]) on 08/22/2024 7:25:49 AM Referred By: Confirmed By: ROSALIO BARRY MD Sammy Otoole MD ECG ORDERABLES Final Result Performing Organization Address [facility]/ZIP Co de Phone Number ECG * (ABNORMAL) proBNP (08/22/2024 5:12 AM EDT) proBNP 925.3(H) 0.0 - 900.0 pg/mL 08/22/2024 6:17 AM EDT [facility] Blood Venipuncture / Unknown 08/22/2024 5:12 AM EDT 08/22/2024 5:29 AM EDT Narrative [facility] - 08/22/2024 6:17 AM EDT This assay is used as an aid in the diagnosis of individuals suspected of having heart failure. It can be used as an aid in the diagnosis of acute decompensated heart failure (ADHF) in patients presenting with signs and symptoms of ADHF to the emergency department (ED). In addition, NT-proBNP of <300 pg/mL indicates ADHF is not likely. Age Range Result Interpretation NT-proBNP Concentration (pg/mL: <50 Positive >450 Iqbal 300-450 Negative <300 50-75 Positive >900 Iqbal 300-900 Negative <300 >75 Positive >1800 Iqbal 300-1800 Negative <300 Sammy Otoole MD LAB BLOOD ORDERABLES Final Res ult Performing Organization Address [facility] Co de Phone Number [facility]
[address] [place] [address], * Type & Screen (08/22/2024 5:12 AM EDT) ABO Type O 08/22/2024 6:55 AM EDT [facility] RH type Positive 08/22/2024 6:55 AM EDT [facility] Antibody Screen Negative 08/22/2024 6:55 AM EDT [facility] T&S Expiration Date 08/25/2024 11:59:59 PM 08/22/2024 6:55 AM EDT [facility] Blood Venipuncture / Unknown 08/22/2024 5:12 AM EDT 08/22/2024 5:42 AM EDT Aneesh MARRERO BLOOD BANK TEST ORDERABLES Edit ed Result - Final Performing Organization Address City/[facility]/ZIP Co de Phone Number [facility]
[address] [place] [address], * (ABNORMAL) Protime-INR (08/22/2024 5:12 AM EDT) Protime 15.5(H) 12.2 - 15.3 Seconds 08/22/2024 5:57 AM EDT [facility] INR 1.16(H) 0.89 - 1.12 08/22/2024 5:57 AM EDT [facility] Blood Venipuncture / Unknown 08/22/2024 5:12 AM EDT 08/22/2024 5:30 AM EDT Aneesh MARRERO LAB BLOOD ORDERABLES Final Resu lt Performing Organization Address City/[facility] Co de Phone Number [facility]
[address] [place] [address], * Magnesium (08/22/2024 5:12 AM EDT) Magnesium 1.9 1.6 - 2.4 mg/dL 08/22/2024 6:17 AM EDT [facility] Blood Venipuncture / Unknown 08/22/2024 5:12 AM EDT 08/22/2024 5:29 AM EDT Micky Saxena MD LAB BLOOD ORDERABLES Final Result Performing Organization Address City/[facility]/ZIP Co de Phone Number [facility]
[address] [place] [address], [place] [phone] * (ABNORMAL) Basic Metabolic Panel (08/22/2024 5:12 AM EDT) Glucose 101(H) 65 - 99 mg/dL 08/22/2024 6:17 AM EDT [facility] BUN 12.9 8.0 - 23.0 mg/dL 08/22/2024 6:17 AM EDT [facility] Creatinine 0.75(L) 0.76 - 1.27 mg/dL 08/22/2024 6:17 AM EDT [facility] Sodium 136 136 - 145 mmol/L 08/22/2024 6:17 AM EDT [facility] Potassium 3.9 3.5 - 5.2 mmol/L 08/22/2024 6:17 AM EDT [facility] Chloride 101 98 - 107 mmol/L 08/22/2024 6:17 AM EDT [facility] CO2 25.0 22.0 - 29.0 mmol/L 08/22/2024 6:17 AM EDT [facility] Calcium 8.8 8.6 - 10.5 mg/dL 08/22/2024 6:17 AM EDT [facility] BUN/Creatinine Ratio 17.2 7.0 - 25.0 08/22/2024 6:17 AM EDT [facility] Anion Gap 10.0 5.0 - 15.0 mmol/L 08/22/2024 6:17 AM T [facility] eGFR 100.8 >60.0 mL/min/1.7 3 08/22/2024 6:17 AM T [facility] Blood Venipuncture / Unknown 08/22/2024 5:12 AM EDT 08/22/2024 5:29 AM EDT [facility] - 08/22/2024 6:17 AM EDT GFR Categories in Chronic Kidney Disease (CKD) GFR Category GFR (mL/min/1.73) Interpretation G1 90 or greater Normal or high (1) G2 60-89 Mild decrease (1) G3a 45-59 Mild to moderate decrease G3b 30-44 Moderate to severe decrease G4 15-29 Severe decrease G5 14 or less Kidney failure (1)In the absence of evidence of kidney disease, neither GFR category G1 or G2 fulfill the criteria for CKD. eGFR calculation 2020 CKD-EPI creatinine equation, which does not include race as a factor Micky Saxena MD LAB BLOOD ORDERABLES Final Result [facility]
[address] [place] [address], * (ABNORMAL) CBC (No Diff) (08/22/2024 5:12 AM EDT) WBC 8.36 3.40 - 10.80 10*3/mm3 08/22/2024 5:50 AM EDT [facility] RBC 3.62(L) 4.14 - 5.80 10*6/mm3 08/22/2024 5:50 AM EDT [facility] Hemoglobin 12.8(L) 13.0 - 17.7 g/dL 08/22/2024 5:50 AM EDT [facility] Hematocrit 37.8 37.5 - 51.0 % 08/22/2024 5:50 AM EDT [facility] MCV 104.4(H) 79.0 - 97.0 fL 08/22/2024 5:50 AM EDT [facility] MCH 35.4(H) 26.6 - 33.0 pg 08/22/2024 5:50 AM EDT [facility] MCHC 33.9 31.5 - 35.7 g/dL 08/22/2024 5:50 AM EDT [facility] RDW 13.2 12.3 - 15.4 % 08/22/2024 5:50 AM EDT [facility] RDW-SD 51.3 37.0 - 54.0 fl 08/22/2024 5:50 AM EDT [facility] MPV 9.9 6.0 - 12.0 fL 08/22/2024 5:50 AM EDT [facility] Platelets 147 140 - 450 10*3/mm3 08/22/2024 5:50 AM EDT [facility] Blood Venipuncture / Unknown 08/22/2024 5:12 AM EDT 08/22/2024 5:30 AM EDT Micky Saxena MD LAB BLOOD ORDERABLES Final Result [facility]
[address] [place] [address], * XR Chest 1 View (08/22/2024 4:32 AM EDT) Anatomical Region Laterality Modality Body N/A Radiographic Talia ging 08/22/2024 7:18 AM EDT Impressions 08/22/2024 7:20 AM EDT Impression: 1.Left chest tube appears in similar position. Small residual left apical pneumothorax, similar to the prior exam. 2.Mild bibasilar opacities which may represent atelectasis. Electronically Signed: Gregory Han 08/22/2024 7:20 AM EDT Workstation ID: [id number] Narrative 08/22/2024 7:20 AM EDT XR CHEST 1 VW Date of Exam: 08/22/2024 1:58 AM EDT Indication: follow up pneumothorax/chest tube Comparison: 08/21/2024 Findings: Left chest tube appears in similar position. There appears to be a small residual apical pneumothorax, similar to the prior exam. There is left subcutaneous emphysema, as before. No right pneumothorax or significant effusion. Mild bibasilar opacities which may represent atelectasis. Heart size appears within normal limits and unchanged. There is evidence of remote granulomatous disease. Pacemaker/ICD, as before. Procedure Note Gregory Han MD - 08/22/2024 XR CHEST 1 VW Date of Exam: 08/22/2024 1:58 AM EDT Indication: follow up pneumothorax/chest tube Comparison: 08/21/2024 Findings: Left chest tube appears in similar position. There appears to be a smallresidual apical pneumothorax, similar to the prior exam. There is leftsubcutaneous emphysema, as before. No right pneumothorax or significant effusion. Mild bibasilar opacitieswhich may represent atelectasis. Heart size appears within normal limitsand unchanged. There is evidence of remote granulomatous disease.Pacemaker/ICD, as before. IMPRESSION: Impression: 1.Left chest tube appears in similar position. Small residual left apicalpneumothorax, similar to the prior exam. 2.Mild bibasilar opacities which may represent atelectasis. Electronically Signed: Gregory Han 08/22/2024 7:20 AM EDT Workstation ID: [id number] Micky Saxena MD IMG DIAGNOSTIC IMAGING ORD ERABLES Final Result * Magnesium (08/21/2024 8:15 AM EDT) [facility] Magnesium 1.9 1.6 - 2.4 mg/dL 08/21/2024 8:51 AM EDT [facility] Blood Venipuncture / Unknown 08/21/2024 8:15 AM EDT 08/21/2024 8:22 AM EDT Micky Saxena MD LAB BLOOD ORDERABLES Final Result [facility]
[address] [place] [address], * (ABNORMAL) High Sensitivity Troponin T (08/21/2024 8:15 AM EDT) Pathologist [facility] HS Troponin T 139(HH) <22 ng/L 08/21/2024 8:54 AM EDT [facility] Blood Venipuncture / Unknown 08/21/2024 8:15 AM EDT 08/21/2024 8:22 AM EDT Narrative [facility] - 08/21/2024 8:54 AM EDT High Sensitive Troponin T Reference Range: <14.0 ng/L- Negative Female for AMI <22.0 ng/L- Negative Male for AMI >=14 - Abnormal Female indicating possible myocardial injury. >=22 - Abnormal Male indicating possible myocardial injury. Clinicians would have to utilize clinical acumen, EKG, Troponin, and serial changes to determine if it is an Acute Myocardial Infarction or myocardial injury due to an underlying chronic condition. Micky Saxena MD LAB BLOOD ORDERABLES Final Result [facility]
[address] [place] [address], * (ABNORMAL) Comprehensive Metabolic Panel (08/21/2024 8:15 AM EDT) Glucose 108(H) 65 - 99 mg/dL 08/21/2024 8:51 AM EDT [facility] BUN 13.0 8.0 - 23.0 mg/dL 08/21/2024 8:51 AM EDT [facility] Creatinine 0.71(L) 0.76 - 1.27 mg/dL 08/21/2024 8:51 AM EDT [facility] Sodium 133(L) 136 - 145 mmol/L 08/21/2024 8:51 AM EDT [facility] Potassium 4.6 3.5 - 5.2 mmol/L 08/21/2024 8:51 AM EDT [facility] Chloride 98 98 - 107 mmol/L 08/21/2024 8:51 AM EDT [facility] CO2 28.0 22.0 - 29.0 mmol/L 08/21/2024 8:51 AM EDT [facility] Calcium 9.1 8.6 - 10.5 mg/dL 08/21/2024 8:51 AM EDT [facility] Total Protein 6.5 6.0 - 8.5 g/dL 08/21/2024 8:51 AM EDT [facility] Albumin 3.7 3.5 - 5.2 g/dL 08/21/2024 8:51 AM EDT [facility] ALT (SGPT) 21 1 - 41 U/L 08/21/2024 8:51 AM EDT [facility] AST (SGOT) 26 1 - 40 U/L 08/21/2024 8:51 AM EDT [facility] Alkaline Phosphatase 73 39 - 117 U/L 08/21/2024 8:51 AM EDT [facility] Total Bilirubin 0.9 0.0 - 1.2 mg/dL 08/21/2024 8:51 AM EDT [facility] Globulin 2.8 gm/dL 08/21/2024 8:51 AM EDT [facility] Comment:Calculated Result A/G Ratio 1.3 g/dL 08/21/2024 8:51 AM EDT [facility] BUN/Creatinine Ratio 18.3 7.0 - 25.0 08/21/2024 8:51 AM EDT [facility] Anion Gap 7.0 5.0 - 15.0 mmol/L 08/21/2024 8:51 AM EDT [facility] eGFR 102.5 >60.0 mL/min/1.7 3 08/21/2024 8:51 AM T [facility] Blood Venipuncture / Unknown 08/21/2024 8:15 AM EDT 08/21/2024 8:22 AM EDT [facility] - 08/21/2024 8:51 AM EDT GFR Categories in Chronic Kidney Disease (CKD) GFR Category GFR (mL/min/1.73) Interpretation G1 90 or greater Normal or high (1) G2 60-89 Mild decrease (1) G3a 45-59 Mild to moderate decrease G3b 30-44 Moderate to severe decrease G4 15-29 Severe decrease G5 14 or less Kidney failure (1)In the absence of evidence of kidney disease, neither GFR category G1 or G2 fulfill the criteria for CKD. eGFR calculation 2020 CKD-EPI creatinine equation, which does not include race as a factor us Micky Saxena MD LAB BLOOD ORDERABLES Final Result [facility]
[address] [place] [address], * (ABNORMAL) CBC Auto Differential (08/21/2024 8:15 AM EDT) [facility] WBC 7.94 3.40 - 10.80 10*3/mm3 08/21/2024 8:44 AM EDT [facility] RBC 3.60(L) 4.14 - 5.80 10*6/mm3 08/21/2024 8:44 AM EDT [facility] Hemoglobin 13.1 13.0 - 17.7 g/dL 08/21/2024 8:44 AM EDT [facility] Hematocrit 37.8 37.5 - 51.0 % 08/21/2024 8:44 AM EDT [facility] MCV 105.0(H) 79.0 - 97.0 fL 08/21/2024 8:44 AM EDT [facility] MCH 36.4(H) 26.6 - 33.0 pg 08/21/2024 8:44 AM EDT [facility] MCHC 34.7 31.5 - 35.7 g/dL 08/21/2024 8:44 AM EDT [facility] RDW 13.2 12.3 - 15.4 % 08/21/2024 8:44 AM EDT [facility] RDW-SD 51.4 37.0 - 54.0 fl 08/21/2024 8:44 AM EDT [facility] MPV 10.0 6.0 - 12.0 fL 08/21/2024 8:44 AM EDT [facility] Platelets 145 140 - 450 10*3/mm3 08/21/2024 8:44 AM EDT [facility] Neutrophil % 73.8 42.7 - 76.0 % 08/21/2024 8:44 AM EDT [facility] Lymphocyte % 11.3(L) 19.6 - 45.3 % 08/21/2024 8:44 AM EDT [facility] Monocyte % 11.3 5.0 - 12.0 % 08/21/2024 8:44 AM EDT [facility] Eosinophil % 2.5 0.3 - 6.2 % 08/21/2024 8:44 AM EDT [facility] Basophil % 0.6 0.0 - 1.5 % 08/21/2024 8:44 AM EDT [facility] Immature Grans % 0.5 0.0 - 0.5 % 08/21/2024 8:44 AM EDT [facility] Neutrophils, Absolute 5.85 1.70 - 7.00 10*3/mm3 08/21/2024 8:44 AM EDT [facility] Lymphocytes, Absolute 0.90 0.70 - 3.10 10*3/mm3 08/21/2024 8:44 AM EDT [facility] Monocytes, Absolute 0.90 0.10 - 0.90 10*3/mm3 08/21/2024 8:44 AM EDT [facility] Eosinophils, Absolute 0.20 0.00 - 0.40 10*3/mm3 08/21/2024 8:44 AM EDT [facility] Basophils, Absolute 0.05 0.00 - 0.20 10*3/mm3 08/21/2024 8:44 AM EDT [facility] Immature Grans, Absolute 0.04 0.00 - 0.05 10*3/mm3 08/21/2024 8:44 AM EDT [facility] nRBC 0.0 0.0 - 0.2 /100 WBC 08/21/2024 8:44 AM EDT [facility] Blood Venipuncture / Unknown 08/21/2024 8:15 AM EDT 08/21/2024 8:22 AM EDT Micky Saxena MD LAB BLOOD ORDERABLES Final Result [facility]
[id number] [place] [address], * ECG 12 Lead Rhythm Change (08/21/2024 3:58 AM EDT) QT Interval 422 ms ECG QTC Interval 464 ms ECG 08/21/2024 3:58 AM EDT 08/23/2024 5:20 PM EDT Narrative ECG - 08/23/2024 5:20 PM EDT Test Reason : Rhythm Change Blood Pressure : */* mmHG Vent. Rate : 73 BPM Atrial Rate : 73 BPM P-R Int : 208 ms QRS Dur : 112 ms QT Int : 422 ms P-R-T Axes : 30 4 7 degrees QTcB Int : 464 ms Normal sinus rhythm Low voltage QRS Possible Inferior infarct , age undetermined Anterolateral infarct , age undetermined Abnormal ECG No previous ECGs available Confirmed by Jose Martin Lyons ([id number]) on 08/23/2024 5:20:55 PM Referred By: Confirmed By: Jose Martin Lyons Procedure Note Jose Martin Lyons MD - 08/23/2024 Test Reason : Rhythm Change Blood Pressure : */* mmHG Vent. Rate : 73 BPM Atrial Rate : 73 BPM P-R Int : 208 ms QRS Dur : 112 ms QT Int : 422 ms P-R-T Axes : 30 4 7 degrees QTcB Int : 464 ms Normal sinus rhythm Low voltage QRS Possible Inferior infarct , age undetermined Anterolateral infarct , age undetermined Abnormal ECG No previous ECGs available Confirmed by Jose Martin Lyons ([id number]) on 08/23/2024 5:20:55 PM Referred By: Confirmed By: Jose Martin Lyons us Pascual Savage Jr., MD ECG ORDERABLES Final Res ult ECG * XR Chest 1 View (08/21/2024 3:50 AM EDT) Anatomical Region Laterality Modality Body N/A Radiographic Talia ging 08/21/2024 4:13 AM EDT Impressions 08/21/2024 4:14 AM EDT Impression: 1.Stable left-sided chest tube with marked improvement in left-sided pneumothorax. A small left apical component as residual. 2.Increased subcutaneous emphysema at the left lateral chest wall. Electronically Signed: Ruel Timmons MD 08/21/2024 4:14 AM EDT Workstation ID: [id number] Narrative 08/21/2024 4:14 AM EDT XR CHEST 1 VW Date of Exam: 08/21/2024 3:40 AM EDT Indication: increased discomforft with chest tube Comparison: 08/20/2024. Findings: Stable left-sided chest tube with marked improvement in left-sided pneumothorax. There is a small left apical component as residual. There is increased subcutaneous emphysema at the left lateral chest wall. Right lung is unchanged. Heart size is normal. Coronary stent noted. Pulmonary vasculature is unremarkable. There are calcified mediastinal granulomas. No acute osseous abnormality. Stable left-sided multilead ICD. Procedure Note Ruel Timmons MD - 08/21/2024 XR CHEST 1 VW Date of Exam: 08/21/2024 3:40 AM EDT Indication: increased discomforft with chest tube Comparison: 08/20/2024. Findings: Stable left-sided chest tube with marked improvement in left-sidedpneumothorax. There is a small left apical component as residual. There isincreased subcutaneous emphysema at the left lateral chest wall. Rightlung is unchanged. Heart size is normal. Coronary stent noted. Pulmonary vasculature is unremarkable. There arecalcified mediastinal granulomas. No acute osseous abnormality. Stableleft-sided multilead ICD. IMPRESSION: Impression: 1.Stable left-sided chest tube with marked improvement in left- sidedpneumothorax. A small left apical component as residual. 2.Increased subcutaneous emphysema at the left lateral chest wall. Electronically Signed: Ruel Timmons MD 08/21/2024 4:14 AM EDT Workstation ID: [id number] Pascual Savage Jr., MD [facility] [facility] OR DERABLES Final Result * (ABNORMAL) High Sensitivity Troponin T 1Hr (08/21/2024 12:08 AM EDT) HS Troponin T 134(HH) <22 ng/L 08/21/2024 1:29 AM EDT [facility] Troponin T Numeric Delta -21 ng/L 08/21/2024 1:29 AM EDT [facility] Troponin T % Delta -14 Abnormal if >/= 20% 08/21/2024 1:29 AM EDT [facility] Blood Venipuncture / Unknown 08/21/2024 12:08 AM EDT 08/21/2024 12:49 AM EDT Narrative [facility] - 08/21/2024 1:29 AM EDT High Sensitive Troponin T Reference Range: <14.0 ng/L- Negative Female for AMI <22.0 ng/L- Negative Male for AMI >=14 - Abnormal Female indicating possible myocardial injury. >=22 - Abnormal Male indicating possible myocardial injury. Clinicians would have to utilize clinical acumen, EKG, Troponin, and serial changes to determine if it is an Acute Myocardial Infarction or myocardial injury due to an underlying chronic condition. us Pascual Savage Jr., MD LAB BLOOD ORDERABLES Dee l Result [facility]
[address] [place] [address], * XR Chest 1 View (08/20/2024 9:25 PM EDT) Anatomical Region Laterality Modality Body N/A Radiographic Talia ging 08/20/2024 9:37 PM EDT Impressions 08/20/2024 9:38 PM EDT Impression: 1.Large left-sided pneumothorax with up to 6.9 cm pleural separation and significant atelectasis in the left lung. 2.Moderate subcutaneous emphysema at the left lateral chest wall. Electronically Signed: Ruel Timmons MD 08/20/2024 9:38 PM EDT Workstation ID: [id number] Narrative 08/20/2024 9:38 PM EDT XR CHEST 1 VW Date of Exam: 08/20/2024 9:20 PM EDT Indication: pneumothorax Comparison: 12/29/2019. Findings: There is a large left-sided pneumothorax with up to 6.9 cm pleural separation and significant atelectasis in the left lung. There is a stable left-sided multilead ICD. There is prominent interstitium in the right lung. There are numerous calcified mediastinal granulomas. No pleural effusion or focal lung consolidation. There is moderate subcutaneous emphysema at the left lateral chest wall. No acute osseous abnormality. The heart size is within normal limits. Procedure Note Ruel Timmons MD - 08/20/2024 XR CHEST 1 VW Date of Exam: 08/20/2024 9:20 PM EDT Indication: pneumothorax Comparison: 12/29/2019. Findings: There is a large left-sided pneumothorax with up to 6.9 cm pleuralseparation and significant atelectasis in the left lung. There is a stableleft-sided multilead ICD. There is prominent interstitium in the rightlung. There are numerous calcified mediastinal granulomas. No pleural effusion or focal lung consolidation.There is moderate subcutaneous emphysema at the left lateral chest wall.No acute osseous abnormality. The heart size is within normal limits. IMPRESSION: Impression: 1.Large left-sided pneumothorax with up to 6.9 cm pleural separation andsignificant atelectasis in the left lung. 2.Moderate subcutaneous emphysema at the left lateral chest wall. Electronically Signed: Ruel Timmons MD 08/20/2024 9:38 PM EDT Workstation ID: [id number] Pascual Savage Jr., MD [facility] DIAGNOSTIC IMAGING OR DERABLES Final Result * (ABNORMAL) High Sensitivity Troponin T (08/20/2024 8:55 PM EDT) HS Troponin T 155(HH) <22 ng/L 08/20/2024 11:07 PM EDT [facility] Blood Venipuncture / Unknown 08/20/2024 8:55 PM EDT 08/20/2024 9:56 PM EDT [facility] - 08/20/2024 11:07 PM EDT High Sensitive Troponin T Reference Range: <14.0 ng/L- Negative Female for AMI <22.0 ng/L- Negative Male for AMI >=14 - Abnormal Female indicating possible myocardial injury. >=22 - Abnormal Male indicating possible myocardial injury. Clinicians would have to utilize clinical acumen, EKG, Troponin, and serial changes to determine if it is an Acute Myocardial Infarction or myocardial injury due to an underlying chronic condition. us Pascual Savage Jr., MD LAB BLOOD ORDERABLES Dee l Result Performing Organization Address City/[facility]/ZIP Co de Phone Number [facility]
[address] [place] [address], * (ABNORMAL) Protime-INR (08/20/2024 8:55 PM EDT) Protime 16.0(H) 12.2 - 15.3 Seconds 08/20/2024 10:12 PM EDT [facility] INR 1.21(H) 0.89 - 1.12 08/20/2024 10:12 PM EDT [facility] Blood Venipuncture / Unknown 08/20/2024 8:55 PM EDT 08/20/2024 9:55 PM EDT us Pascual Savage Jr., MD LAB BLOOD ORDERABLES Dee l Result Performing Organization Address [facility] Co de Phone Number [facility]
[address] [place] [address], [place] [phone] * Magnesium (08/20/2024 8:55 PM EDT) Magnesium 1.8 1.6 - 2.4 mg/dL 08/20/2024 10:37 PM EDT [facility] Blood Venipuncture / Unknown 08/20/2024 8:55 PM EDT 08/20/2024 9:56 PM EDT us Pascual Savage Jr., MD LAB BLOOD ORDERABLES Dee l Result Performing Organization Address City/[facility] Co de Phone Number [facility]
[address] [place] [address], * (ABNORMAL) Comprehensive Metabolic Panel (08/20/2024 8:55 PM EDT) [facility] Glucose 93 65 - 99 mg/dL 08/20/2024 10:37 PM EDT [facility] BUN 16.0 8.0 - 23.0 mg/dL 08/20/2024 10:37 PM EDT [facility] Creatinine 0.77 0.76 - 1.27 mg/dL 08/20/2024 10:37 PM EDT [facility] Sodium 133(L) 136 - 145 mmol/L 08/20/2024 10:37 PM EDT [facility] Potassium 4.2 3.5 - 5.2 mmol/L 08/20/2024 10:37 PM EDT [facility] Chloride 94(L) 98 - 107 mmol/L 08/20/2024 10:37 PM EDT [facility] CO2 27.0 22.0 - 29.0 mmol/L 08/20/2024 10:37 PM EDT [facility] Calcium 9.0 8.6 - 10.5 mg/dL 08/20/2024 10:37 PM EDT [facility] Total Protein 6.7 6.0 - 8.5 g/dL 08/20/2024 10:37 PM EDT [facility] Albumin 3.9 3.5 - 5.2 g/dL 08/20/2024 10:37 PM EDT [facility] ALT (SGPT) 18 1 - 41 U/L 08/20/2024 10:37 PM EDT [facility] AST (SGOT) 21 1 - 40 U/L 08/20/2024 10:37 PM EDT [facility] Alkaline Phosphatase 73 39 - 117 U/L 08/20/2024 10:37 PM EDT [facility] Total Bilirubin 0.9 0.0 - 1.2 mg/dL 08/20/2024 10:37 PM EDT [facility] Globulin 2.8 gm/dL 08/20/2024 10:37 PM EDT [facility] Comment:Calculated Result A/G Ratio 1.4 g/dL 08/20/2024 10:37 PM EDT [facility] BUN/Creatinine Ratio 20.8 7.0 - 25.0 08/20/2024 10:37 PM EDT [facility] Anion Gap 12.0 5.0 - 15.0 mmol/L 08/20/2024 10:37 PM EDT [facility] eGFR 100.0 >60.0 mL/min/1.7 3 08/20/2024 10:37 PM EDT [facility] Blood Venipuncture / Unknown 08/20/2024 8:55 PM EDT 08/20/2024 9:56 PM EDT Narrative [facility] - 08/20/2024 10:37 PM EDT GFR Categories in Chronic Kidney Disease (CKD) GFR Category GFR (mL/min/1.73) Interpretation G1 90 or greater Normal or high (1) G2 60-89 Mild decrease (1) G3a 45-59 Mild to moderate decrease G3b 30-44 Moderate to severe decrease G4 15-29 Severe decrease G5 14 or less Kidney failure (1)In the absence of evidence of kidney disease, neither GFR category G1 or G2 fulfill the criteria for CKD. eGFR calculation 2020 CKD-EPI creatinine equation, which does not include race as a factor us Pascual Savage Jr., MD LAB BLOOD ORDERABLES Dee l Result [facility]
[address] [place] [address], * (ABNORMAL) CBC Auto Differential (08/20/2024 8:55 PM EDT) WBC 7.41 3.40 - 10.80 10*3/mm3 08/20/2024 10:03 PM EDT [facility] RBC 3.61(L) 4.14 - 5.80 10*6/mm3 08/20[facility]2024 [facility] Hemoglobin 12.9(L) 13.0 - 17.7 g/dL 08/20/2024 10:[facility] Hematocrit 38.2 37.5 - 51.0 % 08/20/2024 10:[facility] MCV 105.8(H) 79.0 - 97.0 fL 08/20/2024 10:03 PM EDT [facility] MCH 35.7(H) 26.6 - 33.0 pg 08/20/2024 10:[facility] MCHC 33.8 31.5 - 35.7 g/dL 08/20/2024 10:03 PM [facility] RDW 13.5 12.3 - 15.4 % 08/20/2024 10:03 PM [facility] RDW-SD 52.8 37.0 - 54.0 fl 08/20/2024 10:03 PM [facility] MPV 10.2 6.0 - 12.0 fL 08/20/2024 10:03 PM [facility] Platelets 143 140 - 450 10*3/mm3 08/20/2024 10:03 PM [facility] Neutrophil % 69.5 42.7 - 76.0 % 08/20/2024 10:03 PM [facility] Lymphocyte % 15.8(L) 19.6 - 45.3 % 08/20/2024 10:03 PM [facility] Monocyte % 11.6 5.0 - 12.0 % 08/20/2024 10:[facility] Eosinophil % 2.3 0.3 - 6.2 % 08/20/2024 10:[facility] Basophil % 0.4 0.0 - 1.5 % 08/20/2024 10:[facility] PM [facility] Immature Grans % 0.4 0.0 - 0.5 % 08/20/2024 10:03 PM [facility] Neutrophils, Absolute 5.15 1.70 - 7.00 10*3/mm3 08/20/2024 10:03 PM EDT [facility] Lymphocytes, Absolute 1.17 0.70 - 3.10 10*3/mm3 08/20/2024 10:03 PM EDT [facility] Monocytes, Absolute 0.86 0.10 - 0.90 10*3/mm3 08/20/2024 10:03 PM EDT [facility] Eosinophils, Absolute 0.17 0.00 - 0.40 10*3/mm3 08/20/2024 10:03 PM EDT [facility] Basophils, Absolute 0.03 0.00 - 0.20 10*3/mm3 08/20/2024 10:03 PM EDT [facility] Immature Grans, Absolute 0.03 0.00 - 0.05 10*3/mm3 08/20/2024 10:03 PM EDT [facility] nRBC 0.0 0.0 - 0.2 /100 WBC 08/20/2024 10:03 PM EDT [facility] Blood Venipuncture / Unknown 08/20/2024 8:55 PM EDT 08/20/2024 9:55 PM EDT Pascual Savage Jr., MD LAB BLOOD ORDERABLES Dee posadas Result [facility]
[address] [place] [address], documented in this encounter Visit Diagnoses Diagnosis Pneumothorax- Primary Spontaneous tension pneumothorax Coronary artery disease involving [place] coronary artery of [place] heart without angina pectoris Coronary artery disease involving [place] coronary artery of [place] heart without angina pectoris Essential hypertension Unspecified essential hypertension Ischemic cardiomyopathy Other specified forms of chronic ischemic heart disease Pure hypercholesterolemia documented in this encounter Admitting Diagnoses Diagnosis Pneumothorax documented in this encounter Administered Medications Inactive Administered Medications - up to 3 most recent administrations Medication Order MAR Action Action Date Dose Rate Site acetaminophen (TYLENOL) 160 MG/5ML oral solution 650 mg 650 mg, Oral, Every 4 Hours PRN, Mild Pain, Starting on 6/28/25 at 2048, If given for fever, use fever parameter: fever greater than 100.4 F Based on patient request - if ordered for moderate or severe pain, provider allows for administration of a medication prescribed for a lower pain scale. Do not exceed 4 grams of acetaminophen in a 24 hr period. Max dose of 2gm for AST/ALT greater than 120 units/L. If given for pain, use the following pain scale: Mild Pain = Pain Score of 1-3, CPOT 1-2 Moderate Pain = Pain Score of 4-6, CPOT 3-4 Severe Pain = Pain Score of 7-10, CPOT 5-8 acetaminophen (TYLENOL) suppository 650 mg 650 mg, Rectal, Every 4 Hours PRN, Mild Pain, Starting on 08/20/24 at 2048, If given for fever, use fever parameter: fever greater than 100.4 F Based on patient request - if ordered for moderate or severe pain, provider allows for administration of a medication prescribed for a lower pain scale. Do not exceed 4 grams of acetaminophen in a 24 hr period. Max dose of 2gm for AST/ALT greater than 120 units/L. If given for pain, use the following pain scale: Mild Pain = Pain Score of 1-3, CPOT 1-2 Moderate Pain = Pain Score of 4-6, CPOT 3-4 Severe Pain = Pain Score of 7-10, CPOT 5-8 acetaminophen (TYLENOL) tablet 650 mg 650 mg, Oral, Every 4 Hours PRN, Mild Pain, Starting on 08/20/24 at 2048, If given for fever, use fever parameter: fever greater than 100.4 F Based on patient request - if ordered for moderate or severe pain, provider allows for administration of a medication prescribed for a lower pain scale. Do not exceed 4 grams of acetaminophen in a 24 hr period. Max dose of 2gm for AST/ALT greater than 120 units/L. If given for pain, use the following pain scale: Mild Pain = Pain Score of 1-3, CPOT 1-2 Moderate Pain = Pain Score of 4-6, CPOT 3-4 Severe Pain = Pain Score of 7-10, CPOT 5-8 Given 08/21/2024 6:12 AM EDT 650 mg albumin human 5 % solution 12.5 g 12.5 g, Intravenous, Administer over 30 Minutes, Once, On Thu08/24/24 at 1145, For 1 dose, Indications: HypotensionIndications:Hypotension New Bag 08/24/2024 1:24 PM EDT 12.5 g amiodarone (PACERONE) tablet 200 mg 200 mg, Oral, Every 12 Hours Scheduled, First dose on 08/21/24 at 1130, Avoid grapefruit juice while taking this medication. Given 08/25/2024 8:42 AM EDT 200 mg Given 08/24/2024 8:33 PM EDT 200 mg Given 08/24/2024 8:34 AM EDT 200 mg amiodarone (PACERONE) tablet 200 mg 200 mg, Oral, Every 24 Hours Scheduled, First dose (after last modification) on Thu08/26/24 at 0900, Avoid grapefruit juice while taking this medication. Given 08/26/2024 9:00 AM EDT 200 mg aspirin chewable tablet 81 mg 81 mg, Oral, Daily, First dose on 08/21/24 at 1130, Herbal/drug interaction: Avoid use with ginkgo biloba. Do not exceed 4 grams of aspirin in a 24 hr period. If given for pain, use the following pain scale: Mild Pain = Pain Score of 1-3, CPOT 1-2 Moderate Pain = Pain Score of 4-6, CPOT 3-4 Severe Pain = Pain Score of 7-10, CPOT 5-8 Given 08/26/2024 9:00 AM EDT 81 mg Given 08/25/2024 8:42 AM EDT 81 mg Given 08/24/2024 8:34 AM EDT 81 mg atorvastatin (LIPITOR) tablet 80 mg 80 mg, Oral, Nightly, First dose on 08/21/24 at 2100, Avoid grapefruit juice. Given 08/25/2024 8:00 PM EDT 80 mg Given 08/24/2024 8:33 PM EDT 80 mg Given 08/23/2024 9:04 PM EDT 80 mg bisacodyl (DULCOLAX) EC tablet 5 mg 5 mg, Oral, Daily PRN, Constipation, Use if polyethylene glycol is ineffective, Starting on 08/20/24 at 2050, Use if no bowel movement after 12 hours. Swallow whole. Do not crush, split, or chew tablet. bisoprolol (ZEBeta) tablet 2.5 mg 2.5 mg, Oral, Every 24 Hours Scheduled, First dose on Thu08/21/24 at 1130, Hold for SBP less than 100, DBP less than 60, or heart rate less than 50. If a dose is held, please contact the provider. Caution: Look alike/sound alike drug alert Given 08/26/2024 9:00 AM EDT 2.5 mg Given 08/25/2024 8:42 AM EDT 2.5 mg Given 08/24/2024 8:34 AM EDT 2.5 mg Calcium Replacement - Follow Nurse / BPA Driven Protocol Open Order & Select BHS Electrolyte Replacement Protocol Algorithm to View Details famotidine (PEPCID) injection 20 mg 20 mg, Intravenous, Once, On Thu08/22/24 at 0625, For 1 dose, Give IV push over 2 minutes. Given 08/22/2024 6:50 AM EDT 20 mg gabapentin (NEURONTIN) capsule 100 mg 100 mg, Oral, 3 Times Daily, First dose on Thu08/22/24 at 1200, (ROMARIO) Given 08/25/2024 8:00 PM EDT 100 mg Given 08/25/2024 8:42 AM EDT 100 mg Given 08/24/2024 8:32 PM EDT 100 mg HYDROmorphone (DILAUDID) injection 0.5 mg 0.5 mg, Intravenous, Every 2 Hours PRN, Severe Pain, Starting on Thu08/22/24 at 1113, For 7 days, If given for pain, use the following pain scale: Mild Pain = Pain Score of 1-3, CPOT 1-2 Moderate Pain = Pain Score of 4-6, CPOT 3-4 Severe Pain = Pain Score of 7-10, CPOT 5-8 lactated ringers bolus 500 mL 500 mL, Intravenous, at 1,000 mL/hr, Administer over 0.5 Hours, Once, On Thu08/21/24 at 0415, For 1 dose New Bag 08/21/2024 3:37 AM EDT 500 mL 1000 mL/hr Magnesium Standard Dose Replacement - Follow Nurse / BPA Driven Protocol Open Order & Select BHS Electrolyte Replacement Protocol Algorithm to View Details naloxone (NARCAN) injection 0.4 mg 0.4 mg, Intravenous, Every 5 Minutes PRN, Respiratory Depression, Starting on 08/20/24 at 2048, If respiratory rate is less than 8 breaths/minute or patient is difficult to arouse stop any narcotics and contact physician. Administer slow IV push. Repeat as ordered until patient's respiratory rate is greater than 12 breaths/minute. ondansetron (ZOFRAN) injection 4 mg 4 mg, Intravenous, Every 6 Hours PRN, Nausea, Vomiting, Starting on 08/22/24 at 1113 ondansetron ODT (ZOFRAN-ODT) disintegrating tablet 4 mg 4 mg, Oral, Every 6 Hours PRN, Nausea, Vomiting, Starting on 08/22/24 at 1113, Place on tongue and allow to dissolve. oxyCODONE (ROXICODONE) immediate release tablet 5 mg 5 mg, Oral, Every 4 Hours PRN, Moderate Pain, Starting on 08/22/24 at 1113, For 7 days, (ROMARIO) If given for pain, use the following pain scale: Mild Pain = Pain Score of 1-3, CPOT 1-2 Moderate Pain = Pain Score of 4-6, CPOT 3-4 Severe Pain = Pain Score of 7-10, CPOT 5-8 pantoprazole (PROTONIX) EC tablet 40 mg 40 mg, Oral, Every [employer] M[employer]ainer, First dose on 08/21/24 at 1130, Swallow whole; do not crush, split, or chew. Given 08/26/2024 5:07 AM EDT 40 mg Given 08/25/2024 5:13 AM EDT 40 mg Given 08/24/2024 5:35 AM EDT 40 mg Phosphorus Replacement - Follow Nurse / BPA Driven Protocol Open Order & Select S Electrolyte Replacement Protocol Algorithm to View Details polyethylene glycol (MIRALAX) packet 17 g 17 g, Oral, Daily PRN, Constipation, Use if senna-docusate is ineffective, Starting on 08/20/24 at 2049, Use if no bowel movement after 12 hours. Mix in 6-8 ounces of water. Use 4-8 ounces of water, tea, or juice for each 17 gram dose. polyethylene glycol (MIRALAX) packet 17 g 17 g, Oral, Daily, First dose on 08/22/24 at 1200, Use 4-8 ounces of water, tea, or juice for each 17 gram dose. Given 08/25/2024 8:42 AM EDT 17 g Given 08/23/2024 8:40 AM EDT 17 g potassium chloride (KLOR-CON M20) CR tablet 40 mEq 40 mEq, Oral, Every 4 Hours, First dose on Thu08/24/24 at 0845, For 2 doses, Do not crush or chew the capsules or tablets. The drug may not work as designed if the capsule or tablet is crushed or chewed. Swallow whole. Take with food. Given 08/24/2024 12:13 PM EDT 40 mEq Given 08/24/2024 8:34 AM EDT 40 mEq Potassium Replacement - Follow Nurse / BPA Driven Protocol Open Order & Select S Electrolyte Replacement Protocol Algorithm to View Details sennosides-docusate (PERICOLACE) 8.6-50 MG per tablet 2 tablet 2 tablet, Oral, 2 Times Daily PRN, Constipation, Starting on 08/20/24 at 2050, Start bowel management regimen if patient has not had a bowel movement after 12 hours. sennosides-docusate (PERICOLACE) 8.6-50 MG per tablet 2 tablet 2 tablet, Oral, Nightly, First dose on Thu08/22/24 at 2100 Given 08/24/2024 8:32 PM EDT 2 tablets Given 08/22/2024 8:44 PM EDT 2 tablets sodium chloride 0.9 % flush 10 mL 10 mL, Intravenous, Every 12 Hours Scheduled, First dose on 08/20/24 at 2145 Given 08/26/2024 9:00 AM EDT 10 mL Given 08/25/2024 8:02 PM EDT 10 mL Given 08/25/2024 8:42 AM EDT 10 mL sodium chloride 0.9 % flush 10 mL 10 mL, Intravenous, As Needed, Line Care, Starting on 08/20/24 at 2046 sodium chloride 0.9 % infusion 40 mL 40 mL, Intravenous, at 100 mL/hr, As Needed, Line Care, Starting on 08/20/24 at 2046, Following administration of an IV intermittent medication, flush line with 40mL NS at 100mL/hr. sodium chloride 0.9 % infusion 30 mL/hr, Intravenous, Continuous, Starting on 08/22/24 at 1200, For 1 day New Bag 08/22/2024 11:55 AM EDT 30 mL/hr 30 mL/hr Vancomycin HCl 1,250 mg in sodium chloride 0.9 % 250 mL VTB 1,250 mg (rounded from 1,185 mg = 15 mg/kg 79 kg), Intravenous, at 200 mL/hr, Administer over 75 Minutes, Once, On Thu08/22/24 at 0700, For 1 dose, Administer within 2 hours of surgical incision, Indications: Surgical ProphylaxisIndications:Surgical Prophylaxis New Bag 08/22/2024 6:51 AM EDT 1,250 mg 200 mL/hr Vancomycin HCl 1,250 mg in sodium chloride 0.9 % 250 mL VTB 1,250 mg (rounded from 1,185 mg = 15 mg/kg 79 kg), Intravenous, at 200 mL/hr, Administer over 75 Minutes, Once, On Thu08/22/24 at 1900, For 1 dose, Time First Dose From Pre-Op Dose Complete All Doses in 24 Hours , Justification for use: Documented IgE-Mediated Penicillin or Cephalosporin Allergy, Indications: Surgical ProphylaxisIndications:Surgical Prophylaxis New Bag 08/22/2024 8:01 PM EDT 1,250 mg 200 mL/hr documented in this encounter Active and Recently Administered Medications Times are shown in EDT. Scheduled Medication Order 08/24/2024 08/25/2024 08/26/2024 albumin human 5 % solution 12.5 g (COMPLETED) 12.5 g, Intravenous, Administer over 30 Minutes, Once, On Thu08/24/24 at 1145, For 1 dose, Indications: Hypotension 1324 (New Bag - Provider: Adela Dotson RN) amiodarone (PACERONE) tablet 200 mg (CANCELED) 200 mg, Oral, Every 12 Hours Scheduled, First dose on Thu08/21/24 at 1130, Avoid grapefruit juice while taking this medication. 08 (Given - Provider: Adela Dotson RN)2032 (Given - Provider: Arelis Ziegler RN) 0842 (Given - Provider: Adela Dotson RN) amiodarone (PACERONE) tablet 200 mg 200 mg, Oral, Every 24 Hours Scheduled, First dose (after last modification) on Thu08/26/24 at 0900, Avoid grapefruit juice while taking this medication. 0900 (Given - Provider: Velma Beckman, BRIDGER) aspirin chewable tablet 81 mg 81 mg, Oral, Daily, First dose on Thu08/21/24 at 1130, Herbal/drug interaction: Avoid use with ginkgo biloba. Do not exceed 4 grams of aspirin in a 24 hr period. If given for pain, use the following pain scale: Mild Pain = Pain Score of 1-3, CPOT 1-2 Moderate Pain = Pain Score of 4-6, CPOT 3-4 Severe Pain = Pain Score of 7-10, CPOT 5-8 0834 (Given - Provider: Adela Dotson RN) 0842 (Given - Provider: Adela Dotson RN) 0900 (Given - Provider: Velma Beckman, BRIDGER) atorvastatin (LIPITOR) tablet 80 mg 80 mg, Oral, Nightly, First dose on Thu08/21/24 at 2100, Avoid grapefruit juice. 2032 (Given - Provider: Arelis Ziegler RN) 1999 (Given - Provider: Arelis Ziegler RN) bisoprolol (ZEBeta) tablet 2.5 mg 2.5 mg, Oral, Every 24 Hours Scheduled, First dose on Thu08/21/24 at 1130, Hold for SBP less than 100, DBP less than 60, or heart rate less than 50. If a dose is held, please contact the provider. Caution: Look alike/sound alike drug alert 0834 (Given - Provider: Adela Dotson RN) 0842 (Given - Provider: Adela Dotson RN) 0900 (Given - Provider: Velma Beckman, BRIDGER) gabapentin (NEURONTIN) capsule 100 mg 100 mg, Oral, 3 Times Daily, First dose on Thu08/22/24 at 1200, (ROMARIO) 0834 (Given - Provider: Adela Dotson RN)1630 (Given - Provider: Adela Dotson, BRIDGER)2031 (Given - Provider: Arelis Ziegler RN) 0842 (Given - Provider: Adela Dotson RN)1703 (Not Given - Provider: Adela Dotson RN - Reason: Patient/family refused)1999 (Given - Provider: Arelis Ziegler RN) 0900 (Not Given - Provider: Velma Beckman RN - Reason: Patient/family refused) pantoprazole (PROTONIX) EC tablet 40 mg 40 mg, Oral, Every [employer] M[employer]ainer, First dose on Thu08/21/24 at 1130, Swallow whole; do not crush, split, or chew. 0535 (Given - Provider: Solange Wong RN) 0513 (Given - Provider: Arelis Ziegler, RN) 0507 (Given - Provider: Arelis Ziegler, RN) polyethylene glycol (MIRALAX) packet 17 g 17 g, Oral, Daily, First dose on Thu08/22/24 at 1200, Use 4-8 ounces of water, tea, or juice for each 17 gram dose. 0835 (Not Given - Provider: Adela Dotson RN - Reason: Patient/family refused) 0842 (Given - Provider: Adela Dotson RN) 0901 (Not Given - Provider: Velma Beckman, BRIDGER - Reason: Patient/family refused) potassium chloride (KLOR-CON M20) CR tablet 40 mEq (COMPLETED) 40 mEq, Oral, Every 4 Hours, First dose on Thu08/24/24 at 0845, For 2 doses, Do not crush or chew the capsules or tablets. The drug may not work as designed if the capsule or tablet is crushed or chewed. Swallow whole. Take with food. 0834 (Given - Provider: Adela Dotson RN)1213 (Given - Provider: Adela Dotson RN) sennosides-docusate (PERICOLACE) 8.6-50 MG per tablet 2 tablet 2 tablet, Oral, Nightly, First dose on Thu08/22/24 at 2100 2031 (Given - Provider: Arelis Ziegler, BRIDGER) 1999 (Not Given - Provider: Arelis Ziegler, BRIDGER - Reason: Patient/family refused) sodium chloride 0.9 % flush 10 mL 10 mL, Intravenous, Every 12 Hours Scheduled, First dose on Thu08/20/24 at 2145 0835 (Given - Provider: Adela Dotson RN)2032 (Given - Provider: Arelis Ziegler, RN) 0842 (Given - Provider: Adela Dotson, RN)2001 (Given - Provider: Arelis Ziegler, RN) 0900 (Given - Provider: Velma Beckman, BRIDGER) PRN Medication Order 08/24/2024 08/25/2024 08/26/2024 acetaminophen (TYLENOL) 160 MG/5ML oral solution 650 mg(Linked Group 1) 650 mg, Oral, Every 4 Hours PRN, Mild Pain, Starting on 08/20/24 at 2048, If given for fever, use fever parameter: fever greater than 100.4 F Based on patient request - if ordered for moderate or severe pain, provider allows for administration of a medication prescribed for a lower pain scale. Do not exceed 4 grams of acetaminophen in a 24 hr period. Max dose of 2gm for AST/ALT greater than 120 units/L. If given for pain, use the following pain scale: Mild Pain = Pain Score of 1-3, CPOT 1-2 Moderate Pain = Pain Score of 4-6, CPOT 3-4 Severe Pain = Pain Score of 7-10, CPOT 5-8 acetaminophen (TYLENOL) suppository 650 mg(Linked Group 1) 650 mg, Rectal, Every 4 Hours PRN, Mild Pain, Starting on 08/20/24 at 2048, If given for fever, use fever parameter: fever greater than 100.4 F Based on patient request - if ordered for moderate or severe pain, provider allows for administration of a medication prescribed for a lower pain scale. Do not exceed 4 grams of acetaminophen in a 24 hr period. Max dose of 2gm for AST/ALT greater than 120 units/L. If given for pain, use the following pain scale: Mild Pain = Pain Score of 1-3, CPOT 1-2 Moderate Pain = Pain Score of 4-6, CPOT 3-4 Severe Pain = Pain Score of 7-10, CPOT 5-8 acetaminophen (TYLENOL) tablet 650 mg(Linked Group 1) 650 mg, Oral, Every 4 Hours PRN, Mild Pain, Starting on 08/20/24 at 2048, If given for fever, use fever parameter: fever greater than 100.4 F Based on patient request - if ordered for moderate or severe pain, provider allows for administration of a medication prescribed for a lower pain scale. Do not exceed 4 grams of acetaminophen in a 24 hr period. Max dose of 2gm for AST/ALT greater than 120 units/L. If given for pain, use the following pain scale: Mild Pain = Pain Score of 1-3, CPOT 1-2 Moderate Pain = Pain Score of 4-6, CPOT 3-4 Severe Pain = Pain Score of 7-10, CPOT 5-8 bisacodyl (DULCOLAX) EC tablet 5 mg(Linked Group 2) 5 mg, Oral, Daily PRN, Constipation, Use if polyethylene glycol is ineffective, Starting on 08/20/24 at 2050, Use if no bowel movement after 12 hours. Swallow whole. Do not crush, split, or chew tablet. bisacodyl (DULCOLAX) suppository 10 mg 10 mg, Rectal, Daily PRN, Constipation, Starting on Thu08/22/24 at 1113, Give if no bowel movement in 24 hours Hold for diarrhea Calcium Replacement - Follow Nurse / BPA Driven Protocol Open Order & Select [facility] Electrolyte Replacement Protocol Algorithm to View Details HYDROmorphone (DILAUDID) injection 0.5 mg 0.5 mg, Intravenous, Every 2 Hours PRN, Severe Pain, Starting on Thu08/22/24 at 1113, For 7 days, If given for pain, use the following pain scale: Mild Pain = Pain Score of 1-3, CPOT 1-2 Moderate Pain = Pain Score of 4-6, CPOT 3-4 Severe Pain = Pain Score of 7-10, CPOT 5-8 Magnesium Standard Dose Replacement - Follow Nurse / BPA Driven Protocol Open Order & Select [facility] Electrolyte Replacement Protocol Algorithm to View Details naloxone (NARCAN) injection 0.4 mg(Linked Group 3) 0.4 mg, Intravenous, Every 5 Minutes PRN, Respiratory Depression, Starting on 08/20/24 at 2049, If respiratory rate is less than 8 breaths/minute or patient is difficult to arouse stop any narcotics and contact physician. Administer slow IV push. Repeat as ordered until patient's respiratory rate is greater than 12 breaths/minute. nitroglycerin (NITROSTAT) SL tablet 0.4 mg 0.4 mg, Sublingual, Every 5 Minutes PRN, Chest Pain, Starting on Thu08/22/24 at 1113, Notify Provider if Pain Unrelieved After 3 Doses May administer up to 3 doses per episode. Hold if SBP less than 100. ondansetron (ZOFRAN) injection 4 mg(Linked Group 4) 4 mg, Intravenous, Every 6 Hours PRN, Nausea, Vomiting, Starting on Thu08/22/24 at 1113 ondansetron ODT (ZOFRAN-ODT) disintegrating tablet 4 mg(Linked Group 4) 4 mg, Oral, Every 6 Hours PRN, Nausea, Vomiting, Starting on 08/22/24 at 1113, Place on tongue and allow to dissolve. oxyCODONE (ROXICODONE) immediate release tablet 5 mg 5 mg, Oral, Every 4 Hours PRN, Moderate Pain, Starting on 08/22/24 at 1113, For 7 days, (ROMARIO) If given for pain, use the following pain scale: Mild Pain = Pain Score of 1-3, CPOT 1-2 Moderate Pain = Pain Score of 4-6, CPOT 3-4 Severe Pain = Pain Score of 7-10, CPOT 5-8 Phosphorus Replacement - Follow Nurse / BPA Driven Protocol Open Order & Select [facility] Electrolyte Replacement Protocol Algorithm to View Details polyethylene glycol (MIRALAX) packet 17 g(Linked Group 2) 17 g, Oral, Daily PRN, Constipation, Use if senna-docusate is ineffective, Starting on 08/20/24 at 2049, Use if no bowel movement after 12 hours. Mix in 6-8 ounces of water. Use 4-8 ounces of water, tea, or juice for each 17 gram dose. Potassium Replacement - Follow Nurse / BPA Driven Protocol Open Order & Select S Electrolyte Replacement Protocol Algorithm to View Details sennosides-docusate (PERICOLACE) 8.6-50 MG per tablet 2 tablet(Linked Group 2) 2 tablet, Oral, 2 Times Daily PRN, Constipation, Starting on 08/20/24 at 2049, Start bowel management regimen if patient has not had a bowel movement after 12 hours. sodium chloride 0.9 % flush 10 mL 10 mL, Intravenous, As Needed, Line Care, Starting on 08/20/24 at 2046 sodium chloride 0.9 % infusion 40 mL 40 mL, Intravenous, at 100 mL/hr, As Needed, Line Care, Starting on 08/20/24 at 2046, Following administration of an IV intermittent medication, flush line with 40mL NS at 100mL/hr. Linked Groups Order Group 1: acetaminophen (TYLENOL) tablet 650 mgJump to med 650 mg, Oral, Every 4 Hours PRN, Mild Pain, Starting on 08/20/24 at 2049, If given for fever, use fever parameter: fever greater than 100.4 F Based on patient request - if ordered for moderate or severe pain, provider allows for administration of a medication prescribed for a lower pain scale. Do not exceed 4 grams of acetaminophen in a 24 hr period. Max dose of 2gm for AST/ALT greater than 120 units/L. If given for pain, use the following pain scale: Mild Pain = Pain Score of 1-3, CPOT 1-2 Moderate Pain = Pain Score of 4-6, CPOT 3-4 Severe Pain = Pain Score of 7-10, CPOT 5-8 Or acetaminophen (TYLENOL) 160 MG/5ML oral solution 650 mgJump to med 650 mg, Oral, Every 4 Hours PRN, Mild Pain, Starting on 08/20/24 at 2048, If given for fever, use fever parameter: fever greater than 100.4 F Based on patient request - if ordered for moderate or severe pain, provider allows for administration of a medication prescribed for a lower pain scale. Do not exceed 4 grams of acetaminophen in a 24 hr period. Max dose of 2gm for AST/ALT greater than 120 units/L. If given for pain, use the following pain scale: Mild Pain = Pain Score of 1-3, CPOT 1-2 Moderate Pain = Pain Score of 4-6, CPOT 3-4 Severe Pain = Pain Score of 7-10, CPOT 5-8 Or acetaminophen (TYLENOL) suppository 650 mgJump to med 650 mg, Rectal, Every 4 Hours PRN, Mild Pain, Starting on 08/20/24 at 2048, If given for fever, use fever parameter: fever greater than 100.4 F Based on patient request - if ordered for moderate or severe pain, provider allows for administration of a medication prescribed for a lower pain scale. Do not exceed 4 grams of acetaminophen in a 24 hr period. Max dose of 2gm for AST/ALT greater than 120 units/L. If given for pain, use the following pain scale: Mild Pain = Pain Score of 1-3, CPOT 1-2 Moderate Pain = Pain Score of 4-6, CPOT 3-4 Severe Pain = Pain Score of 7-10, CPOT 5-8 Group 2: sennosides-docusate (PERICOLACE) 8.6-50 MG per tablet 2 tabletJump to med 2 tablet, Oral, 2 Times Daily PRN, Constipation, Starting on 08/20/24 at 2049, Start bowel management regimen if patient has not had a bowel movement after 12 hours. And polyethylene glycol (MIRALAX) packet 17 gJump to med 17 g, Oral, Daily PRN, Constipation, Use if senna-docusate is ineffective, Starting on 08/20/24 at 2049, Use if no bowel movement after 12 hours. Mix in 6-8 ounces of water. Use 4-8 ounces of water, tea, or juice for each 17 gram dose. And bisacodyl (DULCOLAX) EC tablet 5 mgJump to med 5 mg, Oral, Daily PRN, Constipation, Use if polyethylene glycol is ineffective, Starting on 08/20/24 at 2049, Use if no bowel movement after 12 hours. Swallow whole. Do not crush, split, or chew tablet. And bisacodyl (DULCOLAX) suppository 10 mg (CANCELED) 10 mg, Rectal, Daily PRN, Constipation, Use if bisacodyl oral is ineffective, Starting on 08/20/24 at 2049, Use if no bowel movement after 12 hours. Hold for diarrhea Group 3: morphine injection 2 mg () 2 mg, Intravenous, Every 4 Hours PRN, Severe Pain, Starting on 08/20/24 at 2048, For 5 days, Based on patient request - if ordered for moderate or severe pain, provider allows for administration of a medication prescribed for a lower pain scale. If given for pain, use the following pain scale: Mild Pain = Pain Score of 1-3, CPOT 1-2 Moderate Pain = Pain Score of 4-6, CPOT 3-4 Severe Pain = Pain Score of 7- 10, CPOT 5-8 And naloxone (NARCAN) injection 0.4 mgJump to med 0.4 mg, Intravenous, Every 5 Minutes PRN, Respiratory Depression, Starting on 08/20/24 at 2048, If respiratory rate is less than 8 breaths/minute or patient is difficult to arouse stop any narcotics and contact physician. Administer slow IV push. Repeat as ordered until patient's respiratory rate is greater than 12 breaths/minute. Group 4: ondansetron ODT (ZOFRAN-ODT) disintegrating tablet 4 mgJump to med 4 mg, Oral, Every 6 Hours PRN, Nausea, Vomiting, Starting on Thu08/22/24 at 1113, Place on tongue and allow to dissolve. Or ondansetron (ZOFRAN) injection 4 mgJump to med 4 mg, Intravenous, Every 6 Hours PRN, Nausea, Vomiting, Starting on Thu08/22/24 at 1113 documented in this encounter Care Teams Client Support Analyst Relationship Specialty Start Date End Date Carey García APRN PCP - General Internal Medicine 10/28/22 documented as of this encounter
--- OUTSIDE RECORDS SUMMARY | 2024-08-22 07:00 | XMS_ITS | Encounter Summary ---
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 08/20/242136 Updated: 08/20/242140 Narrative: XR CHEST [...] MD 08/20/2024 9:38 PM EDT Workstation ID: [id number] Assessment: Spontaneous left pneumothorax status post chest tube placement at outside facility. Pneumothorax Plan: Continue chest tube to suction. N.p.o. after midnight in anticipation for a left VATS with blebectomy with ELIDA Schaefer 08/21/24 10:20 EDT Cosigned by Gus Valerio [...] Thromboembolism) Risk Recent Flowsheet Documentation Taken 08/20/2024 2200 by Madison Arnold RN VTE Prevention/Management: SCDs [...] promoted single patient room provided Taken 08/20/2024 2200 by Madison Arnold RN Infection Prevention: hand hygiene promoted single patient room provided Goal: Optimal Comfort and Wellbeing Outcome: Progressing Intervention: Monitor Pain and Promote Comfort Recent Flowsheet Documentation Taken 08/21/2024 0600 by Madison Arnold RNclient finance analyst Interventions: pain medication given Taken 08/21/2024 0319 by Madison Arnold RNclient finance analyst Interventions: breathing exercises quiet environment facilitated relaxation [...] Develop Transition Plan Recent Flowsheet Documentation Taken 08/20/20242199 by Madison Arnold RN Equipment Currently Used at Home: none Transportation Anticipated: family or friend will provide Patient/Family Anticipated Services at Transition: none Patient/Family Anticipates Transition to: home with family Goal Outcome Evaluation: documented in this encounter OR Notes * Op Note - Gus Valerio MD - 08/22/2024 8:03 AM EDT [facility] OPERATIVE REPORT PATIENT NAME: Rafyf Cheney AGE: 64 y.o. : 1960 DATE OF SURGERY: 08/22/2024 CSN: [id number] Primary Care Physician: Carey García APRN Procedure: 1. VATS Procedure left-sided 2. Left apical bleb resection (45 mm endostapler) 3. Pleurodesis with abrasion of the apex and lateral mujica Surgeon: Gus Valerio MD Surgical Assistants: Paper Machine Tender: Armando Perez PA was responsible for performing [...] has [employer] Medicare Replacement, I left w/Luciano w/[employer] due to having [employer] contract, no return call. I contacted Kobe w/[facility], they can accept patient's w/[employer] Medicare only if it is a PPO, which he has. HOme O2 ordered thru [facility], they will deliver O2 to room [...] Phone Fax Patient Preferred [facility] [address] [phone] -- Dialysis/Infusion No services have been selected [...] self-care * Case Management/Social Work - Raffy Romero, RN - 08/25/2024 3:03 PM EDT Continued Stay Note [facility] Patient Name: Raffy Cheney Today's Date: 08/25/2024 [...] 08/24/2024 8:22 AM EDT Continued Stay Note [facility] Patient Name: Raffy Cheney Today's Date: 08/24/2024 [...] Description 09/27/2024 11:30 AM EDT Office Visit [facility] CARDIOLOGY [address] [place] [phone] Gris Iniguez, INFECTION PREVENTION SPECIALIST [address] [place], [place] [phone] 10/04/2024 10:00 AM EDT Office Visit [facility] CARDIOTHORACIC SURGERY [address] [place] [phone] Theodore Valdovinos, INFECTION PREVENTION SPECIALIST [address] [place], [place] [phone] Scheduled Procedures Name Priority Associated Diagnoses Date/Ti wy CV CEREBRAL ANGIOGRAM IR Coronary artery disease involving nuiqsut coronary artery of nuiqsut heart without angina pectoris Bilateral carotid artery [...] MD 08/26/2024 10:15 AM EDT Workstation ID: [id number] Narrative 08/26/2024 10:15 AM EDT XR CHEST [...] MD 08/26/2024 10:15 AM EDT Workstation ID: [id number] [facility] INFECTION PREVENTION SPECIALIST IMG DIAGNOSTIC IMAGING ORDER DANIA Final Result * XR Chest 1 View (08/25/2024 1:46 PM EDT) Anatomical Region Laterality Modality Body N/A Radiographic Talia ging 08/25/2024 2:43 PM EDT Impressions 08/25/2024 2:45 PM EDT Impression: Probable trace left apical pneumothorax status post removal of left chest tube. Electronically Signed: Marily Schmitz MD 08/25/2024 2:45 PM EDT Workstation ID: [id number] Narrative 08/25/2024 2:45 PM EDT XR CHEST [...] MD 08/25/2024 2:45 PM EDT Workstation ID: [id number] [facility] INFECTION PREVENTION SPECIALIST IMG DIAGNOSTIC IMAGING ORDER DANIA Final Result [...] MD 08/25/2024 8:39 AM EDT Workstation ID: [id number] Narrative 08/25/2024 8:39 AM EDT XR CHEST [...] earlier studies and this may simply reflect permit review assistant image technique today. No lung consolidation effusion [...] earlier studies and this may simply reflect permit review assistant imagetechnique today. No lung consolidation effusion or pneumothorax is seen.Subcutaneous emphysema of the left chest appears stable. There is no visible pneumothorax or effusion. IMPRESSION: Impression: 1. Stable left-sided subcutaneous emphysema. No visible pneumothorax. 2. Appearance of diffusely increased interstitial disease, as discussedabove, possibly as a result of imaging technique. Electronically Signed: Tru Santizo MD 08/25/2024 8:39 AM EDT Workstation ID: [id number] Therese Hanna APRN IMG DIAGNOSTIC IMAGING ORDER DANIA Final Result * Potassium (08/24/2024 4:34 PM EDT) Potassium 4.2 3.5 - 5.2 mmol/L 08/24/2024 5:47 PM EDT [facility] Blood Venipuncture / Unknown 08/24/2024 4:34 PM EDT 08/24/2024 5:30 PM EDT Gus Valerio MD LAB BLOOD ORDERABLES Final Re sult [facility]
[address] [place] [address], * XR Chest 1 View (08/24/2024 9:50 AM EDT) Anatomical Region Laterality Modality Body N/A Radiographic Talia ging 08/24/2024 10:0 1 AM EDT Impressions 08/24/2024 10:03 AM EDT Impression: Newly apparent trace left apical pneumothorax with unchanged left thoracostomy tube. Electronically Signed: Shen Renteria MD 08/24/2024 10:03 AM EDT Workstation ID: [id number] Narrative 08/24/2024 10:03 AM EDT XR CHEST [...] MD 08/24/2024 10:03 AM EDT Workstation ID: [id number] Therese Hanna INFECTION PREVENTION SPECIALIST IMG DIAGNOSTIC IMAGING ORDER DANIA Final Result * (ABNORMAL) Basic Metabolic Panel (08/24/2024 5:59 AM EDT) Glucose 94 65 - 99 mg/dL 08/24/2024 6:49 AM EDT [facility] BUN 15.8 8.0 - 23.0 mg/dL 08/24/2024 6:49 AM EDT [facility] Creatinine 0.79 0.76 - 1.27 mg/dL 08/24/2024 6:49 AM EDT [facility] Sodium 136 136 - 145 mmol/L 08/24/2024 6:49 AM EDT [facility] Potassium 3.4(L) 3.5 - 5.2 mmol/L 08/24/2024 6:49 AM EDT [facility] Chloride 103 98 - 107 mmol/L 08/24/2024 6:49 AM EDT [facility] CO2 21.3(L) 22.0 - 29.0 mmol/L 08/24/2024 6:49 AM EDT [facility] Calcium 8.4(L) 8.6 - 10.5 mg/dL 08/24/2024 6:49 AM EDT [facility] BUN/Creatinine Ratio 20.0 7.0 - 25.0 08/24/2024 6:49 AM EDT [facility] Anion Gap 11.7 5.0 - 15.0 mmol/L 08/24/2024 6:49 AM [facility] eGFR 99.2 >60.0 mL/min/1.7 3 08/24/2024 6:49 AM [facility] Blood Venipuncture / Unknown 08/24/2024 5:59 AM EDT 08/24/2024 6:09 AM EDT [facility] - 08/24/2024 6:49 AM EDT GFR [...] MD LAB BLOOD ORDERABLES Final Resul t Performing Organization Address City/[facility]/ZIP Co de Phone Number [facility]
[address] [place] [address], * TSH Rfx On Abnormal To Free T4 (08/23/2024 6:54 AM EDT) TSH 2.590 0.270 - 4.200 uIU/mL 08/23/2024 1:01 PM EDT [facility] Blood Venipuncture / Unknown 08/23/2024 6:54 AM EDT 08/23/2024 7:04 AM EDT Cyndi Clements APRN LAB BLOOD ORDERABLES Fin al Result Performing Organization Address City/[facility] Co de Phone Number [facility]
[address] [place] [address], * (ABNORMAL) Lipid Panel (08/23/2024 6:54 AM EDT) Total Cholesterol 91 0 - 200 mg/dL 08/23/2024 1:01 PM EDT [facility] Triglycerides 55 0 - 150 mg/dL 08/23/2024 1:01 PM EDT [facility] HDL Cholesterol 38(L) 40 - 60 mg/dL 08/23/2024 1:01 PM EDT [facility] LDL Cholesterol 40 0 - 100 mg/dL 08/23/2024 1:01 PM EDT [facility] VLDL Cholesterol 13 5 - 40 mg/dL 08/23/2024 1:01 PM EDT [facility] LDL/HDL Ratio 1.11 08/23/2024 1:01 PM EDT [facility] Blood Venipuncture / Unknown 08/23/2024 6:54 AM EDT 08/23/2024 7:04 AM EDT Narrative [facility] - 08/23/2024 1:01 PM EDT [...] using the NIH LDL-C calculation. Cyndi Clements APRN LAB BLOOD ORDERABLES Fin al Result [facility]
[address] [place] [address], * (ABNORMAL) CBC Auto Differential (08/23/2024 6:54 AM EDT) WBC 11.98(H) 3.40 - 10.80 10*3/mm3 08/23/2024 7:12 AM EDT [facility] RBC 3.59(L) 4.14 - 5.80 10*6/mm3 08/23/2024 7:12 AM EDT [facility] Hemoglobin 12.7(L) 13.0 - 17.7 g/dL 08/23/2024 7:12 AM EDT [facility] Hematocrit 37.7 37.5 - 51.0 % 08/23/2024 7:12 AM EDT [facility] MCV 105.0(H) 79.0 - 97.0 fL 08/23/2024 7:12 AM EDT [facility] MCH 35.4(H) 26.6 - 33.0 pg 08/23/2024 7:12 AM [facility] MCHC 33.7 31.5 - 35.7 g/dL 08/23/2024 7:12 AM [facility] RDW 13.1 12.3 - 15.4 % 08/23/2024 7:12 AM [facility] RDW-SD 50.4 37.0 - 54.0 fl 08/23/2024 7:12 AM [facility] MPV 9.9 6.0 - 12.0 fL 08/23/2024 7:12 AM [facility] Platelets 157 140 - 450 10*3/mm3 08/23/2024 7:12 AM [facility] Neutrophil % 82.4(H) 42.7 - 76.0 % 08/23/2024 7:12 AM [facility] Lymphocyte % 7.7(L) 19.6 - 45.3 % 08/23/2024 7:12 AM [facility] Monocyte % 8.8 5.0 - 12.0 % 08/23/2024 7:12 AM [facility] Eosinophil % 0.2(L) 0.3 - 6.2 % 08/23/2024 7:12 AM [facility] Basophil % 0.2 0.0 - 1.5 % 08/23/2024 7:12 AM [facility] Immature Grans % 0.7(H) 0.0 - 0.5 % 08/23/2024 7:12 AM [facility] Neutrophils, Absolute 9.89(H) 1.70 - 7.00 10*3/mm3 08/23/2024 7:12 AM [facility] Lymphocytes, Absolute 0.92 0.70 - 3.10 10*3/mm3 08/23/2024 7:12 AM [facility] Monocytes, Absolute 1.05(H) 0.10 - 0.90 10*3/mm3 08/23/2024 7:12 AM [facility] Eosinophils, Absolute 0.02 0.00 - 0.40 10*3/mm3 08/23/2024 7:12 AM EDT [facility] Basophils, Absolute 0.02 0.00 - 0.20 10*3/mm3 08/23/2024 7:12 AM EDT [facility] Immature Grans, Absolute 0.08(H) 0.00 - 0.05 10*3/mm3 08/23/2024 7:12 AM EDT [facility] nRBC 0.0 0.0 - 0.2 /100 WBC 08/23/2024 7:12 AM EDT [facility] Blood Venipuncture / Unknown 08/23/2024 6:54 AM EDT 08/23/2024 7:04 AM EDT Armando MARRERO LAB BLOOD ORDERABLES Final Res ult Performing Organization Address City/[facility]/ZIP Co de Phone Number [facility]
[address] [place] [address], * Magnesium (08/23/2024 6:54 AM EDT) Magnesium 2.0 1.6 - 2.4 mg/dL 08/23/2024 7:37 AM EDT [facility] Blood Venipuncture / Unknown 08/23/2024 6:54 AM EDT 08/23/2024 7:04 AM EDT Micky Saxena MD LAB BLOOD ORDERABLES Final Result [facility]
[address] [place] [address], * (ABNORMAL) Basic Metabolic Panel (08/23/2024 6:54 AM EDT) Glucose 114(H) 65 - 99 mg/dL 08/23/2024 7:37 AM EDT [facility] BUN 13.3 8.0 - 23.0 mg/dL 08/23/2024 7:37 AM [facility] Creatinine 0.79 0.76 - 1.27 mg/dL 08/23/2024 7:37 AM [facility] Sodium 136 136 - 145 mmol/L 08/23/2024 7:37 AM [facility] Potassium 3.8 3.5 - 5.2 mmol/L 08/23/2024 7:37 AM [facility] Comment:Slight hemolysis det ected by analyzer. Result may be falsely elevated. Chloride 101 98 - 107 mmol/L 08/23/2024 7:37 AM [facility] CO2 25.0 22.0 - 29.0 mmol/L 08/23/2024 7:37 AM [facility] Calcium 9.0 8.6 - 10.5 mg/dL 08/23/2024 7:37 AM [facility] BUN/Creatinine Ratio 16.8 7.0 - 25.0 08/23/2024 7:37 AM [facility] Anion Gap 10.0 5.0 - 15.0 mmol/L 08/23/2024 7:37 AM [facility] eGFR 99.2 >60.0 mL/min/1.7 3 08/23/2024 7:37 AM [facility] Blood Venipuncture / Unknown 08/23/2024 6:54 AM EDT 08/23/2024 7:04 AM EDT [facility] - 08/23/2024 7:37 AM EDT GFR [...] MARRERO LAB BLOOD ORDERABLES Final Res ult [facility]
[address] [phone], * XR Chest 1 View (08/23/2024 5:48 AM EDT) Anatomical Region Laterality Modality Body N/A Radiographic Talia ging 08/23/2024 7:29 AM EDT Impressions 08/23/2024 7:32 AM EDT Impression: Yesterday's trace left apical pneumothorax is not confidently identified on today's exam. Unchanged left thoracostomy tube with left chest wall subcutaneous emphysema. Electronically Signed: Shen Renteria MD 08/23/2024 7:32 AM EDT Workstation ID: [id number] Narrative 08/23/2024 7:32 AM EDT XR CHEST [...] MD 08/23/2024 7:32 AM EDT Workstation ID: [id number] Armando Quinton MARRERO IMG DIAGNOSTIC IMAGING ORDERAB LES Final Result * XR Chest 1 View (08/22/2024 9:36 AM EDT) Anatomical Region Laterality Modality Body N/A Radiographic Talia ging 08/22/2024 10:1 8 AM EDT Impressions 08/22/2024 10:21 AM EDT Impression: 1.Left-sided chest tube in place. Trace left apical pneumothorax appears slightly improved. 2.Lungs are clear. Electronically Signed: Bola Gates MD 08/22/2024 10:21 AM EDT Workstation ID: [id number] Narrative 08/22/2024 10:21 AM EDT XR CHEST [...] MD 08/22/2024 10:21 AM EDT Workstation ID: [id number] us Armando MARRERO IMG DIAGNOSTIC IMAGING ORDERAB LES Final Result * Tissue Pathology Exam (08/22/2024 8:30 AM EDT) Case Report Surgical Pathology Report Case: [id number] Authorizing Provider: Gus Valerio MD Collected: 08/22/2024 08:30 AM Ordering Location: [facility] Received: 08/22/2024 10:35 AM OR Pathologist: Jude Irvin MD Specimen: Lung, L, LEFT BLEBECTOMY FOR PERMANENT 08/23/2024 12:45 PM EDT [facility] Clinical Information Spontaneous tension pneumothorax 08/23/2024 12:45 PM EDT [facility] Final Diagnosis LUNG, LEFT, BLEBECTOMY: Benign mesothelial lined fibrous tissue with reactive mesothelial hyperplasia and mixed inflammation and fibrosis Negative for specific microorganisms Negative for dysplasia or malignancy 08/23/2024 12:45 PM EDT [facility] at 1245 EDT Gross Description 1. Lung, L. Received in, labeled left blebectomy is a 1.8 x 1.2 x 0.4 cm intact, unoriented lung wedge. The staple line is removed and sectioning reveals an airfield, cystlike space. The specimen is submitted entirely in 1A. HDM 08/23/2024 12:45 PM EDT [facility] Microscopic Description The slides are reviewed and demonstrate histopathologic features supporting the above rendered diagnosis. 08/23/2024 12:45 PM EDT [facility] Tissue Left lung structure / Unknown 08/22/2024 8:30 AM EDT 08/22/2024 10:35 AM EDT us Gus Valerio MD PATHOLOGY/CYTOLOGY ORDERABLES Final Result [facility]
[address] [place] [address], * ABO RH Specimen Verification (08/22/2024 6:54 AM EDT) ABO Type O 08/22/2024 7:15 AM EDT [facility] RH type Positive 08/22/2024 7:15 AM EDT [facility] Blood Venipuncture / Unknown 08/22/2024 6:54 AM EDT 08/22/2024 6:59 AM EDT Micky Saxena MD BLOOD BANK TEST ORDERABLES Final Result [facility]
[address] [place] [address], * ECG 12 Lead Rhythm Change (08/22/2024 [...] Lateral leads QT has shortened Confirmed by FRED WEST, ROSALIO ([id number]) on 08/22/2024 7:25:49 AM Referred By: Confirmed By: ROSALIO BARRY MD Sammy Otoole MD ECG ORDERABLES Final Result Performing Organization Address [facility] Co de Phone Number ECG * (ABNORMAL) proBNP (08/22/2024 5:12 AM EDT) [facility] proBNP 925.3(H) 0.0 - 900.0 pg/mL 08/22/2024 6:17 AM EDT [facility] Blood Venipuncture / Unknown 08/22/2024 5:12 AM EDT 08/22/2024 5:29 AM EDT [facility] - 08/22/2024 6:17 AM EDT This [...] >75 Positive >1800 Iqbal 300-1800 Negative <300 us Sammy Otoole MD LAB BLOOD ORDERABLES Final Res ult Performing Organization Address City/[facility]/ZIP Co de Phone Number [facility]
[address] [phone], * Type & Screen (08/22/2024 5:12 AM EDT) ABO Type O 08/22/2024 6:55 AM EDT [facility] RH type Positive 08/22/2024 6:55 AM EDT [facility] Antibody Screen Negative 08/22/2024 6:55 AM EDT [facility] T&S Expiration Date 08/25/2024 11:59:59 PM 08/22/2024 6:55 AM EDT [facility] Blood Venipuncture / Unknown 08/22/2024 5:12 AM EDT 08/22/2024 5:42 AM EDT us Aneesh MARRERO BLOOD BANK TEST ORDERABLES Edit ed Result - Final Performing Organization Address City/[facility] Co de Phone Number [facility]
[address] [place] [address], * (ABNORMAL) Protime-INR (08/22/2024 5:12 AM EDT) Protime 15.5(H) 12.2 - 15.3 Seconds 08/22/2024 5:57 AM EDT [facility] INR 1.16(H) 0.89 - 1.12 08/22/2024 5:57 AM EDT [facility] Blood Venipuncture / Unknown 08/22/2024 5:12 AM EDT 08/22/2024 5:30 AM EDT us Aneesh MARRERO LAB BLOOD ORDERABLES Final Resu lt Performing Organization Address City/[facility]/ZIP Co de Phone Number [facility]
[address] [place] [address], [place] [phone] * Magnesium (08/22/2024 5:12 AM EDT) Magnesium 1.9 1.6 - 2.4 mg/dL 08/22/2024 6:17 AM EDT [facility] Blood Venipuncture / Unknown 08/22/2024 5:12 AM EDT 08/22/2024 5:29 AM EDT Micky Saxena MD LAB BLOOD ORDERABLES Final Result [facility]
[address] [place] [address], * (ABNORMAL) Basic Metabolic Panel (08/22/2024 5:12 AM EDT) Glucose 101(H) 65 - 99 mg/dL 08/22/2024 6:17 AM EDT [facility] BUN 12.9 8.0 - 23.0 mg/dL 08/22/2024 6:17 AM EDT [facility] Creatinine 0.75(L) 0.76 - 1.27 mg/dL 08/22/2024 6:17 AM EDT [facility] Sodium 136 136 - 145 mmol/L 08/22/2024 6:17 AM EDT [facility] Potassium 3.9 3.5 - 5.2 mmol/L 08/22/2024 6:17 AM EDT [facility] Chloride 101 98 - 107 mmol/L 08/22/2024 6:17 AM EDT [facility] CO2 25.0 22.0 - 29.0 mmol/L 08/22/2024 6:17 AM EDT [facility] Calcium 8.8 8.6 - 10.5 mg/dL 08/22/2024 6:17 AM EDT [facility] BUN/Creatinine Ratio 17.2 7.0 - 25.0 08/22/2024 6:17 AM EDT [facility] Anion Gap 10.0 5.0 - 15.0 mmol/L 08/22/2024 6:17 AM EDT [facility] eGFR 100.8 >60.0 mL/min/1.7 3 08/22/2024 6:17 AM EDT [facility] Blood Venipuncture / Unknown 08/22/2024 5:12 AM EDT 08/22/2024 5:29 AM EDT [facility] - 08/22/2024 6:17 AM EDT GFR [...] Saxena MD LAB BLOOD ORDERABLES Final Result [facility]
[address] [place] [address], * (ABNORMAL) CBC (No Diff) (08/22/2024 5:12 AM EDT) WBC 8.36 3.40 - 10.80 10*3/mm3 08/22/2024 5:50 AM EDT [facility] RBC 3.62(L) 4.14 - 5.80 10*6/mm3 08/22/2024 5:50 AM EDT [facility] Hemoglobin 12.8(L) 13.0 - 17.7 g/dL 08/22/2024 5:50 AM EDT [facility] Hematocrit 37.8 37.5 - 51.0 % 08/22/2024 5:50 AM EDT [facility] MCV 104.4(H) 79.0 - 97.0 fL 08/22/2024 5:50 AM EDT [facility] MCH 35.4(H) 26.6 - 33.0 pg 08/22/2024 5:50 AM EDT [facility] MCHC 33.9 31.5 - 35.7 g/dL 08/22/2024 5:50 AM EDT [facility] RDW 13.2 12.3 - 15.4 % 08/22/2024 5:50 AM EDT [facility] RDW-SD 51.3 37.0 - 54.0 fl 08/22/2024 5:50 AM EDT [facility] MPV 9.9 6.0 - 12.0 fL 08/22/2024 5:50 AM EDT [facility] Platelets 147 140 - 450 10*3/mm3 08/22/2024 5:50 AM EDT [facility] Blood Venipuncture / Unknown 08/22/2024 5:12 AM EDT 08/22/2024 5:30 AM EDT us Micky Saxena MD LAB BLOOD ORDERABLES Final Result [facility]
[address] [place] [address], * XR Chest 1 View (08/22/2024 4:32 AM EDT) Anatomical Region Laterality Modality Body N/A Radiographic Talia ging 08/22/2024 7:18 AM EDT Impressions 08/22/2024 7:20 AM EDT Impression: 1.Left chest tube appears in similar position. Small residual left apical pneumothorax, similar to the prior exam. 2.Mild bibasilar opacities which may represent atelectasis. Electronically Signed: Gregory Han 08/22/2024 7:20 AM EDT Workstation ID: [id number] Narrative 08/22/2024 7:20 AM EDT XR CHEST [...] Han 08/22/2024 7:20 AM EDT Workstation ID: [id number] Micky Saxena MD IMG DIAGNOSTIC IMAGING ORD ERABLES Final Result * Magnesium (08/21/2024 8:15 AM EDT) Magnesium 1.9 1.6 - 2.4 mg/dL 08/21/2024 8:51 AM EDT [facility] Blood Venipuncture / Unknown 08/21/2024 8:15 AM EDT 08/21/2024 8:22 AM EDT Micky Saxena MD LAB BLOOD ORDERABLES Final Result [facility]
[address] [place] [address], * (ABNORMAL) High Sensitivity Troponin T (08/21/2024 8:15 AM EDT) [facility] HS Troponin T 139(HH) <22 ng/L 08/21/2024 8:54 AM EDT [facility] Blood Venipuncture / Unknown 08/21/2024 8:15 AM EDT 08/21/2024 8:22 AM EDT [facility] - 08/21/2024 8:54 AM EDT High [...] Saxena MD LAB BLOOD ORDERABLES Final Result [facility]
[address] [place] [address], * (ABNORMAL) Comprehensive Metabolic Panel (08/21/2024 8:15 AM EDT) [facility] Glucose 108(H) 65 - 99 mg/dL 08/21/2024 8:51 AM EDT [facility] BUN 13.0 8.0 - 23.0 mg/dL 08/21/2024 8:51 AM EDT [facility] Creatinine 0.71(L) 0.76 - 1.27 mg/dL 08/21/2024 8:51 AM EDT [facility] Sodium 133(L) 136 - 145 mmol/L 08/21/2024 8:51 AM EDT [facility] Potassium 4.6 3.5 - 5.2 mmol/L 08/21/2024 8:51 AM EDT [facility] Chloride 98 98 - 107 mmol/L 08/21/2024 8:51 AM [facility] CO2 28.0 22.0 - 29.0 mmol/L 08/21/2024 8:51 AM [facility] Calcium 9.1 8.6 - 10.5 mg/dL 08/21/2024 8:51 AM [facility] Total Protein 6.5 6.0 - 8.5 g/dL 08/21/2024 8:51 AM [facility] Albumin 3.7 3.5 - 5.2 g/dL 08/21/2024 8:51 AM [facility] ALT (SGPT) 21 1 - 41 U/L 08/21/2024 8:51 AM [facility] AST (SGOT) 26 1 - 40 U/L 08/21/2024 8:51 AM [facility] Alkaline Phosphatase 73 39 - 117 U/L 08/21/2024 8:51 AM [facility] Total Bilirubin 0.9 0.0 - 1.2 mg/dL 08/21/2024 8:51 AM [facility] Globulin 2.8 gm/dL 08/21/2024 8:51 AM [facility] Comment:Calculated Result A/G Ratio 1.3 g/dL 08/21/2024 8:51 AM [facility] BUN/Creatinine Ratio 18.3 7.0 - 25.0 08/21/2024 8:51 AM [facility] Anion Gap 7.0 5.0 - 15.0 mmol/L 08/21/2024 8:51 AM [facility] eGFR 102.5 >60.0 mL/min/1.7 3 08/21/2024 8:51 AM [facility] Blood Venipuncture / Unknown 08/21/2024 8:15 AM EDT 08/21/2024 8:22 AM [facility] - 08/21/2024 8:51 AM EDT [...] Saxena MD LAB BLOOD ORDERABLES Final Result [facility]
[address] [place] [address], * (ABNORMAL) CBC Auto Differential (08/21/2024 8:15 AM EDT) WBC 7.94 3.40 - 10.80 10*3/mm3 08/21/2024 8:44 AM EDT [facility] RBC 3.60(L) 4.14 - 5.80 10*6/mm3 08/21/2024 8:44 AM EDT [facility] Hemoglobin 13.1 13.0 - 17.7 g/dL 08/21/2024 8:44 AM EDT [facility] Hematocrit 37.8 37.5 - 51.0 % 08/21/2024 8:44 AM EDT [facility] MCV 105.0(H) 79.0 - 97.0 fL 08/21/2024 8:44 AM EDT [facility] MCH 36.4(H) 26.6 - 33.0 pg 08/21/2024 8:44 AM EDT [facility] MCHC 34.7 31.5 - 35.7 g/dL 08/21/2024 8:44 AM EDT [facility] RDW 13.2 12.3 - 15.4 % 08/21/2024 8:44 AM EDT [facility] RDW-SD 51.4 37.0 - 54.0 fl 08/21/2024 8:44 AM [facility] MPV 10.0 6.0 - 12.0 fL 08/21/2024 8:44 AM [facility] Platelets 145 140 - 450 10*3/mm3 08/21/2024 8:44 AM [facility] Neutrophil % 73.8 42.7 - 76.0 % 08/[facility]24 [facility] Lymphocyte % 11.3(L) 19.6 - 45.3 % 08/21/2024 8:44 AM [facility] Monocyte % 11.3 5.0 - 12.0 % 08/21/2024 8:44 AM [facility] Eosinophil % 2.5 0.3 - 6.2 % 08/21/2024 8:44 AM [facility] Basophil % 0.6 0.0 - 1.5 % 08/21/2024 8:44 AM [facility] Immature Grans % 0.5 0.0 - 0.5 % 08/21/2024 8:44 AM [facility] Neutrophils, Absolute 5.85 1.70 - 7.00 10*3/mm3 08/21/2024 8:44 AM [facility] Lymphocytes, Absolute 0.90 0.70 - 3.10 10*3/mm3 08/21/2024 8:44 AM [facility] Monocytes, Absolute 0.90 0.10 - 0.90 10*3/mm3 08/21/2024 8:44 AM [facility] Eosinophils, Absolute 0.20 0.00 - 0.40 10*3/mm3 08/21/2024 8:44 AM [facility] Basophils, Absolute 0.05 0.00 - 0.20 10*3/mm3 08/21/2024 8:44 AM [facility] Immature Grans, Absolute 0.04 0.00 - 0.05 10*3/mm3 08/21/2024 8:44 AM EDT [facility] nRBC 0.0 0.0 - 0.2 /100 WBC 08/21/2024 8:44 AM EDT [facility] Blood Venipuncture / Unknown 08/21/2024 8:15 AM EDT 08/21/2024 8:22 AM EDT Micky Saxena MD LAB BLOOD ORDERABLES Final Result [facility]
[address] [place] [address], * ECG 12 Lead Rhythm Change (08/21/2024 [...] PM Referred By: Confirmed By: Jose Martin Loyns us Pascual Savage Jr., MD ECG ORDERABLES Final Res ult [facility] ECG * XR Chest 1 View (08/21/2024 [...] MD 08/21/2024 4:14 AM EDT Workstation ID: [id number] Narrative 08/21/2024 4:14 AM EDT XR CHEST [...] MD 08/21/2024 4:14 AM EDT Workstation ID: [id number] Pascual Savage Jr., MD IMG DIAGNOSTIC IMAGING OR DERABLES Final Result * (ABNORMAL) High Sensitivity Troponin T 1Hr (08/21/2024 12:08 AM EDT) HS Troponin T 134(HH) <22 ng/L 08/21/2024 1:29 AM EDT [facility] Troponin T Numeric Delta -21 ng/L 08/21/2024 1:29 AM EDT [facility] Troponin T % Delta -14 Abnormal if >/= 20% 08/21/2024 1:29 AM EDT [facility] Blood Venipuncture / Unknown 08/21/2024 12:08 AM EDT 08/21/2024 12:49 AM EDT Narrative [facility] - 08/21/2024 1:29 AM EDT [...] injury due to an underlying chronic condition. Pascual Savage Jr., MD LAB BLOOD ORDERABLES Dee l Result [facility]
[address] [place] [address], * XR Chest 1 View (08/20/2024 9:25 [...] MD 08/20/2024 9:38 PM EDT Workstation ID: [id number] Narrative 08/20/2024 9:38 PM EDT XR CHEST [...] MD 08/20/2024 9:38 PM EDT Workstation ID: [id number] Pascual Savage Jr., MD IMG DIAGNOSTIC IMAGING OR DERABLES Final Result * (ABNORMAL) High Sensitivity Troponin T (08/20/2024 8:55 PM EDT) HS Troponin T 155(HH) <22 ng/L 08/20/2024 11:07 PM EDT [facility] Blood Venipuncture / Unknown 08/20/2024 8:55 PM EDT 08/20/2024 9:56 PM EDT Narrative [facility] - 08/20/2024 11:07 PM EDT High [...] MD LAB BLOOD ORDERABLES Dee l Result [facility]
[address] [place] [address], [place] [phone] * (ABNORMAL) Protime-INR (08/20/2024 8:55 PM EDT) Pathologist [facility] Protime 16.0(H) 12.2 - 15.3 Seconds 08/20/2024 10:12 PM EDT [facility] INR 1.21(H) 0.89 - 1.12 08/20/2024 10:12 PM EDT [facility] Blood Venipuncture / Unknown 08/20/2024 8:55 PM EDT 08/20/2024 9:55 PM EDT us Pascual Savage Jr., MD LAB BLOOD ORDERABLES Dee l Result [facility]
[address] [place] [address], [place] [phone] * Magnesium (08/20/2024 8:55 PM EDT) Magnesium 1.8 1.6 - 2.4 mg/dL 08/20/2024 10:37 PM EDT [facility] Blood Venipuncture / Unknown 08/20/2024 8:55 PM EDT 08/20/2024 9:56 PM EDT Pascual Savage Jr., MD LAB BLOOD ORDERABLES Dee l Result [facility]
[address] [place] [address], * (ABNORMAL) Comprehensive Metabolic Panel (08/20/2024 8:55 PM EDT) Glucose 93 65 - 99 mg/dL 08/20/2024 10:37 PM EDT [facility] BUN 16.0 8.0 - 23.0 mg/dL 08/20/2024 10:37 PM EDT [facility] Creatinine 0.77 0.76 - 1.27 mg/dL 08/20/2024 10:37 PM EDT [facility] Sodium 133(L) 136 - 145 mmol/L 08/20/2024 10:37 PM EDT [facility] Potassium 4.2 3.5 - 5.2 mmol/L 08/20/2024 10:37 PM EDT [facility] Chloride 94(L) 98 - 107 mmol/L 08/20/2024 10:37 PM EDT [facility] CO2 27.0 22.0 - 29.0 mmol/L 08/20/2024 10:37 PM EDT [facility] Calcium 9.0 8.6 - 10.5 mg/dL 08/20/2024 10:37 PM EDT [facility] Total Protein 6.7 6.0 - 8.5 g/dL 08/20/2024 10:[facility] Albumin 3.9 3.5 - 5.2 g/dL 08/20/2024 10:37 PM [facility] ALT (SGPT) 18 1 - 41 U/L 08/20/2024 10:37 PM T [facility] AST (SGOT) 21 1 - 40 U/L 08/20/2024 10:37 PM [facility] Alkaline Phosphatase 73 39 - 117 U/L 08/20/2024 10:37 PM T [facility] Total Bilirubin 0.9 0.0 - 1.2 mg/dL 08/20/2024 10:37 PM [facility] Globulin 2.8 gm/dL 08/20/2024 10:37 PM [facility] Comment:Calculated Result A/G Ratio 1.4 g/dL 08/20/2024 10:37 PM [facility] BUN/Creatinine Ratio 20.8 7.0 - 25.0 08/20/2024 10:37 PM [facility] Anion Gap 12.0 5.0 - 15.0 mmol/L 08/20/2024 10:37 PM [facility] eGFR 100.0 >60.0 mL/min/1.7 3 08/20/2024 10:37 PM [facility] Blood Venipuncture / Unknown 08/20/2024 8:55 PM EDT 08/20/2024 9:56 PM EDT [facility] - 08/20/2024 10:37 PM EDT GFR [...] Savage Jr., MD LAB BLOOD ORDERABLES Dee katharina Result [facility]
[address] [place] [id number], * (ABNORMAL) CBC Auto Differential (08/20/2024 8:55 PM EDT) WBC 7.41 3.40 - 10.80 10*3/mm3 08/20/2024 10:03 PM EDT [facility] RBC 3.61(L) 4.14 - 5.80 10*6/mm3 08/20/2024 10:03 PM EDT [facility] Hemoglobin 12.9(L) 13.0 - 17.7 g/dL 08/20/2024 10:03 PM EDT [facility] Hematocrit 38.2 37.5 - 51.0 % 08/20/2024 10:03 PM EDT [facility] MCV 105.8(H) 79.0 - 97.0 fL 08/20/2024 10:03 PM EDT [facility] MCH 35.7(H) 26.6 - 33.0 pg 08/20/2024 10:03 PM EDT [facility] MCHC 33.8 31.5 - 35.7 g/dL 08/20/2024 10:03 PM EDT [facility] RDW 13.5 12.3 - 15.4 % 08/20/2024 10:03 PM EDT [facility] RDW-SD 52.8 37.0 - 54.0 fl 08/20/2024 10:03 PM EDT [facility] MPV 10.2 6.0 - 12.0 fL 08/20/2024 10:03 PM EDT [facility] Platelets 143 140 - 450 10*3/mm3 08/20/2024 10:03 PM EDT [facility] Neutrophil % 69.5 42.7 - 76.0 % 08/20/2024 10:[facility] Lymphocyte % 15.8(L) 19.6 - 45.3 % 08/20/2024 10:03 PM EDT [facility] Monocyte % 11.6 5.0 - 12.0 % 08/20/2024 10:03 PM EDT [facility] Eosinophil % 2.3 0.3 - 6.2 % 08/20/2024 10:03 PM EDT [facility] Basophil % 0.4 0.0 - 1.5 % 08/20/2024 10:03 PM EDT [facility] Immature Grans % 0.4 0.0 - 0.5 % 08/20/2024 10:03 PM EDT [facility] Neutrophils, Absolute 5.15 1.70 - 7.00 10*3/mm3 08/20/2024 10:03 PM EDT [facility] Lymphocytes, Absolute 1.17 0.70 - 3.10 10*3/mm3 08/20/2024 10:03 PM EDT [facility] Monocytes, Absolute 0.86 0.10 - 0.90 10*3/mm3 08/20/2024 10:03 PM EDT [facility] Eosinophils, Absolute 0.17 0.00 - 0.40 10*3/mm3 08/20/2024 10:03 PM EDT [facility] Basophils, Absolute 0.03 0.00 - 0.20 10*3/mm3 08/20/2024 10:03 PM [facility] Immature Grans, Absolute 0.03 0.00 - 0.05 10*3/mm3 08/20/2024 10:03 PM EDT [facility] nRBC 0.0 0.0 - 0.2 /100 WBC 08/20/2024 10:03 PM [facility] Blood Venipuncture / Unknown 08/20/2024 8:55 PM EDT 08/20/2024 9:55 PM EDT Pascual Savage Jr., MD LAB BLOOD ORDERABLES Dee l Result [facility]
[address] [place] [address], documented in this encounter Visit Diagnoses Diagnosis Pneumothorax- Primary Spontaneous tension pneumothorax Coronary artery disease involving [place] coronary artery of [place] heart without angina pectoris Spontaneous tension pneumothorax documented in this encounter Admitting Diagnoses Diagnosis [...] Given 08/21/2024 6:12 AM EDT 650 mg amiodarone (PACERONE) tablet 200 mg 200 [...] BPA Driven Protocol Open Order & [facility] Electrolyte Replacement Protocol Algorithm to View Details gabapentin (NEURONTIN) capsule 100 mg 100 mg, [...] = Pain Score of 7-10, CPOT 5-8 lidocaine (XYLOCAINE) 1 % injection As Needed, Starting on Thu08/22/24 at 0805 Given 08/22/2024 8:05 AM EDT 5 0 mL Magnesium Standard Dose Replacement - Follow Nurse / BPA Driven Protocol Open Order & [facility] Electrolyte Replacement Protocol Algorithm to View Details naloxone (NARCAN) injection 0.4 mg 0.4 mg, Intravenous, Every 5 Minutes PRN, Respiratory Depression, Starting on Thu08/20/24 at 2049, If respiratory rate is less [...] 4 Hours PRN, Moderate Pain, Starting on Thu08/22/24 at 1113, For 7 days, (ROMARIO) If given for pain, use the following pain scale: Mild Pain = Pain Score of 1-3, CPOT 1-2 Moderate Pain = Pain Score of 4-6, CPOT 3-4 Severe Pain = Pain Score of 7-10, CPOT 5-8 pantoprazole (PROTONIX) EC tablet 40 mg 40 mg, Oral, Every Stores Clerk, First dose on 08/21/24 at 1130, Swallow [...] senna-docusate is ineffective, Starting on 08/20/24 at 2050, [...] Given 08/23/2024 8:40 AM EDT 17 g Potassium Replacement - Follow Nurse / BPA [...] 2 tablet, Oral, Nightly, First dose on 08/22/24 at 2100 Given 08/24/2024 8:32 PM EDT [...] flush line with 40mL NS at 100mL/hr. documented in this encounter Active and Recently [...] Avoid grapefruit juice while taking this medication. 0834 (Given - Provider: Adela Dotson RN)2032 (Given - Provider: Arelis Ziegler RN) 0842 (Given - Provider: Adela Dotson RN) amiodarone (PACERONE) tablet 200 mg 200 mg, Oral, Every 24 Hours Scheduled, First dose (after last modification) on Thu08/26/24 at 0900, Avoid grapefruit juice while taking this medication. 0900 (Given - Provider: Velma Beckman, RN) aspirin chewable tablet 81 mg 81 mg, [...] 0842 (Given - Provider: Adela Dotson RN) 09 (Given - Provider: Velma Beckman, BRIDGER) atorvastatin [...] 0842 (Given - Provider: Adela Dotson RN) 09 (Given - Provider: Velma Beckman, BRIDGER) gabapentin (NEURONTIN) capsule 100 mg 100 mg, Oral, 3 Times Daily, First dose on Thu08/22/24 at 1200, (ROMARIO) 0834 (Given - Provider: Adela Dotson, BRIDGER)1630 (Given - Provider: Adela Dotson RN)2031 (Given - Provider: Arelis Ziegler RN) 0842 (Given - Provider: Adela Dotson RN)1703 (Not Given - Provider: Adela Dotson RN - Reason: Patient/family refused)1999 (Given - Provider: Arelis Ziegler RN) 09 (Not Given - Provider: Velma Beckman RN - Reason: Patient/family refused) pantoprazole (PROTONIX) EC tablet 40 mg 40 mg, Oral, Every Stores Clerk, First dose on Thu08/21/24 at 1130, Swallow whole; do not crush, split, or chew. 0535 (Given - Provider: Solange Wong RN) 0513 (Given - Provider: Arleis Ziegler, RN) 0507 (Given - Provider: Arelis Ziegler, RN) polyethylene glycol (MIRALAX) packet 17 g 17 g, Oral, Daily, First dose on Thu08/22/24 at 1200, Use 4-8 ounces of water, tea, or juice for each 17 gram dose. 0835 (Not Given - Provider: Adela Dotson RN - Reason: Patient/family refused) 0842 (Given - Provider: Adela Dotson RN) 09 (Not Given - Provider: Velma Beckman RN - Reason: Patient/family refused) potassium chloride (KLOR-CON [...] RN) 0842 (Given - Provider: Adela Dotson, BRIDGER)2001 (Given - Provider: Arelis Ziegler, BRIDGER) 09 (Given - Provider: Velma Beckman, BRIDGER) PRN [...] mg, Rectal, Daily PRN, Constipation, Starting on 08/22/24 at 1113, Give if no bowel movement in 24 hours Hold for diarrhea Calcium Replacement - Follow Nurse / BPA Driven Protocol Open Order [facility] Electrolyte Replacement Protocol Algorithm to [...] BPA Driven Protocol Open Order [facility] Electrolyte Replacement Protocol Algorithm to [...] 4 Hours PRN, Moderate Pain, Starting on Thu08/22/24 at 1113, For 7 days, (ROMARIO) If given for pain, use the following pain scale: Mild Pain = Pain Score of 1-3, CPOT 1-2 Moderate Pain = Pain Score of 4-6, CPOT 3-4 Severe Pain = Pain Score of 7-10, CPOT 5-8 Phosphorus Replacement - Follow Nurse / BPA Driven Protocol [facility] Electrolyte Replacement Protocol Algorithm to [...] 1113 documented in this encounter Care Teams Welding Machine Operator Resistance Relationship Specialty Start Date End Date Carey García APRN PCP - General Internal Medicine 10/28/22 documented as of this encounter
--- OUTSIDE RECORDS SUMMARY | 2024-08-22 07:26 | XMS_ITS | Encounter Summary ---
Author Organization [facility] Address [address] [place] [address] Care Team Providers Care Forge Tender Name Role Phone Carey García APRN Primary Care Provider [phone] Reason for Visit * Auth/Cert Specialty Diagnoses / Procedures Referred By Contac t Referred To Contact Diagnoses Chest Injury (PTX) Referral ID Status Reason Start Date Expiration Date Visits Re quested Visits Authorized [id number] 1 1 Encounter Details Date Type Department Care Team (Late st Contact Info) Description 08/22/2024 7:26 AM EDT Anesthesia Event [facility] OR [address] [place] [id number] Chad Tierney MD [address] [place] [id number] Anesthesia Record Procedure Summary Procedure Name Responsible Anesthesiologist Anesthesia Start Time Anesthesia Stop Time THORACOSCOPY VIDEO ASSISTED, LEFT BLEBECTOMY (Left: Chest) Chad Tierney MD 08/22/24 0726 08/22/24 0913 Events Date Time Event Comment 08/22/2024 0700 0713 AN Equip Check 0726 An Start The patient was reevaluated immediately before moderate or deep sedation use and before anesthesia induction. 0726 An Start Data 0731 An Induction 0734 An Intubation 0750 An Magnet Placed Magnet plac ed over defib/pacer 0753 An one lung vent 0841 An Two-Lung Vent 0904 An Extubation 0906 An Magnet Removed Magnet rem alejandro from defib/pacer 0907 an stop data 0913 Handoff to RN The following has been completed: 1. Identification of Patient, gonzales family member(s) or patient surrogate 2. Identification of the responsible Practitioner (primary service) 3. Discussion of the pertinent/attainable medical history 4. Discussion of the surgical/procedure course (procedure, reason for surgery, procedure performed) 5. Intraoperative anesthetic management and issue/concerns to include things such as airway, hemodynamics, narcotic, sedation level and paralytic management and intravenous fluids/blood products and urine output during the procedure 6. Expectations/Plans for the early post-procedure period to include things such as anticipated course (anticipatory guidance), complications, need for laboratory or ECG and medication administration 7. Opportunity for questions and acknowledgment of understanding of report from the receiving PACU/ICU team 0913 An Stop Meds Name Total lidocaine PF 1% 1 % 50 mg propofol 10 MG/ML 150 mg rocuronium 50 MG/5ML 70 mg dexAMETHasone 4 MG/ML 8 mg ondansetron 2 mg/mL 4 mg phenylephrine 1000 MCG/10ML 200 mcg lidocaine (LTA KIT) laryngotracheal solu tion 4% 1 each fentaNYL citrate (PF) 100 MCG/2ML 100 mc g Vancomycin HCl 1,250 mg in sodium chlori de 0.9 % 250 mL VTB 0 mg dexmedetomidine (PRECEDEX) 200 mcg/2 mL injection 16 mcg sugammadex (BRIDION) 500 mg/5 mL injecti on 200 mg lactated ringers infusion 400 mL * Agents Name O2 N2O Air Sevoflurane Inspired Sevoflurane * Blood No blood administrations on file. Lines, Drains, and Airways Type Details Placement Removal Wound 08/22/24; N; Left; u pper; abdomen; Surgical; Laparoscopic; LAP SITES X 2 08/22/24 0000 by Irene Mae RN Peripheral IV Placement Date: 07/25 10/17; Placement Time: 2229; Catheter Size: 20 G; Orientation: Anterior, Left, Proximal; Location: Forearm; Site Prep: Chlorhexidine; Inserted by: Emelia; Insertion Attempts: 2; Patient Tolerance: Tolerated poorly; Removal Date: 08/23/24; Removal Time: 1050 08/20/24 223 by Madison Arnold RN 08/23/24 1050 by Bennett Diaz III RNA Chest Tube Placement Date: 07/26 ; Inserted by: MD TESS; Tube Number: 1; Orientation: Left; Location: Pleural; Drainage System: Suction; Removal Date: 08/25/24; Removal Time: 1000 08/22/24 0000 by Irene Mae RN 08/25/24 1000 by Adela Dotson RN ETT Placement Date: 07/26 ; Placement Time: 733 (created via procedure documentation); Type: Left double lumen tube; Tube Size: 39 Fr; Blade Size: 3; Location: Oral; Removal Date: 08/22/24; Removal Time: 0908/22/24 0734 by Chad Tierney MD 08/22/24 0904 by Yina Rendon CRNA Urethral Catheter Placement Date: 07/26 ; Placement Time: 739; Inserted by: Amrita MAE RN; Type: Silicone, Temperature probe; Size: 16 Fr.; Balloon Size: 10 mL; Urine Returned: Yes; Removal Date: 08/23/24; Removal Time: 05; Removal Reason: Per protocol 08/22/24 0740 by Irene Mae RN 08/23/24 0526 by Solange Wong RN documented in this encounter Social History Tobacco Use Types Packs/Day Years Used Date Smoking Tobacco: Former Cigarettes 2013 Smokeless Tobacco: Current Chew Comments:1 CAN SKOAL EVERY 2 DAYS Alcohol [...] or training? Not on file Preferred Language Comoran 08/23/2024 Sex and Gender Information Value Date Recorded Sex Assigned at Not on file Legal Sex Male 12:12 PM EDT Gender Identity Not on file Sexual Orientation Not on file documented as of this encounter OR Notes * Anesthesia Postprocedure Evaluation - Yina Rendon CRNA - 08/22/2024 9:13 AM EDT Patient: Raffy Cheney Procedure Summary Date: 08/22/24 Room / Location: [facility] OR [address] [place] [address] OR Anesthesia Start: 725 Anesthesia Stop: 912 Procedures: THORACOSCOPY VIDEO ASSISTED, LEFT BLEBECTOMY (Left: Chest) BRONCHOSCOPY (Bronchus) Diagnosis: Spontaneous tension pneumothorax (Spontaneous tension pneumothorax [J93.0]) Surgeons: Gus Valerio MD Provider: Chad Tierney MD Anesthesia Type: general ASA Status: 3 Anesthesia Type: general Vitals Vitals Value Taken Time BP 101/52 08/22/24 09:13 Temp 97.2 ??F (36.2 ??C) 08/22/24 09:13 Pulse 89 08/22/24 09:13 Resp SpO2 94 % 08/22/24 09:13 Post Anesthesia Care and Evaluation Patient location during evaluation: PACU Patient participation: complete - patient participated Level of consciousness: awake Pain management: adequate Airway patency: patent Anesthetic complications: No anesthetic complications PONV Status: none Cardiovascular status: hemodynamically stable and acceptable Respiratory status: nonlabored ventilation, acceptable and nasal cannula Hydration status: acceptable * Anesthesia Procedure Notes - Yina Rendon CRNA - 08/22/2024 7:56 AM EDT Associated Order(s): Airway Airway Reason: elective Date/Time: 08/22/2024 7:34 AM Airway not difficult General Information and Staff Patient location during procedure: OR Anesthesiologist: Chad Tierney MD BARREL INSPECTOR TIGHT/CAA: Yina Rendon CRNA Indications and Patient Condition Indications for airway management: airway protection Preoxygenated: yes MILS not maintained throughout Mask difficulty assessment: 2 - vent by mask + OA or adjuvant +/- NMBA Final Airway Details Final airway type: endotracheal airway Successful airway: EBT - double lumen left Cuffed: yes Successful intubation technique: video laryngoscopy Adjuncts used in placement: intubating stylet Endotracheal tube insertion site: oral Blade: Jensen Blade size: 3 EBT DL size (fr): 39 Cormack-Lehane Classification: grade I - full view of glottis Placement verified by: bronchoscopy, capnometry and single lung ventilation Measured from: lips ETT/EBT to lips (cm): 29 Number of attempts at approach: 1 Assessment: lips, teeth, and gum same as pre-op and atraumatic intubation Additional Comments Negative epigastric sounds, Breath sound equal bilaterally with symmetric chest rise and fall BRANDI placement confirmed via bronchoscopy with Dr. Valerio * Anesthesia Preprocedure Evaluation - Chad Tierney MD - 08/22/2024 6:46 AM EDT Anesthesia Evaluation Patient summary reviewed and Nursing notes reviewed NPO Solid Status: > 8 hours NPO Liquid Status: > 2 hours Airway Mallampati: I TM distance: >3 FB Neck ROM: full No difficulty expected Dental Pulmonary breath sounds clear to auscultation Cardiovascular ECG reviewed Rhythm: regular Rate: normal (+) pacemaker ICD, hypertension, past LA >12 months, CAD, cardiac stents , CHF Systolic <55%,hyperlipidemia, carotid artery disease Neuro/Psych GI/Hepatic/Renal/Endo Musculoskeletal Abdominal 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 ?? The cardiac valves are anatomically and functionally normal. Pacer battery life 91% Anesthesia Plan ASA 3 general intravenous induction Anesthetic plan, risks, benefits, and alternatives have been provided, discussed and informed consent has been obtained with: patient. Plan discussed with BARREL INSPECTOR TIGHT. CODE STATUS: Code Status (Patient has no pulse and is not breathing): CPR (Attempt to Resuscitate) Medical Interventions (Patient has pulse or is breathing): Full Support documented in this encounter Plan of Treatment Upcoming Encounters Date Type Department Care Team (Late st Contact Info) Description 09/27/2024 11:30 AM EDT Office Visit [facility] CARDIOLOGY [address] [place] [address] Gris Iniguez, PAIRER ODDS [address] [place], [place] [id number] 10/04/2024 10:00 AM EDT Office Visit [facility] CARDIOTHORACIC SURGERY [address] [place] [address] Theodore Valdovinos, PAIRER ODDS [address] [facility] [address] [place] [address] Scheduled Procedures Name Priority Associated Diagnoses Date/Ti me CV CEREBRAL ANGIOGRAM IR Coronary artery disease involving eek coronary artery of eek heart without angina pectoris Bilateral carotid artery stenosis documented as of this encounter Procedures Procedure Name Priority Date/Time Associated Diagnosis Comments ANESTHESIA INTUBATION Routine 08/22/2024 7:56 AM EDT documented in this encounter Results * BH AN ETT AIRWAY (08/22/2024 7:56 AM EDT) Narrative Yina Rendon CRNA - 08/22/2024 7:56 AM EDT Yina Rendon CRNA 08/22/2024 8:07 AM Airway Reason: elective Date/Time: 08/22/2024 7:34 AM Airway not difficult General Information and Staff Patient location during procedure: OR Anesthesiologist: Chad Tierney MD BARREL INSPECTOR TIGHT/CAA: Yina Rendon CRNA Indications and Patient Condition Indications for airway management: airway protection Preoxygenated: yes MILS not maintained throughout Mask difficulty assessment: 2 - vent by mask + OA or adjuvant +/- NMBA Final Airway Details Final airway type: endotracheal airway Successful airway: EBT - double lumen left Cuffed: yes Successful intubation technique: video laryngoscopy Adjuncts used in placement: intubating stylet Endotracheal tube insertion site: oral Blade: Jensen Blade size: 3 EBT DL size (fr): 39 Cormack-Lehane Classification: grade I - full view of glottis Placement verified by: bronchoscopy, capnometry and single lung ventilation Measured from: lips ETT/EBT to lips (cm): 29 Number of attempts at approach: 1 Assessment: lips, teeth, and gum same as pre-op and atraumatic intubation Additional Comments Negative epigastric sounds, Breath sound equal bilaterally with symmetric chest rise and fall BRANDI placement confirmed via bronchoscopy with Dr. Valerio us Chad Tierney MD ANESTHESIA ORDERABLES Edited Result - Final documented in this encounter Visit Diagnoses Not on filedocumented in this encounter Administered Medications Inactive Administered Medications - up to 3 most recent administrations Medication Order MAR Action Action Date Dose Rate Site dexAMETHasone (DECADRON) injection Intravenous, As Needed, Starting on Thu08/22/24 at 0738 Given 08/22/2024 7:38 AM EDT 8 mg dexmedetomidine HCl (PRECEDEX) injection Intravenous, As Needed, Starting on Thu08/22/24 at 0852 Given 08/22/2024 8:58 AM EDT 8 mcg Given 08/22/2024 8:52 AM EDT 8 mcg fentaNYL citrate (PF) (SUBLIMAZE) injection Intravenous, As Needed, Starting on Thu08/22/24 at 0731 Given 08/22/2024 8:14 AM EDT 25 mcg Given 08/22/2024 8:08 AM EDT 25 mcg Given 08/22/2024 7:31 AM EDT 50 mcg lactated ringers infusion 9 mL/hr, Intravenous, Continuous, Starting on Thu08/23/24 at 0600, For 1 day, May switch to NS IV at KVO if renal / if indicated New Bag 08/22/2024 7:26 AM EDT lidocaine (LTA KIT) 4 % laryngotracheal solution Topical, As Needed, Starting on Thu08/22/24 at 0734 Given 08/22/2024 7:34 AM EDT 1 each lidocaine PF 1% (XYLOCAINE) injection Intravenous, As Needed, Starting on Thu08/22/24 at 0731 Given 08/22/2024 7:31 AM EDT 50 mg ondansetron (ZOFRAN) injection Intravenous, As Needed, Starting on Thu08/22/24 at 0835 Given 08/22/2024 8:35 AM EDT 4 mg phenylephrine (ALYSSA-SYNEPHRINE) 1000 MCG/10ML injection Intravenous, As Needed, Starting on Thu08/22/24 at 0739 Given 08/22/2024 7:39 AM EDT 200 mcg propofol (DIPRIVAN) injection Intravenous, As Needed, Starting on Thu08/22/24 at 0731 Given 08/22/2024 7:31 AM EDT 150 mg rocuronium (ZEMURON) injection Intravenous, As Needed, Starting on Thu08/22/24 at 0731 Given 08/22/2024 7:31 AM EDT 70 mg sugammadex (BRIDION) injection Intravenous, As Needed, Starting on Thu08/22/24 at 0900 Given 08/22/2024 9:00 AM EDT 200 mg documented in this encounter Care Teams Forge Tender Relationship Specialty Start Date End Date Carey García APRN PCP - General Internal Medicine 10/28/22 documented as of this encounter
--- NOTE | 2024-09-13 10:10 | XR_ITS ---
FINAL REPORT CLINICAL HISTORY: Left pneumothorax, COPD COMPARISON: 08/20/2024 FINDINGS: There has been interval removal of left-sided chest tube. Left pneumothorax has resolved. There is a vague opacity in the right lung which is new since prior, may reflect pneumonia. Left-sided pacer is identified. The mediastinum has a normal appearance. The cardiac silhouette is unremarkable. IMPRESSION: Resolution of left pneumothorax. New right lung opacity suspicious for pneumonia. Correlate with clinical presentation. Reviewed, Interpreted and Dictated by Albert Theodore MD Transcribed by Yue Naylor Authenticated and [facility]
--- OUTSIDE RECORDS SUMMARY | 2024-09-13 10:10 | XMS_ITS | Encounter Summary ---
Author Organization [facility] Address [address] [place] [address] Care Team Providers Care Crew Truck Driver Name Role Phone Carey García APRN Primary Care Provider Encounter Details Date Type Department Care Team (Late st Contact Info) Description 08/15/2024 Telephone [facility] CARDIOLOGY [address] [place] [address] Jose Luis Brown MD [address] [facility] [address] [place] [address] Social History Tobacco Use Types Packs/Day Years Used Date Smoking Tobacco: Former Cigarettes 2013 Smokeless Tobacco: Current Chew Comments:1 CAN SKOAL EVERY 2 DAYS Alcohol Use Standard Drinks/Week Comments Yes 0 (1 standard drink = 0.6 oz pur e alcohol) DRINKS BEER 5-6 EVERY 2 WEEKS AUDIT-C Answer Date Recorded Q1: How often do you have a drink containing alc ohol? 2-4 times a month 01/02/2023 Q2: How many drinks containi ng alcohol do you have on a typical day when you are drinking? 3 or 4 01/02/2023 Q3: How often do you have si x or more drinks on one occasion? Never 01/02/2023 Abuse Screen Answer Date Recorded Feels Unsafe at Home or Work/School no 01/02/2023 Feels Threatened by Someone no 12/24 Does Anyone Try to Keep You From Having Contact with Others or Doing Things Outside Your Home? no 01/02/2023 Physical Signs of Abuse Present no 01/02/2023 Housing Stability Answer Date Recorded Current Living Arrangements home 12/24 Potentially Unsafe Housing Conditions Not on alexander e 01/02/2023 Disabilities Answer Date Recorded Difficulty Concentrating, Remembering or Making Decisions no 01/02/2023 Difficulty Managing Errands Independently no 01/02/2023 Sex and Gender Information Value Date Recorded Sex Assigned at Not on file Legal Sex Male 12:12 PM EDT Gender Identity Not on file Sexual Orientation Not on file documented as of this encounter Miscellaneous Notes * Telephone Encounter - Danni Walker RN - 08/16/2024 3:55 PM EDT Spoke with , she advises patient is currently admitted at [facility] with a collapsed lung. She will call office back when finds out about discharge. * Telephone Encounter - Maria D Da Silva MA - 08/15/2024 6:14 PM EDT Images from the original note were not included. Please see below episode. Patient went into AF with a RVR in the VT and VF zones. 41J Shock to As/Vs @ 130 bpm. Episode was 43 seconds in duration. * Telephone Encounter - Maria D Da Silva MA - 08/15/2024 5:53 PM EDT I called and spoke with patient about HF transmission received from 1:22pm today. Patient denies HFsymptoms, please see MURJ report. Patient states he was outside today and went into [facility] to cool off. He states when he was checking out he was shocked by his ICD. Patient states he did not pass out and felt the shock. He did not seek medical attention. I have asked the patient to send a manual download as we have not receivedthe episode as this transmission was prior to event. Patient and agree. We will add the episode to this telephone note once we receive. I instructed patient to go to nearest ER if he is shock again. He agrees and verbalized understanding. documented in this encounter Plan of Treatment Upcoming Encounters Date Type Department Care Team (Late st Contact Info) Description 09/27/2024 11:30 AM EDT Office Visit [facility] C[facility]IOLOG[facility] [address] [place] [address] Gris Iniguez APRN [address] [facility] [address] [place] [address] 10/04/2024 10:00 AM EDT Office Visit [facility] C[facility] SURGERY [address] [facility] [address] [place] [address] Theodore Valdovinos, MASSIMO [address] [facility] [address] [place], [place] [phone] Scheduled Procedures Name Priority Associated Diagnoses Date/Ti me CV CEREBRAL ANGIOGRAM IR Coronary artery disease involving creek coronary artery of creek heart without angina pectoris Bilateral carotid artery stenosis documented as of this encounter Visit Diagnoses Not on filedocumented in this encounter Care Teams Crew Truck Driver Relationship Specialty Start Date End Date Carey García APRN PCP - General Internal Medicine 10/28/22 documented as of this encounter
--- OUTSIDE RECORDS SUMMARY | 2024-09-13 10:10 | XMS_ITS | Encounter Summary ---
Author Organization [facility] Address [address] [place] [address] Care Team Providers Care Coil Connector Name Role Phone Carey García APRN Primary Care Provider [phone] Reason for Visit * Reason Comments Med Refill Encounter Details Date Type Department Care Team (Late Contact Info) Description 11/01/2020 Refill [facility]IOLOG[facility] [address] [facility] [address] [place] [phone] Jose Luis Brown MD [address] [facility] [address] [place] [address] Med Refill Social History Tobacco Use Types Packs/Day Years Used Date Smoking Tobacco: Former Cigarettes 2013 Smokeless Tobacco: Current Chew Comments:1 CAN SKOAL EVERY 2 DAYS Alcohol Use Standard Drinks/Week Comments Yes 0 (1 standard drink = 0.6 oz pur e alcohol) DRINKS BEER 5-6 EVERY 2 WEEKS AUDIT-C Answer Date Recorded Q1: How often do you have a drink containing alcohol? 4 or more times a week 03/15/2020 Q2: How many drinks containi ng alcohol do you have on a typical day when you are drinking? 3 or 4 Frequency of Binge Drinking Not on file 02/24 Sex and Gender Information Value Date Recorded Sex Assigned at Not on file Legal Sex Male 12:12 PM EDT Gender Identity Not on file Sexual Orientation Not on file documented as of this encounter Plan of Treatment Upcoming Encounters Date Type Department Care Team (Late Contact Info) Description 09/27/2024 11:30 AM EDT Office Visit [facility]IOLOG[facility] [address] [place] [address] Gris Iniguez APRN [address] [facility] [address] [place] [address] 10/04/2024 10:00 AM EDT Office Visit [facility] [address] [facility] [address] [place] [phone] Theodore Valdovinos APRN [address] [place] [address] Scheduled Procedures Name Priority Associated Diagnoses Date/Ti me CV CEREBRAL ANGIOGRAM IR Coronary artery disease involving [place] coronary artery of [place] heart without angina pectoris Bilateral carotid artery stenosis documented as of this encounter Visit Diagnoses Not on filedocumented in this encounter Care Teams Coil Connector Relationship Specialty Start Date End Date Carey García APRN PCP - General Internal Medicine 10/28/22 documented as of this encounter
--- OUTSIDE RECORDS SUMMARY | 2024-09-13 10:11 | XMS_ITS | Encounter Summary ---
Author Organization [facility] Address [address] [place] [address] Care Team Providers Care Regional Sales Executive Name Role Phone Carey García APRN Primary Care Provider [phone] Encounter Details Date Type Department Care Team (Latest Contact Info) Description 08/21/2024 Travel Social History Tobacco Use Types Packs/Day Years [...] Answer Date Recorded Current Living Arrangements home 07/25 Potentially Unsafe Housing Conditions Not on alexander e 08/20/2024 Disabilities Answer Date Recorded Difficulty Concentrating, Remembering or Making Decisions no 08/21/2024 Difficulty Managing Errands Independently no 08/21/2024 Sex and Gender Information Value Date Recorded Sex Assigned at Not on file Legal Sex Male 12:12 PM EDT Gender Identity Not on file Sexual Orientation Not on file documented as of this encounter Plan of Treatment Upcoming Encounters Date Type Department Care Team (Late st Contact Info) Description 09/27/2024 11:30 AM EDT Office Visit [facility] CARDIOLOGY [address] [place] [address] Gris Iniguez, PRODUCER ARBORIST MANAGER [address] [facility] [address] [place], [place] [phone] 10/04/2024 10:00 AM EDT Office Visit [facility] CARDI[facility]IC SURGERY [address] [facility] [address] [place] [address] Theodore Valdovinos, PRODUCER ARBORIST MANAGER [address] [facility] [address] [place], [place] [phone] Scheduled Procedures Name Priority Associated Diagnoses Date/Ti me CV CEREBRAL ANGIOGRAM IR Coronary artery disease involving [place] coronary artery of [place] heart without angina pectoris Bilateral carotid artery stenosis documented as of this encounter Visit Diagnoses Not on filedocumented in this encounter Care Teams Regional Sales Executive Relationship Specialty Start Date End Date Carey García APRN PCP - General Internal Medicine 10/28/22 documented as of this encounter
--- OUTSIDE RECORDS SUMMARY | 2024-09-13 10:11 | XMS_ITS | Encounter Summary ---
Author Organization [facility] Address [address] [place] [address] Care Team Providers Care Railroad Wheels And Axle Inspector Name Role Phone Carey García APRN Primary Care Provider Encounter Details Date Type Department Care Team (Late st Contact Info) Description 08/29/2024 Readmission Management [facility] [address] [place] [id number] Sonia Fernández, RN Social History Tobacco Use Types Packs/Day Years Used Date Smoking Tobacco: Former Cigarettes 2 - 2013 Smokeless Tobacco: Current Chew Comments:1 CAN [...] or training? Not on file Preferred Language Citizen Of [place] 08/23/2024 Sex and Gender Information Value Date Recorded Sex Assigned at Not on file Legal Sex Male 12:12 PM EDT Gender Identity Not on file Sexual Orientation Not on file documented as of this encounter Miscellaneous Notes * Outreach Note - Sonia Fernández RN - 08/29/2024 9:09 AM EDT Prep Survey Flowsheet Row Responses [facility] patient discharged from? [place] Is LACE score < 7 ? No Eligibility Readm Mgmt Discharge diagnosis Pneumothorax- THORACOSCOPY VIDEO ASSISTED, LEFT BLEBECTOMY Does the patient have one of the following disease processes/diagnoses(primary or secondary)? Cardiothoracic surgery Is there a DME ordered? Yes What DME was ordered? 02 Prep survey completed? Yes Sonia Kim - Registered Nurse documented in this encounter Plan of Treatment Upcoming Encounters Date Type Department Care Team (Late st Contact Info) Description 09/27/2024 11:30 AM EDT Office Visit [facility] [address] [place] [address] Gris Iniguez APRN [address] [facility] [address] [place] [address] 10/04/2024 10:00 AM EDT Office Visit [facility] [address] [place] [address] Theodore Valdovinos APRN [address] [place], [place] [id number] Scheduled Procedures Name Priority Associated Diagnoses Date/Ti me CV CEREBRAL ANGIOGRAM IR Coronary artery disease involving [place] coronary artery of [place] heart without angina pectoris Bilateral carotid artery stenosis documented as of this encounter Visit Diagnoses Not on filedocumented in this encounter Care Teams Railroad Wheels And Axle Inspector Relationship Specialty Start Date End Date Carey García APRN PCP - General Internal Medicine 10/28/22 documented as of this encounter
--- OUTSIDE RECORDS SUMMARY | 2024-09-13 10:11 | XMS_ITS | Encounter Summary ---
Author Organization [facility] Address [address] [place] [address] Care Team Providers Care Crime Prevention Worker Name Role Phone Carey García APRN Primary Care Provider [phone] Encounter Details Date Type Department Care Team (Late st Contact Info) Description 09/07/2024 Readmission Management [facility] [address] [place] [phone] Mita Walden, BRIDGER Social History Tobacco Use Types Packs/Day Years [...] or training? Not on file Preferred Language Thai 08/23/2024 Sex and Gender Information Value Date Recorded Sex Assigned at Not on file Legal Sex Male 12:12 PM EDT Gender Identity Not on file Sexual Orientation Not on file documented as of this encounter Miscellaneous Notes * Outreach Note - Mita Walden RN - 09/07/2024 11:[address] Surgery Week 1 Survey Flowsheet Row Responses [facility] patient discharged from? [place] Does the patient have one of the following disease processes/diagnoses(primary or secondary)? Cardiothoracic surgery Week 1 attempt successful? Yes Call start time 1150 Call end time 1151 Discharge diagnosis Pneumothorax- THORACOSCOPY VIDEO ASSISTED, LEFT BLEBECTOMY Meds reviewed with patient/caregiver? Yes Is the patient having any side effects they believe may be caused by any medication additions or changes? No Does the patient have all medications related to this admission filled (includes all antibiotics, pain medications, cardiac medications, etc.) Yes Is the patient taking all medications as directed (includes completed medication regime)? Yes Does the patient have a primary care provider? Yes Does the patient have an appointment scheduled with their C/T surgeon? Yes Has the patient kept scheduled appointments due by today? N/A Has home health visited the patient within 72 hours of discharge? N/A Psychosocial issues? No What is the patient's perception of their health status since discharge? Improving Is the patient/caregiver able to teach back signs and symptoms of incisional infection? Increased redness, swelling or pain at the incisonal site, Increased drainage or bleeding, Incisional warmth, Pus or odor from incision, Fever Is the patient/caregiver able to teach back steps to recovery at home? Set small, achievable goals for return to baseline health, Rest and rebuild strength, gradually increase activity, Eat a well-balance diet Week 1 call completed? Yes Wrap up additional comments Pt doing well and has f/u appt scheduled. Call end time 1151 Mita S - Registered Nurse documented in this encounter Plan of Treatment Upcoming Encounters Date Type Department Care Team (Late st Contact Info) Description 09/27/2024 11:30 AM EDT Office Visit [facility] [address] [place] [address] Gris Iniguez APRN [address] [facility] [address] [place] [address] 10/04/2024 10:00 AM EDT Office Visit [facility] [address] [facility] [address] [place] [address] Theodore Valdovinos APRN [address] [facility] [address] [place] [address] Scheduled Procedures Name Priority Associated Diagnoses Date/Ti me CV CEREBRAL ANGIOGRAM IR Coronary artery disease involving [place] coronary artery of [place] heart without angina pectoris Bilateral carotid artery stenosis documented as of this encounter Visit Diagnoses Not on filedocumented in this encounter Care Teams Crime Prevention Worker Relationship Specialty Start Date End Date Carey García APRN PCP - General Internal Medicine 10/28/22 documented as of this encounter
--- OUTSIDE RECORDS SUMMARY | 2024-09-13 10:11 | XMS_ITS | Clinical Summary ---
Author Organization [facility] Address [address] [place] [address] Care Team Providers Care Dramatic Critic Name Role Phone Carey García APRN Primary Care Provider [phone] Allergies Active Allergy Reactions Criticality Noted Date Comments Influenza Vaccines Other (See Comments) High 021 STATES BECOMES VERY ILL AFTER RECEIVING VACCINE; STATES WAS TOLD TO NEVER TAKE FLU VACCINE EVER AGAIN Cephalexin Hives 09/26/2019 Spironolactone Other (See Comments) 09/26/2019 Gynecomastia Medications aspirin 81 MG EC tablet Take 1 tablet by mouth Every Night. Active atorvastatin (LIPITOR) 80 MG tablet TAKE ONE TABLET BY MOUTH ONCE A DAY 30 tablet 5 09/06/19 23 Active bisoprolol (ZEBeta) 5 MG tabletIndication s:Ischemic cardiomyopathy,C hronic systolic congestive heart failure TAKE 1/2 TABLET BY MOUTH ONCE A DAY 45 tablet 3 11/13/19 23 Active Fluticasone-Umec lidin-Vilant (Trelegy Ellipta) 100-62.5-25 MCG/ACT inhaler Inhale 1 puff Daily. Active ferrous sulfate 325 (65 FE) MG tablet Take 1 tablet by mouth Daily With Breakfast. Active fexofenadine (CLAUDIO) 180 MG tablet Take 1 tablet by mouth Daily. Active albuterol sulfate HFA 108 (90 Base) MCG/ACT inhaler Inhale 2 puffs Every 4 (Four) Hours As Needed for Wheezing. Active loperamide (IMODIUM) 2 MG capsule TAKE 1 CAPSULE BY MOUTH EVERY 4 HOURS NEEDED FOR LOOSE STOOL. DO NOT EXCEED EIGHT MG IN 24 HOURS 08/17/19 25 Active furosemide (LASIX) 40 MG tablet Take 0.5 tablets by mouth Daily As Needed (edema). 08/26/19 25 Active amiodarone (PACERONE) 200 MG tablet Take 1 tablet by mouth Daily. 30 tablet 6 08/27/19 25 Active gabapentin (NEURONTIN) 100 MG capsuleIndicatio ns:Spontaneous tension pneumothorax Take 1 capsule by mouth Every Night. 30 capsule 08/27/19 25 Active pantoprazole (PROTONIX) 40 MG EC tablet Take 1 tablet by mouth Every Morning. 30 tablet 08/28/19 25 Active polyethylene glycol (MIRALAX) 17 g packet Take 17 g by mouth Daily. 30 packet 08/28/19 25 Active sacubitril-valsa rtan (ENTRESTO) 24-26 MG tablet Take 1 tablet by mouth 2 (Two) Times a Day. 60 tablet 5 10/07/19 23 025 Discontinued(St op Taking at Discharge) rivaroxaban (XARELTO) 2.5 MG tablet Take 1 tablet by mouth 2 (Two) Times a Day. 180 tablet 4 01/03/20 23 025 Discontinued(*T herapy completed) furosemide (LASIX) 40 MG tablet Take 1 tablet by mouth Daily. 30 tablet 5 02/12/20 23 025 Discontinued doxycycline (VIBRAMYCIN) 100 MG capsule Take 1 capsule by mouth Every 12 (Twelve) Hours. 08/17/19 25 025 Discontinued(St op Taking at Discharge) oxyCODONE (ROXICODONE) 5 MG immediate release tabletIndication s:Spontaneous tension pneumothorax Take 1 tablet by mouth Every 4 (Four) Hours As Needed for Moderate Pain for up to 3 days. 12 tablet 08/27/19 25 025 Active Problems Problem Noted Date Diagnosed Date Pneumothorax 08/20/2024 Claudication 12/17/2022 Abnormal ankle brachial index (LIAN) 12/17/2022 Intermittent claudication of both lower extremities due to atherosclerosis 12/17/2022 Bilateral carotid artery stenosis 03/08/2020 Overview (03/08/2020): Added automatically from request for surgery [id number] Coronary artery disease invo lving qagan tayagungin coronary artery of qagan tayagungin heart without angina pectoris 11/23/2019 Ischemic cardiomyopathy 11/23/2019 Essential hypertension 11/23/2019 Pure hypercholesterolemia 11/23/2019 Encounters Date Type Department Care Team Description 09/07/2024 Readmission Management [facility] NURSE CALL CENTER [address] [place] [address] Mita Walden RN 08/29/2024 Readmission Management [facility] NURSE CALL [facility] [address] [place] [address] Sonia Fernández RN 08/22/2024 7:26 AM EDT Anesthesia Event [facility] OR [address] [place] [address] Chad Tierney MD 08/22/2024 7:00 AM EDT - 08/22/2024 10:53 AM EDT Surgery [facility] OR [address] [place] [address] Gus Valerio MD THORACOSCOPY VIDEO ASSISTED, LEFT BLEBECTOMY 08/21/2024 Travel 08/20/2024 8:33 PM EDT - 08/26/2024 11:35 AM EDT Hospital Encounter [facility] 4H [address] [place] [address] Chelita Rain MD Yates, Joseph R Jr., MD West, Christopher R, MD Burgess, Eva, MD Woody, Cyndi Casas MD Spontaneous tension pneumothorax (Primary Dx); Coronary artery disease involving qagan tayagungin coronary artery of qagan tayagungin heart without angina pectoris Discharge Disposition: Home or Self Care 08/15/2024 Telephone [facility] [address] [facility] [address] [place] [address] Jose Luis Brown MD from Last 3 Months Family History Medical History Relation Name Comments Cancer Father Heart attack Mother No Known Problems Sister 1 No Known Problems Sister 2 Relation Name Status Comments Father Mother Sister 1 Alive Sister 2 Alive Social History Tobacco Use Types Packs/Day Years Used Date Smoking Tobacco: Former Cigarettes 2 - 2013 Smokeless Tobacco: Current Chew Tobacco Cessation:Ready [...] or training? Not on file Preferred Language Occitan 08/23/2024 Sex and Gender Information Value Date Recorded Sex Assigned at Not on file Legal Sex Male 12:12 PM EDT Gender Identity Not on file Sexual Orientation Not on file Last Filed Vital Signs Vital Sign Reading [...] Mass Index 24.29 08/21/2024 8:00 AM EDT Plan of Treatment Upcoming Encounters Date Type Department Care Team (Late st Contact Info) Description 09/27/2024 11:30 AM EDT Office Visit [facility] [address] [place] [address] Gris Iniguez, MASSIMO [address] [place] [address] 10/04/2024 10:00 AM EDT Office Visit [facility] [address] [place] [address] Theodore Valdovinos, KNITTING MACHINE OPERATOR AUTOMATIC [address] [place] [address] Scheduled Procedures Name Priority Associated Diagnoses Date/Ti me CV CEREBRAL ANGIOGRAM IR Coronary artery disease involving qagan tayagungin coronary artery of qagan tayagungin heart without angina pectoris Bilateral carotid artery stenosis Health Maintenance Due Date Last Done Comments Pneumococcal Vaccine 50+ (1 of 2 - PCV) 06/23/1979 COLOGUARD 2005 COLON CANCER SCREENING 5 YEA R SIGMOIDOSCOPY 2005 COLONOSCOPY [address]ER SCREENING [address] COLONOGRAPHY 2005 FECAL OCCULT BLOOD TEST 2005 FIT Testing (1 year) 2005 TDAP/TD VACCINES (2 - Tdap) 04/30/2006 04/30/1996 ZOSTER VACCINE (1 of 2) 2010 ANNUAL WELLNESS VISIT 09/26/2019 COVID-19 Vaccine ( season) 2023 LIPID PANEL 08/23/2025 08/23/2024, 12/24, 12/29/2019 HEPATITIS C SCREENING Completed 04/16/2024 Medical Devices Implanted Type Area Jetting Machine Operator Device Identifier Shelf Expiration Date Model / Serial / Lot Reload Stplr Endo No Tristaple 45 Art Thk - [id number] Implanted:Qty : 1 on 08/22/2024 by Gus Valerio MD at [facility] Implant Left: Lung COVIDIEN [id number] 10/23/2026 [id number] / / [id number] Pacemaker- Implanted: by Gregory Najera MD (Quantity not on file) Pacemaker [employer] Description:LEFT CHEST IMPLA NT Stnt Wall Carotid Mr 5.9f 91d06es 135cm - [id number] Implanted:Qty : 1 on 03/15/2020 by Edi Nolan MD at [facility] Stent [employer] [id number] / / Stnt Xience Crissy Everolimus Merrill 3.5x18mm - [id number] Implanted:Qty : 1 on 12/29/2019 by Jose Luis Brown MD at [facility] [employer] [id number] / / Stnt Xience Crissy Everolimus Merrill 3x12mm - [id number] Implanted:Qty : 1 on 12/29/2019 by Jose Luis Brown MD at [facility] [employer] [id number] / / Stnt Xience Crissy Everolimus Merrill 2.5x8mm - [id number] Implanted:Qty : 1 on 12/29/2019 by Jose Luis Brown MD at [facility] [employer] [id number] / / Stnt Xience Crissy Everolimus Merrill 3x12mm - [id number] Implanted:Qty : 1 on 12/29/2019 by Jose Luis Brown MD at [facility] [employer] [id number] / / Procedures Procedure Name Priority Date/Time Associated Diagnosis Comments HEART FAILURE MONITOR DEVICE CHECK 09/06/2024 1:22 AM EDT XR CHEST 1 VW Routine 08/26/2024 6:57 AM EDT XR CHEST 1 VW STAT 08/25/2024 1:46 PM EDT XR CHEST 1 VW Routine 08/25/2024 5:50 AM EDT POTASSIUM Timed 08/24/2024 4:34 PM EDT XR CHEST 1 VW STAT 08/24/2024 9:50 AM EDT BASIC METABOLIC PANEL Routine 08/24/2024 5:59 AM EDT CBC AND DIFFERENTIAL Routine 08/23/2024 6:54 AM EDT TSH RFX ON ABNORMAL TO FREE T4 Add-On 08/23/2024 6:54 AM EDT LIPID PANEL Add-On 08/23/2024 6:54 AM EDT CBC WITH AUTO DIFFERENTIAL Routine 08/23/2024 6:54 AM EDT MAGNESIUM Routine 08/23/2024 6:54 AM EDT BASIC METABOLIC PANEL Routine 08/23/2024 6:54 AM EDT XR CHEST 1 VW Routine 08/23/2024 5:48 AM EDT XR CHEST 1 VW STAT 08/22/2024 9:36 AM EDT TISSUE PATHOLOGY EXAM Routine 08/22/2024 8:30 AM EDT Spontaneous tension pneumothorax ANESTHESIA INTUBATION Routine 08/22/2024 7:56 AM EDT BRONCHOSCOPY 08/22/2024 6:54 AM EDT Spontaneous tension pneumothorax THORACOSCOPY VIDEO ASSISTED 08/22/2024 6:54 AM EDT Spontaneous tension pneumothorax ABORH 2ND SPECIMEN VERIFICATION STAT 08/22/2024 6:54 AM EDT ECG 12-LEAD Routine 08/22/2024 5:14 AM EDT TYPE AND SCREEN Routine 08/22/2024 5:12 AM EDT PROBNP Routine 08/22/2024 5:12 AM EDT PROTIME-INR Routine 08/22/2024 5:12 AM EDT MAGNESIUM Routine 08/22/2024 5:12 AM EDT BASIC METABOLIC PANEL Routine 08/22/2024 5:12 AM EDT CBC (NO DIFF) Routine 08/22/2024 5:12 AM EDT XR CHEST 1 VW Routine 08/22/2024 4:32 AM EDT MAGNESIUM STAT 08/21/2024 8:15 AM EDT TROPONIN STAT 08/21/2024 8:15 AM EDT COMPREHENSIVE METABOLIC PANEL STAT 08/21/2024 8:15 AM EDT CBC WITH AUTO DIFFERENTIAL STAT 08/21/2024 8:15 AM EDT ECG 12-LEAD STAT 08/21/2024 3:58 AM EDT XR CHEST 1 VW STAT 08/21/2024 3:50 AM EDT HIGH SENSITIVITIY TROPONIN T 1HR Timed 08/21/2024 12:08 AM EDT XR CHEST 1 VW STAT 08/20/2024 9:25 PM EDT TROPONIN STAT 08/20/2024 8:55 PM EDT PROTIME-INR STAT 08/20/2024 8:55 PM EDT MAGNESIUM STAT 08/20/2024 8:55 PM EDT COMPREHENSIVE METABOLIC PANEL STAT 08/20/2024 8:55 PM EDT CBC WITH AUTO DIFFERENTIAL STAT 08/20/2024 8:55 PM EDT HEART FAILURE MONITOR DEVICE CHECK 08/17/2024 9:39 AM EDT REMOTE DEVICE CHECK 08/15/2024 3 :21 PM EDT HEART FAILURE MONITOR DEVICE CHECK 08/15/2024 1:22 AM EDT from Last 3 Months Results * Heart Failure Monior Device Check (09/06/2024 1:22 AM EDT) Only the most recent of3 resultswithin the time period is included. Date Time Interrogation Session [id number] [facility] Type Interrogation Session Remote Device Initiated [facility] Implantable Pulse Generator Jetting Machine Operator [employer] Tees [facility] Implantable Pulse Generator Type ICD [facility] Implantable Pulse Generator Model D233 [facility] Implantable Pulse Generator Serial Number [id number] [facility] Implantable Pulse Generator Implant Date [id number] [facility] Battery Remaining Percentage 86.00 % [facility] Battery Remaining Longevity 96.0 mo [facility] Battery Status Beginning of Service [facility] Capacitor Charge Time 9.800 [facility] Ilia Statistic RA Percent Paced 1.00 [facility] Ilia Statistic RV Percent Paced 0.00 [facility] Atrial Tachy Statistic AT/AF [place] Percent 1.00 [facility] Lead Channel RA Sensing Intrinsic Amplitude 4.000 [facility] Lead Channel Setting RA Sensing Sensitivity 0.25 [facility] Lead Channel RA Impedance Value 647 [facility] Lead Channel RA Measurements Date and Time [id number] [facility] Lead Channel Setting RA Pacing Amplitude 2.000 [facility] [employer] RADIOLOGY Lead Channel Setting RA Pacing Pulse Width 0.5 [facility] Lead Channel RV Sensing Intrinsic Amplitude 6.100 [facility] Lead Channel Setting RV Sensing Sensitivity 0.60 [facility] Lead Channel RV Impedance Value 405 [facility] Lead Channel RV Measurements Date and Time [id number] [facility] Lead Channel Setting RV Pacing Amplitude 2.000 [facility] Lead Channel Setting RV Pacing Pulse Width 0.5 [facility] Ilia Setting Mode (NBG Code) DDDR [facility] Ilia Setting Lower Rate Limit 60 [facility] Ilia Setting AT Mode Switch Rate 170 [facility] Ilia Setting Maximum Tracking Rate 130 [facility] Ilia Setting Maximum Sensor Rate 130 [facility] Ilia Setting PAV Delay 220 [facility] Ilia Setting EUGENIE Delay 195 [facility] Therapy Statistic Recent Shocks Delivered 1 [facility] Therapy Statistic Recent Shocks Aborted 0 [facility] Therapy Statistic Recent ATP Delivered 1 [facility] SHOCK MEASURED IMPEDANCE 47 [facility] Lead Channel Setting RA Sensing Polarity Bipolar [facility] Lead Channel Setting RV Sensing Polarity Bipolar [facility] Lead Channel Setting RA Pacing Polarity Bipolar [facility] Lead Channel Setting RV Pacing Polarity Bipolar [facility] Lead Channel RA Pacing Threshold Polarity Bipolar [facility] Lead Channel RV Pacing Threshold Polarity Bipolar [facility] Zone Setting Type Category VF [facility] IDC RATE 1 220 [facility] THERAPIES Burst,41J,41J,41J x 6 [facility] Zone Setting Status On [facility] Zone ID 1 [facility] Zone Setting Type Category VT [facility] IDC RATE 1 200 [facility] THERAPIES 3 x Burst,Ramp,41J,41J ,41J x 4 [facility] Zone Setting Status On [facility] Zone ID 2 [facility] 09/06/2024 1:22 AM EDT Jose Luis Brown MD CV IMPLANTABLE CARDIAC DEVICE Final Result [facility] * XR Chest 1 View (08/26/2024 6:57 AM EDT) Only the most recent of9 resultswithin the time period is included. Anatomical Region Laterality Modality Body N/A Radiographic Talia ging 08/26/2024 10:1 3 AM EDT Impressions 08/26/2024 10:15 AM EDT Impression: Mild diffuse interstitial prominence and suspected left basilar atelectasis. No definite residual pneumothorax. Electronically Signed: Claudia Whyte MD 08/26/2024 10:15 AM EDT Workstation ID: [id number] Narrative 08/26/2024 10:15 AM EDT XR CHEST [...] MD 08/26/2024 10:15 AM EDT Workstation ID: [id number] Therese Hanna APRN IMG DIAGNOSTIC IMAGING ORDER DANIA Final Result * Potassium (08/24/2024 4:34 PM EDT) Potassium 4.2 3.5 - 5.2 mmol/L 08/24/2024 5:47 PM EDT [facility] Blood Venipuncture / Unknown 08/24/2024 4:34 PM EDT 08/24/2024 5:30 PM EDT Gus Valerio MD LAB BLOOD ORDERABLES Final Re sult [facility]
[address] [place] [address], * (ABNORMAL) Basic Metabolic Panel (08/24/2024 5:59 AM EDT) Only the most recent of3 resultswithin the time period is included. Glucose 94 65 - 99 mg/dL 08/24/2024 6:49 AM [facility] BUN 15.8 8.0 - 23.0 mg/dL 08/24/2024 6:49 AM [facility] Creatinine 0.79 0.76 - 1.27 mg/dL 08/24/2024 6:49 AM T [facility] Sodium 136 136 - 145 mmol/L 08/24/2024 6:49 AM [facility] Potassium 3.4(L) 3.5 - 5.2 mmol/L 08/24/2024 6:49 AM T [facility] Chloride 103 98 - 107 mmol/L 08/24/2024 6:49 AM [facility] CO2 21.3(L) 22.0 - 29.0 mmol/L 08/24/2024 6:49 AM [facility] Calcium 8.4(L) 8.6 - 10.5 mg/dL 08/24/2024 6:49 AM [facility] BUN/Creatinine Ratio 20.0 7.0 - 25.0 08/24/2024 6:49 AM [facility] Anion Gap 11.7 5.0 - 15.0 mmol/L 08/24/2024 6:49 AM [facility] eGFR 99.2 >60.0 mL/min/1.7 3 08/24/2024 6:49 AM [facility] Blood Venipuncture / Unknown 08/24/2024 5:59 AM EDT 08/24/2024 6:09 AM EDT [facility] - 08/24/2024 6:49 AM EDT GFR [...] does not include race as a factor Candelaria Vega MD LAB BLOOD ORDERABLES Final Resul t [facility]
[address] [place] [address], * TSH Rfx On Abnormal To Free T4 (08/23/2024 6:54 AM EDT) Pathologist [facility] TSH 2.590 0.270 - 4.200 uIU/mL 08/23/2024 1:01 PM EDT [facility] Blood Venipuncture / Unknown 08/23/2024 6:54 AM EDT 08/23/2024 7:04 AM EDT Cyndi Clements APRN LAB BLOOD ORDERABLES Fin al Result Performing Organization Address City/[facility]/ZIP Co de Phone Number [facility]
[address] [place] [address], * (ABNORMAL) CBC Auto Differential (08/23/2024 6:54 AM EDT) Only the most recent of3 resultswithin the time period is included. WBC 11.98(H) 3.40 - 10.80 10*3/mm3 08/23/2024 7:12 AM EDT [facility] RBC 3.59(L) 4.14 - 5.80 10*6/mm3 08/23/2024 7:12 AM EDT [facility] Hemoglobin 12.7(L) 13.0 - 17.7 g/dL 08/23/2024 7:12 AM EDT [facility] Hematocrit 37.7 37.5 - 51.0 % 08/23/2024 7:12 AM EDT [facility] MCV 105.0(H) 79.0 - 97.0 fL 08/23/2024 7:12 AM EDT [facility] MCH 35.4(H) 26.6 - 33.0 pg 08/23/2024 7:[facility] MCHC 33.7 31.5 - 35.7 g/dL 08/23/2024 7:12 [facility] RDW 13.1 12.3 - 15.4 % 08/23/2024 7:12 AM EDT [facility] RDW-SD 50.4 37.0 - 54.0 fl 08/23/2024 7:12 AM [facility] MPV 9.9 6.0 - 12.0 fL 08/23/2024 7:12 [facility] Platelets 157 140 - 450 10*3/mm3 08/23/2024 7:12 [facility] Neutrophil % 82.4(H) 42.7 - 76.0 % 08/23/2024 7:12 [facility] Lymphocyte % 7.7(L) 19.6 - 45.3 % 08/23/2024 7:12 [facility] Monocyte % 8.8 5.0 - 12.0 % 08/23/2024 7:12 AM [facility] Eosinophil % 0.2(L) 0.3 - 6.2 % 08/23/2024 7:12 [facility] Basophil % 0.2 0.0 - 1.5 % 08/23/2024 7:12 [facility] Immature Grans % 0.7(H) 0.0 - 0.5 % 08/23/2024 7:12 AM [facility] Neutrophils, Absolute 9.89(H) 1.70 - 7.00 10*3/mm3 08/23/2024 7:12 [facility] Lymphocytes, Absolute 0.92 0.70 - 3.10 10*3/mm3 08/23/2024 7:12 AM EDT [facility] Monocytes, Absolute 1.05(H) 0.10 - 0.90 10*3/mm3 08/23/2024 7:12 AM EDT [facility] Eosinophils, Absolute 0.02 0.00 - 0.40 10*3/mm3 08/23/2024 7:12 AM EDT [facility] Basophils, Absolute 0.02 0.00 - 0.20 10*3/mm3 08/23/2024 7:12 AM EDT [facility] Immature Grans, Absolute 0.08(H) 0.00 - 0.05 10*3/mm3 08/23/2024 7:12 AM EDT [facility] nRBC 0.0 0.0 - 0.2 /100 WBC 08/23/2024 7:12 AM EDT [facility] Blood Venipuncture / Unknown 08/23/2024 6:54 AM EDT 08/23/2024 7:04 AM EDT Armando MARRERO LAB BLOOD ORDERABLES Final Res ult [facility]
[address] [place] [address], [place] [phone] * Magnesium (08/23/2024 6:54 AM EDT) Only the most recent of4 resultswithin the time period is included. Magnesium 2.0 1.6 - 2.4 mg/dL 08/23/2024 7:37 AM EDT [facility] Blood Venipuncture / Unknown 08/23/2024 6:54 AM EDT 08/23/2024 7:04 AM EDT Micky Saxena MD LAB BLOOD ORDERABLES Final Result [facility]
[address] [place] [address], [place] [phone] * (ABNORMAL) Lipid Panel (08/23/2024 6:54 AM EDT) Total Cholesterol 91 0 - 200 mg/dL 08/23/2024 1:01 PM EDT [facility] Triglycerides 55 0 - 150 mg/dL 08/23/2024 1:01 PM EDT [facility] HDL Cholesterol 38(L) 40 - 60 mg/dL 08/23/2024 1:01 PM EDT [facility] LDL Cholesterol 40 0 - 100 mg/dL 08/23/2024 1:01 PM EDT [facility] VLDL Cholesterol 13 5 - 40 mg/dL 08/23/2024 1:01 PM EDT [facility] LDL/HDL Ratio 1.11 08/23/2024 1:01 PM EDT [facility] Blood Venipuncture / Unknown 08/23/2024 6:54 AM EDT 08/23/2024 7:04 AM EDT Narrative [facility] - 08/23/2024 1:01 PM EDT Cholesterol [...] APRN LAB BLOOD ORDERABLES Fin al Result [facility]
[address] [place] [address], * Tissue Pathology Exam (08/22/2024 8:30 AM EDT) Case Report Surgical Pathology Report Case: [id number] Authorizing Provider: Gus Valerio MD Collected: 08/22/2024 08:30 AM Ordering Location: [facility] Received: 08/22/2024 10:35 AM OR Pathologist: Jude Irvin MD Specimen: Lung, L, LEFT BLEBECTOMY FOR PERMANENT 08/23/2024 12:45 PM EDT [facility] Clinical Information Spontaneous tension pneumothorax 08/23/2024 12:45 PM EDT [facility] Final Diagnosis LUNG, LEFT, BLEBECTOMY: Benign mesothelial lined fibrous tissue with reactive mesothelial hyperplasia and mixed inflammation and fibrosis Negative for specific microorganisms Negative for dysplasia or malignancy 08/23/2024 12:45 PM EDT [facility] at 1245 EDT Gross Description 1. Lung, L. Received in, labeled left blebectomy is a 1.8 x 1.2 x 0.4 cm intact, unoriented lung wedge. The staple line is removed and sectioning reveals an airfield, cystlike space. The specimen is submitted entirely in 1A. HDM 08/23/2024 12:45 PM EDT [facility] Microscopic Description The slides are reviewed and demonstrate histopathologic features supporting the above rendered diagnosis. 08/23/2024 12:45 PM EDT [facility] Tissue Left lung structure / Unknown 08/22/2024 8:30 AM EDT 08/22/2024 10:35 AM EDT Gus Valerio MD PATHOLOGY/CYTOLOGY ORDERABLES Final Result [facility]
[address] [place] [address], * BH AN ETT AIRWAY (08/22/2024 7:56 AM EDT) Narrative Yina Rendon CRNA - 08/22/2024 7:56 AM EDT Yina Rendon CRNA 08/22/2024 8:07 AM Airway Reason: elective Date/Time: 08/22/2024 7:34 AM Airway not difficult General Information and Staff Patient location during procedure: OR Anesthesiologist: Chad Tierney MD BUILDING ARCHITECT/CAA: Yina Rendon CRNA Indications and Patient Condition [...] MD ANESTHESIA ORDERABLES Edited Result - Final * ABO RH Specimen Verification (08/22/2024 6:54 AM EDT) ABO Type O 08/22/2024 7:15 AM EDT [facility] RH type Positive 08/22/2024 7:15 AM EDT [facility] Blood Venipuncture / Unknown 08/22/2024 6:54 AM EDT 08/22/2024 6:59 AM EDT us Micky Saxena MD BLOOD BANK TEST ORDERABLES Final Result [facility]
[id number] [place] [address], * ECG 12 Lead Rhythm Change (08/22/2024 5:14 AM EDT) Only the most recent of2 resultswithin the time period is included. QT Interval 362 ms ECG QTC Interval [...] leads QT has shortened Confirmed by ROSALIO IBARRA MD ([id number]) on 08/22/2024 7:25:49 AM Referred By: Confirmed By: ROSALIO IBARRA MD Procedure Note Rosalio Ibarra MD - 08/22/2024 Test Reason : Rhythm [...] leads QT has shortened Confirmed by ROSALIO IBARRA MD ([id number]) on 08/22/2024 7:25:49 AM Referred By: Confirmed By: ROSALIO IBARRA MD us Sammy Otoole MD ECG ORDERABLES Final Result ECG * (ABNORMAL) proBNP (08/22/2024 5:12 AM EDT) proBNP 925.3(H) 0.0 - 900.0 pg/mL 08/22/2024 6:17 AM EDT [facility] Blood Venipuncture / Unknown 08/22/2024 5:12 AM EDT 08/22/2024 5:29 AM EDT [facility] - 08/22/2024 6:17 AM EDT This [...] ORDERABLES Final Res ult Performing Organization Address City/[facility]/ZIP Co de Phone Number [facility]
[address] [place] [address], * (ABNORMAL) Protime-INR (08/22/2024 5:12 AM EDT) Only the most recent of2 resultswithin the time period is included. Protime 15.5(H) 12.2 - 15.3 Seconds 08/22/2024 5:57 AM EDT [facility] INR 1.16(H) 0.89 - 1.12 08/22/2024 5:57 AM EDT [facility] Blood Venipuncture / Unknown 08/22/2024 5:12 AM EDT 08/22/2024 5:30 AM EDT us Aneesh MARRERO LAB BLOOD ORDERABLES Final Resu lt [facility]
[address] [place] [address], * (ABNORMAL) CBC (No Diff) (08/22/2024 5:12 AM EDT) WBC 8.36 3.40 - 10.80 10*3/mm3 08/22/2024 5:50 AM EDT [facility] RBC 3.62(L) 4.14 - 5.80 10*6/mm3 08/22/2024 5:50 AM EDT [facility] Hemoglobin 12.8(L) 13.0 - 17.7 g/dL 08/22/2024 5:50 AM EDT [facility] Hematocrit 37.8 37.5 - 51.0 % 08/22/2024 5:50 AM EDT [facility] MCV 104.4(H) 79.0 - 97.0 fL 08/22/2024 5:50 AM EDT [facility] MCH 35.4(H) 26.6 - 33.0 pg 08/22/2024 5:50 AM EDT [facility] MCHC 33.9 31.5 - 35.7 g/dL 08/22/2024 5:50 AM EDT [facility] RDW 13.2 12.3 - 15.4 % 08/22/2024 5:50 AM EDT [facility] RDW-SD 51.3 37.0 - 54.0 fl 08/22/2024 5:50 AM EDT [facility] MPV 9.9 6.0 - 12.0 fL 08/22/2024 5:50 AM EDT [facility] Platelets 147 140 - 450 10*3/mm3 08/22/2024 5:50 AM EDT [facility] Blood Venipuncture / Unknown 08/22/2024 5:12 AM EDT 08/22/2024 5:30 AM EDT Micky Saxena MD LAB BLOOD ORDERABLES Final Result Performing Organization Address [facility] de Phone Number [facility]
[address] [place] [address], * Type & Screen (08/22/2024 5:12 AM EDT) ABO Type O 08/22/2024 6:55 AM EDT [facility] RH type Positive 08/22/2024 6:55 AM EDT [facility] Antibody Screen Negative 08/22/2024 6:55 AM EDT [facility] T&S Expiration Date 08/25/2024 11:59:59 PM 08/22/2024 6:55 AM EDT [facility] Blood Venipuncture / Unknown 08/22/2024 5:12 AM EDT 08/22/2024 5:42 AM EDT Aneesh MARRERO BLOOD BANK TEST ORDERABLES Edit ed Result - Final Performing Organization Address City/[facility] de Phone Number [facility]
[address] [place] [address], * (ABNORMAL) High Sensitivity Troponin T (08/21/2024 8:15 AM EDT) Only the most recent of2 resultswithin the time period is included. HS Troponin T 139(HH) <22 ng/L 08/21/2024 8:54 AM EDT [facility] Blood Venipuncture / Unknown 08/21/2024 8:15 AM EDT 08/21/2024 8:22 AM EDT Narrative [facility] - 08/21/2024 8:54 AM EDT High [...] Saxena MD LAB BLOOD ORDERABLES Final Result [facility]
[address] [place] [address], * (ABNORMAL) Comprehensive Metabolic Panel (08/21/2024 8:15 AM EDT) Only the most recent of2 resultswithin the time period is included. Glucose 108(H) 65 - 99 mg/dL 08/21/2024 8:51 AM EDT [facility] BUN 13.0 8.0 - 23.0 mg/dL 08/21/2024 8:51 AM EDT [facility] Creatinine 0.71(L) 0.76 - 1.27 mg/dL 08/21/2024 8:51 AM EDT [facility] Sodium 133(L) 136 - 145 mmol/L 08/21/2024 8:51 AM EDT [facility] Potassium 4.6 3.5 - 5.2 mmol/L 08/21/2024 8:51 AM EDT [facility] Chloride 98 98 - 107 mmol/L 08/21/2024 8:51 AM EDT [facility] CO2 28.0 22.0 - 29.0 mmol/L 08/21/2024 8:51 AM EDT [facility] Calcium 9.1 8.6 - 10.5 mg/dL 08/21/2024 8:51 AM EDT [facility] Total Protein 6.5 6.0 - 8.5 g/dL 08/21/2024 8:51 AM [facility] Albumin 3.7 3.5 - 5.2 g/dL 08/21/2024 8:51 AM [facility] ALT (SGPT) 21 1 - 41 U/L 08/21/2024 8:51 AM [facility] AST (SGOT) 26 1 - 40 U/L 08/21/2024 8:51 AM [facility] Alkaline Phosphatase 73 39 - 117 U/L 08/21/2024 8:51 AM [facility] Total Bilirubin 0.9 0.0 - 1.2 mg/dL 08/21/2024 8:51 AM [facility] Globulin 2.8 gm/dL 08/21/2024 8:51 AM [facility] Comment:Calculated Result A/G Ratio 1.3 g/dL 08/21/2024 8:51 AM [facility] BUN/Creatinine Ratio 18.3 7.0 - 25.0 08/21/2024 8:51 AM [facility] Anion Gap 7.0 5.0 - 15.0 mmol/L 08/21/2024 8:51 AM [facility] eGFR 102.5 >60.0 mL/min/1.7 3 08/21/2024 8:51 AM [facility] Blood Venipuncture / Unknown 08/21/2024 8:15 AM EDT 08/21/2024 8:22 AM [facility] - 08/21/2024 8:51 AM [...] BLOOD ORDERABLES Final Result Performing Organization Address [facility] Co de Phone Number [facility]
[address] [place] [address], * (ABNORMAL) High Sensitivity Troponin T 1Hr (08/21/2024 12:08 AM EDT) HS Troponin T 134(HH) <22 ng/L 08/21/2024 1:29 AM EDT [facility] Troponin T Numeric Delta -21 ng/L 08/21/2024 1:29 AM EDT [facility] Troponin T % Delta -14 Abnormal if >/= 20% 08/21/2024 1:29 AM EDT [facility] Blood Venipuncture / Unknown 08/21/2024 12:08 AM EDT 08/21/2024 12:49 AM EDT Narrative [facility] - 08/21/2024 1:29 AM EDT High [...] ORDERABLES Dee l Result Performing Organization Address City/[facility]/ZIP Co de Phone Number [facility]
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[employer] [facility] Implantable Pulse Generator Type ICD [facility] Implantable Pulse Generator Model [id number] [facility] Implantable Pulse Generator Serial Number [id number] [facility] Implantable Pulse Generator Implant Date [id number] [facility] Battery Remaining Percentage 88.00 % [facility] Battery Remaining Longevity 96.0 mo [facility] Battery Status Beginning of Service [facility] Capacitor Charge Time 9.800 [facility] Ilia Statistic RA Percent Paced 1.00 [facility] Ilia Statistic RV Percent Paced 0.00 [facility] Atrial Tachy Statistic AT/AF [place] Percent 1.00 [facility] Lead Channel RA Sensing Intrinsic Amplitude 5.200 [facility] Lead Channel Setting RA Sensing Sensitivity 0.25 [facility] Lead Channel RA Impedance Value 708 [facility] Lead Channel RA Measurements Date and Time [id number] [facility] Lead Channel Setting RA Pacing Amplitude 2.000 [facility] Lead Channel Setting RA Pacing Pulse Width 0.5 [facility] Lead Channel RV Sensing Intrinsic Amplitude 13.000 [facility] [employer] [facility] Lead Channel Setting RV Sensing Sensitivity 0.60 [facility] [employer] [facility] Lead Channel RV Impedance Value 483 [facility] [employer] [facility] Lead Channel RV Measurements Date and Time [id number] [facility] Lead Channel Setting RV Pacing Amplitude 2.000 [facility] [employer] [facility] Lead Channel Setting RV Pacing Pulse Width 0.5 [facility] Ilia Setting Mode (NBG Code) DDDR [facility] Ilia Setting Lower Rate Limit 60 [facility] Ilia Setting AT Mode Switch Rate 170 [facility] Ilia Setting Maximum Tracking Rate 130 [facility] Ilia Setting Maximum Sensor Rate 130 [facility] Ilia Setting PAV Delay 220 [facility] Ilia Setting EUGENIE Delay 195 [facility] Therapy Statistic Recent Shocks Delivered 1 [facility] [employer] [facility] Therapy Statistic Recent Shocks Aborted 0 [facility] Therapy Statistic Recent ATP Delivered 1 [facility] SHOCK MEASURED IMPEDANCE 60 [facility] Lead Channel Setting RA Sensing Polarity Bipolar [facility] [employer] [facility] Lead Channel Setting RV Sensing Polarity Bipolar [facility] [employer] [facility] Lead Channel Setting RA Pacing Polarity Bipolar [facility] Lead Channel Setting RV Pacing Polarity Bipolar [facility] [employer] [facility] Lead Channel RA Pacing Threshold Polarity Bipolar [facility] [employer] [facility] Lead Channel RV Pacing Threshold Polarity Bipolar [facility] Zone Setting Type Category VF [facility] IDC RATE 1 220 [facility] THERAPIES Burst,41J,41J,41J x 6 [facility] Zone Setting Status On [facility] Zone ID 1 [facility] Zone Setting Type Category VT [facility] IDC RATE 1 180 [facility] THERAPIES 3 x Burst,Ramp,41J,41J ,41J x 4 [facility] Zone Setting Status On [facility] Zone ID 2 [facility] 08/15/2024 3:21 PM EDT us Jose Luis Brown MD CV IMPLANTABLE CARDIAC DEVICE Final Result [facility] from Last 3 Months Insurance [employer] PPO Advance Directives Documents on File Type Date Recorded 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 LIVING WILL - SCAN 09/03/2024 5:50 AM ALEJANDRO SALVADOR WILL DIRECTIVE, [facility], 06/28/2024 * CPR (Attempt to Resuscitate) (Latest Code Status on File) Date Activated Date Inactivated Comments 08/22/2024 11:13 AM 08/26/2024 1:35 PM Question Answer Comments Code Status (Patient has no pulse and is not breathing): CPR (Attempt to Resuscitate) Medical Interventions (Patie nt has pulse or is breathing): Full Support * CPR (Attempt to Resuscitate) Date Activated Date Inactivated Comments 08/20/2024 8:50 PM 08/22/2024 11:13 AM Question Answer Comments Code Status (Patient has no pulse and is not breathing): CPR (Attempt to Resuscitate) Medical Interventions (Patie nt has pulse or is breathing): Full Support * CPR (Attempt to Resuscitate) Date Activated Date Inactivated Comments 03/15/2020 2:18 PM 03/16/2020 2:26 PM Question Answer Comments Code Status (Patient has no pulse and is not breathing): CPR (Attempt to Resuscitate) Medical Interventions (Patie nt has pulse or is breathing): Full Level Of Support Discussed With: Patient Care Teams Dramatic Critic Relationship Specialty Start Date End Date Carey García APRN PCP - General Internal Medicine 10/28/22
== END 2024-09-13 23:59 | disposition home or self-care (01) ==
LOC: RAD 10:09
PROVIDERS: PCP Nurse Practitioner Family; Visit Provider Nurse Practitioner Family
DX: J93.9 Pneumothorax, unspecified (principal); R91.8 Other nonspecific abnormal finding of lung field; J44.9 Chronic obstructive pulmonary disease, unspecified; Z95.0 Presence of cardiac pacemaker
CPT/HCPCS: 71046